=== PATIENT | female | born 1985 | race Caucasian/White ===

== ENCOUNTER 2018-05-24 05:37 | Emergency (ER) | payer OTHER, SELFPAY ==
[2018-05-24 05:37] VITALS: BP 155/103; PULSE 83; RESP 16; TEMP 36.4; O2SAT 98; BMI 41.8
[2018-05-24] MEDS: Ondansetron 4 MG/2 ML Vial IV (06:06)
[2018-05-24 06:12] LABS: Absolute Lymphocyte Count 4.92 X10^3/ul (0.83-4.51); Absolute Neutrophil Count 6.2 X10^3/uL (2.0-7.7); Basophil# 0.04 X10^3/uL; Basophil% 0.3 % (0-1); Eosinophils% 1.6 % (0-5); Hematocrit 39.7 % (37-47); Hemoglobin 12.9 g/dl (12.0-15.0); Lymphocyte # 4.92 X10^3/ul (4.0); Mean Corp Hgb Conc 32.5 g/gl (32-36); Mean Corpuscular Hgb 28.7 pg (27.0-32.0); Mean Corpuscular Volume 88.2 fL (81-99); Mean Platelet Vol. 10.2 fl (6.2-12.0); Monocyte# 0.87 X10^3/uL; Monocyte% 7.1 % (0-10); Neutrophil # 6.23 X10^3/uL (2.7-7.7); Neutrophil % 50.8 % (47-70); Platelet Count 329 K/mm3 (150-450); RBC Distribution Width CV 12.8 % (11.6-14.6); RBC Distribution Width SD 41.1 fl (35.1-43.9); White Blood Count 12.3 K/mm3 (4.4-11.0)
[2018-05-24 06:20] LABS: POSITIVE COUNT NO; POSITIVE DIFFERENTIAL NO; POSITIVE MORPHOLOGY NO
--- NOTE | 2018-05-24 06:32 | ED.DCSUM_ITS ---
- ER Visit Summary Date of Service: 05/24/18 Chief Complaint: Epigastric abdominal pain History of Present Illness: The patient is a 32 F past medical history of depression and gallstones. No prior abdominal surgeries. Has had prior upper and lower endoscopy. Patient states that since for the last 3-4 days she has had some epigastric abdominal pain. Associated with nausea and diarrhea. No vomiting. No fever. No abdominal trauma. No melena. Not specifically related any types of food. Nothing specifically makes it feel better or worse. Physical Examination: Young female no acute distress. Vital signs are stable and afebrile. H EENT exam is unremarkable. Neck nontender no lymphadenopathy. Lungs clear to auscultation bilaterally. Heart regular rhythm no murmur. Abdomen is soft. Nondistended. Normal bowel sounds. No signs of obstruction. Mildly tender in epigastric and right upper quadrant. No Bland sign. Right lower quadrants unremarkable. No hernias or masses. Moving all 4 extremities. Neurovascular intact. Back nontender. Neurologically awake alert without focal motor deficits. Test Results: White count elevated at 12.3. Normal H&H no bands. BMP normal. Liver enzymes normal. Lipase normal at 145. Emergency Department Course and Treatment: Patient with epigastric and right upper quadrant abdominal pain with a history of gallstones. This could be biliary colic. She will be treated with IV Zofran. Treatment Plan: Repeat exam at 06:36 abdomen is benign. Minimal tenderness. No peritoneal signs. No Bland sign. Patient is comfortable being discharged home to follow-up with Dr. Amador Zheng. Patient will be discharged to home with a prescription for Zofran for nausea as needed. Disposition: dc Impression: Acute abdominal pain of uncertain etiology History of gallstones This note was generated with [employer] dictation software. It may contain incorrect words, spelling, and punctuation that were not noted in review of the chart prior to signing ED Disposition - Plan for ED Patient: Chief Complaint: Abd Pain Referrals: Jackelyn Coffman MD [Primary Care Provider] -
[2018-05-24 06:33] LABS: AST(SGOT) 20 U/L (15-37); Alanine Aminotransfer ALT/SGPT 27 U/L (13-56); Albumin, Serum 3.2 g/dL (3.2-5.0); Alkaline Phosphatase 67 U/L (45-117); Anion Gap 9 (5-15); BUN 8 mg/dL (7-18); BUN/Creat Ratio 9.9 RATIO (10-20); Bilirubin, Direct 0.08 mg/dL (0.00-0.30); Calcium,Total 8.4 mg/dL (8.5-10.1); Chloride 107 mmol/L (98-107); Creatinine, Serum 0.81 mg/dL (0.55-1.02); EST Glomerular Filtration Rate 87 mL/min (>60); Est Glom Filt Rate - Afr Amer 106 mL/min (>60); Estimated Creatinine Clearance 101.51 ml/min; Globulin 4.4 g/dL (2.2-4.2); Glucose 97 mg/dL (74-106); Lipase 145 U/L (73-393); Protein, Total 7.6 g/dL (6.4-8.2); Sodium Level 142 mmol/L (136-145)
--- NOTE | 2018-05-24 06:40 | ED.DEP ---
ED Disposition - Plan for ED Patient: Disposition: Home or Assisted Living Chief Complaint: Abd Pain Instructions: ED Abdominal Pain Unkn Cause Prescriptions: Ondansetron [Zofran Odt] 8 mg PO Q8H PRN PRN #10 PRN Reason: Nausea Referrals: Heladio Zheng MD [STAFF PHYSICIAN] - As soon as possible Additional Instructions: Plenty fluids and rest. Zofran as needed for nausea. Call and follow-up with Dr. Amador Zheng for further evaluation and discussion to determine if you need your gallbladder taken out. Your gallbladder may or may not be the cause your symptoms.
[2018-05-24 06:49] VITALS: BP 145/86; PULSE 63; RESP 16; O2SAT 98
== END 2018-05-24 06:50 | disposition home or self-care (01) ==
PROVIDERS: Emergency Provider Emergency Medicine; Family Provider Internal Medicine; PCP Internal Medicine
DX: R10.13 Epigastric pain (principal); Z87.19 Personal history of other diseases of the digestive system; F32.9 Major depressive disorder, single episode, unspecified; Z79.899 Other long term (current) drug therapy; Z72.0 Tobacco use
CPT/HCPCS: 80048; 80076; 83690; 85025; 96374; 99283; A4216; J2405

== ENCOUNTER 2018-06-30 14:17 | Emergency (ER) | payer OTHER, SELFPAY ==
[2018-06-30 14:19] VITALS: BP 127/84; PULSE 98; RESP 18; TEMP 37; O2SAT 97; BMI 39.8
[2018-06-30] MEDS: Ketorolac 30 MG/ML Syringe IV (15:12)
[2018-06-30] MEDS: DiphenhydrAMINE 50 MG/ML Syringe IV (15:12)
--- NOTE | 2018-06-30 15:51 | ED.DCSUM_ITS ---
- ER Visit Summary Date of Service: 06/30/18 Chief Complaint: Headache History of Present Illness: The patient is a 32 F with frontal and occipital headache. This came on gradually over the past 4 days. Associated with nausea and vomiting. Worse with light. Tried ibuprofen and ice packs with minimal relief. No fevers. No neck pain. No weakness or numbness. No vision changes. No facial droop. No vertigo or unsteadiness. Physical Examination: Afebrile and vital signs unremarkable. Head and neck atraumatic. HEENT exam unremarkable. Neck nontender with good range of motion. No meningeal findings. Heart regular. Lungs clear. Abdomen soft. Renal nerves grossly intact. No focal lateralizing neurologic abnormalities. GCS 15. NIH 0. Test Results: None indicated Emergency Department Course and Treatment: Patient has no red flag symptoms. No indication for imaging. Risks of imaging were discussed, and the patient was in agreement with the plan. She was treated with fluids, Toradol, and Benadryl. She has an allergy to Phenergan and did not receive Compazine. On reevaluation, her pain is 4 out of 10. She would like to go home. Patient was advised to return for new or worsening symptoms or worsening pain. Otherwise, follow-up with primary care. Treatment Plan: Discharged and outpatient follow-up Disposition: Discharged Impression: 1. Acute cephalgia This note was generated with [employer] dictation software. It may contain incorrect words, spelling, and punctuation that were not noted in review of the chart prior to signing ED Disposition - Plan for ED Patient: Chief Complaint: Headache Referrals: Jackelyn Coffman MD [Primary Care Provider] -
--- NOTE | 2018-06-30 15:51 | ED.DEP ---
ED Disposition - Plan for ED Patient: Chief Complaint: Headache Instructions: ED Cephalgia Unspecified Referrals: Jackelyn Coffman MD [Primary Care Provider] -
[2018-06-30 15:56] VITALS: BP 110/64; PULSE 59; RESP 12; O2SAT 98
== END 2018-06-30 16:16 | disposition home or self-care (01) ==
PROVIDERS: Emergency Provider Emergency Medicine; Family Provider Internal Medicine; PCP Internal Medicine
DX: R51 Headache (principal); Z72.0 Tobacco use
CPT/HCPCS: 96374; 96375; 99283; J7050

== ENCOUNTER → 2018-07-02 09:04 | Outpatient (CLI) | payer OTHER, SELFPAY ==
[2018-07-02 09:19] LABS: Absolute Lymphocyte Count 4.73 X10^3/ul (0.83-4.51); Absolute Neutrophil Count 5.1 X10^3/uL (2.0-7.7); Basophil# 0.05 X10^3/uL; Basophil% 0.5 % (0-1); Eosinophil# 0.27 X10^3/uL; Eosinophils% 2.5 % (0-5); Hematocrit 40.8 % (37-47); Lymphocyte # 4.73 X10^3/ul (4.0); Lymphocyte % 43.5 % (19-41); Mean Corp Hgb Conc 31.9 g/gl (32-36); Mean Corpuscular Hgb 27.5 pg (27.0-32.0); Mean Corpuscular Volume 86.4 fL (81-99); Mean Platelet Vol. 10.4 fl (6.2-12.0); Monocyte# 0.75 X10^3/uL; Monocyte% 6.9 % (0-10); Neutrophil # 5.05 X10^3/uL (2.7-7.7); Neutrophil % 46.4 % (47-70); Platelet Count 330 K/mm3 (150-450); RBC Distribution Width CV 12.9 % (11.6-14.6); RBC Distribution Width SD 40.1 fl (35.1-43.9); Red Blood Count 4.72 M/mm3 (4.2-5.4); White Blood Count 10.9 K/mm3 (4.4-11.0)
[2018-07-02 09:20] LABS: POSITIVE COUNT NO; POSITIVE DIFFERENTIAL NO; POSITIVE MORPHOLOGY NO
[2018-07-02 09:29] LABS: ALB/GLOB Ratio 0.8 RATIO (0.9-2.4); AST(SGOT) 18 U/L (15-37); Alanine Aminotransfer ALT/SGPT 24 U/L (13-56); Albumin, Serum 3.3 g/dL (3.2-5.0); Alkaline Phosphatase 82 U/L (45-117); Anion Gap 7 (5-15); BUN 8 mg/dL (7-18); BUN/Creat Ratio 9.2 RATIO (10-20); Calcium,Total 8.6 mg/dL (8.5-10.1); Chloride 111 mmol/L (98-107); Creatinine, Serum 0.87 mg/dL (0.55-1.02); EST Glomerular Filtration Rate 81 mL/min (>60); Est Glom Filt Rate - Afr Amer 98 mL/min (>60); Globulin 4.1 g/dL (2.2-4.2); Glucose 94 mg/dL (74-106); Potassium 3.8 mmol/L (3.5-5.1); Protein, Total 7.4 g/dL (6.4-8.2); Sodium Level 142 mmol/L (136-145)
== END ==
PROVIDERS: Family Provider Internal Medicine; PCP Internal Medicine; Visit Provider Nurse Practitioner
DX: R10.9 Unspecified abdominal pain (principal); R11.0 Nausea; R19.7 Diarrhea, unspecified
CPT/HCPCS: 80053; 85025

== ENCOUNTER 2018-07-10 15:11 | Emergency (ER) | payer OTHER, SELFPAY ==
[2018-07-10 15:13] VITALS: BP 88/67; PULSE 112; RESP 20; TEMP 36.7; O2SAT 94; BMI 39.5
[2018-07-10 15:40] VITALS: BP 92/77
--- NOTE | 2018-07-10 15:44 | ED.VISSUMM ---
- ER Visit Summary Date of Service: 07/10/18 Chief Complaint: Twitching of her head and upper extremity 1-1/2 hours prior to presentation History of Present Illness: The patient is a 32 F who reports abdominal pain and aching all over and bifrontal and occipital headaches since cholecystectomy performed by Dr. Bueno. She was seen on June 30, [address] Wheat. She stated at that time the headache started 4 days prior to presentation. She states the headache is bilateral. It has burning discomfort. Headache is not positional. She denies rhinorrhea, congestion or postnasal drainage. She denies double vision, blurred vision or loss of vision. She denies decreased hearing, ringing in her ears or ear pain. She denies any trouble with speech or swallowing. She denies neck pain or neck stiffness. She denies any paresthesia, anesthesia or motor weakness. She does complain of abdominal pain since surgery as well as chest pain. Apparently nothing alleviates, exacerbates her precipitate her chest, abdominal pain or nausea. She denies any urologic symptoms. Patient reports onset of head twitching and upper extremity twitching during baby shower. She has had no prior history of any twitching. There is no history of seizures. Old records were reviewed. Physical Examination: Vital signs remarkable blood pressure 80/61 heart rate 112. On my exam she has a strong palpable PT and DP pulse. Patient had twitching and upper extremity twitching stops when she either uses that extremity or when she had to perform task i.e. looking up information on her smart phone. Her sister's boyfriend noted the absence of any movement when she is doing something. Head is atraumatic normocephalic. Pupils are equal round reactive. Extraocular muscles are intact. TMs are pearly white with landmarks noted. Nares patent with no drainage. Posterior pharynx without erythema or exudate. Uvula is midline. There is no dysphonia or dysphasia. Trachea is midline. There is no stridor with auscultation of the neck. Heart is regular without murmur, gallop or rub. S1 and S2 are normal. Lungs are clear to auscultation with good movement of air bilaterally. Abdomen is soft and nontender. There is no guarding or peritoneal findings. There is no palpable pulsatile mass. There is no abdominal bruit. Bland sign is negative. Negative Rovsing sign. There is no evidence of inguinal or umbilical hernia. Patient is alert and oriented ?3. Motor is 5 over 5. Sensory is intact. DTRs are symmetric with no clonus or Babinski sign. Cranial 2 through 12 are intact. Cerebellar testing is normal. Test Results: CT of the head reviewed by me interpreted radiologist as normal. White count slightly up at 11.8 with no shift. This is insignificant. Chloride is slightly elevated on BM pain and is insignificant. Emergency Department Course and Treatment: To evaluate patient's headache CT of the head was obtained looking for any evidence of intracranial bleed, mass-effect, edema etc. Electronic panel was obtained as well. Suspect functional cause of twitching. Treatment Plan: Patient and father were informed of results. They were informed in my professional medical opinion she has a conversion reaction. Father informed me that daughter was/her sister was diagnosed with same past December of this year. Disposition: Patient was discharged to home with father with instructions to contact counseling center for appointment Impression: Conversion reaction This note was generated with [employer] dictation software. It may contain incorrect words, spelling, and punctuation that were not noted in review of the chart prior to signing ED Disposition - Plan for ED Patient: Disposition: Home or Assisted Living Chief Complaint: General Illness Instructions: ED Conversion Disdr Conversion Reac Referrals: Jackelyn Coffman MD [Primary Care Provider] - Counseling,Center [GROUP OF PHYSICIANS] - 3-5 Days
[2018-07-10 16:14] LABS: Absolute Lymphocyte Count 2.94 X10^3/ul (0.83-4.51); Basophil# 0.03 X10^3/uL; Basophil% 0.3 % (0-1); Eosinophil# 0.14 X10^3/uL; Eosinophils% 1.2 % (0-5); Hematocrit 40.6 % (37-47); Hemoglobin 13.2 g/dl (12.0-15.0); Lymphocyte # 2.94 X10^3/ul (4.0); Lymphocyte % 24.8 % (19-41); Mean Corp Hgb Conc 32.5 g/gl (32-36); Mean Corpuscular Hgb 27.8 pg (27.0-32.0); Mean Corpuscular Volume 85.5 fL (81-99); Mean Platelet Vol. 10.2 fl (6.2-12.0); Monocyte# 0.73 X10^3/uL; Monocyte% 6.2 % (0-10); Neutrophil # 7.96 X10^3/uL (2.7-7.7); Neutrophil % 67.2 % (47-70); Platelet Count 284 K/mm3 (150-450); RBC Distribution Width CV 13.1 % (11.6-14.6); RBC Distribution Width SD 40.3 fl (35.1-43.9); Red Blood Count 4.75 M/mm3 (4.2-5.4); White Blood Count 11.8 K/mm3 (4.4-11.0)
[2018-07-10 16:15] LABS: POSITIVE COUNT NO; POSITIVE DIFFERENTIAL NO; POSITIVE MORPHOLOGY NO
[2018-07-10 16:20] LABS: Anion Gap 7 (5-15); BUN 9 mg/dL (7-18); BUN/Creat Ratio 9.6 RATIO (10-20); Calcium,Total 8.6 mg/dL (8.5-10.1); Chloride 108 mmol/L (98-107); Creatinine, Serum 0.93 mg/dL (0.55-1.02); EST Glomerular Filtration Rate 74 mL/min (>60); Est Glom Filt Rate - Afr Amer 90 mL/min (>60); Estimated Creatinine Clearance 88.42 ml/min; Glucose 93 mg/dL (74-106); Potassium 4.1 mmol/L (3.5-5.1); Sodium Level 140 mmol/L (136-145)
== END 2018-07-10 17:20 | disposition home or self-care (01) ==
PROVIDERS: Emergency Provider Emergency Medicine; Family Provider Internal Medicine; PCP Internal Medicine
DX: F44.9 Dissociative and conversion disorder, unspecified (principal); F32.9 Major depressive disorder, single episode, unspecified; E66.9 Obesity, unspecified; Z68.39 Body mass index [BMI] 39.0-39.9, adult
CPT/HCPCS: 70450; 80048; 85025; 99283; A4216

== ENCOUNTER → 2018-10-06 12:49 | Outpatient (CLI) | payer OTHER, SELFPAY ==
[2018-10-06 12:29] VITALS: BMI 42.3
--- NOTE | 2018-10-06 12:53 | RAD_ITS ---
STUDY: X-RAY - LEFT HAND REASON FOR EXAM: Female, 33 years old. Pain following a fall. TECHNIQUE: 3 view(s) of the hand. COMPARISON: None. FINDINGS: Nondisplaced transverse fracture of the distal radial metaphysis with overlying soft tissue swelling. Normal radiocarpal articulation. Normal distal radioulnar joint. Normal visualized carpal bones. Normal carpal articulations Normal carpometacarpal articulation of the thumb. Normal second through fifth carpometacarpal joints. Normal metacarpi. Normal metacarpophalangeal joint of the thumb. Normal interphalangeal joint of the thumb. Normal proximal and distal phalanges of the thumb. Normal metacarpophalangeal joints of the second through fifth fingers. Normal proximal and distal interphalangeal joints of the second through fifth fingers. Normal phalanges of the second through fifth fingers. Soft tissue swelling. RAD/Hand Min 3 Views IMPRESSION: Nondisplaced transverse fracture of the distal radial metaphysis with overlying soft tissue swelling. Electronically Signed: Rogerio Babb MD at 13:19 EST Tel [phone], Service support ,
--- NOTE | 2018-10-06 12:53 | RAD_ITS ---
STUDY: X-RAY - LEFT WRIST REASON FOR EXAM: Female, 33 years old. Pain following a fall. TECHNIQUE: 3 view(s) of the wrist were obtained. COMPARISON: None. FINDINGS: There is a nondisplaced transverse fracture of the distal radial metaphysis. Normal radiocarpal articulation. Normal distal radioulnar articulation. Normal carpal bones. Normal carpal articulations. Normal carpometacarpal articulation of the thumb. Normal second through fifth carpometacarpal articulations. Normal visualized metacarpal bones. Soft tissue swelling. RAD/Wrist min 3 Views IMPRESSION: Nondisplaced transverse fracture of the distal radial metaphysis with overlying soft tissue swelling. Electronically Signed: Rogeroi Babb MD at 13:18 EST Tel [phone], Service support ,
--- NOTE | 2018-10-06 12:53 | RAD_ITS ---
STUDY: X-RAY - LEFT ELBOW REASON FOR EXAM: Female, 33 years old. Pain following a fall. TECHNIQUE: 2 view(s) of the elbow. COMPARISON: None. FINDINGS: Normal visualized humerus, radius and ulna. Normal radiocapitellar and ulnotrochlear articulations. The soft tissue structures are unremarkable. RAD/Elbow 2 Views IMPRESSION: Normal x-ray examination of the elbow. Electronically Signed: Rogerio Babb MD at 13:20 EST Tel [phone], Service support ,
== END ==
PROVIDERS: Family Provider Internal Medicine; PCP Internal Medicine; Referring Provider Physician Assistant; Visit Provider Physician Assistant
DX: S52.592A Other fractures of lower end of left radius, initial encounter for closed fracture (principal); W19.XXXA Unspecified fall, initial encounter; M79.642 Pain in left hand; M25.522 Pain in left elbow
CPT/HCPCS: 73070; 73110; 73130

== ENCOUNTER → 2018-10-19 14:59 | Outpatient (CLI) | payer OTHER, SELFPAY ==
[2018-10-19 14:47] VITALS: BMI 41.8
--- NOTE | 2018-10-19 15:01 | RAD_ITS ---
STUDY: X-RAY - LEFT WRIST REASON FOR EXAM: Female, 33 years old. Fracture TECHNIQUE: 3 view(s) of the wrist were obtained. COMPARISON: October 06, 2018 FINDINGS: There is a nondisplaced transverse fracture of the distal radial metaphysis that is slightly less apparent than the prior examination. Normal visualized distal ulna. Normal radiocarpal articulation. Normal distal radioulnar articulation. Normal carpal bones. Normal carpal articulations. Normal carpometacarpal articulation of the thumb. Normal second through fifth carpometacarpal articulations. Normal visualized metacarpal bones. The soft tissue structures are unremarkable. RAD/Wrist min 3 Views IMPRESSION: Healing distal radial fracture. Electronically Signed: Morena Guo MD at 17:03 EST Tel , Service support ,
--- OUTSIDE RECORDS SUMMARY | 2018-12-15 07:11 | XMS RPT_ITS ---
:1985 Author Organization OHIP Support Name Relationship Address Phone GOLDIE MUSA Unavailable [address] + [place] [address] LENCHO, MEREDATH Unavailable [address] + [place] [address] METME Unavailable [address] + [place] [address] LENCHO, LES Unavailable [address] + [place] [address] LENCHO, MEREDATH Unavailable [address] + [place] [address] METME Unavailable [address] + [place] [address] LENCHO, LES Unavailable [address] + [place] [address] LENCHO, MEREDATH Unavailable [address] + [place] [address] METME Unavailable [address] + [place] [address] LENCHO, LES Unavailable [address] + [place] [address] LENCHO, MEREDATH Unavailable [address] + [place] [address] METME Unavailable [address] + [place] [address] LENCHO, LES Unavailable [address] + [place] [address] LENCHO, MEREDATH Unavailable [address] + [place] [address] METME Unavailable [address] + [place] [address] LENCHO, LES Unavailable [address] + [place] [address] LENCHO, MEREDATH Unavailable [address] + [place] [address] METME Unavailable [address] + [place] [address] LENCHO, LES Unavailable [address] + [place] [address] LENCHO, MEREDATH Unavailable [address] + [place] [address] METME Unavailable [address] + [place] [address] LENCHO, LES Unavailable [address] + [place] [address] LENCHO, MEREDATH Unavailable [address] + [place] [address] METME Unavailable [address] + [place] [address] LENCHO, LES Unavailable [address] + [place] [address] LENCHO, MEREDATH Unavailable [address] + [place] [address] METME Unavailable [address] + [place] [address] LENCHO, LES Unavailable [address] + [place] [address] LENCHO, MEREDATH Unavailable [address] + [place] [address] METME Unavailable [address] + [place] [address] LENCHO, LES Unavailable [address] + [place] [address] LENCHO, MEREDATH Unavailable [address] + [place] [address] METME Unavailable [address] + [place] [address] LENCHO, LES Unavailable [address] + [place] [address] LENCHO, MEREDATH Unavailable [address] + [place] [address] METME Unavailable [address] + [place] [address] Care Team Providers Name Role Phone SOLANGE BUENO Attending Unavailable BUENO, SOLANGE ACUÑA Attending Unavailable TALAMPAS, ARASELI D Referring Unavailable BUENO, SOLANGE ARIANNE Attending Unavailable TALAMPAS, ARASELI D Referring Unavailable OLDER, HAILEY (CORPORATE WELLNESS COORDINATOR) Attending Unavailable OLDER, HAILEY (CORPORATE WELLNESS COORDINATOR) Referring Unavailable OLDER, HAILEY (CORPORATE WELLNESS COORDINATOR) Attending Unavailable OLDER, HAILEY (CORPORATE WELLNESS COORDINATOR) Referring Unavailable OLDER, HAILEY (CORPORATE WELLNESS COORDINATOR) Referring Unavailable OLDER, HAILEY (CORPORATE WELLNESS COORDINATOR) Referring Unavailable BUENO, SOLANGE ORTIZE Attending Unavailable TALAMPAS, ARASELI D Referring Unavailable BUENO, SOLANGERamon ORTIZE Referring Unavailable BUENO, SOLANGE ACUÑA Referring Unavailable BUENO, SOLANGE ACUÑA Attending Unavailable BUENO, SOLANGE ORTIZE Referring Unavailable OLDER, HAILEY (CORPORATE WELLNESS COORDINATOR) Attending Unavailable OLDER, HAILEY (CORPORATE WELLNESS COORDINATOR) Attending Unavailable EUSEBIA, SIENA (PT) Attending Unavailable OLDER, HAILEY (CORPORATE WELLNESS COORDINATOR) Referring Unavailable EUSEBIA, SIENA (PT) Attending Unavailable OLDER, HAILEY (CORPORATE WELLNESS COORDINATOR) Referring Unavailable OLDER, HAILEY (CORPORATE WELLNESS COORDINATOR) Attending Unavailable TALAMPAS, ARASELI D Referring Unavailable HYLTON, AMY (CORPORATE WELLNESS COORDINATOR) Attending Unavailable OLDER, HAILEY (CORPORATE WELLNESS COORDINATOR) Attending Unavailable Tony Collins Attending Unavailable Wayt, Tony Referring Unavailable Talampas, Araseli Primary Care Unavailable WaytTony Attending Unavailable Talampas, Araseli Referring Unavailable Talampas, Araseli Primary Care Unavailable Dvaid Henry Attending Unavailable Talampas, Araseli Primary Care Unavailable Older, Hailey CORPORATE WELLNESS COORDINATOR Referring Unavailable Older, Hailey CORPORATE WELLNESS COORDINATOR Attending Unavailable Talampas, Araseli Primary Care Unavailable Zac Wheat Attending Unavailable Talampas, Araseli Primary Care Unavailable Celestino Berrios Attending Unavailable Maude Morrison Attending Unavailable Lurdes Elkins NP-C Referring Unavailable José Miguel Adhikari Attending Unavailable EdlesJosé Miguel Referring Unavailable Talampas, Araseli Primary Care Unavailable José Miguel Adhikari Attending Unavailable Talampas, Araseli Referring Unavailable WylesJosé Miguel Attending Unavailable Talampas, Araseli Referring Unavailable Wayt Tony Attending Unavailable Wayt, Tony Referring Unavailable Talampas, Araseli Primary Care Unavailable WaytTony Attending Unavailable Talampas, Araseli Referring Unavailable PROBLEMS PROBLEMS DATE TYPE CONDITION / CODE ATTENDING STATUS SOURCE 11/08/2018 Unknown S52.502A - Tony Collins Active [place] Unspecified fracture Community of the lower end of Hospital left radius, initial Repository encounter for closed fracture / S52.502A(ICD-10) 11/08/2018 Unknown S52.552D - Other Tony Collins Active [place] extraarticular Community fracture of lower Hospital end of left radius, Repository subsequent encounter for closed fracture with routine healing / S52.552D(ICD-10) 10/27/2018 Unknown S52.552A - Other Tony Collins Active [place] extraarticular Community fracture of lower Hospital end of left radius, Repository initial encounter for closed fracture / S52.552A(ICD-10) 10/29/2018 Unknown S52.502D - Prince, Active [place] Unspecified fracture [place] Community of the lower end of Hospital left radius, Repository subsequent encounter for closed fracture with routine healing / S52.502D(ICD-10) 10/29/2018 Unknown S46.912D - Strain of Prince Active [place] unspecified muscle, [place] Community fascia and tendon at Hospital shoulder and upper Repository arm level, left arm, subsequent encounter / S46.912D(ICD-10) 10/29/2018 Unknown S66.912D - Strain of Prince Active [place] unspecified muscle, [place] Community fascia and tendon at Hospital wrist and hand Repository level, left hand, subsequent encounter / S66.912D(ICD-10) 10/29/2018 Unknown M25.522 - Pain in ArJosé Miguel varner Active [place] left elbow / Community M25.522(ICD-10) Hospital Repository 10/29/2018 Unknown M79.642 - Pain in Zeynep, José Miguel Active [place] left hand / Community M79.642(ICD-10) Hospital Repository 10/29/2018 Unknown M25.532 - Pain in Zeynep, José Miguel Active [place] left wrist / Community M25.532(ICD-10) Hospital Repository 10/29/2018 Unknown S46.912A - Strain of José Miguel Adhikari Active [place] unspecified muscle, Community fascia and tendon at Hospital shoulder and upper Repository arm level, left arm, initial encounter / S46.912A(ICD-10) 10/29/2018 Unknown S66.912A - Strain of José Miguel Adhikari Active [place] unspecified muscle, Community fascia and tendon at Hospital wrist and hand Repository level, left hand, initial encounter / S66.912A(ICD-10) 07/19/2018 Active Generalized NA Active [place] abdominal pain / Clinic Main R10.84(ICD-10) [facility] Repository 07/06/2018 Active Upper abdominal NA Active [place] pain, unspecified / Clinic Main R10.10(ICD-10) [facility] Rep[facility] 07/02/2018 Active Unspecified NA Active [place] abdominal pain / Clinic Main R10.9(ICD-10) [facility] Rep[facility] 07/02/2018 Active Nausea / NA Active [place] R11.0(ICD-10) Clinic Main [facility] Rep[facility] 07/02/2018 Active Diarrhea, NA Active [place] unspecified / Clinic Main R19.7(ICD-10) [facility] Rep[facility] PROCEDURES PROCEDURES No Procedure Records FoundRESULTS RESULTS ORTHOPEDIC VISIT Observed: 11/09/2018 Status: F Source: [facility] REPORT 4:23 PM [facility] REPOSITORY [facility] [address] [place] [address] OFFICE VISIT Date of Service: 11/08/18 MR#: [id number] Acct: [id number] Name: ANDRAE MUSA Rep #: [id number] : 1985 Provider: PERFECTO Collins Age/Sex: 33/F Location[place] [facility] [place]: Signed with Addenda ADDENDUM by PERFECTO Collins on 11/09/18 at 1623 Addendum entered and electronically signed by PERFECTO Romo 11/09/18 16:23: Assessment AND Plan Problems 1. Other closed extra-articular fracture of distal end of left radius with routine healing, subsequent encounter S58.190N 2. Other fractures of lower end of left radius, initial encounter for closed fracture S58.706Y Plan - PERFECTO Romo Obtained Xrays of patient's left wrist. Personally reviewed Xrays. There is healing non-displaced fracture noted under cast material. There is no dislocation, or lucency noted. See chart for further details. This time patient appears to be healing very well. She has very minimal discomfort underneath the cast around the fracture area. Cast is clean and dry and intact without any breakdown. No evident skin abrasions or irritation. At this time she is only in the cast for 3 weeks and therefore we are going to remain in the cast for another week and a half at which time we will take her out repeat x-rays and likely place her in a cockup wrist splint while she regained strength and range of motion. She is to continue to monitor notify of any swelling in the fingers, increasing pain or if the cast, or other concerns or complaints in the meantime. This note was generated with Kenguruation software. It may contain incorrect words, spelling, and punctuation that were not noted in checking the note before signing. Orders Orders: 11/09/18 1623 <Electronically signed by Tony GROVE> Date Tony Collins cc: * Signed Intake Vital Signs11/08/18 Body Mass Index (BMI) 41.8 Intake Visit Reasons: LEFT ARM Is patient in pain?: Yes Allergies ondansetron [From Zofran] Allergy (Verified 11/08/18 14:42) Unknown promethazine HCl [From Phenergan] Allergy (Verified 11/08/18 14:42) Shortness of breath sertraline [From Zoloft] Adverse Reaction (Verified 11/08/18 14:42) Other Medications Norethindrone-Ethinyl Estrad [Nortrel 1-35 Tablet] 1 - 35 mg PO DAILY 05/21/16 [History Confirmed 10/06/18] Escitalopram Oxalate [Lexapro] 10 mg PO DAILY 05/24/18 [History Confirmed 10/06/18] propranolol ER 80 mg capsule,24 hr,extended release PO 30 Days #30 cap 10/06/18 [History Confirmed 10/06/18] PFSH Medical History Back pain (Acute) Diarrhea (Acute) Knee pain (Acute) Migraines (Acute) Shoulder pain (Acute) Stomach ulcer (Acute) Surgical History History of cholecystectomy (Acute) Social History Smoking Status: Current every day smoker alcohol intake: never HPI LEFT ARM: Details: ANDRAE MUSA is a 33 year old F here today for a followup on her left wrist fracture. Patient states that she is doing well. Her short arm cast is clean, dry and intact. Patient notes that she has pain if she uses her arm too much. Denies numbness, tingling or other associated symptoms. She is working currently with restrictions. ROS Const Reports system reviewed and no additional complaints, except as docu Eyes Reports system reviewed and no additional complaints, except as docu ENT Reports system reviewed and no additional complaints, except as docu Card Reports system reviewed and no additional complaints, except as docu Resp Reports system reviewed and no additional complaints, except as docu GI Reports system reviewed and no additional complaints, except as docu Reports system reviewed and no additional complaints, except as docu Skin/Breast Reports system reviewed and no additional complaints, except as docu Neuro Yes system reviewed and no additional complaints, except as docu Psych Reports system reviewed and no additional complaints, except as docu Endo Reports system reviewed and no additional complaints, except as docu Ortho Exam Right Wrist/Hand Skin/Wound: No Swelling Left Wrist/Hand Skin/Wound: No Swelling Left Wrist: No ROM-Extension 0-60, No ROM-Flexion 0-80 or No TTP Fracture site WRIST: Patient remains in a short arm cast. The cast is clean and dry and fully intact without any breakdown. She has no evident skin irritation or breakdown on the distal or proximal ends of the cast. She has full feeling and use of her fingers without any problems. Assessment AND Plan Problems 1. Other closed extra-articular fracture of distal end of left radius with routine healing, subsequent encounter S58.807V Plan Obtained Xrays of patient's left wrist. Personally reviewed Xrays. There is healing non-displaced fracture noted under cast material. There is no dislocation, or lucency noted. See chart for further details. This time patient appears to be healing very well. She has very minimal discomfort underneath the cast around the fracture area. Cast is clean and dry and intact without any breakdown. No evident skin abrasions or irritation. At this time she is only in the cast for 3 weeks and therefore we are going to remain in the cast for another week and a half at which time we will take her out repeat x-rays and likely place her in a cockup wrist splint while she regained strength and range of motion. She is to continue to monitor notify of any swelling in the fingers, increasing pain or if the cast, or other concerns or complaints in the meantime. This note was generated with Kenguruation software. It may contain incorrect words, spelling, and punctuation that were not noted in checking the note before signing. Orders Orders: Coding Level of Care Code Off vis,est,level 2 Diagnoses Other closed extra-articular fracture of distal end of left radius with routine healing, subsequent encounter S52.552D Encounter type: subsequent encounter Fracture type: closed Fracture morphology: other extra-articular Fracture healing: with routine healing 11/08/18 1510 <Electronically signed by Tony GROVE> Date Tony GROVE Cosigner Signature: Date (if applicable) CC: WRIST MIN 3 VIEWS Observed: 11/08/2018 Status: F Source: [place] 2:32 PM [facility] REPOSITORY [facility] Imaging Services [address] [place] [address] Wrist min 3 Views MR#: [id number] Acct: [id number] Name: ANDRAE MUSA Rep #: [id number] : 1985 F 33 From: Kush hSah MD PCP: Araseli Badillo MD Status: REG CLI Study: Wrist min 3 Views Date of Exam: 11/08/18 Exam# [id number] Ordering Dr: Tony Collins STUDY: X-RAY - LEFT WRIST REASON FOR EXAM: Female, 33 years old. 3 week follow-up TECHNIQUE: 3 view(s) of the wrist were obtained. COMPARISON: 10/19/2018 FINDINGS: Casting material obscures fine detail. Healing nondisplaced fracture of the distal radius, stable in alignment. No new osseous normality is detected. RAD/Wrist min 3 Views IMPRESSION: Stable alignment of healing nondisplaced distal radius fracture. Electronically Signed: Kush Shah MD at 15:00 EST Tel , Service support , CC: PERFECTO Collins; Araseli Badillo MD Consulting Services Associate: Signed ORTHOPEDIC VISIT Observed: 10/26/2018 Status: F Source: [place] REPORT 8:03 AM [facility] REPOSITORY [facility] [address] [place] [address] OFFICE VISIT Date of Service: 10/19/18 MR#: [id number] Acct: [id number] Name: ANDRAE MUSA Rep #: [id number] : 1985 Provider: PERFECTO Collins Age/Sex: 33/F Location[place] [facility] Status: Signed Intake Vital Signs10/19/18 Body Mass Index (BMI) 41.8 Intake Visit Reasons: LEFT ARM Is patient in pain?: Yes Allergies ondansetron [From Zofran] Allergy (Verified 10/19/18 14:47) Unknown promethazine HCl [From Phenergan] Allergy (Verified 10/19/18 14:47) Shortness of breath sertraline [From Zoloft] Adverse Reaction (Verified 10/19/18 14:47) Other Medications Norethindrone-Ethinyl Estrad [Nortrel 1-35 Tablet] 1 - 35 mg PO DAILY 05/21/16 [History Confirmed 10/06/18] Escitalopram Oxalate [Lexapro] 10 mg PO DAILY 05/24/18 [History Confirmed 10/06/18] propranolol ER 80 mg capsule,24 hr,extended release PO 30 Days #30 cap 10/06/18 [History Confirmed 10/06/18] PFSH Medical History Back pain (Acute) Diarrhea (Acute) Knee pain (Acute) Migraines (Acute) Shoulder pain (Acute) Stomach ulcer (Acute) Surgical History History of cholecystectomy (Acute) Social History Smoking Status: Current every day smoker alcohol intake: never HPI LEFT ARM: Details: ANDRAE MUSA is a 33 year old F here today for left wrist. Patient notes that she fell backwards and tried to catch herself, landing on an outstretched arm. Her injury was on 10/06/18. She states that she had significant pain and [facility] They did xrays which showed a fracture. Patient was put into a splint which she has been wearing at all times. Patient notes that her pain comes and goes. Her swelling has decreased. She takes ibuprofen and tylenol for pain. Patient is able to move her fingers with no pain. Denies numbness, tingling or other associated symptoms. She is working with restrictions. ROS Const Reports system reviewed and no additional complaints, except as docu Eyes Reports system reviewed and no additional complaints, except as docu ENT Reports system reviewed and no additional complaints, except as docu Card Reports system reviewed and no additional complaints, except as docu Resp Reports system reviewed and no additional complaints, except as docu GI Reports system reviewed and no additional complaints, except as docu Reports system reviewed and no additional complaints, except as docu Musc Reports joint pain Skin/Breast Reports system reviewed and no additional complaints, except as docu Neuro Yes system reviewed and no additional complaints, except as docu Psych Reports system reviewed and no additional complaints, except as docu Endo Reports system reviewed and no additional complaints, except as docu Ortho Exam Right Wrist/Hand Skin/Wound: Yes Swelling, No Ecchymosis Left Wrist/Hand Skin/Wound: Yes Swelling, No Ecchymosis Contralateral Normal: Yes Left Wrist: Yes TTP Fracture site; no ROM-Extension 0-60, no ROM-Flexion 0-80, no Snuffbox tenderness or no Durken's Test Sensation: Radial: I, Ulnar: I, Median: I WRIST: Patient has mild generalized swelling about the distal radius/wrist area. She has decreased motion due to pain and stiffness. She has tenderness at the distal radius which is the site of fracture. She is neurovascularly intact. Assessment AND Plan Problems 1. Other closed extra-articular fracture of distal end of left radius, initial encounter S52.167R Plan Obtained Xrays of patient's left wrist. Personally reviewed Xrays. There is an evident non-displaced distal radius fracture., There is no dislocation, or lucency noted. See chart for further details. Anatomy of the wrist as well as the pathophysiology of her injury. X-rays show nondisplaced fracture that is extra-articular. At this time we are going to place patient in a short arm cast. We will recheck in 1-2 weeks. She can notify the office sooner with any increasing pains, numbness or tingling in the hand, or discolorations in the fingers. She is to try and elevate the hand today a months as possible. Notify the office of any further complaints. Orders Orders: Plan Detail Follow Up 1 Week Coding Level of Care Code Off vis,new,level 3 Diagnoses Other closed extra-articular fracture of distal end of left radius, initial encounter S52.552A Encounter type: initial encounter Fracture type: closed Fracture morphology: other extra-articular 10/26/18 0803 <Electronically signed by Tony GROVE> Date Tony GROVE Cosigner Signature: Date (if applicable) CC: PROGRESS Observed: 10/21/2018 Status: COMPLETED Source: [place] 2:47 PM [facility] REPOSITORY O ID: [id number] Author: Hailey (Security Expert) Older Service: (none) Author Type: Nurse Practitioner Type: Progress Notes Filed: 10/21/2018 3:03 PM Note Text: CC vomiting and diarrhea HPI Andrae Musa is a 33 year old female who presents with diarrhea and vomiting. Initially started with sore throat and diarrhea 3 days ago, this morning nausea/vomiting started. Diarrhea is described as watery with urgency. 6 to 8 stools/day on average. Associated with decreased appetite, nausea, vomiting, fatigue, chills. Continues to have sore throat, nasal congestion, runny nose. Sick contacts: Yes, a few family members have had similar symptoms Denies burping, abdominal pain and bloating. Denies blood in stool, recent foreign travel, recent camping and recent antibiotic usage Treatments: Imodium x 2 to 3 days prior to urgent care yesterday, did not help. Pushing fluids. ROS General: denies dizziness, lightheadedness, weight loss, fever, chills, headaches, night sweats, syncope CV: denies rapid heart rate, edema Resp: denies SOB : denies dark/concentrated urine or decreased urine output PAST MEDICAL HISTORY Diagnosis Date - Abdominal pain, left upper quadrant 08/08/2011 - Depressive disorder, not elsewhere classified - GERD (gastroesophageal reflux disease) - Irritable bowel syndrome - Obesity - Tobacco abuse PAST SURGICAL HISTORY Procedure Laterality Date - COLONOSCOP W/ OR W/O BRSH SPEC 08/01/15 Colonoscopy - EGD W/O BRSH SPECIMEN W/BX 08/11/11 patchy duodenitis - EGD W/O BRSH SPECIMEN W/BX 07/14/12 gastritis and esophagitis - LAPAROSCOPIC CHOLEYCYSTECTOMY 06/08/2018 Cholecystectomy, lap ALLERGIES Phenergan [Promethazine]; Zofran [Ondansetron Hcl (Pf)]; Zoloft [Sertraline Hcl] MEDICATIONS Norethindrone-Eth Estradiol (NECON , 28,) 1-35 mg-mcg per tablet Take 1 tablet by mouth once daily. mupirocin (BACTROBAN) 2 % ointment Apply 1 application to affected area three times daily. Propranolol HCl (INDERAL XL) 80 mg 24 hr capsule Take 1 capsule by mouth daily at bedtime. meloxicam (MOBIC) 15 mg tablet Take 1 tablet by mouth once daily. Take with food. dicyclomine (BENTYL) 10 mg capsule Take 1 capsule by mouth before meals and at bedtime. As needed escitalopram oxalate (LEXAPRO) 10 mg tablet Take 10 mg by mouth once daily. ibuprofen (MOTRIN) 200 mg tablet Take 200 mg by mouth every 6 hours as needed. acetaminophen (TYLENOL) 325 mg tablet Take 650 mg by mouth every 6 hours as needed. ranitidine (ZANTAC) 150 mg tablet Take 150 mg by mouth as needed. FAMILY HISTORY Problem Relation Age of Onset - Diabetes Father - other (encephalopathy) Sister - Diabetes Maternal Grandmother - other (Other) Maternal Grandfather non-alcoholic serosis of liver (christine) - Diabetes Paternal Grandmother - other (brain tumor) Sister benign - other (ulcerative colitis) Sister Social History Substance Use Topics - Smoking status: Current Every Day Smoker Packs/day: 1.00 Years: 12.00 Types: Cigarettes - Smokeless tobacco: Never Used Comment: Currently using patch but intermittent smoking - Alcohol use Yes Comment: usually 2-3 times a month PHYSICAL EXAM BP 120/60 Pulse 97 Temp 36.5 ?C (97.7 ?F) (Temporal Artery) Resp 16 Wt 122.9 kg (271 lb) SpO2 98% BMI 42.04 kg/m? General Appearance: well appearing, in no acute distress, alert Skin: Skin color, texture, turgor normal for age; Oropharynx: moist Lungs: lungs clear to auscultation. No wheezing, rhonchi, rales Heart: RRR without murmur, gallop, or rubs. No ectopy Abdomen: Abdomen soft, non-tender. Bowel sounds normal. No masses, organomegaly Ext: no edema in LE bilaterally, good distal pulses ASSESSMENT/PLAN: 1. Viral gastroenteritis - ICD9: 008.8, ICD10: A08.4 - Symptoms consistent with viral gastroenteritis - No alarm symptoms or exam findings - See patient instructions on treatment including diet, medications and red flag symptoms - Follow-up in office on Thursday if no improvement or go to ER for signs of dehydration, significant bleeding, increasing or significant abdominal pain or persistent diarrhea Prescription instructions reviewed with patient as applicable. Potential red flag symptoms discussed with the patient. Reviewed appropriate action plan to take if red flag symptoms occur. Patient agreeable to treatment plan Hailey Ordaz APRN.CNP CNOV Observed: 10/21/2018 Status: COMPLETED Source: [place] 2:40 PM [facility] REPOSITORY Office Visit (INTMWS) ANDRAE MUSA ([id number]) 1985 F Date Time Provider Department 10/21/18 2:40 PM HAILEY ORDAZ ([place]) INTMWS During your visit today, we recorded the following information about you: Temperature Pulse Respiration Blood pressure 97.7 degrees 97/minute 16/minute 120/60 Weight 122.9 kg Hailey Ordaz APRN.CNP 10/21/2018 3:03 PM Signed CC vomiting and diarrhea HPI Andrae Musa is a 33 year old female who presents with diarrhea and vomiting. Initially started with sore throat and diarrhea 3 days ago, this morning nausea/vomiting started. Diarrhea is described as watery with urgency. 6 to 8 stools/day on average. Associated with decreased appetite, nausea, vomiting, fatigue, chills. Continues to have sore throat, nasal congestion, runny nose. Sick contacts: Yes, a few family members have had similar symptoms Denies burping, abdominal pain and bloating. Denies blood in stool, recent foreign travel, recent camping and recent antibiotic usage Treatments: Imodium x 2 to 3 days prior to urgent care yesterday, did not help. Pushing fluids. ROS General: denies dizziness, lightheadedness, weight loss, fever, chills, headaches, night sweats, syncope CV: denies rapid heart rate, edema Resp: denies SOB : denies dark/concentrated urine or decreased urine output PAST MEDICAL HISTORY Diagnosis Date - Abdominal pain, left upper quadrant 08/08/2011 - Depressive disorder, not elsewhere classified - GERD (gastroesophageal reflux disease) - Irritable bowel syndrome - Obesity - Tobacco abuse PAST SURGICAL HISTORY Procedure Laterality Date - COLONOSCOP W/ OR W/O BRSH SPEC 08/01/15 Colonoscopy - EGD W/O BRSH SPECIMEN W/BX 08/11/11 patchy duodenitis - EGD W/O BRSH SPECIMEN W/BX 07/14/12 gastritis and esophagitis - LAPAROSCOPIC CHOLEYCYSTECTOMY 06/08/2018 Cholecystectomy, lap ALLERGIES Phenergan [Promethazine]; Zofran [Ondansetron Hcl (Pf)]; Zoloft [Sertraline Hcl] MEDICATIONS Norethindrone-Eth Estradiol (NECON , ,) 1-35 mg-mcg per tablet Take 1 tablet by mouth once daily. mupirocin (BACTROBAN) 2 % ointment Apply 1 application to affected area three times daily. Propranolol HCl (INDERAL XL) 80 mg 24 hr capsule Take 1 capsule by mouth daily at bedtime. meloxicam (MOBIC) 15 mg tablet Take 1 tablet by mouth once daily. Take with food. dicyclomine (BENTYL) 10 mg capsule Take 1 capsule by mouth before meals and at bedtime. As needed escitalopram oxalate (LEXAPRO) 10 mg tablet Take 10 mg by mouth once daily. ibuprofen (MOTRIN) 200 mg tablet Take 200 mg by mouth every 6 hours as needed. acetaminophen (TYLENOL) 325 mg tablet Take 650 mg by mouth every 6 hours as needed. ranitidine (ZANTAC) 150 mg tablet Take 150 mg by mouth as needed. FAMILY HISTORY Problem Relation Age of Onset - Diabetes Father - other (encephalopathy) Sister - Diabetes Maternal Grandmother - other (Other) Maternal Grandfather non-alcoholic serosis of liver (christine) - Diabetes Paternal Grandmother - other (brain tumor) Sister benign - other (ulcerative colitis) Sister Social History Substance Use Topics - Smoking status: Current Every Day Smoker Packs/day: 1.00 Years: 12.00 Types: Cigarettes - Smokeless tobacco: Never Used Comment: Currently using patch but intermittent smoking - Alcohol use Yes Comment: usually 2-3 times a month PHYSICAL EXAM BP 120/60 Pulse 97 Temp 36.5 ?C (97.7 ?F) (Temporal Artery) Resp 16 Wt 122.9 kg (271 lb) SpO2 98% BMI 42.04 kg/m? General Appearance: well appearing, in no acute distress, alert Skin: Skin color, texture, turgor normal for age; Oropharynx: moist Lungs: lungs clear to auscultation. No wheezing, rhonchi, rales Heart: RRR without murmur, gallop, or rubs. No ectopy Abdomen: Abdomen soft, non-tender. Bowel sounds normal. No masses, organomegaly Ext: no edema in LE bilaterally, good distal pulses ASSESSMENT/PLAN: 1. Viral gastroenteritis - ICD9: 008.8, ICD10: A08.4 - Symptoms consistent with viral gastroenteritis - No alarm symptoms or exam findings - See patient instructions on treatment including diet, medications and red flag symptoms - Follow-up in office on Thursday if no improvement or go to ER for signs of dehydration, significant bleeding, increasing or significant abdominal pain or persistent diarrhea Prescription instructions reviewed with patient as applicable. Potential red flag symptoms discussed with the patient. Reviewed appropriate action plan to take if red flag symptoms occur. Patient agreeable to treatment plan SUSIE Castro APRN.CNP 10/21/2018 2:55 PM Signed GASTROENTERITIS Your exam shows you have gastroenteritis, a common illness. Symptoms can include nausea, vomiting, stomach cramps, diarrhea, and a slight fever. Viral gastroenteritis, usually the most common form clears up in 2-3 days with bed rest and a clear liquid diet. If you are not vomiting, you can start on small sips of water or Pedialyte every 20-30 minutes; gradually increase this to 1-2 cups every hour as tolerated. Try crackers and dry toast as your symptoms improve. If you tolerate for 24 hours can increase diet to potatoes; rice; noodles; ripe bananas; applesauce; smooth peanut butter; white bread; chicken or turkey without the skin; lean ground beef; fish. Stay away from milk and dairy products, alcohol, and drugs that upset your stomach for the next week. Medications ? Take two tablespoons of Kaopectate or two tablespoons of Pepto-Bismol after each loose stool. Do not take more than eight doses. ? If Kaopectate does not help in 12 hours, take two tablets of Imodium after each loose stool. Do not take more than eight tablets in 24 hours. ? Call office on Thursday if no improvement in symptoms. Call your doctor or the emergency department if you have: persistent vomiting, bloody stools, dehydration, fainting, high fever, increased pain or pain in the abdomen on the right side. Viral gastroenteritis is hard to tell from food poisoning. If other members of your family also become ill, check with your doctor or the health department. Allergies As of Date: 10/21/2018 Noted Allergy Reaction PHENERGAN (PROMETHAZINE) 07/07/2012 12 - Shortness of Breath Comments: Dizziness and lightheadness ZOFRAN (ONDANSETRON HCL (PF)) 07/22/2018 14 - Other: See Comments Comments: shaking ZOLOFT (SERTRALINE HCL) 06/18/2017 14 - Other: See Comments Comments: ESPANA's and dizziness Date Reviewed: 10/21/2018 Reviewed by: Gale Magallon Mobile Lounge Driver Or Operator - Fully Assessed Primary Visit Diagnosis:Viral gastroenteritis [A08.4] Prescriptions as of 10/21/2018 Sig: NORETHINDRONE-ETHINYL ESTRADI* Take 1 tablet by mouth once d* MUPIROCIN 2 % TOPICAL OINTMENT Apply 1 application to affect* PROPRANOLOL XL 80 MG CAPSULE,* Take 1 capsule by mouth daily* MELOXICAM 15 MG TABLET Take 1 tablet by mouth once d* DICYCLOMINE 10 MG CAPSULE Take 1 capsule by mouth befor* ESCITALOPRAM 10 MG TABLET Take 10 mg by mouth once gaudencio* IBUPROFEN 200 MG TABLET Take 200 mg by mouth every 6 * ACETAMINOPHEN 325 MG TABLET Take 650 mg by mouth every 6 * RANITIDINE 150 MG TABLET Take 150 mg by mouth as neede* Problem List As Of Date 10/21/2018 Noted Resolved IRRITABLE COLON [K58.9] Depressive disorder [F32.9] More... Dysmenorrhea [N94.6] INVALID FOR*09/22/2017 Tobacco use disorder [F17.200] INVALID FOR* GERD (gastroesophageal reflux disease) [K21.9] INVALID FOR* Diarrhea [R19.7] INVALID FOR*08/01/2015 Abnormal uterine bleeding [N93.9] INVALID FOR*09/22/2017 RUQ pain [R10.11] INVALID FOR* More... Obesity, Class III, BMI >= 40 [E66.01] INVALID FOR* Chronic tension-type headache, intractable [G44*INVALID FOR* Low back pain [M54.5] INVALID FOR* Other instructions from your clinician: GASTROENTERITIS Your exam shows you have gastroenteritis, a common illness. Symptoms can include nausea, vomiting, stomach cramps, diarrhea, and a slight fever. Viral gastroenteritis, usually the most common form clears up in 2-3 days with bed rest and a clear liquid diet. If you are not vomiting, you can start on small sips of water or Pedialyte every 20-30 minutes; gradually increase this to 1-2 cups every hour as tolerated. Try crackers and dry toast as your symptoms improve. If you tolerate for 24 hours can increase diet to potatoes; rice; noodles; ripe bananas; applesauce; smooth peanut butter; white bread; chicken or turkey without the skin; lean ground beef; fish. Stay away from milk and dairy products, alcohol, and drugs that upset your stomach for the next week. Medications ? Take two tablespoons of Kaopectate or two tablespoons of Pepto-Bismol after each loose stool. Do not take more than eight doses. ? If Kaopectate does not help in 12 hours, take two tablets of Imodium after each loose stool. Do not take more than eight tablets in 24 hours. ? Call office on Thursday if no improvement in symptoms. Call your doctor or the emergency department if you have: persistent vomiting, bloody stools, dehydration, fainting, high fever, increased pain or pain in the abdomen on the right side. Viral gastroenteritis is hard to tell from food poisoning. If other members of your family also become ill, check with your doctor or the health department. Letter Text Department of Internal Medicine [address] [id number] 10/21/2018 Andrae Musa [facility]# [id number] [address] [id number] TO WHOM IT MAY CONCERN: This is to certify that Ms. Andrae Musa has been under my care for illness and was unable to work 10/21/18 Sincerely yours, Hailey Ordaz APRN.CORPORATE WELLNESS COORDINATOR Encounter Status:Closed by HAILEY ORDAZ CNP on 10/21/18 GROUP A STREP BY Collected: 10/20/2018 Status: F Source: [facility] PCR 9:00 PM [facility] REPOSITORY TYPE CODE TESTS RESULT OUT OF REFERENCE UNITS RANGE LAB GASSRC Throat Swab GAS Specimen Source LAB PCRGAS Negative for Group A Strep Group A PCR Streptococcus by PCR. Result Comment: This test was developed and its performance characteristics determined by [facility]'s Edilson Moreno [facility] [place] ([facility]). It has not been cleared or approved by the FDA. -[facility] is regulated under CLIA as qualified to perform high-complexity testing. This test is used for clinical purposes. It should not be regarded as inv estigational or for research. Performed By: #### GASPCR #### [facility] [address] [place], [place] [address] PROGRESS Observed: 10/20/2018 Status: COMPLETED Source: [facility] 8:20 PM [facility] REPOSITORY HNO ID: [id number] Author: Fred Galo (Matty Bauer Service: (none) Author Type: Nurse Practitioner Type: Progress Notes Filed: 10/20/2018 8:30 PM Note Text: Subjective HPI Patient presents with: diarrhea: x 3 days, 6-8x/day PMH-IBS, but does state ill contacts with GI symptoms Imodium otc with minimal relief. ST x today Denies any otc treatment for symptoms. Review of Systems Constitutional: Negative for chills, fever and malaise/fatigue. HENT: Positive for congestion and sore throat. Negative for ear pain. Eyes: Negative for discharge and redness. Respiratory: Negative for cough. Gastrointestinal: Positive for diarrhea. Negative for abdominal pain, blood in stool, melena, nausea and vomiting. Neurological: Negative for headaches. PAST MEDICAL HISTORY Diagnosis Date - Abdominal pain, left upper quadrant 08/08/2011 - Depressive disorder, not elsewhere classified - GERD (gastroesophageal reflux disease) - Irritable bowel syndrome - Obesity - Tobacco abuse PAST SURGICAL HISTORY Procedure Laterality Date - COLONOSCOP W/ OR W/O BRSH SPEC 08/01/15 Colonoscopy - EGD W/O BRSH SPECIMEN W/BX 08/11/11 patchy duodenitis - EGD W/O BRSH SPECIMEN W/BX 07/14/12 gastritis and esophagitis - LAPAROSCOPIC CHOLEYCYSTECTOMY 06/08/2018 Cholecystectomy, lap ALLERGIES Phenergan [Promethazine]; Zofran [Ondansetron Hcl (Pf)]; Zoloft [Sertraline Hcl] MEDICATIONS Norethindrone-Eth Estradiol (NECON , 28,) 1-35 mg-mcg per tablet Take 1 tablet by mouth once daily. mupirocin (BACTROBAN) 2 % ointment Apply 1 application to affected area three times daily. Propranolol HCl (INDERAL XL) 80 mg 24 hr capsule Take 1 capsule by mouth daily at bedtime. meloxicam (MOBIC) 15 mg tablet Take 1 tablet by mouth once daily. Take with food. dicyclomine (BENTYL) 10 mg capsule Take 1 capsule by mouth before meals and at bedtime. As needed escitalopram oxalate (LEXAPRO) 10 mg tablet Take 10 mg by mouth once daily. ibuprofen (MOTRIN) 200 mg tablet Take 200 mg by mouth every 6 hours as needed. acetaminophen (TYLENOL) 325 mg tablet Take 650 mg by mouth every 6 hours as needed. ranitidine (ZANTAC) 150 mg tablet Take 150 mg by mouth as needed. FAMILY HISTORY Problem Relation Age of Onset - Diabetes Father - other (encephalopathy) Sister - Diabetes Maternal Grandmother - other (Other) Maternal Grandfather non-alcoholic serosis of liver (christine) - Diabetes Paternal Grandmother - other (brain tumor) Sister benign - other (ulcerative colitis) Sister Social History Substance Use Topics - Smoking status: Current Every Day Smoker Packs/day: 1.00 Years: 12.00 Types: Cigarettes - Smokeless tobacco: Never Used Comment: Currently using patch but intermittent smoking - Alcohol use Yes Comment: usually 2-3 times a month Objective Physical Exam Constitutional: She is well-developed, well-nourished, and in no distress. HENT: Head: Normocephalic. Right Ear: Tympanic membrane, external ear and ear canal normal. Left Ear: Tympanic membrane, external ear and ear canal normal. Nose: Nose normal. Right sinus exhibits no maxillary sinus tenderness and no frontal sinus tenderness. Left sinus exhibits no maxillary sinus tenderness and no frontal sinus tenderness. Mouth/Throat: Posterior oropharyngeal erythema (PND) present. Eyes: Conjunctivae are normal. Neck: Normal range of motion. Neck supple. Cardiovascular: Normal rate, regular rhythm and normal heart sounds. Pulmonary/Chest: Effort normal and breath sounds normal. No respiratory distress. She has no wheezes. Abdominal: Soft. She exhibits no distension. There is no tenderness. Lymphadenopathy: She has no cervical adenopathy. Skin: Skin is warm and dry. No rash noted. Nursing note and vitals reviewed. ASSESSMENT/PLAN: 1. Sore throat - ICD9: 462, ICD10: J02.9 - suspect viral - Rapid Strep negative in the office today and Throat culture pending - Discussed supportive care treatment with fluids, rest and analgesia. - The patient may also use warm salt water gargles, throat lozenges and/or OTC throat spray as needed. - The patient should follow up in 3-5 days if symptoms persist or worsen - Call back if drooling, increased temperature, symptoms of dehydration and/or still sick in one week - RAPID STREP TEST B/O - GROUP A STREPTOCOCCUS BY PCR 2. Diarrhea, unspecified type - ICD9: 787.91, ICD10: R19.7 -suspected viral vs IBS -supportive care, rest, electrolyte replacement, analgesics PRN -Probiotic otc recommended -F/u with pcp in 3-5 days or sooner if symptoms are not improving or worsening Prescription instructions reviewed with patient as applicable. Patient advised if symptoms do not improve or if symptoms worsen sooner, to contact their primary care physician. Potential red flag symptoms discussed with the patient. Reviewed appropriate action plan to take if red flag symptoms occur. Patient agreeable to treatment plan. Fred Bauer APRN.CORPORATE WELLNESS COORDINATOR CNOV Observed: 10/20/2018 Status: COMPLETED Source: [facility] 8:00 PM [facility] REPOSITORY Office Visit (WSTR) ANDRAE MUSA ([id number]) 1985 F Date Time Provider Department 10/20/18 8:00 PM FRED BAUER (EMERGENCY ROOM PHYSICIAN ASSISTANT) [place] During your visit today, we recorded the following information about you: Temperature Pulse Respiration Blood pressure 98.2 degrees 99/minute 16/minute 132/82 Weight 121.5 kg Fred Bauer APRN.CNP 10/20/2018 8:30 PM Signed Subjective HPI Patient presents with: diarrhea: x 3 days, 6-8x/day PMH-IBS, but does state ill contacts with GI symptoms Imodium otc with minimal relief. ST x today Denies any otc treatment for symptoms. Review of Systems Constitutional: Negative for chills, fever and malaise/fatigue. HENT: Positive for congestion and sore throat. Negative for ear pain. Eyes: Negative for discharge and redness. Respiratory: Negative for cough. Gastrointestinal: Positive for diarrhea. Negative for abdominal pain, blood in stool, melena, nausea and vomiting. Neurological: Negative for headaches. PAST MEDICAL HISTORY Diagnosis Date - Abdominal pain, left upper quadrant 08/08/2011 - Depressive disorder, not elsewhere classified - GERD (gastroesophageal reflux disease) - Irritable bowel syndrome - Obesity - Tobacco abuse PAST SURGICAL HISTORY Procedure Laterality Date - COLONOSCOP W/ OR W/O BRSH SPEC 08/01/15 Colonoscopy - EGD W/O BRSH SPECIMEN W/BX 08/11/11 patchy duodenitis - EGD W/O BRSH SPECIMEN W/BX 07/14/12 gastritis and esophagitis - LAPAROSCOPIC CHOLEYCYSTECTOMY 06/08/2018 Cholecystectomy, lap ALLERGIES Phenergan [Promethazine]; Zofran [Ondansetron Hcl (Pf)]; Zoloft [Sertraline Hcl] MEDICATIONS Norethindrone-Eth Estradiol (NECON , 28,) 1-35 mg-mcg per tablet Take 1 tablet by mouth once daily. mupirocin (BACTROBAN) 2 % ointment Apply 1 application to affected area three times daily. Propranolol HCl (INDERAL XL) 80 mg 24 hr capsule Take 1 capsule by mouth daily at bedtime. meloxicam (MOBIC) 15 mg tablet Take 1 tablet by mouth once daily. Take with food. dicyclomine (BENTYL) 10 mg capsule Take 1 capsule by mouth before meals and at bedtime. As needed escitalopram oxalate (LEXAPRO) 10 mg tablet Take 10 mg by mouth once daily. ibuprofen (MOTRIN) 200 mg tablet Take 200 mg by mouth every 6 hours as needed. acetaminophen (TYLENOL) 325 mg tablet Take 650 mg by mouth every 6 hours as needed. ranitidine (ZANTAC) 150 mg tablet Take 150 mg by mouth as needed. FAMILY HISTORY Problem Relation Age of Onset - Diabetes Father - other (encephalopathy) Sister - Diabetes Maternal Grandmother - other (Other) Maternal Grandfather non-alcoholic serosis of liver (christine) - Diabetes Paternal Grandmother - other (brain tumor) Sister benign - other (ulcerative colitis) Sister Social History Substance Use Topics - Smoking status: Current Every Day Smoker Packs/day: 1.00 Years: 12.00 Types: Cigarettes - Smokeless tobacco: Never Used Comment: Currently using patch but intermittent smoking - Alcohol use Yes Comment: usually 2-3 times a month Objective Physical Exam Constitutional: She is well-developed, well-nourished, and in no distress. HENT: Head: Normocephalic. Right Ear: Tympanic membrane, external ear and ear canal normal. Left Ear: Tympanic membrane, external ear and ear canal normal. Nose: Nose normal. Right sinus exhibits no maxillary sinus tenderness and no frontal sinus tenderness. Left sinus exhibits no maxillary sinus tenderness and no frontal sinus tenderness. Mouth/Throat: Posterior oropharyngeal erythema (PND) present. Eyes: Conjunctivae are normal. Neck: Normal range of motion. Neck supple. Cardiovascular: Normal rate, regular rhythm and normal heart sounds. Pulmonary/Chest: Effort normal and breath sounds normal. No respiratory distress. She has no wheezes. Abdominal: Soft. She exhibits no distension. There is no tenderness. Lymphadenopathy: She has no cervical adenopathy. Skin: Skin is warm and dry. No rash noted. Nursing note and vitals reviewed. ASSESSMENT/PLAN: 1. Sore throat - ICD9: 462, ICD10: J02.9 - suspect viral - Rapid Strep negative in the office today and Throat culture pending - Discussed supportive care treatment with fluids, rest and analgesia. - The patient may also use warm salt water gargles, throat lozenges and/or OTC throat spray as needed. - The patient should follow up in 3-5 days if symptoms persist or worsen - Call back if drooling, increased temperature, symptoms of dehydration and/or still sick in one week - RAPID STREP TEST B/O - GROUP A STREPTOCOCCUS BY PCR 2. Diarrhea, unspecified type - ICD9: 787.91, ICD10: R19.7 -suspected viral vs IBS -supportive care, rest, electrolyte replacement, analgesics PRN -Probiotic otc recommended -F/u with pcp in 3-5 days or sooner if symptoms are not improving or worsening Prescription instructions reviewed with patient as applicable. Patient advised if symptoms do not improve or if symptoms worsen sooner, to contact their primary care physician. Potential red flag symptoms discussed with the patient. Reviewed appropriate action plan to take if red flag symptoms occur. Patient agreeable to treatment plan. Fred Bauer APRN.[place] Bauer APRN.[place] 10/20/2018 8:23 PM Signed SORE THROAT INSTRUCTIONS SORE THROAT OVERVIEW - Sore throat is a common problem during childhood, and is usually the result of a bacterial or viral infection. Although sore throat usually resolves without complications, it sometimes requires treatment with an antibiotic. There are some less common causes of sore throat that are serious or even life-threatening. This topic will discuss the most common causes and treatments of sore throat in children, as well as the warning signs of more serious conditions. SORE THROAT CAUSES - The most likely cause of a child's sore throat depends upon the child's age, the season, and the geographic area. While viruses are the most common cause of sore throat, bacteria are another common cause. Bacteria and viruses are spread from one person to another through hand contact. Hands get contaminated when the sick individual touches their nose or mouth and then touches another person directly (zubr-bt-[id number] contact) or indirectly (xemx-ei-ozslsm, such as doorknob, telephone, toys). It is difficult to determine the cause of sore throat based upon symptoms alone; an examination and laboratory test are recommended in most cases Viruses - There are many viruses that can cause pain and swelling of the throat. The most common include viruses that cause sore throat as part of an upper respiratory infection, such as the common cold. Other viruses that cause sore throat include influenza, adenovirus, and Irvin-Cerna virus (the cause of mononucleosis). Symptoms - Symptoms that may occur with a viral infection can include a runny nose and congestion, irritation or redness of the eyes, cough, hoarseness, soreness in the roof of the mouth, a skin rash, or diarrhea. In addition, children with viral infections may have a fever and may feel miserable. A high fever does not necessarily mean that the child has a bacterial infection. Group A streptococcus - Group A streptococcus (GAS) is the name of the bacterium that causes strep throat. Although other bacteria can cause a sore throat, GAS is the most common bacterial cause; up to 30 percent of children with a sore throat will have GAS. Strep throat usually occurs during the winter and early spring, and is most common in school-age children and their younger siblings. Symptoms - Symptoms of strep throat in children older than 3 years often develop suddenly and include fever (temperature ?100.4?F or 38?C), headache, abdominal pain, nausea, and vomiting. Other symptoms can include swollen glands in the neck, white patches of pus in the back or sides of the throat, small red spots on the roof of the mouth, and swelling of the uvula. A cough and cold are not commonly seen in children with strep throat. Strep throat is uncommon in children younger than age 2 to 3 years. However, GAS infection can occur in younger children, and may cause a runny nose and congestion that is prolonged, low-grade fever (?101?F or 38.3?C), and tender glands in the neck. Infants younger than 1 year may be fussy and have a decreased appetite and low-grade fever. SORE THROAT TREATMENT - The treatment of sore throat depends upon the cause; strep throat is treated with an antibiotic while viral pharyngitis is treated with rest, pain relievers, and other measures to reduce symptoms. Strep throat - Strep throat is usually treated with an antibiotic, such as penicillin, or an antibiotic similar to penicillin (eg, amoxicillin). Children who are allergic to penicillin will be given an alternate antibiotic. The antibiotic is usually given in pill or liquid form two or three times per day. A one-time injection is also available, and may be recommended if a child is unwilling to take an oral medication. After completing 24 hours of antibiotics, the child is no longer contagious and may return to school. Symptoms usually improve within 1 to 2 days. However, it is important for the child to finish the entire course of treatment (usually 10 days). If a child does not begin to improve or worsens within 3 days, the child should be reevaluated. Throat pain can be treated with a non-prescription pain medication, if needed. (See 'Pain medications' below.) In addition, parents should monitor their child for dehydration, which can develop if the child is not willing to drink or eat due to a sore throat. (See 'Monitor for dehydration' below.) Viral throat pain - Sore throat caused by viral infections usually last 4 to 5 days. During this time, treatments to reduce pain may be helpful but will not help to eliminate the virus. Antibiotics do not improve throat pain caused by a virus and are not recommended. A child with a viral infection is usually allowed to return to school when there has been no fever for 24 hours and the child feels well enough to pay attention. Pain medications - Throat pain can be treated with a mild pain reliever such as acetaminophen (Tylenol?) or a non-steroidal anti-inflammatory agent such as ibuprofen (Motrin?). These medications should be dosed according to weight, not age. Aspirin is not recommended for children <18 years due to the risk of a potentially serious condition known as Christa syndrome. Monitor for dehydration - Some children with a sore throat are reluctant to drink or eat due to pain. Drinking less fluid can lead to dehydration. To reduce the risk of dehydration, parents can offer warm or cold liquids. (See 'Other interventions' below.) Signs and symptoms of mild dehydration include a slightly dry mouth, increased thirst, and decreased urine output (one wet diaper or void in six hours). Signs of moderate or severe dehydration include decreased urine output (less than one wet diaper or void in six hours), lack of tears when crying, dry mouth, and sunken eyes. A child who is moderately or severely dehydrated should be evaluated by a healthcare provider as soon as possible to determine if treatment is needed. Oral rinses- Salt-water gargles are an old stand-by for relief of throat pain. It is not clear if this treatment is effective, but it is unlikely to be harmful. Most recipes suggest 1/4 to 1/2 teaspoon of salt per cup (8 ounces) of warm water. The water should be gargled and then spit out (not swallowed). Children younger than six to eight years are not able to gargle properly. An oral rinse composed of equal parts of diphenhydramine (Benadryl? liquid) and Maalox? (magnesium hydroxide, aluminum hydroxide, and simethicone) may be helpful for pain caused by a sore mouth or ulcers in the mouth. Children older than six to eight years may swish and spit (not swallow) the mixture. Sprays - Sprays containing topical anesthetics are available to treat sore throat. However, such sprays are no more effective than sucking on hard candy. In addition, a common anesthetic ingredient, benzocaine, can cause allergic reactions. We do not recommend throat sprays for children. Lozenges - A variety of medicated throat lozenges are available to relieve dryness or pain. However, it is not clear that lozenges work any better than hard candy. We do not recommend throat lozenges for children, especially children younger than 3 to 4 years, who can choke. Sucking on hard candy may provide some relief for children older than 3 to 4 years, who are not at risk for choking. Other interventions - Other interventions include sipping warm beverages (eg, honey or lemon tea, chicken soup), cold beverages, or eating cold or frozen desserts (eg, ice cream, popsicles). These treatments are safe for children. Honey should not be given to children younger than 12 months due to the potential risk of botulism poisoning. Alternative therapies - Health food stores, vitamin outlets, and Internet Web sites offer alternative treatments for relief of sore throat pain. We do not recommend these treatments due to the risks of contamination with pesticides/herbicides, inaccurate labeling and dosing information, and a lack of studies showing that these treatments are safe and effective. SORE THROAT PREVENTION - Hand washing is an essential and highly effective way to prevent the spread of infection. Hands should be wet with water and plain soap, and rubbed together for 15 to 30 seconds. Special attention should be paid to the fingernails, between the fingers, and the wrists. Hands should be rinsed thoroughly, and dried with a single use towel. Alcohol-based hand rubs are a good alternative for disinfecting hands if a sink is not available. Hand rubs should be spread over the entire surface of hands, fingers, and wrists until dry, and may be used several times. These rubs can be used repeatedly without skin irritation or loss of effectiveness. Hand rubs are available as a liquid or wipe in small, portable sizes that are easy to carry in a pocket or handbag. When a sink is available, visibly soiled hands should be washed with soap and water. Hands should be washed after coughing, blowing the nose or sneezing. While it is not always possible to limit contact with a person who is sick, avoiding touching the eyes, nose, or mouth after direct contact can help to prevent the spread of infection. In addition, tissues should be used to cover the mouth when sneezing or coughing. These used tissues should be disposed of promptly. Sneezing/coughing into the sleeve of one's clothing (at the inner elbow) is another means of containing sprays of saliva and secretions and has the advantage of not contaminating the hands. WHEN TO SEEK HELP - Parents of a child with throat pain and one or more of the following should contact their healthcare provider immediately: Difficulty swallowing or breathing Excessive drooling in an or young child Temperature ?101?F or 38.3?C Swelling of the neck Child is unable or unwilling to drink or eat Voice sounds muffled Child has a stiff neck or difficulty opening the mouth WHERE TO GET MORE INFORMATION - Your child's healthcare provider is the best source of information for questions and concerns related to your child's medical problem. This article will be updated as needed every four months on our web site ([email or web address]). Information below was obtained from Up to date Last literature review version 19.2: March 2011 This topic last updated: July 10, 2010 Referring Provider: SELF [200] Allergies As of Date: 10/20/2018 Noted Allergy Reaction PHENERGAN (PROMETHAZINE) 07/07/2012 12 - Shortness of Breath Comments: Dizziness and lightheadness ZOFRAN (ONDANSETRON HCL (PF)) 07/22/2018 14 - Other: See Comments Comments: shaking ZOLOFT (SERTRALINE HCL) 06/18/2017 14 - Other: See Comments Comments: ESPANA's and dizziness Date Reviewed: 10/20/2018 Reviewed by: Miriam Anderson LPN - Fully Assessed Reason for Visit: diarrhea and ST [Other] Cmt: x 3 days Primary Visit Diagnosis:Sore throat [J02.9] Other Visit Diagnosis:Diarrhea, unspecified type [R19.7] Order(s):RAPID STREP TEST B/O [9047678] Order #: [id number] GROUP A STREPTOCOCCUS BY PCR [SQGASPCR] Order #: [id number] Prescriptions as of 10/20/2018 Sig: NORETHINDRONE-ETHINYL ESTRADI* Take 1 tablet by mouth once d* MUPIROCIN 2 % TOPICAL OINTMENT Apply 1 application to affect* PROPRANOLOL XL 80 MG CAPSULE,* Take 1 capsule by mouth daily* MELOXICAM 15 MG TABLET Take 1 tablet by mouth once d* DICYCLOMINE 10 MG CAPSULE Take 1 capsule by mouth befor* ESCITALOPRAM 10 MG TABLET Take 10 mg by mouth once gaudencio* IBUPROFEN 200 MG TABLET Take 200 mg by mouth every 6 * ACETAMINOPHEN 325 MG TABLET Take 650 mg by mouth every 6 * RANITIDINE 150 MG TABLET Take 150 mg by mouth as neede* Problem List As Of Date 10/20/2018 Noted Resolved IRRITABLE COLON [K58.9] Depressive disorder [F32.9] More... Dysmenorrhea [N94.6] INVALID FOR*09/22/2017 Tobacco use disorder [F17.200] INVALID FOR* GERD (gastroesophageal reflux disease) [K21.9] INVALID FOR* Diarrhea [R19.7] INVALID FOR*08/01/2015 Abnormal uterine bleeding [N93.9] INVALID FOR*09/22/2017 RUQ pain [R10.11] INVALID FOR* More... Obesity, Class III, BMI >= 40 [E66.01] INVALID FOR* Chronic tension-type headache, intractable [G44*INVALID FOR* Low back pain [M54.5] INVALID FOR* Other instructions from your clinician: SORE THROAT INSTRUCTIONS SORE THROAT OVERVIEW - Sore throat is a common problem during childhood, and is usually the result of a bacterial or viral infection. Although sore throat usually resolves without complications, it sometimes requires treatment with an antibiotic. There are some less common causes of sore throat that are serious or even life-threatening. This topic will discuss the most common causes and treatments of sore throat in children, as well as the warning signs of more serious conditions. SORE THROAT CAUSES - The most likely cause of a child's sore throat depends upon the child's age, the season, and the geographic area. While viruses are the most common cause of sore throat, bacteria are another common cause. Bacteria and viruses are spread from one person to another through hand contact. Hands get contaminated when the sick individual touches their nose or mouth and then touches another person directly (adkz-xc-odss contact) or indirectly (ssxg-xm-vunsru, such as doorknob, telephone, toys). It is difficult to determine the cause of sore throat based upon symptoms alone; an examination and laboratory test are recommended in most cases Viruses - There are many viruses that can cause pain and swelling of the throat. The most common include viruses that cause sore throat as part of an upper respiratory infection, such as the common cold. Other viruses that cause sore throat include influenza, adenovirus, and Irvin-Cerna virus (the cause of mononucleosis). Symptoms - Symptoms that may occur with a viral infection can include a runny nose and congestion, irritation or redness of the eyes, cough, hoarseness, soreness in the roof of the mouth, a skin rash, or diarrhea. In addition, children with viral infections may have a fever and may feel miserable. A high fever does not necessarily mean that the child has a bacterial infection. Group A streptococcus - Group A streptococcus (GAS) is the name of the bacterium that causes strep throat. Although other bacteria can cause a sore throat, GAS is the most common bacterial cause; up to 30 percent of children with a sore throat will have GAS. Strep throat usually occurs during the winter and early spring, and is most common in school-age children and their younger siblings. Symptoms - Symptoms of strep throat in children older than 3 years often develop suddenly and include fever (temperature ?100.4?F or 38?C), headache, abdominal pain, nausea, and vomiting. Other symptoms can include swollen glands in the neck, white patches of pus in the back or sides of the throat, small red spots on the roof of the mouth, and swelling of the uvula. A cough and cold are not commonly seen in children with strep throat. Strep throat is uncommon in children younger than age 2 to 3 years. However, GAS infection can occur in younger children, and may cause a runny nose and congestion that is prolonged, low-grade fever (?101?F or 38.3?C), and tender glands in the neck. Infants younger than 1 year may be fussy and have a decreased appetite and low-grade fever. SORE THROAT TREATMENT - The treatment of sore throat depends upon the cause; strep throat is treated with an antibiotic while viral pharyngitis is treated with rest, pain relievers, and other measures to reduce symptoms. Strep throat - Strep throat is usually treated with an antibiotic, such as penicillin, or an antibiotic similar to penicillin (eg, amoxicillin). Children who are allergic to penicillin will be given an alternate antibiotic. The antibiotic is usually given in pill or liquid form two or three times per day. A one-time injection is also available, and may be recommended if a child is unwilling to take an oral medication. After completing 24 hours of antibiotics, the child is no longer contagious and may return to school. Symptoms usually improve within 1 to 2 days. However, it is important for the child to finish the entire course of treatment (usually 10 days). If a child does not begin to improve or worsens within 3 days, the child should be reevaluated. Throat pain can be treated with a non-prescription pain medication, if needed. (See 'Pain medications' below.) In addition, parents should monitor their child for dehydration, which can develop if the child is not willing to drink or eat due to a sore throat. (See 'Monitor for dehydration' below.) Viral throat pain - Sore throat caused by viral infections usually last 4 to 5 days. During this time, treatments to reduce pain may be helpful but will not help to eliminate the virus. Antibiotics do not improve throat pain caused by a virus and are not recommended. A child with a viral infection is usually allowed to return to school when there has been no fever for 24 hours and the child feels well enough to pay attention. Pain medications - Throat pain can be treated with a mild pain reliever such as acetaminophen (Tylenol?) or a non-steroidal anti-inflammatory agent such as ibuprofen (Motrin?). These medications should be dosed according to weight, not age. Aspirin is not recommended for children <18 years due to the risk of a potentially serious condition known as Christa syndrome. Monitor for dehydration - Some children with a sore throat are reluctant to drink or eat due to pain. Drinking less fluid can lead to dehydration. To reduce the risk of dehydration, parents can offer warm or cold liquids. (See 'Other interventions' below.) Signs and symptoms of mild dehydration include a slightly dry mouth, increased thirst, and decreased urine output (one wet diaper or void in six hours). Signs of moderate or severe dehydration include decreased urine output (less than one wet diaper or void in six hours), lack of tears when crying, dry mouth, and sunken eyes. A child who is moderately or severely dehydrated should be evaluated by a healthcare provider as soon as possible to determine if treatment is needed. Oral rinses- Salt-water gargles are an old stand-by for relief of throat pain. It is not clear if this treatment is effective, but it is unlikely to be harmful. Most recipes suggest 1/4 to 1/2 teaspoon of salt per cup (8 ounces) of warm water. The water should be gargled and then spit out (not swallowed). Children younger than six to eight years are not able to gargle properly. An oral rinse composed of equal parts of diphenhydramine (Benadryl? liquid) and Maalox? (magnesium hydroxide, aluminum hydroxide, and simethicone) may be helpful for pain caused by a sore mouth or ulcers in the mouth. Children older than six to eight years may swish and spit (not swallow) the mixture. Sprays - Sprays containing topical anesthetics are available to treat sore throat. However, such sprays are no more effective than sucking on hard candy. In addition, a common anesthetic ingredient, benzocaine, can cause allergic reactions. We do not recommend throat sprays for children. Lozenges - A variety of medicated throat lozenges are available to relieve dryness or pain. However, it is not clear that lozenges work any better than hard candy. We do not recommend throat lozenges for children, especially children younger than 3 to 4 years, who can choke. Sucking on hard candy may provide some relief for children older than 3 to 4 years, who are not at risk for choking. Other interventions - Other interventions include sipping warm beverages (eg, honey or lemon tea, chicken soup), cold beverages, or eating cold or frozen desserts (eg, ice cream, popsicles). These treatments are safe for children. Honey should not be given to children younger than 12 months due to the potential risk of botulism poisoning. Alternative therapies - Health food stores, vitamin outlets, and Internet Web sites offer alternative treatments for relief of sore throat pain. We do not recommend these treatments due to the risks of contamination with pesticides/herbicides, inaccurate labeling and dosing information, and a lack of studies showing that these treatments are safe and effective. SORE THROAT PREVENTION - Hand washing is an essential and highly effective way to prevent the spread of infection. Hands should be wet with water and plain soap, and rubbed together for 15 to 30 seconds. Special attention should be paid to the fingernails, between the fingers, and the wrists. Hands should be rinsed thoroughly, and dried with a single use towel. Alcohol-based hand rubs are a good alternative for disinfecting hands if a sink is not available. Hand rubs should be spread over the entire surface of hands, fingers, and wrists until dry, and may be used several times. These rubs can be used repeatedly without skin irritation or loss of effectiveness. Hand rubs are available as a liquid or wipe in small, portable sizes that are easy to carry in a pocket or handbag. When a sink is available, visibly soiled hands should be washed with soap and water. Hands should be washed after coughing, blowing the nose or sneezing. While it is not always possible to limit contact with a person who is sick, avoiding touching the eyes, nose, or mouth after direct contact can help to prevent the spread of infection. In addition, tissues should be used to cover the mouth when sneezing or coughing. These used tissues should be disposed of promptly. Sneezing/coughing into the sleeve of one's clothing (at the inner elbow) is another means of containing sprays of saliva and secretions and has the advantage of not contaminating the hands. WHEN TO SEEK HELP - Parents of a child with throat pain and one or more of the following should contact their healthcare provider immediately: Difficulty swallowing or breathing Excessive drooling in an or young child Temperature ?101?F or 38.3?C Swelling of the neck Child is unable or unwilling to drink or eat Voice sounds muffled Child has a stiff neck or difficulty opening the mouth WHERE TO GET MORE INFORMATION - Your child's healthcare provider is the best source of information for questions and concerns related to your child's medical problem. This article will be updated as needed every four months on our web site ([email or web address]). Information below was obtained from Up to date Last literature review version 19.2: March 2011 This topic last updated: July 10, 2010 Disposition: Return if symptoms worsen or fail to improve. Follow-up and Disposition History Recorded Letter Text Fred Bauer APRN.[facility] Urgent Care [address] [facility] [id number] Dept: [phone] 10/20/2018 Andrae Musa [address] [facility] [id number] To Whom it May Concern: This is to certify that Andrae Musa was seen at our office for medical care. Andrae may return to work on 10/21/2018. If you have any questions please feel free to call. Sincerely: Fred Bauer APRN.[facility] Encounter Status:Closed by FRED BAUER on 10/20/18 WRIST MIN 3 VIEWS Observed: 10/19/2018 Status: F Source: [place] 3:01 PM [facility] REPOSITORY [facility] Imaging Services [address] [place] [address] Wrist min 3 Views MR#: [id number] Acct: [id number] Name: ANDRAE MUSA Rep #: [id number] : 1985 F 33 From: Morena Guo MD PCP: Araseli Badillo MD Status: REG CLI Study: Wrist min 3 Views Date of Exam: 10/19/18 Exam# [id number] Ordering Dr: Tony Collins STUDY: X-RAY - LEFT WRIST REASON FOR EXAM: Female, 33 years old. Fracture TECHNIQUE: 3 view(s) of the wrist were obtained. COMPARISON: October 06, 2018 FINDINGS: There is a nondisplaced transverse fracture of the distal radial metaphysis that is slightly less apparent than the prior examination. Normal visualized distal ulna. Normal radiocarpal articulation. Normal distal radioulnar articulation. Normal carpal bones. Normal carpal articulations. Normal carpometacarpal articulation of the thumb. Normal second through fifth carpometacarpal articulations. Normal visualized metacarpal bones. The soft tissue structures are unremarkable. RAD/Wrist min 3 Views IMPRESSION: Healing distal radial fracture. Electronically Signed: Morena Guo MD at 17:03 EST Tel , Service support , CC: PERFECTO Collins; Araseli Badillo MD Consulting Services Associate: Signed URGENT CARE VISIT Observed: 10/13/2018 Status: F Source: [place] REPORT 3:28 PM [facility] REPOSITORY [facility] [address] [place] [address] OFFICE VISIT Date of Service: 10/13/18 MR#: [id number] Acct: [id number] Name: ANDRAE MUSA Rep #: [id number] : 1985 Provider: PERFECTO Morrison Age/Sex: 33/F Location: [facility] Status: Signed Intake Vital Signs10/13/18 Height 5 ft 8 in 10/13/18 Weight: 275 lb 10/13/18 Body Mass Index (BMI) 41.8 10/13/18 Blood Pressure 134/86 H 10/13/18 Respiratory Rate 16 10/13/18 Pulse Rate 84 Intake Visit Reasons: LEFT WRIST/ARM/METROMEDIA Chief Complaint: f/u fractured left radius Allergies ondansetron [From Zofran] Allergy (Verified 10/06/18 12:31) Unknown promethazine HCl [From Phenergan] Allergy (Verified 07/10/18 15:13) Shortness of breath sertraline [From Zoloft] Adverse Reaction (Verified 07/10/18 15:13) Other Medications Norethindrone-Ethinyl Estrad [Nortrel 1-35 Tablet] 1 - 35 mg PO DAILY 05/21/16 [History Confirmed 10/06/18] Escitalopram Oxalate [Lexapro] 10 mg PO DAILY 05/24/18 [History Confirmed 10/06/18] propranolol ER 80 mg capsule,24 hr,extended release PO 30 Days #30 cap 10/06/18 [History Confirmed 10/06/18] PFSH Medical History Back pain (Acute) Diarrhea (Acute) Knee pain (Acute) Migraines (Acute) Shoulder pain (Acute) Stomach ulcer (Acute) Surgical History History of cholecystectomy (Acute) Social History Smoking Status: Current every day smoker alcohol intake: never HPI HPI Chief Complaint: f/u fractured left radius Details: ANDRAE MUSA, is a 33 F who presents to the office today for f/u of her left closed, nondisplaced radial fracture. Her pain level is much improved , 3/10. She had continued to wear her brace. Her hand symptoms have improved, though if she forgets and tries to use it she will get referred pain. She has no other new symptoms. She has returned to work with no use of left arm limitations. ROS Const Constitutional: No body ache, chills, fatigue, fever(s), night sweats, change in appetite, weakness, frequent falls, headache(s) or excessive sweating Eyes Eyes: No visual disturbances, light sensitivity, eye pain or change in vision ENT ENT: No ear pain, ear discharge, hearing loss, dizziness/vertigo, nasal discharge, difficulty swallowing, sore throat, neck pain or headache(s) Resp Respiratory: No cough, chest congestion, hemoptysis, shortness of breath or wheezing Cardio Cardiology: No shortness of breath, irregular heart rhythm, lightheadedness, chest pain at rest, chest pain with exertion, generalized swelling, orthopnea, palpitations or excessive sweating Gastro GI: No difficulty swallowing, abdominal pain, bloating, change in bowel habits, diarrhea, blood in stool, Black,tarry stools, nausea/dyspepsia or vomiting [facility] Musculoskeletal: Positive for joint pain (left wrist); no back pain, numbness, tingling or neck pain Skin Skin: No lesions, itching or rash Neuro Neurology: No visual disturbances, numbness, tingling, abnormal speech, confusion, unsteady gait/balance, dizziness, weakness, frequent falls, loss of vision, headache(s) or memory loss Psych Psychiatric: No change in appetite, No confusion, No memory loss, No anxiety, No depression Endo Endocrine: No fatigue, cold intolerance, excessive sweating, flushing, heat intolerance or increased thirst/drinking Aller/Imm Allergy/Immunologic: No wheezing, itchy eyes, food intolerance, seasonal allergy symptoms or hives Vinny/Lymp Hematologic/Lymphatic: No easy bruising Exam Const General: cooperative, no acute distress, healthy appearing, comfortable Orientation: alert, oriented x3 HENMT Head: normal to inspection, normocephalic Ears: hearing grossly normal bilaterally Eyes General: appearance normal, both eyes and all related structures Eyelids: eyelids normal Conjunctivae: conjunctivae normal Sclera: sclerae normal Resp Effort AND Inspection: normal respiratory effort, able to speak in complete sentences, symmetric chest movement, no audible wheezes, no cough, not labored, no respiratory distress Auscultation: Bilateral: Clear to Auscultation Cardio Rate: regular rate Rhythm: regular rhythm Heart Sounds: S1 normal, S2 normal [facility] [place] Musculoskeletal: Yes joint tenderness (left wrist/radius Wrist brace being worn.) and decreased ROM; no joint redness or joint warmth Skin General: no rashes or lesions noted, no induration Lesions: lesions noted Rashes: rash noted Trauma: lacerations and/or abrasions noted Wounds: wound noted Neuro General: alert, oriented x3, moves all extremities Cognition: normal cognition Speech: speech normal Gait: normal gait Motor: muscle tone normal throughout Sensory Exam: no sensory deficits noted Extrem General: normal exam except as noted (left wrist in brace- to see ortho next Thursday , 10/19/2018), normal gait Other: Left hand with normal skin color, and ROM. No evidence of ischemia. No pain under the brace. Good ROM of fingers. Warm. Normal wrist pulses. Left elbow with less pain and full ROM. strain Resolving well. Psych Appearance: grossly normal, well kempt Mental Status: mental status grossly normal Affect: normal affect Speech and Movement: speech and movement normal Attitude: cooperative Thought Process: normal Thought Content: normal Judgment: judgment good Assessment AND Plan Problems 1. Closed traumatic nondisplaced fracture of distal end of left radius with routine healing, subsequent encounter S52.502D 2. Strain of left elbow, subsequent encounter S46.912D 3. Strain of left hand, subsequent encounter S66.912D Plan Follow up with ortho scheduled for 10/19/2018 Follow up 10/20/2018 here in clinic to update plan. RTW with same restrictions: No use of left arm. Coding Level of Care Code Off vis,est,level 3 Diagnoses Closed traumatic nondisplaced fracture of distal end of left radius with routine healing, subsequent encounter S52.502D Encounter type: subsequent encounter Fracture healing: with routine healing Strain of left elbow, subsequent encounter S46.912D Encounter type: subsequent encounter Strain of left hand, subsequent encounter S66.912D Encounter type: subsequent encounter 10/13/18 1528 <Electronically signed by Maude GROVE> Date Maude GROVE Cosigner Signature: Date (if applicable) CC: URGENT CARE VISIT Observed: 10/06/2018 Status: F Source: [facility] REPORT 2:22 PM [facility] REPOSITORY [facility] [address] [place] [address] OFFICE VISIT Date of Service: 10/06/18 MR#: [id number] Acct: [id number] Name: ANDRAE MUSA Rep #: [id number] : 1985 Provider: José Miguel GROVE Age/Sex: 33/F Location: [facility] Status: Signed Intake Vital Signs10/06/18 Height 5 ft 8 in Intake Visit Reasons: LT WRIST / ELBOW INJURY/ METROMEDIA Chief Complaint: LUE pain Allergies ondansetron [From Zofran] Allergy (Verified 10/06/18 12:31) Unknown promethazine HCl [From Phenergan] Allergy (Verified 07/10/18 15:13) Shortness of breath sertraline [From Zoloft] Adverse Reaction (Verified 07/10/18 15:13) Other Medications Norethindrone-Ethinyl Estrad [Nortrel 1-35 Tablet] 1 - 35 mg PO DAILY 05/21/16 [History Confirmed 10/06/18] Escitalopram Oxalate [Lexapro] 10 mg PO DAILY 05/24/18 [History Confirmed 10/06/18] propranolol ER 80 mg capsule,24 hr,extended release PO 30 Days #30 cap 10/06/18 [History Confirmed 10/06/18] PFSH Medical History Back pain (Acute) Diarrhea (Acute) Knee pain (Acute) Migraines (Acute) Shoulder pain (Acute) Stomach ulcer (Acute) Surgical History History of cholecystectomy (Acute) Social History Smoking Status: Current every day smoker alcohol intake: never HPI HPI Chief Complaint: LUE pain Details: ANDRAE MUSA, is a 33 F who presents to the office today for initial evaluation left upper extremity pain status post fall. Patient states while at work tripping falling backwards landing on outstretched left hand. She noted immediate pain to the radial aspect more than the ulnar aspect of the left wrist with pain radiating to the left elbow. She notes no loss of sensation strength or function in x5 digits distally though flexion and extension does exacerbate her wrist pain. She notes no prior history of injuries requiring medical attention to the same prior to today. She is right-hand dominant. She notes moderate severe aching 7 8/10 pain to the radial wrist which is aggravated to touch with range of motion, alleviated minimally with rest and isolation. She notes no other associated symptoms and no other alleviating or aggravating factors. ROS Const Constitutional: No other (ROS negative x10 other than as noted above) Exam Const General: cooperative, healthy appearing, no acute distress, comfortable Nutritional Appearance: obese Orientation: alert, awake, oriented x3 HENMT Head: atraumatic Chest Chest palpation AND inspection: normal inspection of the chest Resp Effort AND Inspection: normal respiratory effort, able to speak in complete sentences, symmetric chest movement Cardio Rate: regular rate Pulses: radial pulses present Musc Musculoskeletal: Yes joint tenderness (Left radial wrist) and decreased ROM (Left radial wrist); no joint warmth or joint redness Other: Left wrist radiographs reveal left distal radius transverse nondisplaced fracture closed, confirmed by radiologist. Skin General: no rashes or lesions noted Neuro General: alert, awake, oriented x3, gait normal Cognition: normal cognition Speech: speech normal Gait: normal gait Motor: muscle tone normal throughout Sensory Exam: no sensory deficits noted Extrem General: normal to inspection Psych Appearance: grossly normal Mental Status: mental status grossly normal Mood: congruent mood Affect: normal affect Speech and Movement: speech and movement normal Attitude: cooperative Thought Process: normal Thought Content: normal Judgment: judgment good Assessment AND Plan Problems 1. Traumatic closed nondisplaced fracture of distal end of left radius S52.502A 2. Strain of left elbow S46.912A 3. Strain of left wrist S66.912A 4. Strain of left hand S66.912A Plan Left wrist radiographs reveal left distal radius transverse nondisplaced fracture closed, confirmed by radiologist; these findings were reviewed with patient in office today. Off work rest of shift, returning to work tomorrow with restrictions of no use left upper extremity and splint on at all times. Rest, ice, elevate, Advil/Tylenol, short arm thumb spica wrist splint on at all times as dispensed/instructed today until evaluated by orthopedics. C9 submitted today for orthopedic referral. [facility]-up with the [facility] in approximately 1 week for reevaluation, sooner should symptoms worsen or any other concerns develop. Patient states acknowledging understanding all the above. This note was generated with [employer] dictation software. It may contain incorrect words, spelling, and punctuation that were not noted in checking the note before signing. Orders Orders: Referrals: Coding Level of Care Code Off vis,new,level 4 Diagnoses Traumatic closed nondisplaced fracture of distal end of left radius S52.502A Strain of left elbow S46.912A Strain of left wrist S66.912A Strain of left hand S66.912A Time Spent (min) 40 10/06/18 1422 <Electronically signed by José Miguel GROVE> Date José Miguel GROVE [facility] Signature: Date (if applicable) CC: WRIST MIN 3 VIEWS Observed: 10/06/2018 Status: F Source: [facility] 12:53 PM [facility] REPOSITORY [facility] Imaging Services [address] [place] [address] Wrist min 3 Views MR#: [id number] Acct: [id number] Name: ANDRAE MUSA Rep #: [id number] : 1985 F 33 From: Rogerio Babb MD PCP: Araseli Badillo MD Status: REG CLI Study: Wrist min 3 Views Date of Exam: 10/06/18 Exam# [id number] Ordering Dr: José Miguel Adhikari STUDY: X-RAY - LEFT WRIST REASON FOR EXAM: Female, 33 years old. Pain following a fall. TECHNIQUE: 3 view(s) of the wrist were obtained. COMPARISON: None. FINDINGS: There is a nondisplaced transverse fracture of the distal radial metaphysis. Normal radiocarpal articulation. Normal distal radioulnar articulation. Normal carpal bones. Normal carpal articulations. Normal carpometacarpal articulation of the thumb. Normal second through fifth carpometacarpal articulations. Normal visualized metacarpal bones. Soft tissue swelling. RAD/Wrist min 3 Views IMPRESSION: Nondisplaced transverse fracture of the distal radial metaphysis with overlying soft tissue swelling. Electronically Signed: Rogerio Babb MD at 13:18 EST Tel [phone], Service support , CC: Araseli Badillo MD; José Miguel GROVE Consulting Services Associate: Signed HAND MIN 3 VIEWS Observed: 10/06/2018 Status: F Source: [facility] 12:53 PM [facility] REPOSITORY [facility] Imaging Services [address] [place] [address] Hand Min 3 Views MR#: [id number] Acct: [id number] Name: ANDRAE MUSA Rep #: [id number] : 1985 F 33 From: Rogerio Babb MD PCP: Araseli Badillo MD Status: REG CLI Study: Hand Min 3 Views Date of Exam: 10/06/18 Exam# [id number] Ordering Dr: José Miguel Adhikari STUDY: X-RAY - LEFT HAND REASON FOR EXAM: Female, 33 years old. Pain following a fall. TECHNIQUE: 3 view(s) of the hand. COMPARISON: None. FINDINGS: Nondisplaced transverse fracture of the distal radial metaphysis with overlying soft tissue swelling. Normal radiocarpal articulation. Normal distal radioulnar joint. Normal visualized carpal bones. Normal carpal articulations Normal carpometacarpal articulation of the thumb. Normal second through fifth carpometacarpal joints. Normal metacarpi. Normal metacarpophalangeal joint of the thumb. Normal interphalangeal joint of the thumb. Normal proximal and distal phalanges of the thumb. Normal metacarpophalangeal joints of the second through fifth fingers. Normal proximal and distal interphalangeal joints of the second through fifth fingers. Normal phalanges of the second through fifth fingers. Soft tissue swelling. RAD/Hand Min 3 Views IMPRESSION: Nondisplaced transverse fracture of the distal radial metaphysis with overlying soft tissue swelling. Electronically Signed: Rogerio Babb MD at 13:19 EST Tel [phone], Service support , CC: Araseli Badillo MD; José Miguel GROVE Consulting Services Associate: Signed ELBOW 2 VIEWS Observed: 10/06/2018 Status: F Source: [facility] 12:53 PM [facility] REPOSITORY [facility] Imaging Services [address] [place] [address] Elbow 2 Views MR#: [id number] Acct: [id number] Name: ANDRAE MUSA Rep #: [id number] : 1985 F 33 From: Rogerio Babb MD PCP: Araseli Badillo MD Status: REG CLI Study: Elbow 2 Views Date of Exam: 10/06/18 Exam# [id number] Ordering Dr: José Miguel Adhikari STUDY: X-RAY - LEFT ELBOW REASON FOR EXAM: Female, 33 years old. Pain following a fall. TECHNIQUE: 2 view(s) of the elbow. COMPARISON: None. FINDINGS: Normal visualized humerus, radius and ulna. Normal radiocapitellar and ulnotrochlear articulations. The soft tissue structures are unremarkable. RAD/Elbow 2 Views IMPRESSION: Normal x-ray examination of the elbow. Electronically Signed: Rogerio Babb MD at 13:20 EST Tel [phone], Service support , CC: Araseli Badillo MD; José Miguel GROVE Consulting Services Associate: Signed PROGRESS Observed: 10/01/2018 Status: COMPLETED Source: [facility] 3:06 PM [facility] RE[facility] HNO ID: [id number] Author: Nuha Nuñez Ma Service: (none) Author Type: (none) Type: Progress Notes Filed: 10/01/2018 4:46 PM Note Text: patient declined milled rice broker Nuha Nuñez Ma PROGRESS Observed: 10/01/2018 Status: COMPLETED Source: [facility] 3:02 PM [facility] [place] REPOSITORY HNO ID: [id number] Author: Flor Hylton Service: (none) Author Type: Nurse Practitioner Type: Progress Notes Filed: 10/01/2018 4:46 PM Note Text: Andrae Musa is a 33 year old who presents for her annual gynecologic exam without complaints. Planning vacation to [place]. Went to [facility] last summer. Menses: cycles every 28-30 days and 3-4 days of very light flow. Sometimes skips a month. Spots if misses pill. 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 Contraception: oral contraceptives HPV vaccine: No Last Pap: 2013 normal HPV: N/A History of abnormal pap: No Last mammogram: never Colonoscopy: 2014, diagnosis of IBS Sexually active: No x 1 year History of STDS: None Exercise: walks occasionally Diet: not a balanced diet Obstetric History T0 L0 SAB0 TAB0 Ectopic0 Multiple0 Live Births0 PAST MEDICAL HISTORY Diagnosis Date - Abdominal pain, left upper quadrant 08/08/2011 - Depressive disorder, not elsewhere classified - GERD (gastroesophageal reflux disease) - Irritable bowel syndrome - Obesity - Tobacco abuse PAST SURGICAL HISTORY Procedure Laterality Date - COLONOSCOP W/ OR W/O BRSH SPEC 08/01/15 Colonoscopy - EGD W/O BRSH SPECIMEN W/BX 08/11/11 patchy duodenitis - EGD W/O BRSH SPECIMEN W/BX 07/14/12 gastritis and esophagitis - LAPAROSCOPIC CHOLEYCYSTECTOMY 06/08/2018 Cholecystectomy, lap FAMILY HISTORY Problem Relation Age of Onset - Diabetes Father - other (encephalopathy) Sister - Diabetes Maternal Grandmother - other (Other) Maternal Grandfather non-alcoholic serosis of liver (christine) - Diabetes Paternal Grandmother - other (brain tumor) Sister benign - other (ulcerative colitis) Sister SOCIAL HISTORY Social History Substance Use Topics - Smoking status: Current Every Day Smoker Packs/day: 1.00 Years: 12.00 Types: Cigarettes - Smokeless tobacco: Never Used Comment: Currently using patch but intermittent smoking - Alcohol use Yes Comment: usually 2-3 times a month REVIEW OF SYSTEMS Abdomen: No abdominal pain, nausea, vomiting, diarrhea, or constipation. No bloating, early satiety, indigestion, or increased flatulence. Bladder: No dysuria, gross hematuria, urinary frequency, urinary urgency, or incontinence. Breast: No breast lumps, nipple d/c, overlying skin changes, redness or skin retraction. Allergies and current medication updated:Yes EXAM: BP 126/82 Ht 5' 7.323 (1.71m) Wt 273 lb 9.6 oz (124.1kg) LMP 09/05/2018 BMI 42.44 kg/(m2). GENERAL: pleasant, female in no apparent distress HEENT: Normocephalic, atraumatic, mucus membranes moist and no lesions NECK: Supple, full range of motion, no adenopathy and thyroid normal DERMATOLOGY: Normal, without lesions, non-icteric and non-hirsute BREAST: soft, non-tender, symmetric, no dominant mass, normal nipple-areolar complex, no lymphadenopathy and no nipple discharge CHEST: Normal inspiratory effort ABDOMEN: soft, non-tender and no masses PELVIC: external genitalia normal, normal Bartholin's glands, urethra, Brinson's glands, no vulvar lesions, no cervical lesions, good vaginal support, physiologic discharge present, normal appearing perineal body and perianal region, folliculitis to right labia and inner thighs BIMANUAL: uterus normal size, shape and consistency, no adnexal masses and non-tender RECTOVAGINAL: deferred. NEURO: alert and oriented x3,exam grossly non-focal EXTREMITIES: normal ASSESSMENT/PLAN: 1) Health maintenance: Pap/HPV up to date. Nutrition, exercise and routine health maintenance exams reviewed. Smoking cessation: Patient encouraged to avoid smoking. HPV vaccine: ordered, will check with insurance company for coverage Folliculitis - mupirocin ointment 2) Contraception: oral contraceptives . Contraceptive options reviewed and information provided. 3) STD screening: Declined STD check. 4) Follow up one year or sooner as needed Flor Hylton APRN.CORPORATE WELLNESS COORDINATOR CNOV Observed: 10/01/2018 Status: COMPLETED Source: [facility] 2:45 PM [facility] REPOSITORY Office Visit (WOOB) ANDRAE MUSA ([id number]) 1985 F Date Time Provider Department 10/01/18 2:45 PM FLOR HYLTON ([place]) WOOB During your visit today, we recorded the following information about you: Blood pressure Weight Height Last Period 126/82 124.1 kg 1.71 m 09/05/18 Flor Hylton APRN.CORPORATE WELLNESS COORDINATOR 10/01/2018 4:46 PM Signed Andrae Musa is a 33 year old who presents for her annual gynecologic exam without complaints. Planning vacation to [place]. Went to [facility] last summer. Menses: cycles every 28-30 days and 3-4 days of very light flow. Sometimes skips a month. Spots if misses pill. 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 Contraception: oral contraceptives HPV vaccine: No Last Pap: 2013 normal HPV: N/A History of abnormal pap: No Last mammogram: never Colonoscopy: 2014, diagnosis of IBS Sexually active: No x 1 year History of STDS: None Exercise: walks occasionally Diet: not a balanced diet Obstetric History T0 L0 SAB0 TAB0 Ectopic0 Multiple0 Live Births0 PAST MEDICAL HISTORY Diagnosis Date - Abdominal pain, left upper quadrant 08/08/2011 - Depressive disorder, not elsewhere classified - GERD (gastroesophageal reflux disease) - Irritable bowel syndrome - Obesity - Tobacco abuse PAST SURGICAL HISTORY Procedure Laterality Date - COLONOSCOP W/ OR W/O BRSH SPEC 08/01/15 Colonoscopy - EGD W/O BRSH SPECIMEN W/BX 08/11/11 patchy duodenitis - EGD W/O BRSH SPECIMEN W/BX 07/14/12 gastritis and esophagitis - LAPAROSCOPIC CHOLEYCYSTECTOMY 06/08/2018 Cholecystectomy, lap FAMILY HISTORY Problem Relation Age of Onset - Diabetes Father - other (encephalopathy) Sister - Diabetes Maternal Grandmother - other (Other) Maternal Grandfather non-alcoholic serosis of liver (christine) - Diabetes Paternal Grandmother - other (brain tumor) Sister benign - other (ulcerative colitis) Sister SOCIAL HISTORY Social History Substance Use Topics - Smoking status: Current Every Day Smoker Packs/day: 1.00 Years: 12.00 Types: Cigarettes - Smokeless tobacco: Never Used Comment: Currently using patch but intermittent smoking - Alcohol use Yes Comment: usually 2-3 times a month REVIEW OF SYSTEMS Abdomen: No abdominal pain, nausea, vomiting, diarrhea, or constipation. No bloating, early satiety, indigestion, or increased flatulence. Bladder: No dysuria, gross hematuria, urinary frequency, urinary urgency, or incontinence. Breast: No breast lumps, nipple d/c, overlying skin changes, redness or skin retraction. Allergies and current medication updated:Yes EXAM: BP 126/82 Ht 5' 7.323 (1.71m) Wt 273 lb 9.6 oz (124.1kg) LMP 09/05/2018 BMI 42.44 kg/(m2). GENERAL: pleasant, female in no apparent distress HEENT: Normocephalic, atraumatic, mucus membranes moist and no lesions NECK: Supple, full range of motion, no adenopathy and thyroid normal DERMATOLOGY: Normal, without lesions, non-icteric and non-hirsute BREAST: soft, non-tender, symmetric, no dominant mass, normal nipple-areolar complex, no lymphadenopathy and no nipple discharge CHEST: Normal inspiratory effort ABDOMEN: soft, non-tender and no masses PELVIC: external genitalia normal, normal Bartholin's glands, urethra, Brinson's glands, no vulvar lesions, no cervical lesions, good vaginal support, physiologic discharge present, normal appearing perineal body and perianal region, folliculitis to right labia and inner thighs BIMANUAL: uterus normal size, shape and consistency, no adnexal masses and non-tender RECTOVAGINAL: deferred. NEURO: alert and oriented x3,exam grossly non-focal EXTREMITIES: normal ASSESSMENT/PLAN: 1) Health maintenance: Pap/HPV up to date. Nutrition, exercise and routine health maintenance exams reviewed. Smoking cessation: Patient encouraged to avoid smoking. HPV vaccine: ordered, will check with insurance company for coverage Folliculitis - mupirocin ointment 2) Contraception: oral contraceptives . Contraceptive options reviewed and information provided. 3) STD screening: Declined STD check. 4) Follow up one year or sooner as needed Flor Hylton APRN.[place] Nuñez Ma 10/01/2018 4:46 PM Signed patient declined milled rice broker Nuha Hylton APRN.[place] 10/01/2018 3:32 PM Addendum Gardasil Gardasil is a vaccine to protect against Human Papillomavirus (HPV) types 6, 11, 16 and 18. These viruses cause cancer and precancerous lesions on the cervix (opening between vagina and uterus), in the vagina and on the vulva (skin around the outside of the vagina) as well as genital warts. The vaccine cannot cause these diseases and cannot treat them if already present. Gardasil works best if given before contact with HPV. Most people are exposed to HPV soon after starting sexual activity. The vaccine is recommended between the ages of 9 and 26. Gardasil does not protect against all strains of HPV. Women who receive the vaccine still need to have annual pelvic exams and cervical cancer screening with the pap smear. You should ask your doctor if Gardasil is right for you if you have a weakened immune system, a bleeding disorder, plan to become soon or have a current illness causing fever. Gardasil is not recommended for women. You should be sure your doctor is aware of any allergies you have and all medications and herbal supplements you take. Gardasil is given in 3 doses with the second dose 2 months after the first injection and the last dose 6 months after the first injection. Common side effects include pain, redness, itching and swelling at the injection site, nausea, fever, dizziness and fainting. Rare but potentially serious reactions have been reported. These include allergic reaction, swollen glands, joint and muscle pain, weakness and Guillain-[place] syndrome. Gardasil Gardasil is a vaccine to protect against Human Papillomavirus (HPV) types 6, 11, 16 and 18. These viruses cause cancer and precancerous lesions on the cervix (opening between vagina and uterus), in the vagina and on the vulva (skin around the outside of the vagina) as well as genital warts. The vaccine cannot cause these diseases and cannot treat them if already present. Gardasil works best if given before contact with HPV. Most people are exposed to HPV soon after starting sexual activity. The vaccine is recommended between the ages of 9 and 26. Gardasil does not protect against all strains of HPV. Women who receive the vaccine still need to have annual pelvic exams and cervical cancer screening with the pap smear. You should ask your doctor if Gardasil is right for you if you have a weakened immune system, a bleeding disorder, plan to become soon or have a current illness causing fever. Gardasil is not recommended for women. You should be sure your doctor is aware of any allergies you have and all medications and herbal supplements you take. Gardasil is given in 3 doses with the second dose 2 months after the first injection and the last dose 6 months after the first injection. Common side effects include pain, redness, itching and swelling at the injection site, nausea, fever, dizziness and fainting. Rare but potentially serious reactions have been reported. These include allergic reaction, swollen glands, joint and muscle pain, weakness and Guillain-[place] syndrome. Referring Provider: SELF [[id number]] Allergies As of Date: 10/01/2018 Noted Allergy Reaction PHENERGAN (PROMETHAZINE) 07/07/2012 12 - Shortness of Breath Comments: Dizziness and lightheadness ZOFRAN (ONDANSETRON HCL (PF)) 07/22/2018 14 - Other: See Comments Comments: shaking ZOLOFT (SERTRALINE HCL) 06/18/2017 14 - Other: See Comments Comments: ESPANA's and dizziness Date Reviewed: 10/01/2018 Reviewed by: [facility] Hospital[facility]us Hylton - Fully Assessed Reason for Visit: Gardasil Injection [1654] Primary Visit Diagnosis:Encounter for gynecological examination (general) (routine) without abnormal findings [Z01.419] Other Visit Diagnoses:Surveillance for control, oral contraceptives [Z30.41] Need for prophylactic vaccination/inoculation against viral disease [Z23] Folliculitis [L73.9] Order(s):Norethindrone-Eth Estradiol (NECON , ,) 1-35 mg-mcg per tabletTake 1 tablet by mouth once daily.Disp: 3 PackageRfl: 3 THER/PROPH/DIAG INJ, SC/IM [[id number]] Order #: [id number] HUMAN PAPILLOMAVIRUS 9-VALENT HPV IM [[id number]] Order #: [id number] HUMAN PAPILLOMAVIRUS 9-VALENT HPV IM [[id number]] Order #: [id number] FUTURE HUMAN PAPILLOMAVIRUS 9-VALENT HPV IM [[id number]] Order #: [id number] FUTURE mupirocin (BACTROBAN) 2 % ointmentApply 1 application to affected area three times daily.Disp: 1 TubeRfl: 1 Prescriptions as of 10/01/2018 Sig: NORETHINDRONE-ETHINYL ESTRADI* Take 1 tablet by mouth once d* PROPRANOLOL XL 80 MG CAPSULE,* Take 1 capsule by mouth daily* MELOXICAM 15 MG TABLET Take 1 tablet by mouth once d* DICYCLOMINE 10 MG CAPSULE Take 1 capsule by mouth befor* ESCITALOPRAM 10 MG TABLET Take 10 mg by mouth once gaudencio* IBUPROFEN 200 MG TABLET Take 200 mg by mouth every 6 * ACETAMINOPHEN 325 MG TABLET Take 650 mg by mouth every 6 * RANITIDINE 150 MG TABLET Take 150 mg by mouth as neede* MUPIROCIN 2 % TOPICAL OINTMENT Apply 1 application to affect* Problem List As Of Date 10/01/2018 Noted Resolved IRRITABLE COLON [K58.9] Depressive disorder [F32.9] More... Dysmenorrhea [N94.6] INVALID FOR*09/22/2017 Tobacco use disorder [F17.200] INVALID FOR* GERD (gastroesophageal reflux disease) [K21.9] INVALID FOR* Diarrhea [R19.7] INVALID FOR*08/01/2015 Abnormal uterine bleeding [N93.9] INVALID FOR*09/22/2017 RUQ pain [R10.11] INVALID FOR* More... Obesity, Class III, BMI >= 40 [E66.01] INVALID FOR* Chronic tension-type headache, intractable [G44*INVALID FOR* Low back pain [M54.5] INVALID FOR* Other instructions from your clinician: Gardasil Gardasil is a vaccine to protect against Human Papillomavirus (HPV) types 6, 11, 16 and 18. These viruses cause cancer and precancerous lesions on the cervix (opening between vagina and uterus), in the vagina and on the vulva (skin around the outside of the vagina) as well as genital warts. The vaccine cannot cause these diseases and cannot treat them if already present. Gardasil works best if given before contact with HPV. Most people are exposed to HPV soon after starting sexual activity. The vaccine is recommended between the ages of 9 and 26. Gardasil does not protect against all strains of HPV. Women who receive the vaccine still need to have annual pelvic exams and cervical cancer screening with the pap smear. You should ask your doctor if Gardasil is right for you if you have a weakened immune system, a bleeding disorder, plan to become soon or have a current illness causing fever. Gardasil is not recommended for women. You should be sure your doctor is aware of any allergies you have and all medications and herbal supplements you take. Gardasil is given in 3 doses with the second dose 2 months after the first injection and the last dose 6 months after the first injection. Common side effects include pain, redness, itching and swelling at the injection site, nausea, fever, dizziness and fainting. Rare but potentially serious reactions have been reported. These include allergic reaction, swollen glands, joint and muscle pain, weakness and Guillain-[place] syndrome. Gardasil Gardasil is a vaccine to protect against Human Papillomavirus (HPV) types 6, 11, 16 and 18. These viruses cause cancer and precancerous lesions on the cervix (opening between vagina and uterus), in the vagina and on the vulva (skin around the outside of the vagina) as well as genital warts. The vaccine cannot cause these diseases and cannot treat them if already present. Gardasil works best if given before contact with HPV. Most people are exposed to HPV soon after starting sexual activity. The vaccine is recommended between the ages of 9 and 26. Gardasil does not protect against all strains of HPV. Women who receive the vaccine still need to have annual pelvic exams and cervical cancer screening with the pap smear. You should ask your doctor if Gardasil is right for you if you have a weakened immune system, a bleeding disorder, plan to become soon or have a current illness causing fever. Gardasil is not recommended for women. You should be sure your doctor is aware of any allergies you have and all medications and herbal supplements you take. Gardasil is given in 3 doses with the second dose 2 months after the first injection and the last dose 6 months after the first injection. Common side effects include pain, redness, itching and swelling at the injection site, nausea, fever, dizziness and fainting. Rare but potentially serious reactions have been reported. These include allergic reaction, swollen glands, joint and muscle pain, weakness and Guillain-[place] syndrome. Prescriptions ordered this encounter Disp Refills Start End NORETHINDRONE-ETHINYL ESTRADIOL 1 MG* 3 Pa* 3 10/01/2018 Route: ORAL Sig: Take 1 tablet by mouth once daily. MUPIROCIN 2 % TOPICAL OINTMENT 1 Tu* 1 10/01/2018 Route: TOPICAL Sig: Apply 1 application to affected area three times daily. Medications Discontinued During This Encounter Norethindrone-Eth Estradiol (NECON 1* 1 Pa* 11 09/22/2017 10/01/2018 Route: ORAL Sig: Take 1 tablet by mouth once daily. Disc: Reason for discontinue is not on file. Disposition: Return in 1 year (on 10/01/2019) for Annual Exam. Follow-up and Disposition History Recorded Encounter Status:Closed by FLOR HYLTON on 10/01/18 PROGRESS Observed: 09/24/2018 Status: COMPLETED Source: [place] 3:08 PM [facility] REPOSITORY HNO ID: [id number] Author: Hailey Rizo) Older Service: (none) Author Type: Nurse Practitioner Type: Progress Notes Filed: 09/24/2018 3:26 PM Note Text: CC: Patient presents with: Recheck HPI Andrae Musa is a 33 year old female who presents today for headache and neck pain follow-up. Patient was initially seen for frequent, persistent headaches and low back pain. Headaches were attributed to tension in neck and shoulders. Started on Propranolol for prophylaxis and referred to PT for headache and low back pain treatment. Patient has had good results with PT, headaches, low back and neck pain have improved dramatically. Doing exercises at home and still going to PT. Occasionally takes Meloxicam with good relief. Denies any new or worsening symptoms. REVIEW OF SYSTEMS See HPI PAST MEDICAL HISTORY Diagnosis Date - Abdominal pain, left upper quadrant 08/08/2011 - Depressive disorder, not elsewhere classified - GERD (gastroesophageal reflux disease) - Irritable bowel syndrome - Obesity - Tobacco abuse PAST SURGICAL HISTORY Procedure Laterality Date - COLONOSCOP W/ OR W/O BRSH SPEC 08/01/15 Colonoscopy - EGD W/O BRSH SPECIMEN W/BX 08/11/11 patchy duodenitis - EGD W/O BRSH SPECIMEN W/BX 07/14/12 gastritis and esophagitis - LAPAROSCOPIC CHOLEYCYSTECTOMY 06/08/2018 Cholecystectomy, lap ALLERGIES Phenergan [Promethazine]; Zofran [Ondansetron Hcl (Pf)]; Zoloft [Sertraline Hcl] MEDICATIONS Propranolol HCl (INDERAL XL) 80 mg 24 hr capsule Take 1 capsule by mouth daily at bedtime. meloxicam (MOBIC) 15 mg tablet Take 1 tablet by mouth once daily. Take with food. dicyclomine (BENTYL) 10 mg capsule Take 1 capsule by mouth before meals and at bedtime. As needed escitalopram oxalate (LEXAPRO) 10 mg tablet Take 10 mg by mouth once daily. Norethindrone-Eth Estradiol (NECON , 28,) 1-35 mg-mcg per tablet Take 1 tablet by mouth once daily. ibuprofen (MOTRIN) 200 mg tablet Take 200 mg by mouth every 6 hours as needed. acetaminophen (TYLENOL) 325 mg tablet Take 650 mg by mouth every 6 hours as needed. ranitidine (ZANTAC) 150 mg tablet Take 150 mg by mouth as needed. FAMILY HISTORY Problem Relation Age of Onset - Diabetes Father - other (encephalopathy) Sister - Diabetes Maternal Grandmother - other (Other) Maternal Grandfather non-alcoholic serosis of liver (christine) - Diabetes Paternal Grandmother - other (brain tumor) Sister benign - other (ulcerative colitis) Sister Social History Substance Use Topics - Smoking status: Current Every Day Smoker Packs/day: 1.00 Years: 12.00 Types: Cigarettes - Smokeless tobacco: Never Used Comment: Currently using patch but intermittent smoking - Alcohol use Yes Comment: usually 2-3 times a month PHYSICAL EXAM BP 122/74 Pulse 89 Temp 36.8 ?C (98.3 ?F) Resp 22 Wt 122.9 kg (271 lb) SpO2 98% BMI 41.21 kg/m? General Appearance: well appearing, in no acute distress, alert Pysch: mood and affect broad and appropriate ASSESSMENT/PLAN: 1. Chronic tension-type headache, not intractable - ICD9: 339.12, ICD10: G44.229 (primary diagnosis) Patient doing well, headaches are no longer frequent or severe. No new or worsening symptoms. Continue with PT and home exercises Will try and wean off Propranolol, see patient instructions Follow-up with PCP per usual or sooner as needed 2. Lumbar back pain - ICD9: 724.2, ICD10: M54.5 Improved Plan as above Prescription instructions reviewed with patient as applicable. Potential red flag symptoms discussed with the patient. Reviewed appropriate action plan to take if red flag symptoms occur. Patient agreeable to treatment plan. During this patient visit I have spent approximately 15 minutes in counseling regarding treatment options and medications. Hailey Ordaz APRN.CAROLINA RODRIGUEZ Observed: 09/24/2018 Status: COMPLETED Source: [place] 2:40 PM [facility] REPOSITORY Office Visit (INTMWS) ANDRAE MUSA ([id number]) 1985 F Date Time Provider Department 09/24/18 2:40 PM HAILEY ORDAZ ([place]) INTMWS During your visit today, we recorded the following information about you: Temperature Pulse Respiration Blood pressure 98.3 degrees 89/minute 22/minute 122/74 Weight 122.9 kg Hailey Ordaz, MANAGER HOUSEKEEPINGHOWARD 09/24/2018 3:26 PM Signed CC: Patient presents with: Recheck HPI Andrae Musa is a 33 year old female who presents today for headache and neck pain follow-up. Patient was initially seen for frequent, persistent headaches and low back pain. Headaches were attributed to tension in neck and shoulders. Started on Propranolol for prophylaxis and referred to PT for headache and low back pain treatment. Patient has had good results with PT, headaches, low back and neck pain have improved dramatically. Doing exercises at home and still going to PT. Occasionally takes Meloxicam with good relief. Denies any new or worsening symptoms. REVIEW OF SYSTEMS See HPI PAST MEDICAL HISTORY Diagnosis Date - Abdominal pain, left upper quadrant 08/08/2011 - Depressive disorder, not elsewhere classified - GERD (gastroesophageal reflux disease) - Irritable bowel syndrome - Obesity - Tobacco abuse PAST SURGICAL HISTORY Procedure Laterality Date - COLONOSCOP W/ OR W/O BRSH SPEC 08/01/15 Colonoscopy - EGD W/O BRSH SPECIMEN W/BX 08/11/11 patchy duodenitis - EGD W/O BRSH SPECIMEN W/BX 07/14/12 gastritis and esophagitis - LAPAROSCOPIC CHOLEYCYSTECTOMY 06/08/2018 Cholecystectomy, lap ALLERGIES Phenergan [Promethazine]; Zofran [Ondansetron Hcl (Pf)]; Zoloft [Sertraline Hcl] MEDICATIONS Propranolol HCl (INDERAL XL) 80 mg 24 hr capsule Take 1 capsule by mouth daily at bedtime. meloxicam (MOBIC) 15 mg tablet Take 1 tablet by mouth once daily. Take with food. dicyclomine (BENTYL) 10 mg capsule Take 1 capsule by mouth before meals and at bedtime. As needed escitalopram oxalate (LEXAPRO) 10 mg tablet Take 10 mg by mouth once daily. Norethindrone-Eth Estradiol (NECON , ,) 1-35 mg-mcg per tablet Take 1 tablet by mouth once daily. ibuprofen (MOTRIN) 200 mg tablet Take 200 mg by mouth every 6 hours as needed. acetaminophen (TYLENOL) 325 mg tablet Take 650 mg by mouth every 6 hours as needed. ranitidine (ZANTAC) 150 mg tablet Take 150 mg by mouth as needed. FAMILY HISTORY Problem Relation Age of Onset - Diabetes Father - other (encephalopathy) Sister - Diabetes Maternal Grandmother - other (Other) Maternal Grandfather non-alcoholic serosis of liver (christine) - Diabetes Paternal Grandmother - other (brain tumor) Sister benign - other (ulcerative colitis) Sister Social History Substance Use Topics - Smoking status: Current Every Day Smoker Packs/day: 1.00 Years: 12.00 Types: Cigarettes - Smokeless tobacco: Never Used Comment: Currently using patch but intermittent smoking - Alcohol use Yes Comment: usually 2-3 times a month PHYSICAL EXAM BP 122/74 Pulse 89 Temp 36.8 ?C (98.3 ?F) Resp 22 Wt 122.9 kg (271 lb) SpO2 98% BMI 41.21 kg/m? General Appearance: well appearing, in no acute distress, alert Pysch: mood and affect broad and appropriate ASSESSMENT/PLAN: 1. Chronic tension-type headache, not intractable - ICD9: 339.12, ICD10: G44.229 (primary diagnosis) Patient doing well, headaches are no longer frequent or severe. No new or worsening symptoms. Continue with PT and home exercises Will try and wean off Propranolol, see patient instructions Follow-up with PCP per usual or sooner as needed 2. Lumbar back pain - ICD9: 724.2, ICD10: M54.5 Improved Plan as above Prescription instructions reviewed with patient as applicable. Potential red flag symptoms discussed with the patient. Reviewed appropriate action plan to take if red flag symptoms occur. Patient agreeable to treatment plan. During this patient visit I have spent approximately 15 minutes in counseling regarding treatment options and medications. SUSIE Castro APRN.CNP 09/24/2018 3:14 PM Signed Decrease Propranolol to every other day for one week, then every 3 days for 2 weeks then stop. You can resume taking daily if headaches reocurring and notify office. Referring Provider: ARASELI BADILLO [[id number]] Allergies As of Date: 09/24/2018 Noted Allergy Reaction PHENERGAN (PROMETHAZINE) 07/07/2012 12 - Shortness of Breath Comments: Dizziness and lightheadness ZOFRAN (ONDANSETRON HCL (PF)) 07/22/2018 14 - Other: See Comments Comments: shaking ZOLOFT (SERTRALINE HCL) 06/18/2017 14 - Other: See Comments Comments: ESPANA's and dizziness Date Reviewed: 09/24/2018 Reviewed by: Brigitte Cee) HAN Long - Fully Assessed Reason for Visit: Recheck [92] Primary Visit Diagnosis:Chronic tension-type headache, not intractable [G44.229] Other Visit Diagnosis:Lumbar back pain [M54.5] Prescriptions as of 09/24/2018 Sig: PROPRANOLOL XL 80 MG CAPSULE,* Take 1 capsule by mouth daily* MELOXICAM 15 MG TABLET Take 1 tablet by mouth once d* DICYCLOMINE 10 MG CAPSULE Take 1 capsule by mouth befor* ESCITALOPRAM 10 MG TABLET Take 10 mg by mouth once gaudencio* NORETHINDRONE-ETHINYL ESTRADI* Take 1 tablet by mouth once d* IBUPROFEN 200 MG TABLET Take 200 mg by mouth every 6 * ACETAMINOPHEN 325 MG TABLET Take 650 mg by mouth every 6 * RANITIDINE 150 MG TABLET Take 150 mg by mouth as neede* Problem List As Of Date 09/24/2018 Noted Resolved IRRITABLE COLON [K58.9] Depressive disorder [F32.9] More... Dysmenorrhea [N94.6] INVALID FOR*09/22/2017 Tobacco use disorder [F17.200] INVALID FOR* GERD (gastroesophageal reflux disease) [K21.9] INVALID FOR* Diarrhea [R19.7] INVALID FOR*08/01/2015 Abnormal uterine bleeding [N93.9] INVALID FOR*09/22/2017 RUQ pain [R10.11] INVALID FOR* More... Obesity, Class III, BMI >= 40 [E66.01] INVALID FOR* Chronic tension-type headache, intractable [G44*INVALID FOR* Low back pain [M54.5] INVALID FOR* Other instructions from your clinician: Decrease Propranolol to every other day for one week, then every 3 days for 2 weeks then stop. You can resume taking daily if headaches reocurring and notify office. Encounter Status:Closed by HAILEY ORDAZ CNP on 09/24/18 PROGRESS Observed: 09/15/2018 Status: COMPLETED Source: [place] 4:11 PM [facility] REPOSITORY HNO ID: [id number] Author: Mingo Zelaya Service: (none) Author Type: Physician Type: Progress Notes Filed: 09/15/2018 5:11 PM Note Text: Patient presents with: Sore Throat: with back of neck pain x 3 days HPI: Feeling sick for 3 days. Positive symptoms: sore throat, mild Rhinorrhea/Post nasal drainage, occasional Sinus pressure, Negative symptoms: Cough, Earache, Fever, OTC: Ibuprofen, Tylenol, meloxicam today Neck pain: Hurts the back of her neck to swallow or rotate to the extremes. Woke with the pain 2 days ago, thought she had slept wrong. Pain is worsening. Treated with ROM and yoga. PAST MEDICAL HISTORY Diagnosis Date - Abdominal pain, left upper quadrant 08/08/2011 - Depressive disorder, not elsewhere classified - GERD (gastroesophageal reflux disease) - Irritable bowel syndrome - Obesity - Tobacco abuse MEDICATIONS: Current Outpatient Prescriptions: Propranolol HCl (INDERAL XL) 80 mg 24 hr capsule Take 1 capsule by mouth daily at bedtime. meloxicam (MOBIC) 15 mg tablet Take 1 tablet by mouth once daily. Take with food. dicyclomine (BENTYL) 10 mg capsule Take 1 capsule by mouth before meals and at bedtime. As needed escitalopram oxalate (LEXAPRO) 10 mg tablet Take 10 mg by mouth once daily. Norethindrone-Eth Estradiol (NECON 1/35, 28,) 1-35 mg-mcg per tablet Take 1 tablet by mouth once daily. ibuprofen (MOTRIN) 200 mg tablet Take 200 mg by mouth every 6 hours as needed. acetaminophen (TYLENOL) 325 mg tablet Take 650 mg by mouth every 6 hours as needed. ranitidine (ZANTAC) 150 mg tablet Take 150 mg by mouth as needed. No current facility-administered medications for this visit. ALLERGIES: ALLERGIES Allergen Reactions - Phenergan [Prometha* Shortness of Breath Dizziness and lightheadness - Zofran [Ondansetron* Other: See Comments shaking - Zoloft [Sertraline * Other: See Comments ESPANA's and dizziness VITALS: BP 122/68 Pulse 67 Temp 36.3 ?C (97.3 ?F) (Left Tympanic) Resp 16 Wt 123.4 kg (272 lb) SpO2 98% BMI 41.36 kg/m? PHYSICAL EXAM: GEN: Pleasant, in no acute distress. HEENT: PERRL, EOMI, conjunctiva clear Throat: moist mucous membranes, mild erythema, no exudate Neck: supple, no thyromegaly, no lymphadenopathy, tender L>R paraspinal and trapezius muscles. Mild decreased right lateral extension (produces left paraspinal pain). Discomfort with extreme rotation and extension. Full flexion. HEART: regular rate and rhythm, no murmurs LUNGS: clear to auscultation, no wheezes or crackles, no increased WOB ASSESSMENT/PLAN: 1. Sore throat - ICD9: 462, ICD10: J02.9 (primary diagnosis) - suspect viral - Rapid Strep negative in the office today - RAPID STREP TEST B/O 2. Neck pain - ICD9: 723.1, ICD10: M54.2 Probably unrelated stiff neck. Work on ROM exercises. NSAID for comfort. Consider PT or chiropractor if persists. F/u if high fever develops. Mingo Zelaya MD CNOV Observed: 09/15/2018 Status: COMPLETED Source: [place] 4:00 PM [facility] REPOSITORY Office Visit (WSTR) ANDRAE MUSA ([id number]) 1985 F Date Time Provider Department 09/15/18 4:00 PM MINGO ZELAYA KP During your visit today, we recorded the following information about you: Temperature Pulse Respiration Blood pressure 97.3 degrees 67/minute 16/minute 122/68 Weight 123.4 kg Mingo Zelaya MD 09/15/2018 5:11 PM Signed Patient presents with: Sore Throat: with back of neck pain x 3 days HPI: Feeling sick for 3 days. Positive symptoms: sore throat, mild Rhinorrhea/Post nasal drainage, occasional Sinus pressure, Negative symptoms: Cough, Earache, Fever, OTC: Ibuprofen, Tylenol, meloxicam today Neck pain: Hurts the back of her neck to swallow or rotate to the extremes. Woke with the pain 2 days ago, thought she had slept wrong. Pain is worsening. Treated with ROM and yoga. PAST MEDICAL HISTORY Diagnosis Date - Abdominal pain, left upper quadrant 08/08/2011 - Depressive disorder, not elsewhere classified - GERD (gastroesophageal reflux disease) - Irritable bowel syndrome - Obesity - Tobacco abuse MEDICATIONS: Current Outpatient Prescriptions: Propranolol HCl (INDERAL XL) 80 mg 24 hr capsule Take 1 capsule by mouth daily at bedtime. meloxicam (MOBIC) 15 mg tablet Take 1 tablet by mouth once daily. Take with food. dicyclomine (BENTYL) 10 mg capsule Take 1 capsule by mouth before meals and at bedtime. As needed escitalopram oxalate (LEXAPRO) 10 mg tablet Take 10 mg by mouth once daily. Norethindrone-Eth Estradiol (NECON , ,) 1-35 mg-mcg per tablet Take 1 tablet by mouth once daily. ibuprofen (MOTRIN) 200 mg tablet Take 200 mg by mouth every 6 hours as needed. acetaminophen (TYLENOL) 325 mg tablet Take 650 mg by mouth every 6 hours as needed. ranitidine (ZANTAC) 150 mg tablet Take 150 mg by mouth as needed. No current facility-administered medications for this visit. ALLERGIES: ALLERGIES Allergen Reactions - Phenergan [Prometha* Shortness of Breath Dizziness and lightheadness - Zofran [Ondansetron* Other: See Comments shaking - Zoloft [Sertraline * Other: See Comments ESPANA's and dizziness VITALS: BP 122/68 Pulse 67 Temp 36.3 ?C (97.3 ?F) (Left Tympanic) Resp 16 Wt 123.4 kg (272 lb) SpO2 98% BMI 41.36 kg/m? PHYSICAL EXAM: GEN: Pleasant, in no acute distress. HEENT: PERRL, EOMI, conjunctiva clear Throat: moist mucous membranes, mild erythema, no exudate Neck: supple, no thyromegaly, no lymphadenopathy, tender L>R paraspinal and trapezius muscles. Mild decreased right lateral extension (produces left paraspinal pain). Discomfort with extreme rotation and extension. Full flexion. HEART: regular rate and rhythm, no murmurs LUNGS: clear to auscultation, no wheezes or crackles, no increased WOB ASSESSMENT/PLAN: 1. Sore throat - ICD9: 462, ICD10: J02.9 (primary diagnosis) - suspect viral - Rapid Strep negative in the office today - RAPID STREP TEST B/O 2. Neck pain - ICD9: 723.1, ICD10: M54.2 Probably unrelated stiff neck. Work on ROM exercises. NSAID for comfort. Consider PT or chiropractor if persists. F/u if high fever develops. Mingo Zelaya MD Referring Provider: SELF [[id number]] Allergies As of Date: 09/15/2018 Noted Allergy Reaction PHENERGAN (PROMETHAZINE) 07/07/2012 12 - Shortness of Breath Comments: Dizziness and lightheadness ZOFRAN (ONDANSETRON HCL (PF)) 07/22/2018 14 - Other: See Comments Comments: shaking ZOLOFT (SERTRALINE HCL) 06/18/2017 14 - Other: See Comments Comments: ESPANA's and dizziness Date Reviewed: 09/15/2018 Reviewed by: Merari Vegas Ma - Fully Assessed Reason for Visit: Sore Throat [200] Cmt: with back of neck pain x 3 days Primary Visit Diagnosis:Sore throat [J02.9] Other Visit Diagnosis:Neck pain [M54.2] Order(s):RAPID STREP TEST B/O [[id number]] Order #: [id number] Prescriptions as of 09/15/2018 Sig: PROPRANOLOL XL 80 MG CAPSULE,* Take 1 capsule by mouth daily* MELOXICAM 15 MG TABLET Take 1 tablet by mouth once d* DICYCLOMINE 10 MG CAPSULE Take 1 capsule by mouth befor* ESCITALOPRAM 10 MG TABLET Take 10 mg by mouth once gaudencio* NORETHINDRONE-ETHINYL ESTRADI* Take 1 tablet by mouth once d* IBUPROFEN 200 MG TABLET Take 200 mg by mouth every 6 * ACETAMINOPHEN 325 MG TABLET Take 650 mg by mouth every 6 * RANITIDINE 150 MG TABLET Take 150 mg by mouth as neede* Problem List As Of Date 09/15/2018 Noted Resolved IRRITABLE COLON [K58.9] Depressive disorder [F32.9] More... Dysmenorrhea [N94.6] INVALID FOR*09/22/2017 Tobacco use disorder [F17.200] INVALID FOR* GERD (gastroesophageal reflux disease) [K21.9] INVALID FOR* Diarrhea [R19.7] INVALID FOR*08/01/2015 Abnormal uterine bleeding [N93.9] INVALID FOR*09/22/2017 RUQ pain [R10.11] INVALID FOR* More... Obesity, Class III, BMI >= 40 [E66.01] INVALID FOR* Chronic tension-type headache, intractable [G44*INVALID FOR* Low back pain [M54.5] INVALID FOR* Encounter Status:Closed by MINGO ZELAYA MD on 09/15/18 PROGRESS Observed: 09/06/2018 Status: COMPLETED Source: [place] 6:27 PM [facility] [place] REPOSITORY HNO ID: [id number] Author: Siena (Pt) Eusebia Service: (none) Author Type: Physical Therapist Type: Progress Notes Filed: 09/06/2018 6:48 PM Note Text: Episode Visit Count: 2 Therapist That Will Oversee The Plan Of Care: Siena Laws PT Start of Care Date: 08/23/18 Onset Date: 08/23/17 Patient Identified by Name and Date of : Yes [facility] PHYSICAL THERAPY TREATMENT NOTE ASSESSMENT: Andrae Musa demonstrated improvements in low back pain after core strengthening exercises. She has responded positively to cervical exercises. At the end of today's session, Andrae stated she felt like she was walking better and could bend down to get her shoes better. The patient will continue to benefit from continued skilled physical therapy for ther ex and manual. PLAN FOR NEXT VISIT: POC update: 09/29/18. Assess how HEP is going for back. Progress HEP as needed. Introduce foam roller. SUBJECTIVE: Patient loves the cervical C2 extension and as soon as she has her headache comes on and if she catches it earlier enough she can stop headache or can reduce headache. Rolling heavy rolls on table at work and back is very stiff feeling it doesn't feel malleable. No stabbing pain behind R eye. Pain Score: 5/10 Pain Location: Back (T11-L4) Description: Stiffness Frequency: Continuous Post Treatment Pain Score: 2/10 Pain Location: Back Post Treatment Pain Description: Aching (less stiffness) OBJECTIVE MEASURES WITH LEVEL OF FUNCTION: Low double backer to palpation btw T11-L4 TREATMENT: Therapeutic Exercise: 5: *Posterior Pelvic Tilts + Transverse Abominal Bracing x10, 5 sec holds 6: *Posterior Pelvic Tilts + Transverse Abominal Bracing + BKFO x10, 5 sec holds 7: *Posterior Pelvic Tilts + Transverse Abominal Bracing + Marching x10, 5 sec holds 8: *Posterior Pelvic Tilts + Transverse Abominal Bracing + Bridging x10, 5 sec holds 9: *Posterior Pelvic Tilts + Transverse Abominal Bracing + alternating heel slides x10, 5 sec holds 10: *Standing green shoudler ext 2x10 11: *Seated shoulder blade squeezes with green band 2x10 Skilled Intervention: Patient was educated in proper exercise technique and purpose for exercises. Reviewed and educated patient on additions/changes for home exercise program as above (*) Skilled judgment was provided in selection of appropriate interventions. Provided written instruction for home exercise program to facilitate proper performance and compliance. Correct performance of therapeutic exercises was facilitated with verbal, visual and tactile cuing. Billing: [facility]: Therapeutic Exercise ([id number]): 1:1 time: 45 minutes (3 units: 38-52 mins) Total time: 45 minutes Siena Laws PT CNTHERAPY Observed: 09/06/2018 Status: COMPLETED Source: [place] 5:45 PM [facility] REPOSITORY OT/PT/Speech Visit (PTWS) ANDRAE MUSA ([id number]) 1985 F IPA Date Time Provider Department 09/06/18 5:45 PM SIENA LAWSPT) ANA Date Time Provider Department Center 09/06/2018 5:45 PM [id number], DIANA (PT)PTFREDIS [facility] Reason for Visit: Physical Therapy [503] Primary Visit Diagnosis:Chronic tension-type headache, intractable [G44.221] Other Visit Diagnosis:Low back pain, unspecified back pain laterality, unspecified chronicity, with sciatica presence unspecified [M54.5] Allergies As of Date: 09/06/2018 Noted Allergy Reaction PHENERGAN (PROMETHAZINE) 07/07/2012 12 - Shortness of Breath Comments: Dizziness and lightheadness ZOFRAN (ONDANSETRON HCL (PF)) 07/22/2018 14 - Other: See Comments Comments: shaking ZOLOFT (SERTRALINE HCL) 06/18/2017 14 - Other: See Comments Comments: ESPANA's and dizziness Date Reviewed: 08/06/2018 Reviewed by: Gale Campuzano Mobile Lounge Driver Or Operator - Fully Assessed Prescriptions as of 09/06/2018 Sig: PROPRANOLOL XL 80 MG CAPSULE,* Take 1 capsule by mouth daily* MELOXICAM 15 MG TABLET Take 1 tablet by mouth once d* DICYCLOMINE 10 MG CAPSULE Take 1 capsule by mouth befor* ESCITALOPRAM 10 MG TABLET Take 10 mg by mouth once gaudencio* NORETHINDRONE-ETHINYL ESTRADI* Take 1 tablet by mouth once d* IBUPROFEN 200 MG TABLET Take 200 mg by mouth every 6 * ACETAMINOPHEN 325 MG TABLET Take 650 mg by mouth every 6 * RANITIDINE 150 MG TABLET Take 150 mg by mouth as neede* Progress Notes: Siena Laws, LORNA 09/06/2018 6:48 PM Signed Episode Visit Count: 2 Therapist That Will Oversee The Plan Of Care: Siena Laws PT Start of Care Date: 08/23/18 Onset Date: 08/23/17 Patient Identified by Name and Date of : Yes REHABILITATION AND SPORTS THERAPY PHYSICAL THERAPY TREATMENT NOTE ASSESSMENT: Andrae Musa demonstrated improvements in low back pain after core strengthening exercises. She has responded positively to cervical exercises. At the end of today's session, Andrae stated she felt like she was walking better and could bend down to get her shoes better. The patient will continue to benefit from continued skilled physical therapy for ther ex and manual. PLAN FOR NEXT VISIT: POC update: 09/29/18. Assess how HEP is going for back. Progress HEP as needed. Introduce foam roller. SUBJECTIVE: Patient loves the cervical C2 extension and as soon as she has her headache comes on and if she catches it earlier enough she can stop headache or can reduce headache. Rolling heavy rolls on table at work and back is very stiff feeling it doesn't feel malleable. No stabbing pain behind R eye. Pain Score: 5/10 Pain Location: Back (T11-L4) Description: Stiffness Frequency: Continuous Post Treatment Pain Score: 2/10 Pain Location: Back Post Treatment Pain Description: Aching (less stiffness) OBJECTIVE MEASURES WITH LEVEL OF FUNCTION: Low double backer to palpation btw T11-L4 TREATMENT: Therapeutic Exercise: 5: *Posterior Pelvic Tilts + Transverse Abominal Bracing x10, 5 sec holds 6: *Posterior Pelvic Tilts + Transverse Abominal Bracing + BKFO x10, 5 sec holds 7: *Posterior Pelvic Tilts + Transverse Abominal Bracing + Marching x10, 5 sec holds 8: *Posterior Pelvic Tilts + Transverse Abominal Bracing + Bridging x10, 5 sec holds 9: *Posterior Pelvic Tilts + Transverse Abominal Bracing + alternating heel slides x10, 5 sec holds 10: *Standing green shoudler ext 2x10 11: *Seated shoulder blade squeezes with green band 2x10 Skilled Intervention: Patient was educated in proper exercise technique and purpose for exercises. Reviewed and educated patient on additions/changes for home exercise program as above (*) Skilled judgment was provided in selection of appropriate interventions. Provided written instruction for home exercise program to facilitate proper performance and compliance. Correct performance of therapeutic exercises was facilitated with verbal, visual and tactile cuing. Billing: [facility]: Therapeutic Exercise ([id number]): 1:1 time: 45 minutes (3 units: 38-52 mins) Total time: 45 minutes Siena Laws PT Annotated image of C22 PT LUMBAR STAB #2 last updated by Siena Laws on 09/06/2018 6:03 PM PROGRESS Observed: 08/23/2018 Status: COMPLETED Source: [place] 4:15 PM [facility] [place] REPOSITORY HNO ID: [id number] Author: Siena Laws Service: (none) Author Type: Physical Therapist Type: Progress Notes Filed: 08/27/2018 11:34 AM Note Text: Episode Visit Count: 1 Therapist That Will Oversee The Plan Of Care: Siena Laws PT Start of Care Date: 08/23/18 Onset Date: 08/23/17 Patient Identified by Name and Date of : Yes REHABILITATION AND SPORTS THERAPY PHYSICAL THERAPY EVALUATION PLAN OF CARE: Assessment: Andrae Musa presents with the diagnosis of chronic tension-type headache and low back pain. She presents with impairments of pain with returning to neutral from standing after performing lumbar flexion and extension, tight hamstrings, core strength, poor posture, and frequent headaches. She may benefit from skilled therapy services to improve lumbar pain, hamstring flexibility, core strength, posture, and decrease frequency of headaches. Patient with improvement of headache intensity after exercises performed today. Classification Low Back Pain Subgroup Classification: Core stabilization subgroup: recommended visits 10. Core Stabilization Subgroup Classification based on: pain with transitional movements Prognosis: Excellent;Good Good due to: within-session changes at evaluation;Prognosis may be limited Prognosis may be limited by: chronic nature of impairments Goals for Episode of Care: created on 08/23/18 through 10/22/18 [place] in home exercise program. Perform bending forwards or extending lumbar spine and returning to neutral standing position without pain. Demonstrate improvement on functional score: Improve Modified Oswestry Pain Questionnaire (LBP) by 6 points (12%) to indicate a Minimal Clinical Important Difference. (Goal: 0%) Increased strength of core to at least 4/5 for improvement in low back symptoms. Improve postural awareness when sitting to do homework. Patient will report being able to do stairs without limitation. Patient will improve hamstring flexibility to 70' improve posture. Patient will report an improvement in decreased frequency of headaches. Planned Interventions, Frequency, and Duration: Current Frequency: 1x every other week (scheduling one visit at a time d/t $30 copay) Duration: 8 weeks Total Number of Visits Planned: 5 Planned Treatment Interventions: Therapeutic exercise;Manual therapy;Patient/Family/Caregiver Education;Body Mechanics Training;General Conditioning PLAN FOR NEXT VISIT: see how HEP is going. Body mechanics. Postural training exercises and core strenghtening. Schedule another visit as patient is only scheduling one visit at a time. Patient demonstrates good understanding of plan of care and treatment. The above goals and plan of care were discussed and agreed upon by patient/family. SUBJECTIVE: Andrae Musa is a 32 year old female seen today for chornic headaches and low back pain. Has had headaches for years. Gets stress headaches a lot and increases with her depression. Has been managing her depression for about a year via counseling. Has a stabbing pain behind the right eye and burning/numbness pain in back of head. 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 Patient was put on meloxicam has helped a bit with back pain. Propranolol is helping her sx she feels. Is enrolled in [employer] on-line for accounting. End of work day her R hip hurts. Functional Limitations: bending;lifting;stair negotiation (standing up from bending, focusing) Prior Level of Function: Independent without limitations Patient Goals: to feel better Intake Information: Prescription present Previous Treatment: NSAIDs?;Pain meds? Spine History Pain is Better Always: (inward relaxation through therapy or laying on back) Pain Score: 4/10 Pain Location: (R eye and back of head) Description: Stabbing;Burning (5-6/10 middle of thoracic spine achy and stiff) Frequency: Continuous Post Treatment Pain Score: 2/10 (Thoracic 4/10) Pain Location: (Headache. ) Post Treatment Pain Description: Stabbing;Burning OBJECTIVE MEASURES WITH LEVEL OF FUNCTION: Posture / Alignment Posture: Forward head;Rounded shoulders (poor sitting posture in txt chair and on mat table) Leg Length Discrepency: No Leg length difference Spine Observations Spine Presents with: (Tenderness T9-L1) Spine Palpation R Cervical Spine Palpation Tenderness: Upper trapezius;Scalenes;Sternocleidomastoid;Suboccipitals L Cervical Spine Palpation Tenderness: Upper trapezius;Levator Scapulae;Scalenes;Sternocleidomastoid;Suboccipitals Lumbar Spine AROM Lumbar Flexion: Normal (pain returning to standing) Lumbar Extension: Normal (pain returning to standing) Lumbar R Side-Bend: Normal Lumbar L Side-Bend: Normal Lumbar R Rotation: Normal Lumbar L Rotation: Normal Cervical Spine AROM Cervical AROM determined by: Limitation Cervical Protrusion: Normal Cervical Retraction: Normal Cervical Flexion: Normal (tigthness at base of neck) Cervical Extension: Normal Cervical Side-Bend Right: Normal Cervical Side-Bend Left: Normal Cervical Rotation Right: Normal Cervical Rotation Left: Normal LE Flexibility Flexibility: Hamstring Flexibility R Hamstring Flexibility: 60 L Hamstring Flexibility: 69 UE and Cervical Strength R UE Strength: 5/5 L UE Strength: 5/5 LE Strength Trunk Strength: 3/5 R LE Strength: 5/5 L LE Strength: 5/5 Special Tests - Hip and Spine Hip and Spine Special Tests: SLR Test;FREDY Test SLR Test: Left Negative;Right Negative FREDY Test: Right Positive Education: Education Learning Preferences: Demonstration;Explanation;Performance;Printed Materials Barriers: None Learning/educational needs: Plan of Care;Home exercise program Education Provided: Yes, see treatment interventions for education provided Education Provided To: Patient Education Mode/Type: Demonstration;Explanation/Discussion;Literature/Printed Materials;Performance;Teach Back Response to Education/Teach Back: States/Identifies TREATMENT: Evaluation Therapeutic Exercise: 1: *Chin Tucks x10, 5sec 2: *C2 Extension with finger tips 2x10, 5 sec holds (sx better behind eye and back of head) 3: Maintaining good posture when sitting to do homework. Recommended sitting on a chair and at a table vs sitting on couch 4: Recommended seeing if wearing a mask when banners are being painted to help decreaese trigger of a ESPANA Skilled Intervention: Patient was educated in proper exercise technique and purpose for exercises. Reviewed and educated patient on additions/changes for home exercise program as above (*) Skilled judgment was provided in selection of appropriate interventions. Provided written instruction for home exercise program to facilitate proper performance and compliance. Correct performance of therapeutic exercises was facilitated with verbal, visual and tactile cuing. Patient education as noted. Billing: [facility]: Evaluation - Low Complexity ([id number]) Therapeutic Exercise ([id number]): 1:1 time: 23 minutes (2 units: 23-37 mins) Total time: 41 minutes Siena Laws PT CNTHERAPY Observed: 08/23/2018 Status: COMPLETED Source: [place] 3:30 PM [facility] REPOSITORY OT/PT/Speech Visit (PTWS) ANDRAE MUSA ([id number]) 1985 F Date Time Provider Department 08/23/18 3:30 PM SIENA LAWS (PT) PTWS Date Time Provider Department Center 08/23/2018 3:30 PM [id number], DIANA (PT)PTWS [facility] Reason for Visit: PT Eval [747] Patient Education [91] Primary Visit Diagnosis:Chronic tension-type headache, intractable [G44.221] Other Visit Diagnosis:Low back pain, unspecified back pain laterality, unspecified chronicity, with sciatica presence unspecified [M54.5] Allergies As of Date: 08/23/2018 Noted Allergy Reaction PHENERGAN (PROMETHAZINE) 07/07/2012 12 - Shortness of Breath Comments: Dizziness and lightheadness ZOFRAN (ONDANSETRON HCL (PF)) 07/22/2018 14 - Other: See Comments Comments: shaking ZOLOFT (SERTRALINE HCL) 06/18/2017 14 - Other: See Comments Comments: ESPANA's and dizziness Date Reviewed: 08/06/2018 Reviewed by: Gale Campuzano Mobile Lounge Driver Or Operator - Fully Assessed Prescriptions as of 08/23/2018 Sig: PROPRANOLOL XL 80 MG CAPSULE,* Take 1 capsule by mouth daily* MELOXICAM 15 MG TABLET Take 1 tablet by mouth once d* DICYCLOMINE 10 MG CAPSULE Take 1 capsule by mouth befor* ESCITALOPRAM 10 MG TABLET Take 10 mg by mouth once gauedncio* NORETHINDRONE-ETHINYL ESTRADI* Take 1 tablet by mouth once d* IBUPROFEN 200 MG TABLET Take 200 mg by mouth every 6 * ACETAMINOPHEN 325 MG TABLET Take 650 mg by mouth every 6 * RANITIDINE 150 MG TABLET Take 150 mg by mouth as neede* Progress Notes: Siena Laws PT 08/27/2018 11:34 AM Signed Episode Visit Count: 1 Therapist That Will Oversee The Plan Of Care: Siena Laws PT Start of Care Date: 08/23/18 Onset Date: 08/23/17 Patient Identified by Name and Date of : Yes REHABILITATION AND SPORTS THERAPY PHYSICAL THERAPY EVALUATION PLAN OF CARE: Assessment: Andraecale Musa presents with the diagnosis of chronic tension-type headache and low back pain. She presents with impairments of pain with returning to neutral from standing after performing lumbar flexion and extension, tight hamstrings, core strength, poor posture, and frequent headaches. She may benefit from skilled therapy services to improve lumbar pain, hamstring flexibility, core strength, posture, and decrease frequency of headaches. Patient with improvement of headache intensity after exercises performed today. Classification Low Back Pain Subgroup Classification: Core stabilization subgroup: recommended visits 10. Core Stabilization Subgroup Classification based on: pain with transitional movements Prognosis: Excellent;Good Good due to: within-session changes at evaluation;Prognosis may be limited Prognosis may be limited by: chronic nature of impairments Goals for Episode of Care: created on 08/23/18 through 10/22/18 [place] in home exercise program. Perform bending forwards or extending lumbar spine and returning to neutral standing position without pain. Demonstrate improvement on functional score: Improve Modified Oswestry Pain Questionnaire (LBP) by 6 points (12%) to indicate a Minimal Clinical Important Difference. (Goal: 0%) Increased strength of core to at least 4/5 for improvement in low back symptoms. Improve postural awareness when sitting to do homework. Patient will report being able to do stairs without limitation. Patient will improve hamstring flexibility to 70' improve posture. Patient will report an improvement in decreased frequency of headaches. Planned Interventions, Frequency, and Duration: Current Frequency: 1x every other week (scheduling one visit at a time d/t $30 copay) Duration: 8 weeks Total Number of Visits Planned: 5 Planned Treatment Interventions: Therapeutic exercise;Manual therapy;Patient/Family/Caregiver Education;Body Mechanics Training;General Conditioning PLAN FOR NEXT VISIT: see how HEP is going. Body mechanics. Postural training exercises and core strenghtening. Schedule another visit as patient is only scheduling one visit at a time. Patient demonstrates good understanding of plan of care and treatment. The above goals and plan of care were discussed and agreed upon by patient/family. SUBJECTIVE: Andrae Musa is a 32 year old female seen today for chornic headaches and low back pain. Has had headaches for years. Gets stress headaches a lot and increases with her depression. Has been managing her depression for about a year via counseling. Has a stabbing pain behind the right eye and burning/numbness pain in back of head. 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 Patient was put on meloxicam has helped a bit with back pain. Propranolol is helping her sx she feels. Is enrolled in [employer] on-line for accounting. End of work day her R hip hurts. Functional Limitations: bending;lifting;stair negotiation (standing up from bending, focusing) Prior Level of Function: Independent without limitations Patient Goals: to feel better Intake Information: Prescription present Previous Treatment: NSAIDs?;Pain meds? Spine History Pain is Better Always: (inward relaxation through therapy or laying on back) Pain Score: 4/10 Pain Location: (R eye and back of head) Description: Stabbing;Burning (5-6/10 middle of thoracic spine achy and stiff) Frequency: Continuous Post Treatment Pain Score: 2/10 (Thoracic 4/10) Pain Location: (Headache. ) Post Treatment Pain Description: Stabbing;Burning OBJECTIVE MEASURES WITH LEVEL OF FUNCTION: Posture / Alignment Posture: Forward head;Rounded shoulders (poor sitting posture in txt chair and on mat table) Leg Length Discrepency: No Leg length difference Spine Observations Spine Presents with: (Tenderness T9-L1) Spine Palpation R Cervical Spine Palpation Tenderness: Upper trapezius;Scalenes;Sternocleidomastoid;Suboccipitals L Cervical Spine Palpation Tenderness: Upper trapezius;Levator Scapulae;Scalenes;Sternocleidomastoid;Suboccipitals Lumbar Spine AROM Lumbar Flexion: Normal (pain returning to standing) Lumbar Extension: Normal (pain returning to standing) Lumbar R Side-Bend: Normal Lumbar L Side-Bend: Normal Lumbar R Rotation: Normal Lumbar L Rotation: Normal Cervical Spine AROM Cervical AROM determined by: Limitation Cervical Protrusion: Normal Cervical Retraction: Normal Cervical Flexion: Normal (tigthness at base of neck) Cervical Extension: Normal Cervical Side-Bend Right: Normal Cervical Side-Bend Left: Normal Cervical Rotation Right: Normal Cervical Rotation Left: Normal LE Flexibility Flexibility: Hamstring Flexibility R Hamstring Flexibility: 60 L Hamstring Flexibility: 69 UE and Cervical Strength R UE Strength: 5/5 L UE Strength: 5/5 LE Strength Trunk Strength: 3/5 R LE Strength: 5/5 L LE Strength: 5/5 Special Tests - Hip and Spine Hip and Spine Special Tests: SLR Test;FREDY Test SLR Test: Left Negative;Right Negative FREDY Test: Right Positive Education: Education Learning Preferences: Demonstration;Explanation;Performance;Printed Materials Barriers: None Learning/educational needs: Plan of Care;Home exercise program Education Provided: Yes, see treatment interventions for education provided Education Provided To: Patient Education Mode/Type: Demonstration;Explanation/Discussion;Literature/Printed Materials;Performance;Teach Back Response to Education/Teach Back: States/Identifies TREATMENT: Evaluation Therapeutic Exercise: 1: *Chin Tucks x10, 5sec 2: *C2 Extension with finger tips 2x10, 5 sec holds (sx better behind eye and back of head) 3: Maintaining good posture when sitting to do homework. Recommended sitting on a chair and at a table vs sitting on couch 4: Recommended seeing if wearing a mask when banners are being painted to help decreaese trigger of a ESPANA Skilled Intervention: Patient was educated in proper exercise technique and purpose for exercises. Reviewed and educated patient on additions/changes for home exercise program as above (*) Skilled judgment was provided in selection of appropriate interventions. Provided written instruction for home exercise program to facilitate proper performance and compliance. Correct performance of therapeutic exercises was facilitated with verbal, visual and tactile cuing. Patient education as noted. Billing: [facility]: Evaluation - Low Complexity ([id number]) Therapeutic Exercise ([id number]): 1:1 time: 23 minutes (2 units: 23-37 mins) Total time: 41 minutes Siena Laws PT PROGRESS Observed: 08/06/2018 Status: COMPLETED Source: [place] 10:54 AM [facility] [place] REPOSITORY HNO ID: [id number] Author: Hailey ([place]) Older Service: (none) Author Type: Nurse Practitioner Type: Progress Notes Filed: 08/06/2018 12:02 PM Note Text: CC: Patient presents with: Established Patient: headache follow up HPI Andrae Musa is a 32 year old female who presents today for headache and back pain follow-up. Headaches: Persistent for a couple months. History of headaches in the past. Head CT done in ER was normal. No new or worsening symptoms. Continues to be located occipital and sometimes radiating to top of head. Described as pressure like. Treats with Tylenol frequently with minor relief. Back pain: Minimal improvement with Meloxicam and back exercises. No new or worsening symptoms. No leg weakness, numbness, tingling. No bowel or bladder incontinence. REVIEW OF SYSTEMS See HPI PAST MEDICAL HISTORY Diagnosis Date - Abdominal pain, left upper quadrant 08/08/2011 - Depressive disorder, not elsewhere classified - GERD (gastroesophageal reflux disease) - Irritable bowel syndrome - Obesity - Tobacco abuse PAST SURGICAL HISTORY Procedure Laterality Date - COLONOSCOP W/ OR W/O BRSH SPEC 08/01/15 Colonoscopy - EGD W/O BRSH SPECIMEN W/BX 08/11/11 patchy duodenitis - EGD W/O BRSH SPECIMEN W/BX 07/14/12 gastritis and esophagitis - LAPAROSCOPIC CHOLEYCYSTECTOMY 06/08/2018 Cholecystectomy, lap ALLERGIES Phenergan [Promethazine]; Zofran [Ondansetron Hcl (Pf)]; Zoloft [Sertraline Hcl] MEDICATIONS meloxicam (MOBIC) 15 mg tablet Take 1 tablet by mouth once daily. Take with food. dicyclomine (BENTYL) 10 mg capsule Take 1 capsule by mouth before meals and at bedtime. As needed ondansetron orally disintegrating (ZOFRAN ODT) 4 mg disintegrating tablet Take 1 tablet by mouth every 8 hours as needed. escitalopram oxalate (LEXAPRO) 10 mg tablet Take 10 mg by mouth once daily. Norethindrone-Eth Estradiol (NECON 1/35, 28,) 1-35 mg-mcg per tablet Take 1 tablet by mouth once daily. ibuprofen (MOTRIN) 200 mg tablet Take 200 mg by mouth every 6 hours as needed. acetaminophen (TYLENOL) 325 mg tablet Take 650 mg by mouth every 6 hours as needed. ranitidine (ZANTAC) 150 mg tablet Take 150 mg by mouth as needed. FAMILY HISTORY Problem Relation Age of Onset - Diabetes Father - other (encephalopathy) Sister - Diabetes Maternal Grandmother - other (Other) Maternal Grandfather non-alcoholic serosis of liver (christine) - Diabetes Paternal Grandmother - other (brain tumor) Sister benign - other (ulcerative colitis) Sister Social History Substance Use Topics - Smoking status: Current Every Day Smoker Packs/day: 1.00 Years: 12.00 Types: Cigarettes - Smokeless tobacco: Never Used Comment: Currently using patch but intermittent smoking - Alcohol use Yes Comment: usually 2-3 times a month PHYSICAL EXAM BP 130/81 Pulse 78 Temp 36.7 ?C (98.1 ?F) (Temporal Artery) Resp 16 Wt 123.8 kg (273 lb) SpO2 100% BMI 41.51 kg/m? General Appearance: well appearing, in no acute distress, alert Pysch: mood and affect broad and appropriate DTAP,TDAP,TD(1 - Tdap) due on 2005 HPV EVERY 5 YEARS due on 2016 INFLUENZA(1) due on 07/24/2018 PAP EVERY 5 YEARS due on 06/19/2019 ONE PNEUMOVAX PRIOR TO AGE 65 Completed ASSESSMENT/PLAN: 1. Chronic tension-type headache, not intractable - ICD9: 339.12, ICD10: G44.229 (primary diagnosis) No new or worsening symptoms Patient has been treated for headaches in the past with Topamax and Elavil. Had bad reaction to one but can't remember which. - Start PROPRANOLOL XL 80 MG CAPSULE,EXTENDED RELEASE 24 HR - CONSULT TO PHYSICAL THERAPY - Discussed medication overuse headaches, advised to stop Tylenol Follow-up in 6 weeks or sooner as needed 2. Lumbar back pain - ICD9: 724.2, ICD10: M54.5 No new or worsening symptoms Continue with Meloxicam as needed - CONSULT TO PHYSICAL THERAPY Follow-up in 6 weeks Prescription instructions reviewed with patient as applicable. Potential red flag symptoms discussed with the patient. Reviewed appropriate action plan to take if red flag symptoms occur. Patient agreeable to treatment plan. During this patient visit I have spent approximately 20 minutes in counseling regarding treatment options, medications and coordinating care. Hailey Ordaz APRN.CAROLINA ARANAOV Observed: 08/06/2018 Status: COMPLETED Source: [place] 10:40 AM [facility] REPOSITORY Office Visit (INTMWS) ANDRAE MUSA ([id number]) 1985 F Date Time Provider Department 08/06/18 10:40 AM HAILEY ORDAZ (CORPORATE WELLNESS COORDINATOR) INTMWS During your visit today, we recorded the following information about you: Temperature Pulse Respiration Blood pressure 98.1 degrees 78/minute 16/minute 130/81 Weight 123.8 kg Hailey Ordaz APRN.CNP 08/06/2018 12:02 PM Signed CC: Patient presents with: Established Patient: headache follow up HPI Andrae Musa is a 32 year old female who presents today for headache and back pain follow-up. Headaches: Persistent for a couple months. History of headaches in the past. Head CT done in ER was normal. No new or worsening symptoms. Continues to be located occipital and sometimes radiating to top of head. Described as pressure like. Treats with Tylenol frequently with minor relief. Back pain: Minimal improvement with Meloxicam and back exercises. No new or worsening symptoms. No leg weakness, numbness, tingling. No bowel or bladder incontinence. REVIEW OF SYSTEMS See HPI PAST MEDICAL HISTORY Diagnosis Date - Abdominal pain, left upper quadrant 08/08/2011 - Depressive disorder, not elsewhere classified - GERD (gastroesophageal reflux disease) - Irritable bowel syndrome - Obesity - Tobacco abuse PAST SURGICAL HISTORY Procedure Laterality Date - COLONOSCOP W/ OR W/O BRSH SPEC 08/01/15 Colonoscopy - EGD W/O BRSH SPECIMEN W/BX 08/11/11 patchy duodenitis - EGD W/O BRSH SPECIMEN W/BX 07/14/12 gastritis and esophagitis - LAPAROSCOPIC CHOLEYCYSTECTOMY 06/08/2018 Cholecystectomy, lap ALLERGIES Phenergan [Promethazine]; Zofran [Ondansetron Hcl (Pf)]; Zoloft [Sertraline Hcl] MEDICATIONS meloxicam (MOBIC) 15 mg tablet Take 1 tablet by mouth once daily. Take with food. dicyclomine (BENTYL) 10 mg capsule Take 1 capsule by mouth before meals and at bedtime. As needed ondansetron orally disintegrating (ZOFRAN ODT) 4 mg disintegrating tablet Take 1 tablet by mouth every 8 hours as needed. escitalopram oxalate (LEXAPRO) 10 mg tablet Take 10 mg by mouth once daily. Norethindrone-Eth Estradiol (NECON , 28,) 1-35 mg-mcg per tablet Take 1 tablet by mouth once daily. ibuprofen (MOTRIN) 200 mg tablet Take 200 mg by mouth every 6 hours as needed. acetaminophen (TYLENOL) 325 mg tablet Take 650 mg by mouth every 6 hours as needed. ranitidine (ZANTAC) 150 mg tablet Take 150 mg by mouth as needed. FAMILY HISTORY Problem Relation Age of Onset - Diabetes Father - other (encephalopathy) Sister - Diabetes Maternal Grandmother - other (Other) Maternal Grandfather non-alcoholic serosis of liver (christine) - Diabetes Paternal Grandmother - other (brain tumor) Sister benign - other (ulcerative colitis) Sister Social History Substance Use Topics - Smoking status: Current Every Day Smoker Packs/day: 1.00 Years: 12.00 Types: Cigarettes - Smokeless tobacco: Never Used Comment: Currently using patch but intermittent smoking - Alcohol use Yes Comment: usually 2-3 times a month PHYSICAL EXAM BP 130/81 Pulse 78 Temp 36.7 ?C (98.1 ?F) (Temporal Artery) Resp 16 Wt 123.8 kg (273 lb) SpO2 100% BMI 41.51 kg/m? General Appearance: well appearing, in no acute distress, alert Pysch: mood and affect broad and appropriate DTAP,TDAP,TD(1 - Tdap) due on 2005 HPV EVERY 5 YEARS due on 2016 INFLUENZA(1) due on 07/24/2018 PAP EVERY 5 YEARS due on 06/19/2019 ONE PNEUMOVAX PRIOR TO AGE 65 Completed ASSESSMENT/PLAN: 1. Chronic tension-type headache, not intractable - ICD9: 339.12, ICD10: G44.229 (primary diagnosis) No new or worsening symptoms Patient has been treated for headaches in the past with Topamax and Elavil. Had bad reaction to one but can't remember which. - Start PROPRANOLOL XL 80 MG CAPSULE,EXTENDED RELEASE 24 HR - CONSULT TO PHYSICAL THERAPY - Discussed medication overuse headaches, advised to stop Tylenol Follow-up in 6 weeks or sooner as needed 2. Lumbar back pain - ICD9: 724.2, ICD10: M54.5 No new or worsening symptoms Continue with Meloxicam as needed - CONSULT TO PHYSICAL THERAPY Follow-up in 6 weeks Prescription instructions reviewed with patient as applicable. Potential red flag symptoms discussed with the patient. Reviewed appropriate action plan to take if red flag symptoms occur. Patient agreeable to treatment plan. During this patient visit I have spent approximately 20 minutes in counseling regarding treatment options, medications and coordinating care. SUSIE Castro APRN.CNP 08/06/2018 11:15 AM Signed Call office if Propranolol ineffective or if experiencing side effects Follow-up in 6 weeks or sooner if headaches are worsening Referring Provider: SELF [200] Allergies As of Date: 08/06/2018 Noted Allergy Reaction PHENERGAN (PROMETHAZINE) 07/07/2012 12 - Shortness of Breath Comments: Dizziness and lightheadness ZOFRAN (ONDANSETRON HCL (PF)) 07/22/2018 14 - Other: See Comments Comments: shaking ZOLOFT (SERTRALINE HCL) 06/18/2017 14 - Other: See Comments Comments: ESPANA's and dizziness Date Reviewed: 08/06/2018 Reviewed by: Gale Campuzano Mobile Lounge Driver Or Operator - Fully Assessed Reason for Visit: Established Patient [175] Cmt: headache follow up Primary Visit Diagnosis:Chronic tension-type headache, not intractable [G44.229] Other Visit Diagnosis:Lumbar back pain [M54.5] Order(s):Propranolol HCl (INDERAL XL) 80 mg 24 hr capsuleTake 1 capsule by mouth daily at bedtime.Disp: 30 capsuleRfl: 1 CONSULT TO PHYSICAL THERAPY [9032] Order #: [id number]: 1 Prescriptions as of 08/06/2018 Sig: MELOXICAM 15 MG TABLET Take 1 tablet by mouth once d* DICYCLOMINE 10 MG CAPSULE Take 1 capsule by mouth befor* ESCITALOPRAM 10 MG TABLET Take 10 mg by mouth once gaudencio* NORETHINDRONE-ETHINYL ESTRADI* Take 1 tablet by mouth once d* IBUPROFEN 200 MG TABLET Take 200 mg by mouth every 6 * ACETAMINOPHEN 325 MG TABLET Take 650 mg by mouth every 6 * RANITIDINE 150 MG TABLET Take 150 mg by mouth as neede* PROPRANOLOL XL 80 MG CAPSULE,* Take 1 capsule by mouth daily* Problem List As Of Date 08/06/2018 Noted Resolved IRRITABLE COLON [K58.9] Depressive disorder [F32.9] More... Dysmenorrhea [N94.6] INVALID FOR*09/22/2017 Tobacco use disorder [F17.200] INVALID FOR* GERD (gastroesophageal reflux disease) [K21.9] INVALID FOR* Diarrhea [R19.7] INVALID FOR*08/01/2015 Abnormal uterine bleeding [N93.9] INVALID FOR*09/22/2017 RUQ pain [R10.11] INVALID FOR* More... Obesity, Class III, BMI >= 40 [E66.01] INVALID FOR* Other instructions from your clinician: Call office if Propranolol ineffective or if experiencing side effects Follow-up in 6 weeks or sooner if headaches are worsening Prescriptions ordered this encounter Disp Refills Start End PROPRANOLOL XL 80 MG CAPSULE,EXTENDE* 30 c* 1 08/06/2018 Route: ORAL Sig: Take 1 capsule by mouth daily at bedtime. Medications Discontinued During This Encounter ondansetron orally disintegrating (Z* 12 t* 0 07/02/2018 08/06/2018 Route: ORAL Sig: Take 1 tablet by mouth every 8 hours as needed. Disc: Reason for discontinue is not on file. Letter Text Department of Internal Medicine [address] [address] Andrae Musa [address] [address] August 06, 2018 TO WHOM IT MAY CONCERN: This is to certify that Andrae Musa has been under the care of Hailey Ordaz APRN.CNP and was unable to work from 07/30/18 through 08/08/18. Andrae may return to work on 08/09/18 with no restrictions Sincerely yours, Hailey Ordaz APRN.CNP Encounter Status:Closed by HAILEY ORDAZ CNP on 08/06/18 PROGRESS Observed: 07/23/2018 Status: COMPLETED Source: [place] 11:55 AM [facility] [place] REPOSITORY O ID: [id number] Author: Hailey Ordaz Service: (none) Author Type: Nurse Practitioner Type: Progress Notes Filed: 07/23/2018 12:02 PM Note Text: CC: abdominal pain follow-up HPI Andrae Musa is a 32 year old female who presents today for follow-up for continued abdominal pain. Initially seen for generalized abdominal pain 07/02/18. Work up included abdominal ultrasound, CBC, CMP, lipase, H.pylori and stool studies that were all negative. She was referred to general surgery, CT abdomen and pelvis ordered that was unremarkable. Surgeon noted paraspinal pain with palpation, feels that abdominal pain is secondary to this rather than gastrointestinal. Patient reports intermittent mid back pain x 2 to 3 weeks. Described as tightening that radiates around to both sides of her abdomen. Aggravated by laying flat and leaning forward. Alleviated somewhat with Ibuprofen but usually just stops on its own. Denies leg weakness, numbness, tingling. Denies bowel or bladder incontinence. No history of back pain or injury. REVIEW OF SYSTEMS See HPI PAST MEDICAL HISTORY Diagnosis Date - Abdominal pain, left upper quadrant 08/08/2011 - Depressive disorder, not elsewhere classified - GERD (gastroesophageal reflux disease) - Irritable bowel syndrome - Obesity - Tobacco abuse PAST SURGICAL HISTORY Procedure Laterality Date - COLONOSCOP W/ OR W/O BRSH SPEC 08/01/15 Colonoscopy - EGD W/O BRSH SPECIMEN W/BX 08/11/11 patchy duodenitis - EGD W/O BRSH SPECIMEN W/BX 07/14/12 gastritis and esophagitis - LAPAROSCOPIC CHOLEYCYSTECTOMY 06/08/2018 Cholecystectomy, lap ALLERGIES Phenergan [Promethazine]; Zofran [Ondansetron Hcl (Pf)]; Zoloft [Sertraline Hcl] MEDICATIONS dicyclomine (BENTYL) 10 mg capsule Take 1 capsule by mouth before meals and at bedtime. As needed ondansetron orally disintegrating (ZOFRAN ODT) 4 mg disintegrating tablet Take 1 tablet by mouth every 8 hours as needed. escitalopram oxalate (LEXAPRO) 10 mg tablet Take 10 mg by mouth once daily. Norethindrone-Eth Estradiol (NECON , 28,) 1-35 mg-mcg per tablet Take 1 tablet by mouth once daily. ibuprofen (MOTRIN) 200 mg tablet Take 200 mg by mouth every 6 hours as needed. acetaminophen (TYLENOL) 325 mg tablet Take 650 mg by mouth every 6 hours as needed. ranitidine (ZANTAC) 150 mg tablet Take 150 mg by mouth as needed. meloxicam (MOBIC) 15 mg tablet Take 1 tablet by mouth once daily. Take with food. FAMILY HISTORY Problem Relation Age of Onset - Diabetes Father - other (encephalopathy) Sister - Diabetes Maternal Grandmother - other (Other) Maternal Grandfather non-alcoholic serosis of liver (christine) - Diabetes Paternal Grandmother - other (brain tumor) Sister benign - other (ulcerative colitis) Sister Social History Substance Use Topics - Smoking status: Current Every Day Smoker Packs/day: 1.00 Years: 12.00 Types: Cigarettes - Smokeless tobacco: Never Used Comment: Currently using patch but intermittent smoking - Alcohol use Yes Comment: usually 2-3 times a month PHYSICAL EXAM BP 130/80 Pulse 103 Temp 36.4 ?C (97.6 ?F) (Temporal Artery) Resp 16 Wt 121.6 kg (268 lb) SpO2 98% BMI 40.75 kg/m? General Appearance: well appearing, in no acute distress, alert Lungs: Lungs clear to auscultation. No wheezing, rhonchi, rales Heart: RRR without murmur, gallop, or rubs. No ectopy Back: Normal to inspection. Tenderness with palpation of upper lumbar spine and with palpation of upper lumbar paraspinal muscles. ROM: Full ROM that is painful with extension of the spine. Reflexes:2+ and symmetric. Muscle strength: 5/5 bilaterally. SLR: Supine - Right Negative, Left Negative. Abdomen: Abdomen soft, non-distended. moderate generalized abdominal tenderness with palpation. No guarding or rebound tenderness. ASSESSMENT/PLAN: 1. Lumbar spine pain - ICD9: 724.2, ICD10: M54.5 (primary diagnosis) Mechanical back pain. No alarm symptoms or exam findings. - Ice for localized tenderness - Warm moist heat for 20 min three times a day - NSAIDS- see orders - Patient given instructions use of medications as ordered, intermittent rest, back care exercise program, weight loss and improved posture - Follow up in two to four weeks or sooner if symptoms persist or worsen 2. Abdominal pain, unspecified abdominal location - ICD9: 789.00, ICD10: R10.9 Possibly referred pain from spinal etiology Plan as above Prescription instructions reviewed with patient as applicable. Potential red flag symptoms discussed with the patient. Reviewed appropriate action plan to take if red flag symptoms occur. Patient agreeable to treatment plan. Hailey Ordaz APRN.CAROLINA CNOV Observed: 07/23/2018 Status: COMPLETED Source: [place] 9:40 AM [facility] REPOSITORY Office Visit (INTMWS) ANDRAE MUSA ([id number]) 1985 F Date Time Provider Department 07/23/18 9:40 AM HAILEY ORDAZ ([place]) INTMWS During your visit today, we recorded the following information about you: Temperature Pulse Respiration Blood pressure 97.6 degrees 103/minute 16/minute 130/80 Weight 121.6 kg Hailey Ordaz APRN.CNP 07/23/2018 10:12 AM Addendum Start Meloxicam daily for the next 1 to 2 weeks, take with food. Don't take Ibuprofen while taking Meloxicam. Can also try topical medications such as Icy Hot, Biofreeze or Lidocaine. Non-medication measures: Ice for localized pain/tenderness and/or heat. Stretching (see handout) and massage may also be beneficial. Avoid bedrest and stay as active as possible Follow-up in 2-4 weeks if no improvement or sooner if worsening Hailey Ordaz APRN.CNP 07/23/2018 12:02 PM Signed CC: abdominal pain follow-up HPI Andrae Musa is a 32 year old female who presents today for follow-up for continued abdominal pain. Initially seen for generalized abdominal pain 07/02/18. Work up included abdominal ultrasound, CBC, CMP, lipase, H.pylori and stool studies that were all negative. She was referred to general surgery, CT abdomen and pelvis ordered that was unremarkable. Surgeon noted paraspinal pain with palpation, feels that abdominal pain is secondary to this rather than gastrointestinal. Patient reports intermittent mid back pain x 2 to 3 weeks. Described as tightening that radiates around to both sides of her abdomen. Aggravated by laying flat and leaning forward. Alleviated somewhat with Ibuprofen but usually just stops on its own. Denies leg weakness, numbness, tingling. Denies bowel or bladder incontinence. No history of back pain or injury. REVIEW OF SYSTEMS See HPI PAST MEDICAL HISTORY Diagnosis Date - Abdominal pain, left upper quadrant 08/08/2011 - Depressive disorder, not elsewhere classified - GERD (gastroesophageal reflux disease) - Irritable bowel syndrome - Obesity - Tobacco abuse PAST SURGICAL HISTORY Procedure Laterality Date - COLONOSCOP W/ OR W/O BRSH SPEC 08/01/15 Colonoscopy - EGD W/O BRSH SPECIMEN W/BX 08/11/11 patchy duodenitis - EGD W/O BRSH SPECIMEN W/BX 07/14/12 gastritis and esophagitis - LAPAROSCOPIC CHOLEYCYSTECTOMY 06/08/2018 Cholecystectomy, lap ALLERGIES Phenergan [Promethazine]; Zofran [Ondansetron Hcl (Pf)]; Zoloft [Sertraline Hcl] MEDICATIONS dicyclomine (BENTYL) 10 mg capsule Take 1 capsule by mouth before meals and at bedtime. As needed ondansetron orally disintegrating (ZOFRAN ODT) 4 mg disintegrating tablet Take 1 tablet by mouth every 8 hours as needed. escitalopram oxalate (LEXAPRO) 10 mg tablet Take 10 mg by mouth once daily. Norethindrone-Eth Estradiol (NECON , ,) 1-35 mg-mcg per tablet Take 1 tablet by mouth once daily. ibuprofen (MOTRIN) 200 mg tablet Take 200 mg by mouth every 6 hours as needed. acetaminophen (TYLENOL) 325 mg tablet Take 650 mg by mouth every 6 hours as needed. ranitidine (ZANTAC) 150 mg tablet Take 150 mg by mouth as needed. meloxicam (MOBIC) 15 mg tablet Take 1 tablet by mouth once daily. Take with food. FAMILY HISTORY Problem Relation Age of Onset - Diabetes Father - other (encephalopathy) Sister - Diabetes Maternal Grandmother - other (Other) Maternal Grandfather non-alcoholic serosis of liver (christine) - Diabetes Paternal Grandmother - other (brain tumor) Sister benign - other (ulcerative colitis) Sister Social History Substance Use Topics - Smoking status: Current Every Day Smoker Packs/day: 1.00 Years: 12.00 Types: Cigarettes - Smokeless tobacco: Never Used Comment: Currently using patch but intermittent smoking - Alcohol use Yes Comment: usually 2-3 times a month PHYSICAL EXAM BP 130/80 Pulse 103 Temp 36.4 ?C (97.6 ?F) (Temporal Artery) Resp 16 Wt 121.6 kg (268 lb) SpO2 98% BMI 40.75 kg/m? General Appearance: well appearing, in no acute distress, alert Lungs: Lungs clear to auscultation. No wheezing, rhonchi, rales Heart: RRR without murmur, gallop, or rubs. No ectopy Back: Normal to inspection. Tenderness with palpation of upper lumbar spine and with palpation of upper lumbar paraspinal muscles. ROM: Full ROM that is painful with extension of the spine. Reflexes:2+ and symmetric. Muscle strength: 5/5 bilaterally. SLR: Supine - Right Negative, Left Negative. Abdomen: Abdomen soft, non-distended. moderate generalized abdominal tenderness with palpation. No guarding or rebound tenderness. ASSESSMENT/PLAN: 1. Lumbar spine pain - ICD9: 724.2, ICD10: M54.5 (primary diagnosis) Mechanical back pain. No alarm symptoms or exam findings. - Ice for localized tenderness - Warm moist heat for 20 min three times a day - NSAIDS- see orders - Patient given instructions use of medications as ordered, intermittent rest, back care exercise program, weight loss and improved posture - Follow up in two to four weeks or sooner if symptoms persist or worsen 2. Abdominal pain, unspecified abdominal location - ICD9: 789.00, ICD10: R10.9 Possibly referred pain from spinal etiology Plan as above Prescription instructions reviewed with patient as applicable. Potential red flag symptoms discussed with the patient. Reviewed appropriate action plan to take if red flag symptoms occur. Patient agreeable to treatment plan. Hailey Ordaz APRN.CORPORATE WELLNESS COORDINATOR Referring Provider: SELF [200] Allergies As of Date: 07/23/2018 Noted Allergy Reaction PHENERGAN (PROMETHAZINE) 07/07/2012 12 - Shortness of Breath Comments: Dizziness and lightheadness ZOFRAN (ONDANSETRON HCL (PF)) 07/22/2018 14 - Other: See Comments Comments: shaking ZOLOFT (SERTRALINE HCL) 06/18/2017 14 - Other: See Comments Comments: ESPANA's and dizziness Date Reviewed: 07/23/2018 Reviewed by: Gale Campuzano Mobile Lounge Driver Or Operator - Fully Assessed Primary Visit Diagnosis:Lumbar spine pain [M54.5] Other Visit Diagnosis:Abdominal pain, unspecified abdominal location [R10.9] Order(s):meloxicam (MOBIC) 15 mg tabletTake 1 tablet by mouth once daily. Take with food.Disp: 30 tabletRfl: 0 Prescriptions as of 07/23/2018 Sig: DICYCLOMINE 10 MG CAPSULE Take 1 capsule by mouth befor* ONDANSETRON 4 MG DISINTEGRATI* Take 1 tablet by mouth every * ESCITALOPRAM 10 MG TABLET Take 10 mg by mouth once gaudencio* NORETHINDRONE-ETHINYL ESTRADI* Take 1 tablet by mouth once d* IBUPROFEN 200 MG TABLET Take 200 mg by mouth every 6 * ACETAMINOPHEN 325 MG TABLET Take 650 mg by mouth every 6 * RANITIDINE 150 MG TABLET Take 150 mg by mouth as neede* MELOXICAM 15 MG TABLET Take 1 tablet by mouth once d* Problem List As Of Date 07/23/2018 Noted Resolved IRRITABLE COLON [K58.9] Depressive disorder [F32.9] More... Dysmenorrhea [N94.6] INVALID FOR*09/22/2017 Tobacco use disorder [F17.200] INVALID FOR* GERD (gastroesophageal reflux disease) [K21.9] INVALID FOR* Diarrhea [R19.7] INVALID FOR*08/01/2015 Abnormal uterine bleeding [N93.9] INVALID FOR*09/22/2017 RUQ pain [R10.11] INVALID FOR* More... Obesity, Class III, BMI >= 40 [E66.01] INVALID FOR* Other instructions from your clinician: Start Meloxicam daily for the next 1 to 2 weeks, take with food. Don't take Ibuprofen while taking Meloxicam. Can also try topical medications such as Icy Hot, Biofreeze or Lidocaine. Non-medication measures: Ice for localized pain/tenderness and/or heat. Stretching (see handout) and massage may also be beneficial. Avoid bedrest and stay as active as possible Follow-up in 2-4 weeks if no improvement or sooner if worsening Prescriptions ordered this encounter Disp Refills Start End MELOXICAM 15 MG TABLET 30 t* 0 07/23/2018 Route: ORAL Sig: Take 1 tablet by mouth once daily. Take with food. Letter Text Department of Internal Medicine [address] [address] 07/23/2018 Andrae Musa [facility]# [id number] [address] [address] TO WHOM IT MAY CONCERN: This is to certify that Ms. Andrae Musa was seen today in the office Sincerely yours, Hailey Ordaz APRN.CNP Encounter Status:Closed by HAILEY ORDAZ CNP on 07/23/18 PROGRESS Observed: 07/22/2018 Status: COMPLETED Source: [place] 8:36 PM [facility] HNO ID: [id number] Author: Solange Bueno Service: (none) Author Type: Physician Type: Progress Notes Filed: 07/24/2018 6:48 PM Note Text: Complaint of right upper quadrant radiates to back and down right side, states same as gallbladder pain before surgery, states that it is stabbing pain Also notes pain in the chest, bilateral Also notes left sided abdominal pain Denies fevers. Tolerating diet. CT scan 07/20/18 - no acute abdominal pathology, no etiology for patient's pain noted PMH/PSH - unchanged from previous note ROS: denies fevers Examination: General - afebrile, no apparent distress, alert and oriented Abdomen - soft, tender in upper quadrant but no peritoneal signs, tenderness with deep palpation upper abdomen Back - Tender along erector spinae of mid back which palpates out anteriorly Impression: upper abdominal pain Discussion: I have told patient that I cannot account for her abdominal pain, this may be back disk disease resulting in radiculopathy. Patient worried about fatty liver, had a few relatives of CHRISTINE. I have explained to her that not all fatty liver turns into CHRISTINE, best treatment is weight loss. Follow up as per needed. Patient to return to her primary physician for medical care. MICHAEL Observed: 07/22/2018 Status: COMPLETED Source: [place] 1:00 PM [facility] REPOSITORY Office Visit (GENSWS) ANDRAE MUSA ([id number]) 1985 F Date Time Provider Department 07/22/18 1:00 PM SOLANGE BUENO During your visit today, we recorded the following information about you: Temperature Pulse Blood pressure Weight 97.8 degrees 90/minute 118/80 121.4 kg Solange Bueno MD 07/24/2018 6:48 PM Signed Complaint of right upper quadrant radiates to back and down right side, states same as gallbladder pain before surgery, states that it is stabbing pain Also notes pain in the chest, bilateral Also notes left sided abdominal pain Denies fevers. Tolerating diet. CT scan 07/20/18 - no acute abdominal pathology, no etiology for patient's pain noted PMH/PSH - unchanged from previous note ROS: denies fevers Examination: General - afebrile, no apparent distress, alert and oriented Abdomen - soft, tender in upper quadrant but no peritoneal signs, tenderness with deep palpation upper abdomen Back - Tender along erector spinae of mid back which palpates out anteriorly Impression: upper abdominal pain Discussion: I have told patient that I cannot account for her abdominal pain, this may be back disk disease resulting in radiculopathy. Patient worried about fatty liver, had a few relatives of CHRISTINE. I have explained to her that not all fatty liver turns into CHRISTINE, best treatment is weight loss. Follow up as per needed. Patient to return to her primary physician for medical care. Referring Provider: SOLANGE BUENO [[id number]] Allergies As of Date: 07/22/2018 Noted Allergy Reaction PHENERGAN (PROMETHAZINE) 07/07/2012 12 - Shortness of Breath Comments: Dizziness and lightheadness ZOFRAN (ONDANSETRON HCL (PF)) 07/22/2018 14 - Other: See Comments Comments: shaking ZOLOFT (SERTRALINE HCL) 06/18/2017 14 - Other: See Comments Comments: ESPANA's and dizziness Date Reviewed: 07/19/2018 Reviewed by: Vane Thomson Ct - Fully Assessed Reason for Visit: Post Op [174] Cmt: CT Primary Visit Diagnosis:Generalized abdominal pain [R10.84] Prescriptions as of 07/22/2018 Sig: DICYCLOMINE 10 MG CAPSULE Take 1 capsule by mouth befor* ESCITALOPRAM 10 MG TABLET Take 10 mg by mouth once gaudencio* NORETHINDRONE-ETHINYL ESTRADI* Take 1 tablet by mouth once d* IBUPROFEN 200 MG TABLET Take 200 mg by mouth every 6 * ACETAMINOPHEN 325 MG TABLET Take 650 mg by mouth every 6 * RANITIDINE 150 MG TABLET Take 150 mg by mouth as neede* ONDANSETRON 4 MG DISINTEGRATI* Take 1 tablet by mouth every * Problem List As Of Date 07/22/2018 Noted Resolved IRRITABLE COLON [K58.9] Depressive disorder [F32.9] More... Dysmenorrhea [N94.6] INVALID FOR*09/22/2017 Tobacco use disorder [F17.200] INVALID FOR* GERD (gastroesophageal reflux disease) [K21.9] INVALID FOR* Diarrhea [R19.7] INVALID FOR*08/01/2015 Abnormal uterine bleeding [N93.9] INVALID FOR*09/22/2017 RUQ pain [R10.11] INVALID FOR* More... Obesity, Class III, BMI >= 40 [E66.01] INVALID FOR* Encounter Status:Closed by MD SOLANGE BUENO on 07/24/18 PROGRESS Observed: 07/19/2018 Status: COMPLETED Source: [place] 2:56 PM [facility] [place] REPOSITORY HNO ID: [id number] Author: Vane Thomson Ct Service: (none) Author Type: (none) Type: Progress Notes Filed: 07/19/2018 2:57 PM Note Text: Radiology Service Progress Note PATIENT NAME: Andrae Musa DATE OF SERVICE: July 19, 2018 TIME: 2:56 PM PATIENT IDENTITY VERIFICATION COMPLETED USING TWO (2) METHODS: Patient confirmed name verbally and Date of . PATIENT GENDER DATA: Female. status: : No status: NO. PATIENT RELEVANT IMPLANT DATA REVIEWED: Not Applicable CONTRAST INDUCED NEPHROPATHY RISK FACTORS: Not applicable CREATININE: Creatinine Date Value Ref Range Status 07/02/2018 Test sent to [facility]. 0.58 - 0.96 mg/dL Final Comment: Account Credited 06/28/2015 1.02 0.70 - 1.40 mg/dL Final eGFR-All Other Races Date Value Ref Range Status 07/02/2018 Test sent to [facility]. . Final Comment: Account Credited eGFR- Date Value Ref Range Status 07/02/2018 Test sent to [facility]. Final Comment: Account Credited P.O.C.T. RESULTS: POC done: Yes, See Lab Tab July 19, 2018 RADIOLOGIST NOTIFIED?: No ALLERGIES: Reviewed and unchanged CONTRAST ALLERGY: NO. PERIPHERAL IV ACCESS: Ambulatory: IV type: A peripheral IV was started in the Left antecubital site with a Angio cath: 22 gauge., Site assessment: Clean,Dry and Intact, Site disposition Discontinued RADIOLOGY DEPARTMENT: CT; Exam(s) Completed: Abdomen/Pelvis SIGNED BY: Vane Thomson Ct July 19, 2018 2:[address] ABD/PEL W IVCON Observed: 07/19/2018 Status: F Source: [place] 2:45 PM [facility] REPOSITORY * * *Final Report* * * DATE OF EXAM: Jul 19 2018 2:45PM [facility] 0530 - CT ABD/PEL W IVCON / PROCEDURE REASON: multiple diagnoses * * * * Physician Interpretation * * * * EXAMINATION: CT ABDOMEN AND PELVIS WITH IV CONTRAST CLINICAL HISTORY: Generalized abdominal pain Nausea TECHNIQUE: CT of the abdomen and pelvis was performed using standard technique, scanning from just above the dome of the diaphragm to the symphysis pubis. MQ: CTAP_3 Contrast: IV: 150 ml of Omnipaque 300 Oral: 50 ml of 50ML Omnipaque [address] Radiation dose: Integrated Dose-length product (DLP) for this visit = 851 mGy*cm. CT Dose Reduction Employed: Automated exposure control (AEC) COMPARISON: Abdominal ultrasound dated 07/07/2018. No prior CT. RESULT: Liver: No mass. Focal fatty change is incidentally seen within liver, adjacent to the falciform ligament. Biliary: The patient is status post cholecystectomy. There is no biliary dilation. Spleen: No mass. No splenomegaly. Pancreas: No mass or duct dilation. Adrenals: No mass. Kidneys: There is no hydronephrosis or perinephric fluid collection. GI tract: There are no dilated loops of bowel to suggest obstruction. The appendix is seen in the right lower quadrant and is within normal limits. Apparent regions of wall thickening seen involving the sigmoid colon likely relates to underdistention. Lymph nodes: There is no abdominal adenopathy. Mesentery/Peritoneum: No ascites or mass. Retroperitoneum: No mass. Vasculature: The celiac axis and SMA are patent. The portal vein and branches, splenic vein, SMV, and hepatic veins are patent. Pelvis: There is an approximately 1.2 x 1.0 cm right adnexal cyst (series 2, image 129). There is prominence of the endometrium. A few phleboliths are incidentally seen within the pelvis. There is no pelvic ascites. There are prominent, less than 1 cm pelvic lymph nodes, likely reactive. Bones/Soft Tissues: There is a tiny umbilical hernia, containing omental fat. Just superior to the umbilicus is mild fat stranding. A few small bone islands are incidentally noted within the osseous structures. There is no destructive bony lesion. Lower thorax: Lung bases are grossly clear. IMPRESSION: No acute abdominal or pelvic process is identified. Normal appendix. Incidentally noted is an approximately 1.2 cm right adnexal cyst. Nonspecific prominence of the endometrium. Consulting Services Associate: PSCB Transcribe Date/Time: Jul 20 2018 8:01A Dictated by : KISHOR REBOLLEDO MD This examination was interpreted and the report reviewed and electronically signed by: KISHOR REBOLLEDO MD on Jul 20 2018 8:05AM EST [id number] Observed: 07/13/2018 Status: COMPLETED Source: [place] 12:00 AM [facility] REPOSITORY Telephone (INTMWS) ANDRAE MUSA ([id number]) 1985 F Date Time Provider Department 07/13/18 HAILEY ORDAZ) INTYamiletWS During your visit today, we recorded the following information about you: Hailey Ordaz APRN.CNP 07/13/2018 2:28 PM Signed I received disability paperwork to be filled out. I need more information: what days did she miss, is she back to work? SUSIE Castro Cma 07/13/2018 2:36 PM Signed Spoke with patient she states she has not been back to work since June 25 2018 due to the pain being so bad. Gale Campuzano Cma 07/13/2018 3:02 PM Signed Form completed by Hailey Ordaz CNP. Patient is aware. Form in Hailey Ordaz CNP nurse pod to hot die picker on second floor. Gale Ward LPN 07/13/2018 4:21 PM Signed original to pt for hot die picker and copy to medical records for scanning. Allergies As of Date: 07/13/2018 Noted Allergy Reaction PHENERGAN (PROMETHAZINE) 07/07/2012 12 - Shortness of Breath Comments: Dizziness and lightheadness ZOLOFT (SERTRALINE HCL) 06/18/2017 14 - Other: See Comments Comments: ESPANA's and dizziness Date Reviewed: 07/12/2018 Reviewed by: Charles Fairchild LPN - Fully Assessed Reason for Visit: Forms [913] Prescriptions as of 07/13/2018 Sig: IV CONTRAST (RADIOLOGY PROCED* CT Chest ABD/PEL-Inject, intr* ENTERIC CONTRAST (RADIOLOGY P* For CT CHESTABD/PEL W IVCON R* DICYCLOMINE 10 MG CAPSULE Take 1 capsule by mouth befor* ONDANSETRON 4 MG DISINTEGRATI* Take 1 tablet by mouth every * ESCITALOPRAM 10 MG TABLET Take 10 mg by mouth once gaudencio* NORETHINDRONE-ETHINYL ESTRADI* Take 1 tablet by mouth once d* IBUPROFEN 200 MG TABLET Take 200 mg by mouth every 6 * ACETAMINOPHEN 325 MG TABLET Take 650 mg by mouth every 6 * RANITIDINE 150 MG TABLET Take 150 mg by mouth as neede* Problem List As Of Date 07/13/2018 Noted Resolved IRRITABLE COLON [K58.9] Depressive disorder [F32.9] More... Dysmenorrhea [N94.6] INVALID FOR*09/22/2017 Tobacco use disorder [F17.200] INVALID FOR* GERD (gastroesophageal reflux disease) [K21.9] INVALID FOR* Diarrhea [R19.7] INVALID FOR*08/01/2015 Abnormal uterine bleeding [N93.9] INVALID FOR*09/22/2017 RUQ pain [R10.11] INVALID FOR* More... Obesity, Class III, BMI >= 40 [E66.01] INVALID FOR* Encounter Status:Closed by GALE CAMPUZANO CMA on 07/13/18 PROGRESS Observed: 07/12/2018 Status: COMPLETED Source: [place] 8:21 AM [facility] REPOSITORY HNO ID: [id number] Author: Solange Bueno Service: (none) Author Type: Physician Type: Progress Notes Filed: 07/13/2018 7:35 PM Note Text: Andrae Musa 1985 REFERRING PHYSICIAN: Araseli Badillo MD CHIEF COMPLAINT: Consult (Consult Abd Pain) HPI: The patient is a 32 year old female presents with complaint of nausea (one episode of emesis) and generalized abdominal pain. Began the evening of June 27, with the above symptoms - severe crampy abdominal pain and aching, she thought it might be intestinal flu. She presented to [facility] ED with complaint of severe headache on June 30. No complaint of abdominal pain mentioned at that time. On July 07, she had US of abdomen for above complaints - and it was negative. She presented to [facility] ED on for uncontrollable twitching and continued headache. Her friend states that it looked like a seizure. The episode lasted for 2 hours. She presents today for continued abdominal pain - generalized. Not same as gallbladder pain. She states that the pain goes up into the chest area. Also with continued headache. She had laparoscopic cholecystectomy on 06/08/18. She states that this pain is new from surgery. Has not been taking any temperatures, but feeling hot and cold. Has constant nausea, and one episode of emesis. Has had loose stools - about 4 episodes per day, though not every day. Denies blood in stools. Denies blood in urine, denies burning with urination. Denies changes in appetite. Denies weight loss. PAST MEDICAL HISTORY Diagnosis Date - Abdominal pain, left upper quadrant 08/08/2011 - Depressive disorder, not elsewhere classified - GERD (gastroesophageal reflux disease) - Irritable bowel syndrome - Obesity - Tobacco abuse PAST SURGICAL HISTORY Procedure Laterality Date - COLONOSCOP W/ OR W/O [facility] SPEC 08/01/15 Colonoscopy - EGD W/O [facility] SPECIMEN W/BX 08/11/11 patchy duodenitis - EGD W/O [facility] SPECIMEN W/BX 07/14/12 gastritis and esophagitis - LAPAROSCOPIC CHOLEYCYSTECTOMY 06/08/2018 Cholecystectomy, lap Current Outpatient Prescriptions: dicyclomine (BENTYL) 10 mg capsule Take 1 capsule by mouth before meals and at bedtime. As needed ondansetron orally disintegrating (ZOFRAN ODT) 4 mg disintegrating tablet Take 1 tablet by mouth every 8 hours as needed. escitalopram oxalate (LEXAPRO) 10 mg tablet Take 10 mg by mouth once daily. Norethindrone-Eth Estradiol (NECON , 28,) 1-35 mg-mcg per tablet Take 1 tablet by mouth once daily. ibuprofen (MOTRIN) 200 mg tablet Take 200 mg by mouth every 6 hours as needed. acetaminophen (TYLENOL) 325 mg tablet Take 650 mg by mouth every 6 hours as needed. ranitidine (ZANTAC) 150 mg tablet Take 150 mg by mouth as needed. 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 * Social History Main Topics Smoking status: Current Every Day Smoker Packs/day: 1.00 Years: 12.00 Types: Cigarettes Smokeless tobacco: Never Used Comment: Currently using patch but intermittent smoking Alcohol use: Yes Comment: usually 2-3 times a month Drug use: No Sexual activity: Yes Partners with: Male control/protection: Pill Social History Narrative Lives with her dad, step mom and 2 sisters FAMILY HISTORY Problem Relation Age of Onset - Diabetes Father - other (encephalopathy) Sister - Diabetes Maternal Grandmother - other (Other) Maternal Grandfather non-alcoholic serosis of liver (christine) - Diabetes Paternal Grandmother - other (brain tumor) Sister benign - other (ulcerative colitis) Sister REVIEW OF SYSTEMS: General: The patient denies fatigue, denies weight loss, denies weight gain, NOTES feeling hot, and denies feelings of cold. Eyes: The patient denies glaucoma, denies eye injury/surgery, wears glasses or contacts. Ear/Nose/Throat: The patient denies allergies, denies hayfever, denies ear infections, and denies bloody noses. Cardiovascular: The patient denies chest pain, denies heart disease, denies high blood pressure,denies cardiac stent, denies prior heart attack, denies irregular heart beat, denies high cholesterol, denies poor circulation, denies heart failure, other cardiac issues, denies claudication, denies cold feet, denies peripheral arterial stent. Respiratory: The patient denies tuberculosis, denies pneumonia, denies frequent cough, denies pulmonary embolism, denies shortness of breath, and denies coughing up blood. Gastrointestinal: The patient denies difficulty swallowing, NOTES acid reflux, NOTES ulcers, denies vomiting, denies jaundice/hepatitis, NOTES gallbladder problems, denies black or tarry stools, denies hemorrhoids, denies bleeding from rectum, denies diverticulitis, denies constipation, NOTES diarrhea, denies loss of stool control, and denies hernias. Kidney/Bladder: The patient denies kidney stones, denies urine infections, and denies bloody urine. Skin: The patient denies a history of skin cancer, denies bleeding/changing moles, and denies a history of skin rash. Neurologic: The patient denies a history of epilepsy/convulsions, denies headaches, denies head/spinal injuries, and denies stroke/TIA. Psychiatric: The patient NOTE psychiatric medications, NOTES depression, and denies voices, denies substance abuse. Endocrine: The patient denies thyroid disorders, denies diabetes, and denies hormonal problems. Hematologic: The patient denies a history of bruising, denies bleeding, and denies anemia, denies blood clots. Infections: The patient denies a history of measles and mumps, denies rheumatic fever, and denies sexually transmitted diseases. Musculoskeletal: The patient denies back pain/injury, NOTES back problems, denies sciatica, denies knee/foot trouble, denies arthritis, or denies gout. PHYSICAL EXAMINATION: General: The patient is 32 year old female, well nourished, well hydrated in no acute distress. The patient is oriented to time, place, and person. VITALS: Wt: 261# Ht: 5'7 Head ? Normocephalic. EOM intact with sclera clear and no icterus noted. Mouth with mucus membranes moist. Neck - supple with no jugular venous distention noted. Trachea is midline. . Lungs ? clear to auscultation. Normal breath sounds Heart ? regular Abdomen ? soft but generalized abdominal tenderness, no peritoneal signs noted, dfficult to determine if any masses or organomegaly due to body habitus. Extremities ? no calf tenderness noted. Skin ? normal skin integrity. Neurological ? gait normal, no focal deficits noted. Psych ? calm and appropriate Assessment IMPRESSION: generalized abdominal pain, nausea with emesis PLAN: I have discussed the above with the patient. I will order abdominal/pelvic CT scan for evaluation of this generalized abdominal pain with nausea and also diarrhea. Referral to neurology for above episode of twitching. Asked for me to sign disability paperwork for off of work, since multiple symptoms, I told patient that it would best for her to present to her primary care provider. Follow up with me after CT scan to go over results. I have answered all questions to the patient?s satisfaction and the patient has no further questions. Total time spent with patient for discussion - 15 minutes. . Diagnoses: (R10.84) Generalized abdominal pain (primary encounter diagnosis) (R11.0) Nausea Return to Clinic: The patient is instructed to follow-up with me after the CT scan. Solange Bueno MD CNOV Observed: 07/12/2018 Status: COMPLETED Source: [place] 8:00 AM [facility] REPOSITORY Office Visit (GENSWS) ANDRAE MUSA ([id number]) 1985 F Date Time Provider Department 07/12/18 8:00 AM SOLANGE BUENO During your visit today, we recorded the following information about you: Charles Gurinder COLINDRES 07/12/2018 8:04 AM Signed REVIEW OF SYSTEMS: General: The patient denies fatigue, denies weight loss, denies weight gain, NOTES feeling hot, and denies feelings of cold. Eyes: The patient denies glaucoma, denies eye injury/surgery, wears glasses or contacts. Ear/Nose/Throat: The patient denies allergies, denies hayfever, denies ear infections, and denies bloody noses. Cardiovascular: The patient denies chest pain, denies heart disease, denies high blood pressure,denies cardiac stent, denies prior heart attack, denies irregular heart beat, denies high cholesterol, denies poor circulation, denies heart failure, other cardiac issues, denies claudication, denies cold feet, denies peripheral arterial stent. Respiratory: The patient denies tuberculosis, denies pneumonia, denies frequent cough, denies pulmonary embolism, denies shortness of breath, and denies coughing up blood. Gastrointestinal: The patient denies difficulty swallowing, NOTES acid reflux, NOTES ulcers, denies vomiting, denies jaundice/hepatitis, NOTES gallbladder problems, denies black or tarry stools, denies hemorrhoids, denies bleeding from rectum, denies diverticulitis, denies constipation, NOTES diarrhea, denies loss of stool control, and denies hernias. Kidney/Bladder: The patient denies kidney stones, denies urine infections, and denies bloody urine. Skin: The patient denies a history of skin cancer, denies bleeding/changing moles, and denies a history of skin rash. Neurologic: The patient denies a history of epilepsy/convulsions, denies headaches, denies head/spinal injuries, and denies stroke/TIA. Psychiatric: The patient NOTE psychiatric medications, NOTES depression, and denies voices, denies substance abuse. Endocrine: The patient denies thyroid disorders, denies diabetes, and denies hormonal problems. Hematologic: The patient denies a history of bruising, denies bleeding, and denies anemia, denies blood clots. Infections: The patient denies a history of measles and mumps, denies rheumatic fever, and denies sexually transmitted diseases. Musculoskeletal: The patient denies back pain/injury, NOTES back problems, denies sciatica, denies knee/foot trouble, denies arthritis, or denies gout. When was patient's last Mammogram screening? 06/26/18 Last Colonoscopy: n/A Charles Bueno MD 07/13/2018 7:35 PM Signed Andrae Musa 1985 REFERRING PHYSICIAN: Araseli Badillo MD CHIEF COMPLAINT: Consult (Consult Abd Pain) HPI: The patient is a 32 year old female presents with complaint of nausea (one episode of emesis) and generalized abdominal pain. Began the evening of June 27, with the above symptoms - severe crampy abdominal pain and aching, she thought it might be intestinal flu. She presented to [facility] ED with complaint of severe headache on June 30. No complaint of abdominal pain mentioned at that time. On July 07, she had US of abdomen for above complaints - and it was negative. She presented to [facility] ED on for uncontrollable twitching and continued headache. Her friend states that it looked like a seizure. The episode lasted for 2 hours. She presents today for continued abdominal pain - generalized. Not same as gallbladder pain. She states that the pain goes up into the chest area. Also with continued headache. She had laparoscopic cholecystectomy on 06/08/18. She states that this pain is new from surgery. Has not been taking any temperatures, but feeling hot and cold. Has constant nausea, and one episode of emesis. Has had loose stools - about 4 episodes per day, though not every day. Denies blood in stools. Denies blood in urine, denies burning with urination. Denies changes in appetite. Denies weight loss. PAST MEDICAL HISTORY Diagnosis Date - Abdominal pain, left upper quadrant 08/08/2011 - Depressive disorder, not elsewhere classified - GERD (gastroesophageal reflux disease) - Irritable bowel syndrome - Obesity - Tobacco abuse PAST SURGICAL HISTORY Procedure Laterality Date - COLONOSCOP W/ OR W/O [facility] SPEC 08/01/15 Colonoscopy - EGD W/O [facility] SPECIMEN W/BX 08/11/11 patchy duodenitis - EGD W/O [facility] SPECIMEN W/BX 07/14/12 gastritis and esophagitis - LAPAROSCOPIC CHOLEYCYSTECTOMY 06/08/2018 Cholecystectomy, lap Current Outpatient Prescriptions: dicyclomine (BENTYL) 10 mg capsule Take 1 capsule by mouth before meals and at bedtime. As needed ondansetron orally disintegrating (ZOFRAN ODT) 4 mg disintegrating tablet Take 1 tablet by mouth every 8 hours as needed. escitalopram oxalate (LEXAPRO) 10 mg tablet Take 10 mg by mouth once daily. Norethindrone-Eth Estradiol (NECON , 28,) 1-35 mg-mcg per tablet Take 1 tablet by mouth once daily. ibuprofen (MOTRIN) 200 mg tablet Take 200 mg by mouth every 6 hours as needed. acetaminophen (TYLENOL) 325 mg tablet Take 650 mg by mouth every 6 hours as needed. ranitidine (ZANTAC) 150 mg tablet Take 150 mg by mouth as needed. 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 * Social History Main Topics Smoking status: Current Every Day Smoker Packs/day: 1.00 Years: 12.00 Types: Cigarettes Smokeless tobacco: Never Used Comment: Currently using patch but intermittent smoking Alcohol use: Yes Comment: usually 2-3 times a month Drug use: No Sexual activity: Yes Partners with: Male control/protection: Pill Social History Narrative Lives with her dad, step mom and 2 sisters FAMILY HISTORY Problem Relation Age of Onset - Diabetes Father - other (encephalopathy) Sister - Diabetes Maternal Grandmother - other (Other) Maternal Grandfather non-alcoholic serosis of liver (christine) - Diabetes Paternal Grandmother - other (brain tumor) Sister benign - other (ulcerative colitis) Sister REVIEW OF SYSTEMS: General: The patient denies fatigue, denies weight loss, denies weight gain, NOTES feeling hot, and denies feelings of cold. Eyes: The patient denies glaucoma, denies eye injury/surgery, wears glasses or contacts. Ear/Nose/Throat: The patient denies allergies, denies hayfever, denies ear infections, and denies bloody noses. Cardiovascular: The patient denies chest pain, denies heart disease, denies high blood pressure,denies cardiac stent, denies prior heart attack, denies irregular heart beat, denies high cholesterol, denies poor circulation, denies heart failure, other cardiac issues, denies claudication, denies cold feet, denies peripheral arterial stent. Respiratory: The patient denies tuberculosis, denies pneumonia, denies frequent cough, denies pulmonary embolism, denies shortness of breath, and denies coughing up blood. Gastrointestinal: The patient denies difficulty swallowing, NOTES acid reflux, NOTES ulcers, denies vomiting, denies jaundice/hepatitis, NOTES gallbladder problems, denies black or tarry stools, denies hemorrhoids, denies bleeding from rectum, denies diverticulitis, denies constipation, NOTES diarrhea, denies loss of stool control, and denies hernias. Kidney/Bladder: The patient denies kidney stones, denies urine infections, and denies bloody urine. Skin: The patient denies a history of skin cancer, denies bleeding/changing moles, and denies a history of skin rash. Neurologic: The patient denies a history of epilepsy/convulsions, denies headaches, denies head/spinal injuries, and denies stroke/TIA. Psychiatric: The patient NOTE psychiatric medications, NOTES depression, and denies voices, denies substance abuse. Endocrine: The patient denies thyroid disorders, denies diabetes, and denies hormonal problems. Hematologic: The patient denies a history of bruising, denies bleeding, and denies anemia, denies blood clots. Infections: The patient denies a history of measles and mumps, denies rheumatic fever, and denies sexually transmitted diseases. Musculoskeletal: The patient denies back pain/injury, NOTES back problems, denies sciatica, denies knee/foot trouble, denies arthritis, or denies gout. PHYSICAL EXAMINATION: General: The patient is 32 year old female, well nourished, well hydrated in no acute distress. The patient is oriented to time, place, and person. VITALS: Wt: 261# Ht: 5'7 Head ? Normocephalic. EOM intact with sclera clear and no icterus noted. Mouth with mucus membranes moist. Neck - supple with no jugular venous distention noted. Trachea is midline. . Lungs ? clear to auscultation. Normal breath sounds Heart ? regular Abdomen ? soft but generalized abdominal tenderness, no peritoneal signs noted, dfficult to determine if any masses or organomegaly due to body habitus. Extremities ? no calf tenderness noted. Skin ? normal skin integrity. Neurological ? gait normal, no focal deficits noted. Psych ? calm and appropriate Assessment IMPRESSION: generalized abdominal pain, nausea with emesis PLAN: I have discussed the above with the patient. I will order abdominal/pelvic CT scan for evaluation of this generalized abdominal pain with nausea and also diarrhea. Referral to neurology for above episode of twitching. Asked for me to sign disability paperwork for off of work, since multiple symptoms, I told patient that it would best for her to present to her primary care provider. Follow up with me after CT scan to go over results. I have answered all questions to the patient?s satisfaction and the patient has no further questions. Total time spent with patient for discussion - 15 minutes. . Diagnoses: (R10.84) Generalized abdominal pain (primary encounter diagnosis) (R11.0) Nausea Return to Clinic: The patient is instructed to follow-up with me after the CT scan. Solange Bueno MD Referring Provider: ARASELI BADILLO [[id number]] Allergies As of Date: 07/12/2018 Noted Allergy Reaction PHENERGAN (PROMETHAZINE) 07/07/2012 12 - Shortness of Breath Comments: Dizziness and lightheadness ZOLOFT (SERTRALINE HCL) 06/18/2017 14 - Other: See Comments Comments: ESPANA's and dizziness Date Reviewed: 07/12/2018 Reviewed by: Charles Fairchild LPN - Fully Assessed Reason for Visit: Consult [173] Cmt: Consult Abd Pain Primary Visit Diagnosis:Generalized abdominal pain [R10.84] Other Visit Diagnosis:Nausea [R11.0] Order(s):CT ABD/PEL W IVCON [[id number]] Order #: [id number] FUTURE iv contrast (will be provided with radiology test)CT Chest ABD/PEL-Inject, intravenously, once for 1 dose.No IV access, insert saline lock prior to the beginning of sedation, infusion, injection of imaging exam. Discontinue saline lock post exam. If Pt. has a central line or IVAD, may access for administration according to line specific nursing protocol. Once exam is complete flush line and de-access according to line specific nursing protocol in the CT contrast administration guidelines link.Disp: 1 EachRfl: 0 enteric contrast (will be provided with radiology test)For CT CHESTABD/PEL W IVCON Routine order Administer, As Directed One Time Only, via Oral, Rectal, both Oral and Rectal, Enteric Tube, Stoma or Indwelling Catheter, Enteric Contrast as designated per enteric contrast guidelinesDisp: 1 EachRfl: 0 Prescriptions as of 07/12/2018 Sig: DICYCLOMINE 10 MG CAPSULE Take 1 capsule by mouth befor* ONDANSETRON 4 MG DISINTEGRATI* Take 1 tablet by mouth every * ESCITALOPRAM 10 MG TABLET Take 10 mg by mouth once gaudencio* NORETHINDRONE-ETHINYL ESTRADI* Take 1 tablet by mouth once d* IBUPROFEN 200 MG TABLET Take 200 mg by mouth every 6 * ACETAMINOPHEN 325 MG TABLET Take 650 mg by mouth every 6 * RANITIDINE 150 MG TABLET Take 150 mg by mouth as neede* IV CONTRAST (RADIOLOGY PROCED* CT Chest ABD/PEL-Inject, intr* ENTERIC CONTRAST (RADIOLOGY P* For CT CHESTABD/PEL W IVCON R* Problem List As Of Date 07/12/2018 Noted Resolved IRRITABLE COLON [K58.9] Depressive disorder [F32.9] More... Dysmenorrhea [N94.6] INVALID FOR*09/22/2017 Tobacco use disorder [F17.200] INVALID FOR* GERD (gastroesophageal reflux disease) [K21.9] INVALID FOR* Diarrhea [R19.7] INVALID FOR*08/01/2015 Abnormal uterine bleeding [N93.9] INVALID FOR*09/22/2017 RUQ pain [R10.11] INVALID FOR* More... Obesity, Class III, BMI >= 40 [E66.01] INVALID FOR* Visit Notes: >> Charles Fairchild JENS Mon Jul 12, 2018 7:59 AM Status: Signed REVIEW OF SYSTEMS: General: The patient denies fatigue, denies weight loss, denies weight gain, NOTES feeling hot, and denies feelings of cold. Eyes: The patient denies glaucoma, denies eye injury/surgery, wears glasses or contacts. Ear/Nose/Throat: The patient denies allergies, denies hayfever, denies ear infections, and denies bloody noses. Cardiovascular: The patient denies chest pain, denies heart disease, denies high blood pressure,denies cardiac stent, denies prior heart attack, denies irregular heart beat, denies high cholesterol, denies poor circulation, denies heart failure, other cardiac issues, denies claudication, denies cold feet, denies peripheral arterial stent. Respiratory: The patient denies tuberculosis, denies pneumonia, denies frequent cough, denies pulmonary embolism, denies shortness of breath, and denies coughing up blood. Gastrointestinal: The patient denies difficulty swallowing, NOTES acid reflux, NOTES ulcers, denies vomiting, denies jaundice/hepatitis, NOTES gallbladder problems, denies black or tarry stools, denies hemorrhoids, denies bleeding from rectum, denies diverticulitis, denies constipation, NOTES diarrhea, denies loss of stool control, and denies hernias. Kidney/Bladder: The patient denies kidney stones, denies urine infections, and denies bloody urine. Skin: The patient denies a history of skin cancer, denies bleeding/changing moles, and denies a history of skin rash. Neurologic: The patient denies a history of epilepsy/convulsions, denies headaches, denies head/spinal injuries, and denies stroke/TIA. Psychiatric: The patient NOTE psychiatric medications, NOTES depression, and denies voices, denies substance abuse. Endocrine: The patient denies thyroid disorders, denies diabetes, and denies hormonal problems. Hematologic: The patient denies a history of bruising, denies bleeding, and denies anemia, denies blood clots. Infections: The patient denies a history of measles and mumps, denies rheumatic fever, and denies sexually transmitted diseases. Musculoskeletal: The patient denies back pain/injury, NOTES back problems, denies sciatica, denies knee/foot trouble, denies arthritis, or denies gout. When was patient's last Mammogram screening? 06/26/18 Last Colonoscopy: n/A Charles Fairchild LPN Prescriptions ordered this encounter Disp Refills Start End IV CONTRAST (RADIOLOGY PROCEDURE) 1 Ea* 0 07/12/2018 07/13/2018 Class: In Office Sig: CT Chest ABD/PEL-Inject, intravenously, once for 1 dose.No IV access, insert saline lock prior to the beginning of sedation, infusion, injection of imaging exam. Discontinue saline lock post exam. If Pt. has a central line or IVAD, may access for administration according to line specific nursing protocol. Once exam is complete flush line and de-access according to line specific nursing protocol in the CT contrast administration guidelines link. ENTERIC CONTRAST (RADIOLOGY PROCEDUR* 1 Ea* 0 07/12/2018 07/13/2018 Class: In Office Sig: For CT CHESTABD/PEL W IVCON Routine order Administer, As Directed One Time Only, via Oral, Rectal, both Oral and Rectal, Enteric Tube, Stoma or Indwelling Catheter, Enteric Contrast as designated per enteric contrast guidelines Encounter Status:Closed by MD SOLANGE BUENO on 07/13/18 EMERGENCY DEPARTMENT Observed: 07/10/2018 Status: F Source: [place] SUMMARY 4:52 PM [facility] REPOSITORY [facility] Medical Records Department [address] [place] [id number] Emergency Department Summary 07/10/18 1544 MR#: [id number] Acct: [id number] Name: ANDRAE MUSA Rep #: [id number] : 1985 32 From: David Henry MD PCP: Araseli Badillo MD Status: REG ER - ER Visit Summary Date of Service: 07/10/18 Chief Complaint: Twitching of her head and upper extremity 1-1/2 hours prior to presentation History of Present Illness: The patient is a 32 F who reports abdominal pain and aching all over and bifrontal and occipital headaches since cholecystectomy performed by Dr. Bueno. She was seen on June 30, [address] Wheat. She stated at that time the headache started 4 days prior to presentation. She states the headache is bilateral. It has burning discomfort. Headache is not positional. She denies rhinorrhea, congestion or postnasal drainage. She denies double vision, blurred vision or loss of vision. She denies decreased hearing, ringing in her ears or ear pain. She denies any trouble with speech or swallowing. She denies neck pain or neck stiffness. She denies any paresthesia, anesthesia or motor weakness. She does complain of abdominal pain since surgery as well as chest pain. Apparently nothing alleviates, exacerbates her precipitate her chest, abdominal pain or nausea. She denies any urologic symptoms. Patient reports onset of head twitching and upper extremity twitching during baby shower. She has had no prior history of any twitching. There is no history of seizures. Old records were reviewed. Physical Examination: Vital signs remarkable blood pressure 80/61 heart rate 112. On my exam she has a strong palpable PT and DP pulse. Patient had twitching and upper extremity twitching stops when she either uses that extremity or when she had to perform task i.e. looking up information on her smart phone. Her sister's boyfriend noted the absence of any movement when she is doing something. Head is atraumatic normocephalic. Pupils are equal round reactive. Extraocular muscles are intact. TMs are pearly white with landmarks noted. Nares patent with no drainage. Posterior pharynx without erythema or exudate. Uvula is midline. There is no dysphonia or dysphasia. Trachea is midline. There is no stridor with auscultation of the neck. Heart is regular without murmur, gallop or rub. S1 and S2 are normal. Lungs are clear to auscultation with good movement of air bilaterally. Abdomen is soft and nontender. There is no guarding or peritoneal findings. There is no palpable pulsatile mass. There is no abdominal bruit. Bland sign is negative. Negative Rovsing sign. There is no evidence of inguinal or umbilical hernia. Patient is alert and oriented 3. Motor is 5 over 5. Sensory is intact. DTRs are symmetric with no clonus or Babinski sign. Cranial 2 through 12 are intact. Cerebellar testing is normal. Test Results: CT of the head reviewed by me interpreted radiologist as normal. White count slightly up at 11.8 with no shift. This is insignificant. Chloride is slightly elevated on BM pain and is insignificant. Emergency Department Course and Treatment: To evaluate patient's headache CT of the head was obtained looking for any evidence of intracranial bleed, mass- effect, edema etc. Electronic panel was obtained as well. Suspect functional cause of twitching. Treatment Plan: Patient and father were informed of results. They were informed in my professional medical opinion she has a conversion reaction. Father informed me that daughter was/her sister was diagnosed with same past December of this year. Disposition: Patient was discharged to home with father with instructions to contact counseling center for appointment Impression: Conversion reaction This note was generated with [employer] dictation software. It may contain incorrect words, spelling, and punctuation that were not noted in review of the chart prior to signing ED Disposition - Plan for ED Patient: Disposition: Home or Assisted Living Chief Complaint: General Illness Instructions: ED Conversion Disdr Conversion Reac Referrals: Araseli Badillo MD [Primary Care Provider] - Counseling,Center [GROUP OF PHYSICIANS] - 3-5 Days What to do if you have Problems For any increased pain, shortness of breath, bleeding, nausea or vomiting, chest pain, or any unexpected problems, contact your Primary Care Provider. Call [facility] ([phone]) or report to the closest Emergency Room. Call 911 if necessary. 07/10/18 0982 <Electronically signed by David Henry MD> Date David Henry MD Cosigner Signature (If Indicated): Date CC: Counseling Center; Araseli Badillo MD CBC W/DIFF, AUTOMATED Collected: 07/10/2018 Status: F Source: [place] 3:53 PM [facility] REPOSITORY TYPE CODE TESTS RESULT OUT OF RANGE REFERENCE UNITS LAB L100.1000 4.4-11.0 K/mm3 High WBC 11.8 LAB L100.1200 4.2-5.4 M/mm3 Normal RBC 4.75 LAB L100.1300 12.0-15.0 g/dl Normal HGB 13.2 LAB L100.1400 37-47 % Normal HCT 40.6 LAB L100.1500 81-99 fL Normal MCV 85.5 LAB L100.1600 27.0-32.0 pg Normal MCH 27.8 LAB L100.1700 32-36 g/gl Normal MCHC 32.5 LAB L100.1810 11.6-14.6 % Normal RDW CV 13.1 LAB L100.1820 35.1-43.9 fl Normal RDW SD 40.3 LAB L100.1900 150-450 K/mm3 Normal PLT 284 LAB L100.2000 6.2-12.0 fl Normal MPV 10.2 LAB L100.2100 47-70 % Normal NEUT% 67.2 LAB L100.2200 19-41 % Normal LY% 24.8 LAB L100.2300 0-10 % Normal MONO% 6.2 LAB L100.2400 0-5 % Normal EO% 1.2 LAB L100.2500 0-1 % Normal BASO% 0.3 LAB L100.2550 0.0-0.9 % Normal IM GRAN % 0.300 Result Comment: IG% - Immature Granulocytes (promyelocytes, myelocytes and metamyelocytes) > 1% indicates that a LEFT SHIFT is Present. LAB L100.2620 2.0-7.7 X10 3/uL High Absolute Neut 8.0 LAB L100.2720 0.83-4.51 X10 3/ul Normal Absolute Lymph 2.94 Performed By: #### L100.0100 #### [facility] [address] [place], [place], [address] BASIC METABOLIC Collected: 07/10/2018 Status: F Source: [place] PROFILE ([facility]) 3:53 PM [facility] REPOSITORY TYPE CODE TESTS RESULT OUT OF RANGE REFERENCE UNITS LAB L501.0100 74-106 mg/dL Normal GLU 93 Result Comment: Please note revised GLUCOSE reference range effective 2017. LAB L501.1000 7-18 mg/dL Normal BUN 9 LAB L501.1100 0.55-1.02 mg/dL Normal CREAT,SERUM 0.93 Result Comment: The validity of the calculated GFR AND GFRAA in patients over 70 years has not been determined. Clinical correlation is essential. LAB L501.1110 >60 mL/min Normal EST GFR 74 Result Comment: Non- GFR Calc LAB L501.1115 >60 mL/min Normal EST GFR - AA 90 Result Comment: GFR Calc LAB L501.1255 ml/min Normal Estimated CRCL 88.42 LAB L501.1300 10-20 RATIO Low BUN/CRE 9.6 LAB L501.2200 8.5-10 mg/dL Normal .1 CA 8.6 LAB L501.5300 136-14 mmol/L Normal 5 NA 140 LAB L501.5600 3.5-5. mmol/L Normal 1 K 4.1 LAB L501.5900 98-107 mmol/L High CL 108 LAB L501.6100 21.0-3 mmol/L Normal 2.0 CO2 25.0 LAB L501.6200 5-15 Normal GAP 7 Performed By: #### L500.2500 #### [facility] [address] [facility] [place], [address] BRAIN/HEAD WITHOUT Observed: 07/10/2018 Status: F Source: [place] CONTRAST 3:39 PM [facility] REPOSITORY [facility] Imaging Services [address] [place] [address] Brain/Head without Contrast MR#: [id number] Acct: [id number] Name: ANDRAE MUSA Rep #: [id number] : 1985 F 32 From: Amy Lutz MD PCP: Araseli Badillo MD Status: REG ER Study: Brain/Head without Contrast Date of Exam: 07/10/18 Exam# [id number] Ordering Dr: David Henry MD STUDY: CT BRAIN WITHOUT CONTRAST REASON FOR EXAM: Female, 32 years old. Headache. RADIATION DOSAGE (If Supplied By Facility): CTDIvol = ( 44.99 ) mGy, DLP = ( 745.49 ) mGycm TECHNIQUE: Transaxial CT imaging of the brain was performed without administration of intravenous contrast material. Individualized dose optimization techniques were used for this CT. COMPARISON: None. FINDINGS: Normal soft tissue structures. Normal calvarium. Normal size ventricles and extra-axial spaces for the patient's age. Normal white matter tracts of the cerebral hemispheres. Normal basal ganglia and thalami. Normal brainstem. Normal cerebellum. There is no intracranial hemorrhage. There are no findings of an acute ischemic infarction. Normal visualized paranasal sinuses. CT/Brain/Head without Contrast IMPRESSION: Normal unenhanced CT scan of the brain. Electronically Signed: Amy Lutz MD at 16:26 EDT Tel , Service support , CC: Araseli Badillo MD; David Henry MD Consulting Services Associate: Signed US ABDOMEN COMPLETE Observed: 07/07/2018 Status: F Source: [place] 9:21 AM [facility] REPOSITORY * * *Final Report* * * DATE OF EXAM: Jul 07 2018 9:21AM [facility] 1040 - US ABDOMEN COMPLETE / PROCEDURE REASON: multiple diagnoses * * * * Physician Interpretation * * * * EXAMINATION: ULTRASOUND ABDOMEN COMPLETE CLINICAL HISTORY: Upper abdominal pain. TECHNIQUE: Sonography of the abdomen was performed. Images were obtained and stored in a permanent archive. MQ: UAbC_1 COMPARISON: None RESULT: Limitations: Bowel gas and body habitus. Pancreas: Normal sonographic appearance in the visualized portions. Portions obscured: Tail Lesions: None Liver: Echotexture: Diffusely heterogeneous Echogenicity: Increase in echogenicity Surface contour: Smooth Lesions: None. Biliary: No intrahepatic biliary duct dilation. CBD: 4 mm Gallbladder: Surgically absent Spleen: Size: 9.8 x 4.3 x 4.5 cm Lesions: None Right Kidney: -Renal length: 11.0 cm -Parenchyma: Normal parenchymal echogenicity. Normal parenchymal thickness. -Collecting system: No hydronephrosis. -Calculus: No echogenic, shadowing calculus. -Lesion: None. Left Kidney: -Renal length: 10.4 cm -Parenchyma: Normal parenchymal echogenicity. Normal parenchymal thickness. -Collecting system: No hydronephrosis. -Calculus: No echogenic, shadowing calculus. -Lesion: None. IVC: Imaged segment is patent. Abdominal Aorta (AP x TV): Proximal: 1.8 x 1.9 cm, limited visualization. Mid: 1.7 x 1 4 cm Distal: 0.8 x 1.2 cm Ascites: None. IMPRESSION: Findings are suggestive of hepatic steatosis. Heterogeneous echotexture of the liver. The study is limited by overlying bowel gas and body habitus. Consulting Services Associate: PSCB Transcribe Date/Time: Jul 07 2018 9:44A Dictated by : NENA MENDEZ MD This examination was interpreted and the report reviewed and electronically signed by: NENA MENDEZ MD on Jul 07 2018 9:52AM EST [id number] Observed: 07/07/2018 Status: COMPLETED Source: [place] 9:08 AM [facility] REPOSITORY HNO ID: [id number] Author: Lurdes Red Service: (none) Author Type: Wood Inspector Type: Progress Notes Filed: 07/07/2018 9:09 AM Note Text: Radiology Service Progress Note PATIENT NAME: Andrae Musa DATE OF SERVICE: July 07, 2018 TIME: 9:08 AM PATIENT IDENTITY VERIFICATION COMPLETED USING TWO (2) METHODS: Patient confirmed name verbally and Date of . PATIENT GENDER DATA: Female. status: : No status: N/A PATIENT RELEVANT IMPLANT DATA REVIEWED: Not Applicable RADIOLOGY DEPARTMENT: Ultrasound ABD Complete PERIPHERAL IV DATA: Not applicable SIGNED BY: LURDES RED RDMS Beck July 07, 2018 9:08 AM C DIFFICILE PCR Collected: 07/06/2018 Status: F Source: [place] 12:40 PM [facility] REPOSITORY TYPE CODE TESTS RESULT OUT OF REFERENCE UNITS RANGE LAB CDFRES C difficile PCR Specimen rejected. Formed stool received, only non-formed stool is acceptable for C. difficile toxin assay. Result Comment: Account Credited ENTERIC BACT PNL PCR Collected: 07/06/2018 Status: F Source: [place] 12:40 PM [facility] REPOSITORY TYPE CODE TESTS RESULT OUT OF REFERENCE UNITS RANGE LAB PCRSHG Shigella/EIEC Not Detected DNA LAB PCRCMP Campy jejun/coli DNA Not Detected LAB PCRSTX Shiga toxin gene(s) Not Detected LAB PCRSAL Salmonella spp. Not Detected DNA Performed By: #### STLPCR #### [place] [address] LIPASE Collected: 07/06/2018 Status: F Source: [place] 8:30 AM [facility] REPOSITORY TYPE CODE TESTS RESULT OUT OF REFERENCE UNITS RANGE LAB LIPA 16-61 U/L Lipase 38 Performed By: #### LIPA, HPYLRI #### [place] [address] HELICO PYLORI AB Collected: 07/06/2018 Status: F Source: [place] 8:30 AM [facility] REPOSITORY TYPE CODE TESTS RESULT OUT OF REFERENCE UNITS RANGE LAB HPYLRL Negative H. pylori Negative IgG, Qual Result Comment: H. pylori IgG antibodies were not detected in the sample. Negative results by this test do not preclude recent primary infection. LAB HPYLR U/mL H pylori Ab, IgG 0.6 Result Comment: U/mL are interpreted as follows: Negative specimens <0.9 Indeterminate specimens >=0.9 to <1.1 Positive specimens >=1.1 Results were obtained with the IMMULITE 2000 H.pylori IgG EIA. Results obtained from other manufacturers' assay methods may not be used interchangeably. Performed By: #### LIPA, HPYLRI #### [place] [id number] PROGRESS Observed: 07/06/2018 Status: COMPLETED Source: [place] 7:47 AM [facility] REPOSITORY HNO ID: [id number] Author: Hailey (Security Expert) Older Service: (none) Author Type: Nurse Practitioner Type: Progress Notes Filed: 07/06/2018 8:09 AM Note Text: CC: Patient presents with: headaches worsening Abdominal Pain: nausea-has been using anti-nausea medication with some relief Dizziness HPI Andrae Musa is a 32 year old female who presents today for follow-up She was seen last with complaint of upper abdominal discomfort and intermittent sharp side pain bilaterally along with headaches, decreased appetite, nausea, vomiting, diarrhea, heartburn, body aches x 4 days. Exam benign other than generalized abdominal tenderness. CBC and CMP both unremarkable. Today patient reports she is not getting any better. Headaches are worsening. Symptoms still aggravated by eating. Has been treating with Bentyl, Zofran and Zantac without much relief. No black/bloody stools, constipation, fever, chills. Treating headaches with Tylenol and Ibuprofen, ice for the headache without much relief. s/p cholecystectomy 06/08/18. Was doing well up until now. REVIEW OF SYSTEMS Neurological: Positive for lightheadedness. No syncope, dizziness, vision changes, tremors, muscle weakness, numbness/tingling hands or feet PAST MEDICAL HISTORY Diagnosis Date - Abdominal pain, left upper quadrant 08/08/2011 - Depressive disorder, not elsewhere classified - GERD (gastroesophageal reflux disease) - Irritable bowel syndrome - Obesity - Tobacco abuse PAST SURGICAL HISTORY Procedure Laterality Date - COLONOSCOP W/ OR W/O BRSH SPEC 08/01/15 Colonoscopy - EGD W/O BRSH SPECIMEN W/BX 08/11/11 patchy duodenitis - EGD W/O BRSH SPECIMEN W/BX 07/14/12 gastritis and esophagitis - LAPAROSCOPIC CHOLEYCYSTECTOMY 06/08/2018 Cholecystectomy, lap ALLERGIES Phenergan [Promethazine]; Zoloft [Sertraline Hcl] MEDICATIONS dicyclomine (BENTYL) 10 mg capsule Take 1 capsule by mouth before meals and at bedtime. As needed ondansetron orally disintegrating (ZOFRAN ODT) 4 mg disintegrating tablet Take 1 tablet by mouth every 8 hours as needed. escitalopram oxalate (LEXAPRO) 10 mg tablet Take 10 mg by mouth once daily. Norethindrone-Eth Estradiol (NECON 1/35, 28,) 1-35 mg-mcg per tablet Take 1 tablet by mouth once daily. ibuprofen (MOTRIN) 200 mg tablet Take 200 mg by mouth every 6 hours as needed. acetaminophen (TYLENOL) 325 mg tablet Take 650 mg by mouth every 6 hours as needed. ranitidine (ZANTAC) 150 mg tablet Take 150 mg by mouth as needed. FAMILY HISTORY Problem Relation Age of Onset - Diabetes Father - other (encephalopathy) Sister - Diabetes Maternal Grandmother - other (Other) Maternal Grandfather non-alcoholic serosis of liver (christine) - Diabetes Paternal Grandmother - other (brain tumor) Sister benign - other (ulcerative colitis) Sister Social History Substance Use Topics - Smoking status: Current Every Day Smoker Packs/day: 1.00 Years: 12.00 Types: Cigarettes - Smokeless tobacco: Never Used Comment: Currently using patch but intermittent smoking - Alcohol use Yes Comment: usually 2-3 times a month PHYSICAL EXAM BP 100/70 Pulse 96 Temp (!) 35.4 ?C (95.7 ?F) (Temporal Artery) Resp 14 Wt 118.4 kg (261 lb) SpO2 95% BMI 39.68 kg/m? General Appearance: in no acute distress, alert, well hydrated Skin: Skin color, texture, turgor normal for age; Eyes: PERRLA, EOM's intact, conjunctiva pink and moist, no icterus, sclera white, non-injected Neck: Thyroid normal size and symmetric without palpable nodules, Neck supple, No adenopathy Oropharynx: lips normal without lesions, tongue midline and normal, soft palate, uvula, and tonsils normal Lymph nodes: No supraclavicular lymphadenopathy Lungs: Lungs clear to auscultation. No wheezing, rhonchi, rales Heart: RRR without murmur, gallop, or rubs. No ectopy Abdomen: Abdomen soft, non-distended. mild all four quadrants abdominal tenderness with palpation. No guarding or rebound tenderness. Bowel sounds normal and active. No masses, organomegaly. Neurological: Negative findings: speech normal, mental status intact, cranial nerves 2-12 intact Ext: no edema in LE bilaterally, good distal pulses DTAP,TDAP,TD(1 - Tdap) due on 2005 HPV EVERY 5 YEARS due on 2016 INFLUENZA(1) due on 07/24/2018 PAP EVERY 5 YEARS due on 06/19/2019 ONE PNEUMOVAX PRIOR TO AGE 65 Completed ASSESSMENT/PLAN: 1. Pain of upper abdomen - ICD9: 789.09, ICD10: R10.10 (primary diagnosis) Lab work-up on Thursday unremarkable. No alarm symptoms or exam findings today Differential Diagnosis includes GERD, PUD and IBS - Work up with abdominal- US ABDOMEN COMPLETE - ENTERIC BACTERIAL PANEL BY PCR - C. DIFFICILE PCR - LIPASE BLD - H PYLORI IGG AB - Kermit low residue diet - Follow-up pending results of work-up 2. Diarrhea, unspecified type - ICD9: 787.91, ICD10: R19.7 As above - US ABDOMEN COMPLETE - ENTERIC BACTERIAL PANEL BY PCR - C. DIFFICILE PCR 3. Nausea - ICD9: 787.02, ICD10: R11.0 As above - US ABDOMEN COMPLETE 4. Worsening headaches - ICD9: 784.0, ICD10: R51 History of headaches. No change from recent ER visit and follow- up last week. Neuro exam benign. No concerning neurological symptoms. Plan as above Prescription instructions reviewed with patient as applicable. Potential red flag symptoms discussed with the patient. Reviewed appropriate action plan to take if red flag symptoms occur. Patient agreeable to treatment plan. Hailey Ordaz APRN.CNP CNOV Observed: 07/06/2018 Status: COMPLETED Source: [place] 7:40 AM [facility] REPOSITORY Office Visit (INTMWS) ANDRAE MUSA ([id number]) 1985 F Date Time Provider Department 07/06/18 7:40 AM HAILEY ORDAZ ([place]) INTMWS During your visit today, we recorded the following information about you: Temperature Pulse Respiration Blood pressure 95.7 degrees 96/minute 14/minute 100/70 Weight 118.4 kg Hailey Ordaz APRN.CNP 07/06/2018 8:09 AM Signed CC: Patient presents with: headaches worsening Abdominal Pain: nausea-has been using anti-nausea medication with some relief Dizziness HPI Andrae Woodard Lencho is a 32 year old female who presents today for follow-up She was seen last with complaint of upper abdominal discomfort and intermittent sharp side pain bilaterally along with headaches, decreased appetite, nausea, vomiting, diarrhea, heartburn, body aches x 4 days. Exam benign other than generalized abdominal tenderness. CBC and CMP both unremarkable. Today patient reports she is not getting any better. Headaches are worsening. Symptoms still aggravated by eating. Has been treating with Bentyl, Zofran and Zantac without much relief. No black/bloody stools, constipation, fever, chills. Treating headaches with Tylenol and Ibuprofen, ice for the headache without much relief. s/p cholecystectomy 06/08/18. Was doing well up until now. REVIEW OF SYSTEMS Neurological: Positive for lightheadedness. No syncope, dizziness, vision changes, tremors, muscle weakness, numbness/tingling hands or feet PAST MEDICAL HISTORY Diagnosis Date - Abdominal pain, left upper quadrant 08/08/2011 - Depressive disorder, not elsewhere classified - GERD (gastroesophageal reflux disease) - Irritable bowel syndrome - Obesity - Tobacco abuse PAST SURGICAL HISTORY Procedure Laterality Date - COLONOSCOP W/ OR W/O BRSH SPEC 08/01/15 Colonoscopy - EGD W/O BRSH SPECIMEN W/BX 08/11/11 patchy duodenitis - EGD W/O BRSH SPECIMEN W/BX 07/14/12 gastritis and esophagitis - LAPAROSCOPIC CHOLEYCYSTECTOMY 06/08/2018 Cholecystectomy, lap ALLERGIES Phenergan [Promethazine]; Zoloft [Sertraline Hcl] MEDICATIONS dicyclomine (BENTYL) 10 mg capsule Take 1 capsule by mouth before meals and at bedtime. As needed ondansetron orally disintegrating (ZOFRAN ODT) 4 mg disintegrating tablet Take 1 tablet by mouth every 8 hours as needed. escitalopram oxalate (LEXAPRO) 10 mg tablet Take 10 mg by mouth once daily. Norethindrone-Eth Estradiol (NECON , ,) 1-35 mg-mcg per tablet Take 1 tablet by mouth once daily. ibuprofen (MOTRIN) 200 mg tablet Take 200 mg by mouth every 6 hours as needed. acetaminophen (TYLENOL) 325 mg tablet Take 650 mg by mouth every 6 hours as needed. ranitidine (ZANTAC) 150 mg tablet Take 150 mg by mouth as needed. FAMILY HISTORY Problem Relation Age of Onset - Diabetes Father - other (encephalopathy) Sister - Diabetes Maternal Grandmother - other (Other) Maternal Grandfather non-alcoholic serosis of liver (christine) - Diabetes Paternal Grandmother - other (brain tumor) Sister benign - other (ulcerative colitis) Sister Social History Substance Use Topics - Smoking status: Current Every Day Smoker Packs/day: 1.00 Years: 12.00 Types: Cigarettes - Smokeless tobacco: Never Used Comment: Currently using patch but intermittent smoking - Alcohol use Yes Comment: usually 2-3 times a month PHYSICAL EXAM BP 100/70 Pulse 96 Temp (!) 35.4 ?C (95.7 ?F) (Temporal Artery) Resp 14 Wt 118.4 kg (261 lb) SpO2 95% BMI 39.68 kg/m? General Appearance: in no acute distress, alert, well hydrated Skin: Skin color, texture, turgor normal for age; Eyes: PERRLA, EOM's intact, conjunctiva pink and moist, no icterus, sclera white, non-injected Neck: Thyroid normal size and symmetric without palpable nodules, Neck supple, No adenopathy Oropharynx: lips normal without lesions, tongue midline and normal, soft palate, uvula, and tonsils normal Lymph nodes: No supraclavicular lymphadenopathy Lungs: Lungs clear to auscultation. No wheezing, rhonchi, rales Heart: RRR without murmur, gallop, or rubs. No ectopy Abdomen: Abdomen soft, non-distended. mild all four quadrants abdominal tenderness with palpation. No guarding or rebound tenderness. Bowel sounds normal and active. No masses, organomegaly. Neurological: Negative findings: speech normal, mental status intact, cranial nerves 2-12 intact Ext: no edema in LE bilaterally, good distal pulses DTAP,TDAP,TD(1 - Tdap) due on 2005 HPV EVERY 5 YEARS due on 2016 INFLUENZA(1) due on 07/24/2018 PAP EVERY 5 YEARS due on 06/19/2019 ONE PNEUMOVAX PRIOR TO AGE 65 Completed ASSESSMENT/PLAN: 1. Pain of upper abdomen - ICD9: 789.09, ICD10: R10.10 (primary diagnosis) Lab work-up on Thursday unremarkable. No alarm symptoms or exam findings today Differential Diagnosis includes GERD, PUD and IBS - Work up with abdominal- US ABDOMEN COMPLETE - ENTERIC BACTERIAL PANEL BY PCR - C. DIFFICILE PCR - LIPASE BLD - H PYLORI IGG AB - Kermit low residue diet - Follow-up pending results of work-up 2. Diarrhea, unspecified type - ICD9: 787.91, ICD10: R19.7 As above - US ABDOMEN COMPLETE - ENTERIC BACTERIAL PANEL BY PCR - C. DIFFICILE PCR 3. Nausea - ICD9: 787.02, ICD10: R11.0 As above - US ABDOMEN COMPLETE 4. Worsening headaches - ICD9: 784.0, ICD10: R51 History of headaches. No change from recent ER visit and follow- up last week. Neuro exam benign. No concerning neurological symptoms. Plan as above Prescription instructions reviewed with patient as applicable. Potential red flag symptoms discussed with the patient. Reviewed appropriate action plan to take if red flag symptoms occur. Patient agreeable to treatment plan. Hailey Ordaz APRN.CORPORATE WELLNESS COORDINATOR Referring Provider: SELF [[id number]] Allergies As of Date: 07/06/2018 Noted Allergy Reaction PHENERGAN (PROMETHAZINE) 07/07/2012 12 - Shortness of Breath Comments: Dizziness and lightheadness ZOLOFT (SERTRALINE HCL) 06/18/2017 14 - Other: See Comments Comments: ESPANA's and dizziness Date Reviewed: 07/06/2018 Reviewed by: Gale Campuzano Mobile Lounge Driver Or Operator - Fully Assessed Reason for Visit: headaches worsening [Other] Abdominal Pain [1] Cmt: nausea-has been using anti-nausea medication with some relief Dizziness [36] Primary Visit Diagnosis:Pain of upper abdomen [R10.10] Other Visit Diagnoses:Diarrhea, unspecified type [R19.7] Nausea [R11.0] Worsening headaches [R51] Order(s):US ABDOMEN COMPLETE [[id number]] Order #: [id number] FUTURE ENTERIC BACTERIAL PANEL BY PCR [SQSTLPCR] Order #: [id number] FUTURE C. DIFFICILE PCR [SQCDPCR] Order #: [id number] LIPASE BLD [SQLIPA] Order #: [id number] FUTURE H PYLORI IGG AB [SQHPYLRI] Order #: [id number] FUTURE Prescriptions as of 07/06/2018 Sig: DICYCLOMINE 10 MG CAPSULE Take 1 capsule by mouth befor* ONDANSETRON 4 MG DISINTEGRATI* Take 1 tablet by mouth every * ESCITALOPRAM 10 MG TABLET Take 10 mg by mouth once gaudencio* NORETHINDRONE-ETHINYL ESTRADI* Take 1 tablet by mouth once d* IBUPROFEN 200 MG TABLET Take 200 mg by mouth every 6 * ACETAMINOPHEN 325 MG TABLET Take 650 mg by mouth every 6 * RANITIDINE 150 MG TABLET Take 150 mg by mouth as neede* Problem List As Of Date 07/06/2018 Noted Resolved IRRITABLE COLON [K58.9] Depressive disorder [F32.9] More... Dysmenorrhea [N94.6] INVALID FOR*09/22/2017 Tobacco use disorder [F17.200] INVALID FOR* GERD (gastroesophageal reflux disease) [K21.9] INVALID FOR* Diarrhea [R19.7] INVALID FOR*08/01/2015 Abnormal uterine bleeding [N93.9] INVALID FOR*09/22/2017 RUQ pain [R10.11] INVALID FOR* More... Obesity, Class III, BMI >= 40 [E66.01] INVALID FOR* Encounter Status:Closed by HAILEY ORDAZ CORPORATE WELLNESS COORDINATOR on 07/06/18 COMP METABOLIC PANEL Collected: 07/02/2018 Status: F Source: [place] 8:[facility] AM [facility] TYPE CODE TESTS RESULT OUT OF REFERENCE UNITS RANGE LAB TP 6.3-8.0 g/dL Test sent to [facility]. Result Comment: Account Credited LAB ALB 3.9-4.9 g/dL Test Albumin sent to [facility]. Result Comment: Account Credited LAB CA 8.5-10.2 mg/dL Test Calcium, Total sent to [facility]. Result Comment: Account Credited LAB TBIL 0.2-1.3 mg/dL Bilirubin, Test Total sent to [facility]. Result Comment: Account Credited LAB ALKP 32-117 U/L Alkaline Test Phosphatase sent to [facility]. Result Comment: Account Credited LAB AST 13-35 U/L Test sent AST to [facility]. Result Comment: Account Credited LAB GLU 74-99 mg/dL Test sent Glucose to [facility]. Result Comment: Account Credited LAB BUN 7-21 mg/dL Test sent BUN to [facility]. Result Comment: Account Credited LAB CRET 0.58-0.96 mg/dL Creatinine Test sent to [facility]. Result Comment: Account Credited LAB NA 136-144 mmol/L Test Sodium sent to [facility]. Result Comment: Account Credited LAB K 3.7-5.1 mmol/L Test Potassium sent to [facility]. Result Comment: Account Credited LAB CL 97-105 mmol/L Test Chloride sent to [facility]. Result Comment: Account Credited LAB CO2 22-30 mmol/L Test sent CO2 to [facility]. Result Comment: Account Credited LAB AGAP 9-18 mmol/L Test sent Anion Gap to [facility]. Result Comment: Account Credited LAB ALT 7-38 U/L Test sent to ALT [facility]. Result Comment: Account Credited LAB GFRAA eGFR- Amer. Test sent to [facility]. Result Comment: Account Credited LAB GFRNAA . eGFR-All Test sent Other Races to [facility]. Result Comment: Account Credited LAB GFRPED eGFR-Ped. Test sent Factor to [facility]. Result Comment: Account Credited CBC AND DIFFERENTIAL Collected: 07/02/2018 Status: F Source: [place] 8:18 AM [facility] REPOSITORY TYPE CODE TESTS RESULT OUT OF REFERENCE UNITS RANGE LAB WBC 3.70-11.00 k/uL Test WBC sent to [facility]. Result Comment: Account Credited LAB RBC 3.90-5.20 m/uL Test sent RBC to [facility]. Result Comment: Account Credited LAB HGB 11.5-15.5 g/dL Hemoglobin Test sent to [facility]. Result Comment: Account Credited LAB HCT 36.0-46.0 % Hematocrit Test sent to [facility]. Result Comment: Account Credited LAB MCV 80.0-100.0 fL Test sent MCV to [facility]. Result Comment: Account Credited LAB MCH 26.0-34.0 pG Test sent MCH to [facility]. Result Comment: Account Credited LAB MCHC 30.5-36.0 g/dL Test MCHC sent to [facility]. Result Comment: Account Credited LAB RDWCV 11.5-15.0 % Test RDW-CV sent to [facility]. Result Comment: Account Credited LAB PLTCT 150-400 k/uL Test Platelet Count sent to [facility]. Result Comment: Account Credited LAB MPV 9.0-12.7 fL Test sent MPV to [facility]. Result Comment: Account Credited LAB EMILY Recheck Test sent to [facility]. Result Comment: Account Credited LAB REVW Test sent to Review [facility]. Result Comment: Account Credited LAB CBCCOM Comment Test sent to [facility]. Result Comment: Account Credited CBC W/DIFF, AUTOMATED Collected: 07/02/2018 Status: F Source: [place] 8:09 AM [facility] REPOSITORY TYPE CODE TESTS RESULT OUT OF RANGE REFERENCE UNITS LAB L100.1000 4.4-11.0 K/mm3 Normal WBC 10.9 LAB L100.1200 4.2-5.4 M/mm3 Normal RBC 4.72 LAB L100.1300 12.0-15.0 g/dl Normal HGB 13.0 LAB L100.1400 37-47 % Normal HCT 40.8 LAB L100.1500 81-99 fL Normal MCV 86.4 LAB L100.1600 27.0-32.0 pg Normal MCH 27.5 LAB L100.1700 32-36 g/gl Low MCHC 31.9 LAB L100.1810 11.6-14.6 % Normal RDW CV 12.9 LAB L100.1820 35.1-43.9 fl Normal RDW SD 40.1 LAB L100.1900 150-450 K/mm3 Normal PLT 330 LAB L100.2000 6.2-12.0 fl Normal MPV 10.4 LAB L100.2100 47-70 % Low NEUT% 46.4 LAB L100.2200 19-41 % High LY% 43.5 LAB L100.2300 0-10 % Normal MONO% 6.9 LAB L100.2400 0-5 % Normal EO% 2.5 LAB L100.2500 0-1 % Normal BASO% 0.5 LAB L100.2550 0.0-0.9 % Normal IM GRAN % 0.200 Result Comment: IG% - Immature Granulocytes (promyelocytes, myelocytes and metamyelocytes) > 1% indicates that a LEFT SHIFT is Present. LAB L100.2620 2.0-7.7 X10 3/uL Normal Absolute Neut 5.1 LAB L100.2720 0.83-4.51 X10 3/ul High Absolute Lymph 4.73 Performed By: #### L100.0100 #### [facility] [address] [place], [place], [id number] COMPREHENSIVE METABOLIC Collected: 07/02/2018 Status: F Source: [facility] 8:09 AM [facility] REPOSITORY TYPE CODE TESTS RESULT OUT OF RANGE REFERENCE UNITS LAB L501.0100 74-106 mg/dL Normal GLU 94 Result Comment: Please note revised GLUCOSE reference range effective 2017. LAB L501.1000 7-18 mg/dL Normal BUN 8 LAB L501.1100 0.55-1.02 mg/dL Normal CREAT,SERUM 0.87 Result Comment: The validity of the calculated GFR AND GFRAA in patients over 70 years has not been determined. Clinical correlation is essential. LAB L501.1110 >60 mL/min Normal EST GFR 81 Result Comment: Non- GFR Calc LAB L501.1115 >60 mL/min Normal EST GFR - AA 98 Result Comment: GFR Calc LAB L501.1300 10-20 RATIO Low BUN/CRE 9.2 LAB L501.1500 6.4-8.2 g/dL Normal T PROT 7.4 LAB L501.1800 3.2-5.0 g/dL Normal ALB 3.3 LAB L501.1950 2.2-4.2 g/dL Normal GLOB 4.1 LAB L501.2000 0.9-2.4 RATIO Low A/G 0.8 LAB L501.2200 8.5-10.1 mg/dL Normal CA 8.6 LAB L501.4100 15-37 U/L Normal AST 18 LAB L501.4305 45-117 U/L Normal ALK P 82 LAB L501.4405 13-56 U/L Normal ALT 24 LAB L501.4600 0.20-1.00 mg/dL Low T BILI 0.10 LAB L501.5300 136-145 mmol/L Normal NA 142 LAB L501.5600 3.5-5.1 mmol/L Normal K 3.8 LAB L501.5900 98-107 mmol/L High CL 111 LAB L501.6100 21.0-32.0 mmol/L Normal CO2 24.0 LAB L501.6200 5-15 Normal GAP 7 Performed By: #### L500.4050 #### [facility] [address] [facility] [place], [address] PROGRESS Observed: 07/02/2018 Status: COMPLETED Source: [place] 7:58 AM [facility] [place] REPOSITORY O ID: [id number] Author: Hailey ([place]) Older Service: (none) Author Type: Nurse Practitioner Type: Progress Notes Filed: 07/02/2018 8:15 AM Note Text: CC: Patient presents with: [facility] ER Follow up: Ongoing stomach pain, nausea, and headache HPI Andrae Musa is a 32 year old female who presents today for illness starting Thursday. Reports upper abdominal discomfort and intermittent sharp side pain bilaterally. Positive for headaches, decreased appetite, nausea, vomiting, diarrhea, heartburn, body aches. No constipation, fever, chills. Symptoms aggravated by eating. Treated with Tylenol and Ibuprofen, ice for the headache without much relief. No new medications. s/p cholecystectomy 06/08/18. Was doing well up until now. Patient went to ER for headache on 06/30. No indications for imaging and no work-up done. She was given Toradol and Benadryl, felt better. REVIEW OF SYSTEMS Respiratory: no cough, no wheezing, no shortness of breath, no hemoptysis Cardiovascular: no chest pain, no chest pressure, no palpitations and no swelling GI: No black/bloody stools : Negative for dysuria, frequency, hesitancy, hematuria and urgency PAST MEDICAL HISTORY Diagnosis Date - Abdominal pain, left upper quadrant 08/08/2011 - Depressive disorder, not elsewhere classified - GERD (gastroesophageal reflux disease) - Irritable bowel syndrome - Obesity - Tobacco abuse PAST SURGICAL HISTORY Procedure Laterality Date - COLONOSCOP W/ OR W/O BRSH SPEC 08/01/15 Colonoscopy - EGD W/O [facility] SPECIMEN W/BX 08/11/11 patchy duodenitis - EGD W/O BRSH SPECIMEN W/BX 07/14/12 gastritis and esophagitis - LAPAROSCOPIC CHOLEYCYSTECTOMY 06/08/2018 Cholecystectomy, lap ALLERGIES Phenergan [Promethazine]; Zoloft [Sertraline Hcl] MEDICATIONS escitalopram oxalate (LEXAPRO) 10 mg tablet Take 10 mg by mouth once daily. Norethindrone-Eth Estradiol (NECON , 28,) 1-35 mg-mcg per tablet Take 1 tablet by mouth once daily. ibuprofen (MOTRIN) 200 mg tablet Take 200 mg by mouth every 6 hours as needed. acetaminophen (TYLENOL) 325 mg tablet Take 650 mg by mouth every 6 hours as needed. ranitidine (ZANTAC) 150 mg tablet Take 150 mg by mouth as needed. FAMILY HISTORY Problem Relation Age of Onset - Diabetes Father - encephalopathy [OTHER] Sister - Diabetes Maternal Grandmother - Other [OTHER] Maternal Grandfather non-alcoholic serosis of liver (christine) - Diabetes Paternal Grandmother - brain tumor [OTHER] Sister benign - ulcerative colitis [OTHER] Sister Social History Substance Use Topics - Smoking status: Current Every Day Smoker Packs/day: 1.00 Years: 12.00 Types: Cigarettes - Smokeless tobacco: Never Used Comment: Currently using patch but intermittent smoking - Alcohol use Yes Comment: usually 2-3 times a month PHYSICAL EXAM BP 150/90 Pulse 82 Temp 36.4 ?C (97.6 ?F) (Temporal Artery) Resp 16 Wt 119.3 kg (263 lb) SpO2 98% BMI 39.99 kg/m? General Appearance: well appearing, in no acute distress, alert Pysch: mood and affect flat and restricted Lungs: Lungs clear to auscultation. No wheezing, rhonchi, rales Heart: RRR without murmur, gallop, or rubs. No ectopy Abdomen: Abdomen soft, non-distended. mild all four quadrants abdominal tenderness with palpation. No guarding or rebound tenderness. Bowel sounds normal and active. No masses, organomegaly but difficult exam due to obese abdomen ASSESSMENT/PLAN: 1. Abdominal pain, unspecified abdominal location - ICD9: 789.00, ICD10: R10.9 (primary diagnosis) Differential Diagnosis includes GERD, PUD and viral gastroenteritis. No alarm symptoms or exam findings. - Begin treatment with Zantac 150 mg BID. Bentyl and Zofran as needed - Labs of CBC with Diff and CMP - Kermit low residue diet - Follow up pending results of work-up or sooner if worsening of symptoms - CBC + DIFF - COMP METABOLIC PANEL 2. Nausea - ICD9: 787.02, ICD10: R11.0 As above - CBC + DIFF - COMP METABOLIC PANEL 3. Diarrhea, unspecified type - ICD9: 787.91, ICD10: R19.7 As above - CBC + DIFF - COMP METABOLIC PANEL 4. Frequent headaches - ICD9: 784.0, ICD10: R51 Possible viral illness Plan as above Prescription instructions reviewed with patient as applicable. Potential red flag symptoms discussed with the patient. Reviewed appropriate action plan to take if red flag symptoms occur. Patient agreeable to treatment plan. Hailey Ordaz APRN.[place] ARANAOV Observed: 07/02/2018 Status: COMPLETED Source: [place] 7:40 AM [facility] [place] REPOSITORY Office Visit (INTMWS) ANDRAE MUSA ([id number]) 1985 F Date Time Provider Department 07/02/18 7:40 AM OLDER, HAILEY ([place]) INTMWS During your visit today, we recorded the following information about you: Temperature Pulse Respiration Blood pressure 97.6 degrees 82/minute 16/minute 150/90 Weight 119.3 kg Hailey Older, MANAGER HOUSEKEEPING.CORPORATE WELLNESS COORDINATOR 07/02/2018 8:15 AM Signed CC: Patient presents with: [facility] ER Follow up: Ongoing stomach pain, nausea, and headache HPI Andrae Musa is a 32 year old female who presents today for illness starting Thursday. Reports upper abdominal discomfort and intermittent sharp side pain bilaterally. Positive for headaches, decreased appetite, nausea, vomiting, diarrhea, heartburn, body aches. No constipation, fever, chills. Symptoms aggravated by eating. Treated with Tylenol and Ibuprofen, ice for the headache without much relief. No new medications. s/p cholecystectomy 06/08/18. Was doing well up until now. Patient went to ER for headache on 06/30. No indications for imaging and no work-up done. She was given Toradol and Benadryl, felt better. REVIEW OF SYSTEMS Respiratory: no cough, no wheezing, no shortness of breath, no hemoptysis Cardiovascular: no chest pain, no chest pressure, no palpitations and no swelling GI: No black/bloody stools : Negative for dysuria, frequency, hesitancy, hematuria and urgency PAST MEDICAL HISTORY Diagnosis Date - Abdominal pain, left upper quadrant 08/08/2011 - Depressive disorder, not elsewhere classified - GERD (gastroesophageal reflux disease) - Irritable bowel syndrome - Obesity - Tobacco abuse PAST SURGICAL HISTORY Procedure Laterality Date - COLONOSCOP W/ OR W/O BRSH SPEC 08/01/15 Colonoscopy - EGD W/O BRSH SPECIMEN W/BX 08/11/11 patchy duodenitis - EGD W/O BRSH SPECIMEN W/BX 07/14/12 gastritis and esophagitis - LAPAROSCOPIC CHOLEYCYSTECTOMY 06/08/2018 Cholecystectomy, lap ALLERGIES Phenergan [Promethazine]; Zoloft [Sertraline Hcl] MEDICATIONS escitalopram oxalate (LEXAPRO) 10 mg tablet Take 10 mg by mouth once daily. Norethindrone-Eth Estradiol (NECON , ,) 1-35 mg-mcg per tablet Take 1 tablet by mouth once daily. ibuprofen (MOTRIN) 200 mg tablet Take 200 mg by mouth every 6 hours as needed. acetaminophen (TYLENOL) 325 mg tablet Take 650 mg by mouth every 6 hours as needed. ranitidine (ZANTAC) 150 mg tablet Take 150 mg by mouth as needed. FAMILY HISTORY Problem Relation Age of Onset - Diabetes Father - encephalopathy [OTHER] Sister - Diabetes Maternal Grandmother - Other [OTHER] Maternal Grandfather non-alcoholic serosis of liver (christine) - Diabetes Paternal Grandmother - brain tumor [OTHER] Sister benign - ulcerative colitis [OTHER] Sister Social History Substance Use Topics - Smoking status: Current Every Day Smoker Packs/day: 1.00 Years: 12.00 Types: Cigarettes - Smokeless tobacco: Never Used Comment: Currently using patch but intermittent smoking - Alcohol use Yes Comment: usually 2-3 times a month PHYSICAL EXAM BP 150/90 Pulse 82 Temp 36.4 ?C (97.6 ?F) (Temporal Artery) Resp 16 Wt 119.3 kg (263 lb) SpO2 98% BMI 39.99 kg/m? General Appearance: well appearing, in no acute distress, alert Pysch: mood and affect flat and restricted Lungs: Lungs clear to auscultation. No wheezing, rhonchi, rales Heart: RRR without murmur, gallop, or rubs. No ectopy Abdomen: Abdomen soft, non-distended. mild all four quadrants abdominal tenderness with palpation. No guarding or rebound tenderness. Bowel sounds normal and active. No masses, organomegaly but difficult exam due to obese abdomen ASSESSMENT/PLAN: 1. Abdominal pain, unspecified abdominal location - ICD9: 789.00, ICD10: R10.9 (primary diagnosis) Differential Diagnosis includes GERD, PUD and viral gastroenteritis. No alarm symptoms or exam findings. - Begin treatment with Zantac 150 mg BID. Bentyl and Zofran as needed - Labs of CBC with Diff and CMP - Kermit low residue diet - Follow up pending results of work-up or sooner if worsening of symptoms - CBC + DIFF - COMP METABOLIC PANEL 2. Nausea - ICD9: 787.02, ICD10: R11.0 As above - CBC + DIFF - COMP METABOLIC PANEL 3. Diarrhea, unspecified type - ICD9: 787.91, ICD10: R19.7 As above - CBC + DIFF - COMP METABOLIC PANEL 4. Frequent headaches - ICD9: 784.0, ICD10: R51 Possible viral illness Plan as above Prescription instructions reviewed with patient as applicable. Potential red flag symptoms discussed with the patient. Reviewed appropriate action plan to take if red flag symptoms occur. Patient agreeable to treatment plan. Hailey Ordaz APRN.CORPORATE WELLNESS COORDINATOR Referring Provider: SELF [[id number]] Allergies As of Date: 07/02/2018 Noted Allergy Reaction PHENERGAN (PROMETHAZINE) 07/07/2012 12 - Shortness of Breath Comments: Dizziness and lightheadness ZOLOFT (SERTRALINE HCL) 06/18/2017 14 - Other: See Comments Comments: ESPANA's and dizziness Date Reviewed: 07/02/2018 Reviewed by: Gale Campuzano Mobile Lounge Driver Or Operator - Fully Assessed Reason for Visit: [facility] ER Follow up [Other] Cmt: Ongoing stomach pain, nausea, and headache Primary Visit Diagnosis:Abdominal pain, unspecified abdominal location [R10.9] Other Visit Diagnoses:Nausea [R11.0] Diarrhea, unspecified type [R19.7] Frequent headaches [R51] Order(s):dicyclomine (BENTYL) 10 mg capsuleTake 1 capsule by mouth before meals and at bedtime. As neededDisp: 30 capsuleRfl: 0 ondansetron orally disintegrating (ZOFRAN ODT) 4 mg disintegrating tabletTake 1 tablet by mouth every 8 hours as needed.Disp: 12 tabletRfl: 0 CBC + DIFF [SQCBCDIF] Order #: [id number] FUTURE COMP METABOLIC PANEL [SQCMP] Order #: [id number] FUTURE Prescriptions as of 07/02/2018 Sig: ESCITALOPRAM 10 MG TABLET Take 10 mg by mouth once gaudencio* NORETHINDRONE-ETHINYL ESTRADI* Take 1 tablet by mouth once d* IBUPROFEN 200 MG TABLET Take 200 mg by mouth every 6 * ACETAMINOPHEN 325 MG TABLET Take 650 mg by mouth every 6 * RANITIDINE 150 MG TABLET Take 150 mg by mouth as neede* DICYCLOMINE 10 MG CAPSULE Take 1 capsule by mouth befor* ONDANSETRON 4 MG DISINTEGRATI* Take 1 tablet by mouth every * Problem List As Of Date 07/02/2018 Noted Resolved IRRITABLE COLON [K58.9] Depressive disorder [F32.9] More... Dysmenorrhea [N94.6] INVALID FOR*09/22/2017 Tobacco use disorder [F17.200] INVALID FOR* GERD (gastroesophageal reflux disease) [K21.9] INVALID FOR* Diarrhea [R19.7] INVALID FOR*08/01/2015 Abnormal uterine bleeding [N93.9] INVALID FOR*09/22/2017 RUQ pain [R10.11] INVALID FOR* More... Obesity, Class III, BMI >= 40 [E66.01] INVALID FOR* Prescriptions ordered this encounter Disp Refills Start End DICYCLOMINE 10 MG CAPSULE 30 c* 0 07/02/2018 Route: ORAL Sig: Take 1 capsule by mouth before meals and at bedtime. As needed ONDANSETRON 4 MG DISINTEGRATING TABL* 12 t* 0 07/02/2018 Route: ORAL Sig: Take 1 tablet by mouth every 8 hours as needed. Letter Text Department of Internal Medicine [address] [address] Andrae Musa [address] [address] July 02, 2018 TO WHOM IT MAY CONCERN: This is to certify that Andraecale Musa was seen by me today for illness. Andrae may return to work on 07/05/18 with no restrictions Sincerely yoursHailey APRN.CNP Encounter Status:Closed by HAILEY ORDAZ CNP on 07/02/18 EMERGENCY DEPARTMENT Observed: 07/01/2018 Status: F Source: [facility] SUMMARY 9:38 AM [facility] REPOSITORY [facility] Medical Records Department [address] [place] [address] Emergency Department Summary 06/30/18 1545 MR#: [id number] Acct: [id number] Name: ANDRAE MUSA Rep #: [id number] : 1985 32 From: Zac Wheat MD PCP: Araseli Badillo MD Status: DEP ER - ER Visit Summary Date of Service: 06/30/18 Chief Complaint: Headache History of Present Illness: The patient is a 32 F with frontal and occipital headache. This came on gradually over the past 4 days. Associated with nausea and vomiting. Worse with light. Tried ibuprofen and ice packs with minimal relief. No fevers. No neck pain. No weakness or numbness. No vision changes. No facial droop. No vertigo or unsteadiness. Physical Examination: Afebrile and vital signs unremarkable. Head and neck atraumatic. HEENT exam unremarkable. Neck nontender with good range of motion. No meningeal findings. Heart regular. Lungs clear. Abdomen soft. Renal nerves grossly intact. No focal lateralizing neurologic abnormalities. GCS 15. NIH 0. Test Results: None indicated Emergency Department Course and Treatment: Patient has no red flag symptoms. No indication for imaging. Risks of imaging were discussed, and the patient was in agreement with the plan. She was treated with fluids, Toradol, and Benadryl. She has an allergy to Phenergan and did not receive Compazine. On reevaluation, her pain is 4 out of 10. She would like to go home. Patient was advised to return for new or worsening symptoms or worsening pain. Otherwise, follow-up with primary care. Treatment Plan: Discharged and outpatient follow-up Disposition: Discharged Impression: 1. Acute cephalgia This note was generated with [employer] dictation software. It may contain incorrect words, spelling, and punctuation that were not noted in review of the chart prior to signing ED Disposition - Plan for ED Patient: Chief Complaint: Headache Referrals: Araseli Badillo MD [Primary Care Provider] - What to do if you have Problems For any increased pain, shortness of breath, bleeding, nausea or vomiting, chest pain, or any unexpected problems, contact your Primary Care Provider. Call [facility] ([phone]) or report to the closest Emergency Room. Call 911 if necessary. 07/01/18 0938 <Electronically signed by Zac Wheat MD> Date Zac Wheat MD Cosigner Signature (If Indicated): Date CC: Araseli Badillo MD DISCHARGE INSTRUCTION Observed: 07/01/2018 Status: F Source: [place] 9:38 AM [facility] REPOSITORY [facility] Medical Records Department [address] [address] Discharge Instruction 06/30/18 1551 MR#: [id number] Acct: [id number] Name: ANDRAE MUSA Rep #: [id number] : 1985 32 From: Zac Wheat MD PCP: Araseli Badillo MD Status: DEP ER ED Disposition - Plan for ED Patient: Chief Complaint: Headache Instructions: ED Cephalgia Unspecified Referrals: Araseli Badillo MD [Primary Care Provider] - What to do if you have Problems For any increased pain, shortness of breath, bleeding, nausea or vomiting, chest pain, or any unexpected problems, contact your Primary Care Provider. Call [facility] ([phone]) or report to the closest Emergency Room. Call 911 if necessary. 07/01/1838 <Electronically signed by Zac Wheat MD> Date Zac Wheat MD Cosigner Signature (If Indicated): Date CC: Araseli Badillo MD PROGRESS Observed: 06/30/2018 Status: COMPLETED Source: [place] 1:15 PM [facility] RE[facility]IT[facility] O ID: [id number] Author: Ed Liao Service: (none) Author Type: Physician Diesel Maintenance Electrician Type: Progress Notes Filed: 06/30/2018 1:32 PM Note Text: 06/30/2018 Patient presents with: Headache: nausea x 3 days SUBJECTIVE: This is a 32 year old that is here today for Complaint(s) of ESPANA x 3 days. ESPANA is constant. Pain is burning and all over. Had a similar ESPANA while on zoloft, but no longer on this medication. Currently on lexapro, started this 3-4 months ago. + nausea associated, and some vomiting. No personal hx of migraines. Overall feels weak. Has had dizziness/lightheadedness. Notes some numbness/tingling in hands/feet when waking up. + worst ESPANA of life. Denies head trauma. PAST MEDICAL HISTORY Diagnosis Date - Depressive disorder, not elsewhere classified - GERD (gastroesophageal reflux disease) - Irritable bowel syndrome - Obesity - Tobacco abuse ALLERGIES Phenergan [Promethazine]; Zoloft [Sertraline Hcl] MEDICATIONS Current Outpatient Prescriptions: escitalopram oxalate (LEXAPRO) 10 mg tablet Take 10 mg by mouth once daily. Norethindrone-Eth Estradiol (NECON , ,) 1-35 mg-mcg per tablet Take 1 tablet by mouth once daily. ibuprofen (MOTRIN) 200 mg tablet Take 200 mg by mouth every 6 hours as needed. acetaminophen (TYLENOL) 325 mg tablet Take 650 mg by mouth every 6 hours as needed. ranitidine (ZANTAC) 150 mg tablet Take 150 mg by mouth as needed. No current facility-administered medications for this visit. 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 OBJECTIVE: BP 118/80 Pulse 78 Temp 36.4 ?C (97.5 ?F) (Tympanic) Resp 16 Wt 116.6 kg (257 lb) BMI 39.08 kg/m? APPEARANCEalert, in no acute distress, well-hydrated, well nourished. NEURO Awake, alert and oriented x 3, ASSESSMENT/PLAN: 1. Headache, unspecified headache type - ICD9: 784.0, ICD10: R51 New onset, worst ESPANA of life Recommend ER for higher level of care. Advised Squad-patient refused Advised someone else taking her to ER-refused Patient will drive herself to [facility]. The patient indicates understanding of these issues and agrees with the plan. Reviewed red flags and when to seek care sooner. Ed Liao PA-C 06/30/2018 CNOV Observed: 06/30/2018 Status: COMPLETED Source: [place] 12:45 PM [facility] REPOSITORY Office Visit (WSTR) ANDRAE MUSA ([id number]) 1985 F Date Time Provider Department 06/30/18 12:45 PM ED LIAO) WSTR During your visit today, we recorded the following information about you: Temperature Pulse Respiration Blood pressure 97.5 degrees 78/minute 16/minute 118/80 Weight 116.6 kg Ed Liao PA-C 06/30/2018 1:32 PM Signed 06/30/2018 Patient presents with: Headache: nausea x 3 days SUBJECTIVE: This is a 32 year old that is here today for Complaint(s) of ESPANA x 3 days. ESPANA is constant. Pain is burning and all over. Had a similar ESPANA while on zoloft, but no longer on this medication. Currently on lexapro, started this 3-4 months ago. + nausea associated, and some vomiting. No personal hx of migraines. Overall feels weak. Has had dizziness/lightheadedness. Notes some numbness/tingling in hands/feet when waking up. + worst ESPANA of life. Denies head trauma. PAST MEDICAL HISTORY Diagnosis Date - Depressive disorder, not elsewhere classified - GERD (gastroesophageal reflux disease) - Irritable bowel syndrome - Obesity - Tobacco abuse ALLERGIES Phenergan [Promethazine]; Zoloft [Sertraline Hcl] MEDICATIONS Current Outpatient Prescriptions: escitalopram oxalate (LEXAPRO) 10 mg tablet Take 10 mg by mouth once daily. Norethindrone-Eth Estradiol (NECON 1/35, 28,) 1-35 mg-mcg per tablet Take 1 tablet by mouth once daily. ibuprofen (MOTRIN) 200 mg tablet Take 200 mg by mouth every 6 hours as needed. acetaminophen (TYLENOL) 325 mg tablet Take 650 mg by mouth every 6 hours as needed. ranitidine (ZANTAC) 150 mg tablet Take 150 mg by mouth as needed. No current facility-administered medications for this visit. 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 OBJECTIVE: BP 118/80 Pulse 78 Temp 36.4 ?C (97.5 ?F) (Tympanic) Resp 16 Wt 116.6 kg (257 lb) BMI 39.08 kg/m? APPEARANCEalert, in no acute distress, well-hydrated, well nourished. NEURO Awake, alert and oriented x 3, ASSESSMENT/PLAN: 1. Headache, unspecified headache type - ICD9: 784.0, ICD10: R51 New onset, worst ESPANA of life Recommend ER for higher level of care. Advised Squad-patient refused Advised someone else taking her to ER-refused Patient will drive herself to [facility]. The patient indicates understanding of these issues and agrees with the plan. Reviewed red flags and when to seek care sooner. Ed Liao PA-C 06/30/2018 Referring Provider: SELF [200] Allergies As of Date: 06/30/2018 Noted Allergy Reaction PHENERGAN (PROMETHAZINE) 07/07/2012 12 - Shortness of Breath Comments: Dizziness and lightheadness ZOLOFT (SERTRALINE HCL) 06/18/2017 14 - Other: See Comments Comments: ESPANA's and dizziness Date Reviewed: 06/30/2018 Reviewed by: Funmilayo Beckman Ma - Fully Assessed Reason for Visit: Headache [52] Cmt: nausea x 3 days Primary Visit Diagnosis:Headache, unspecified headache type [R51] Prescriptions as of 06/30/2018 Sig: ESCITALOPRAM 10 MG TABLET Take 10 mg by mouth once gaudencio* NORETHINDRONE-ETHINYL ESTRADI* Take 1 tablet by mouth once d* IBUPROFEN 200 MG TABLET Take 200 mg by mouth every 6 * ACETAMINOPHEN 325 MG TABLET Take 650 mg by mouth every 6 * RANITIDINE 150 MG TABLET Take 150 mg by mouth as neede* Problem List As Of Date 06/30/2018 Noted Resolved IRRITABLE COLON [K58.9] Depressive disorder [F32.9] More... OVERWEIGHT [E66.9] INVALID FOR* PERS HX TOBACCO USE [Z87.891] INVALID FOR* Abdominal pain, left upper quadrant [R10.12] INVALID FOR* Dysmenorrhea [N94.6] INVALID FOR*09/22/2017 Tobacco use disorder [F17.200] INVALID FOR* Obesity [E66.9] INVALID FOR* GERD (gastroesophageal reflux disease) [K21.9] INVALID FOR* Diarrhea [R19.7] INVALID FOR*08/01/2015 Abnormal uterine bleeding [N93.9] INVALID FOR*09/22/2017 RUQ pain [R10.11] INVALID FOR* More... Obesity, Class III, BMI >= 40 [E66.01] INVALID FOR* Letter Text Ed Liao PA-C Urgent Care [address] [facility] [address] Dept: [phone] 06/30/2018 Andrae Musa [address] [phone] To Whom it May Concern: This is to certify that Andrae Musa was seen at our office for medical care. If you have any questions please feel free to call. Sincerely: Ed Liao PA-C Encounter Status:Closed by ED LIAO PA-C on 06/30/18 PROGRESS Observed: 06/24/2018 Status: COMPLETED Source: [place] 8:52 PM [facility] REPOSITORY HNO ID: [id number] Author: Solange Bueno Service: (none) Author Type: Physician Type: Progress Notes Filed: 06/26/2018 4:12 PM Note Text: Andrae is s/p laparoscopic cholecystectomy done on 06/08/18. She is tolerated a regular diet and having normal bowel function She presents with complaint of pain at the upper right upper quadrant trocar site. Examination - abdomen is soft and benign, wounds are healing well without evidence of infection At site of patient complaint - there is no erythema or masses or drainage noted, no stitch abscess is noted Impression: s/p laparoscopic cholecystectomy Plan: Patient reassured that this should resolve. Follow up with me as per needed. Patient to return to her primary physician for medical care. CNOV Observed: 06/23/2018 Status: COMPLETED Source: [place] 2:20 PM [facility] REPOSITORY Office Visit (GENSWS) ANDRAE MUSA ([id number]) 1985 F Date Time Provider Department 06/23/18 2:20 PM SOLANGE BUENO During your visit today, we recorded the following information about you: Solange Bueno MD 06/26/2018 4:12 PM Signed Andrae is s/p laparoscopic cholecystectomy done on 06/08/18. She is tolerated a regular diet and having normal bowel function She presents with complaint of pain at the upper right upper quadrant trocar site. Examination - abdomen is soft and benign, wounds are healing well without evidence of infection At site of patient complaint - there is no erythema or masses or drainage noted, no stitch abscess is noted Impression: s/p laparoscopic cholecystectomy Plan: Patient reassured that this should resolve. Follow up with me as per needed. Patient to return to her primary physician for medical care. Referring Provider: ARASELI BADILLO [[id number]] Allergies As of Date: 06/23/2018 Noted Allergy Reaction PHENERGAN (PROMETHAZINE) 07/07/2012 12 - Shortness of Breath Comments: Dizziness and lightheadness ZOLOFT (SERTRALINE HCL) 06/18/2017 14 - Other: See Comments Comments: ESPANA's and dizziness Date Reviewed: 06/23/2018 Reviewed by: Charles Fairchild LPN - Fully Assessed Primary Visit Diagnosis:Surgery follow-up examination [Z09] Prescriptions as of 06/23/2018 Sig: ESCITALOPRAM 10 MG TABLET Take 10 mg by mouth once gaudencio* NORETHINDRONE-ETHINYL ESTRADI* Take 1 tablet by mouth once d* IBUPROFEN 200 MG TABLET Take 200 mg by mouth every 6 * ACETAMINOPHEN 325 MG TABLET Take 650 mg by mouth every 6 * RANITIDINE 150 MG TABLET Take 150 mg by mouth as neede* Problem List As Of Date 06/23/2018 Noted Resolved IRRITABLE COLON [K58.9] Depressive disorder [F32.9] More... OVERWEIGHT [E66.9] INVALID FOR* PERS HX TOBACCO USE [Z87.891] INVALID FOR* Abdominal pain, left upper quadrant [R10.12] INVALID FOR* Dysmenorrhea [N94.6] INVALID FOR*09/22/2017 Tobacco use disorder [F17.200] INVALID FOR* Obesity [E66.9] INVALID FOR* GERD (gastroesophageal reflux disease) [K21.9] INVALID FOR* Diarrhea [R19.7] INVALID FOR*08/01/2015 Abnormal uterine bleeding [N93.9] INVALID FOR*09/22/2017 RUQ pain [R10.11] INVALID FOR* More... Obesity, Class III, BMI >= 40 [E66.01] INVALID FOR* Letter Text General Surgery [address] [id number] 06/23/2018 RE: Andrae Musa TO WHOM IT MAY CONCERN: This is to certify that Andrae Musa has been under my care for surgery. The patient may return to work on June 24, 2018. Please do not hesitate to contact me with any questions or concerns that may arise. Sincerely yours, Solange Bueno MD Encounter Status:Closed by MD SOLANGE BUENO on 06/26/18 PROGRESS Observed: 06/16/2018 Status: COMPLETED Source: [place] 8:32 PM [facility] REPOSITORY HNO ID: [id number] Author: Solange Bueno Service: (none) Author Type: Physician Type: Progress Notes Filed: 06/18/2018 1:51 PM Note Text: Andrae is s/p laparoscopic cholecystectomy done on 06/08/18. She is tolerated a regular diet and having normal bowel function Examination - abdomen is soft and benign, wounds are healing well without evidence of infection Impression: s/p laparoscopic cholecystectomy Plan: Follow up with me as per needed. Patient to return to her primary physician for medical care. CNOV Observed: 06/16/2018 Status: COMPLETED Source: [place] 1:00 PM [facility] REPOSITORY Office Visit (GENSWS) ANDRAE MUSA ([id number]) 1985 F Date Time Provider Department 06/16/18 1:00 PM SOLANGE BUENO During your visit today, we recorded the following information about you: Solange Bueno MD 06/18/2018 1:51 PM Signed Andrae is s/p laparoscopic cholecystectomy done on 06/08/18. She is tolerated a regular diet and having normal bowel function Examination - abdomen is soft and benign, wounds are healing well without evidence of infection Impression: s/p laparoscopic cholecystectomy Plan: Follow up with me as per needed. Patient to return to her primary physician for medical care. Referring Provider: ARASELI BADILLO [[id number]] Allergies As of Date: 06/16/2018 Noted Allergy Reaction PHENERGAN (PROMETHAZINE) 07/07/2012 12 - Shortness of Breath Comments: Dizziness and lightheadness ZOLOFT (SERTRALINE HCL) 06/18/2017 14 - Other: See Comments Comments: ESPANA's and dizziness Date Reviewed: 06/16/2018 Reviewed by: Jaimee Cornejo LPN - Fully Assessed Reason for Visit: Post Op [174] Primary Visit Diagnosis:Surgery follow-up examination [Z09] Prescriptions as of 06/16/2018 Sig: ESCITALOPRAM 10 MG TABLET Take 10 mg by mouth once gaudencio* NORETHINDRONE-ETHINYL ESTRADI* Take 1 tablet by mouth once d* IBUPROFEN 200 MG TABLET Take 200 mg by mouth every 6 * ACETAMINOPHEN 325 MG TABLET Take 650 mg by mouth every 6 * RANITIDINE 150 MG TABLET Take 150 mg by mouth as neede* Problem List As Of Date 06/16/2018 Noted Resolved IRRITABLE COLON [K58.9] Depressive disorder [F32.9] More... OVERWEIGHT [E66.9] INVALID FOR* PERS HX TOBACCO USE [Z87.891] INVALID FOR* Abdominal pain, left upper quadrant [R10.12] INVALID FOR* Dysmenorrhea [N94.6] INVALID FOR*09/22/2017 Tobacco use disorder [F17.200] INVALID FOR* Obesity [E66.9] INVALID FOR* GERD (gastroesophageal reflux disease) [K21.9] INVALID FOR* Diarrhea [R19.7] INVALID FOR*08/01/2015 Abnormal uterine bleeding [N93.9] INVALID FOR*09/22/2017 RUQ pain [R10.11] INVALID FOR* More... Obesity, Class III, BMI >= 40 [E66.01] INVALID FOR* Encounter Status:Closed by MD SOLANGE BUENO on 06/18/18 FLUORO UP TO 1 HOUR Observed: 06/08/2018 Status: F Source: [facility] 11:00 AM [facility] REPOSITORY Performed at [facility] APPROVED BY: Alban Shepard MD IMPRESSION: 21 seconds of fluoroscopy time was utilized for this exam. NURSING PROG Observed: 06/08/2018 Status: COMPLETED Source: [place] 10:51 AM [facility] REPOSITORY HNO ID: [id number] Author: Lola ShahRn) PEDRITO Babcock Service: General Surgery Author Type: Registered Nurse Type: Nursing Progress Note Filed: 06/09/2018 11:35 AM Note Text: Patient states she is doing pretty well. Feels like pain medication is adequate. Small amount drainage on 2 of the dressings. Looks dry, not fresh. Educated on signs and symptoms of infection and bleeding precautions. Reminded to keep post-op appointment and call Dr. Bueno with any concerns. NURSING PROG Observed: 06/08/2018 Status: COMPLETED Source: [place] 10:13 AM [facility] REPOSITORY HNO ID: [id number] Author: Tammie ShahRn) PEDRITO Whitt Service: Nursing Author Type: Registered Nurse Type: Nursing Progress Note Filed: 06/08/2018 10:14 AM Note Text: Post op in pacu, some abd pain, medicated, friend here, po liq taking, crackers, ice bag on abd, 4 drsgs dry. Will assist up tp BR. ANES POST Observed: 06/08/2018 Status: COMPLETED Source: [place] 9:57 AM [facility] REPOSITORY HNO ID: [id number] Author: Tammie Mosquera Service: (none) Author Type: Physician Type: Anesthesia PostOp Filed: 06/08/2018 9:58 AM Note Text: POST ANESTHESIA EVALUATION NOTE SERVICE DATE: 06/08/2018 SERVICE TIME: 9:58 AM : 1985 Vitals: 06/08/18 0703 06/08/18 0945 Temp: 36.3 ?C (97.4 ?F) 36.3 ?C (97.3 ?F) 06/08/18 0703 06/08/18 0945 06/08/18 0950 BP: 149/71 (!) 120/45 120/52 06/08/18 0703 06/08/18 0945 06/08/18 0950 Pulse: 75 74 60 06/08/18 0703 06/08/18 0945 06/08/18 0950 Resp: 16 16 15 06/08/18 0703 06/08/18 0945 06/08/18 0950 SpO2: 96% 94% 98% Validated Vital Signs: Yes POST ANES STATUS: No apparent anesthetic complications. The patient is appropriately hydrated with stable respiratory and cardiovascular status. Patient has safe and adequate airway control. The patient has appropriate pain relief and no significant post operative nausea or vomiting. The patient has achieved baseline mental status. Further assessment by Anesthesia Service: None Other Remarks: SIGNATURE: Tammie Mosquera MD PATIENT NAME: Andrae Musa DATE: June 08, 2018 TIME: 9:58 AM PAGER/CONTACT #: [email or web address] OP NOT Observed: 06/08/2018 Status: COMPLETED Source: [place] 9:30 AM [facility] REPOSITORY HNO ID: [id number] Author: oSlange Bueno Service: (none) Author Type: Physician Type: Brief Op Note Filed: 06/08/2018 9:38 AM Note Text: BRIEF OPERATIVE NOTE SURGERY DATE: 06/08/2018 Incision/Procedure Start Time: 8:28 Incision Close/Procedure End Time: 9:37 Surgeon(s)/Proceduralist(s) and Diesel Maintenance Electrician(s): [facility] emergency room physician assistant Laurita Avila PA-C Procedures: Laparoscopic cholecystectomy with cholangiograms Anesthesia: General Findings: normal IOC, cholelithiasis - no obstruction/no cholecystitis Estimated Blood Loss: < 5 ml mls Specimens: gallbladder and contents Complications: None Preop Diagnosis: cholelithiasis Postop Diagnosis: same SIGNATURE: Solange Bueno MD PATIENT NAME: Andrae Musa DATE: June 08, 2018 TIME: 9:30 AM PAGER/CONTACT #: ANES PREOP Observed: 06/08/2018 Status: COMPLETED Source: [place] 7:48 AM [facility] [place] REPOSITORY O ID: [id number] Author: Tammie Mosquera Service: (none) Author Type: Physician Type: Anesthesia PreOp Filed: 06/08/2018 7:50 AM Note Text: ANESTHESIOLOGY PREOPERATIVE ASSESSMENT SERVICE DATE: 06/08/2018 : 1985 SERVICE TIME: 7:49 AM Surgeon(s): Solange Bueno Procedure(s) (LRB): LAPAROSCOPIC CHOLECYSTECTOMY (N/A) Estimated body mass index is 40.29 kg/m? as calculated from the following: Height as of this encounter: 172.7 cm (5' 8). Weight as of this encounter: 120.2 kg (265 lb). MOST RECENT HEMATOCRIT AND POTASSIUM RESULTS: Hematocrit 43.2 01/15/2016 Potassium 4.0 06/28/2015 ANES DOS/PREOP NOTE: Vitals: 06/08/18 0703 BP: 149/71 Pulse: 75 Resp: 16 Temp: 36.3 ?C (97.4 ?F) TempSrc: Temporal Artery SpO2: 96% Weight: 120.2 kg (265 lb) Height: 172.7 cm (5' 8) ACTIVE PROBLEM LIST Irritable Bowel Syndrome Depressive Disorder OVERWEIGHT Personal History of Tobacco Use, Presenting Hazards to Health Abdominal Pain, Left Upper Quadrant Tobacco Use Disorder Obesity Gerd (Gastroesophageal Reflux Disease) Ruq Pain Obesity, Class III, BMI >= 40 PAST MEDICAL HISTORY Diagnosis Date - Depressive disorder, not elsewhere classified - GERD (gastroesophageal reflux disease) - Irritable bowel syndrome - Obesity - Tobacco abuse PAST SURGICAL HISTORY Procedure Laterality Date - COLONOSCOP W/ OR W/O BRSH SPEC 08/01/15 Colonoscopy - EGD W/O BRSH SPECIMEN W/BX 08/11/11 patchy duodenitis - EGD W/O [facility] SPECIMEN W/BX 07/14/12 gastritis and esophagitis FAMILY HISTORY Problem Relation Age of Onset - Diabetes Father - encephalopathy [OTHER] Sister - Diabetes Maternal Grandmother - Other [OTHER] Maternal Grandfather non-alcoholic serosis of liver (christine) - Diabetes Paternal Grandmother - brain tumor [OTHER] Sister benign - ulcerative colitis [OTHER] Sister Social History: Social History Substance Use Topics - Smoking status: Current Every Day Smoker Packs/day: 1.00 Years: 12.00 Types: Cigarettes - Smokeless tobacco: Never Used Comment: Currently using patch but intermittent smoking - Alcohol use Yes Comment: usually 2-3 times a month No current facility-administered medications on file prior to encounter. Current Outpatient Prescriptions on File Prior to Encounter: escitalopram oxalate (LEXAPRO) 10 mg tablet Take 10 mg by mouth once daily. Norethindrone-Eth Estradiol (NECON , 28,) 1-35 mg-mcg per tablet Take 1 tablet by mouth once daily. ibuprofen (MOTRIN) 200 mg tablet Take 200 mg by mouth every 6 hours as needed. acetaminophen (TYLENOL) 325 mg tablet Take 650 mg by mouth every 6 hours as needed. ranitidine (ZANTAC) 150 mg tablet Take 150 mg by mouth as needed. Current Facility-Administered Medications: lidocaine 10 mg/mL (1 %) 1-2 mg injection (XYLOCAINE) 0.1- 0.2 mL INTRADERMAL PRN Solange Bueno lactated ringers infusion 5-30 mL/hr INTRAVENOUS CONTINUOUS Solange Bueno Last Rate: 30 mL/hr at 06/08/18 0711 30 mL/hr at 06/08/18 0711 ceFAZolin iv piggyback 2 g in D5W (iso-osmotic) 100 mL (ANCEF) 2 g INTRAVENOUS Pre-Op Once Solange Bueno Allergies: ALLERGIES Allergen Reactions - Phenergan [Prometha* Shortness of Breath Dizziness and lightheadness - Zoloft [Sertraline * Other: See Comments ESPANA's and dizziness REVIEW OF SYSTEMS: REVIEW OF SYSTEMS: As stated in Active Problem List/ Past Medical History ANESTHESIOLOGY REVIEW: Airway Assessment: MP 1; Neck ROM: Full ROM without neurologic symptoms; Airway Evaluation: No significant abnormalities Symptoms of Sleep Apnea: BMI > 35 Intubation History: No previous history of difficult intubation Dentition: Chipped, loose and/or missing ADDITIONAL PHYSICAL EXAM: Lungs: Lungs clear to auscultation. Good diaphragmatic excursion. Cardiac: normal S1 and S2; no rubs, no murmurs, and no gallops Additional Pertinent Findings: N/A ADVERSE ANESTHESIA EVENT: No history of adverse event FAMILY HIISTORY OF ANESTHESIA: No known issues BLOOD PRODUCTS: Not anticipated for this procedure OTHER MEDICAL PROBLEMS: None I have interviewed and examined the patient. I have reviewed the medical record and/or the pre-anesthesia evaluation, pertinent labs, and test results. Significant changes in the patient's condition since the History and Physical, not otherwise documented in primary service progress notes: No Anesthetic risks, benefits, alternatives, personnel and consent discussed: Yes ANES REVIEW: This contains information obtained greater than 48 hours prior to the Surgery/Procedure. See Day of Surgery Note SIGNATURE: Tammie Mosquera MD PATIENT NAME: Andrae Musa DATE: June 08, 2018 TIME: 7:48 AM PAGER/CONTACT #: OPERATIVE NO Observed: 06/08/2018 Status: COMPLETED Source: [place] 12:00 AM [facility] REPOSITORY [facility] ID: [id number] Author: Solange Bueno Service: (none) Author Type: Physician Type: Operative Report Filed: 06/09/2018 9:34 AM Note Text: [facility] - Operative Report SURGEON: Solange Bueno MD PATIENT NAME: ANDRAE MUSA CSN: [id number] DATE OF SURGERY: 06/08/2018 DATE OF : 1985 SEX/AGE: F/32 PATIENT TYPE: A [facility]: [facility] LOCATION: [facility] DATE OF SURGERY: 06/08/2018 SURGEON: Solange Bueno MD LOCATION: [facility] PREOPERATIVE DIAGNOSIS: Cholelithiasis. POSTOPERATIVE DIAGNOSIS: Cholelithiasis without obstruction or cholecystitis. ANESTHESIA: general endotracheal. SPECIMEN: Gallbladder and contents. WEB WORKER: Laurita Avila. She is a physician nursing assistant assisting me as there is no surgery residents available. INDICATIONS: Andrae Parra is a 32-year-old white female, who presents with biliary colic. She presents with ultrasound findings of cholelithiasis. She therefore presents for cholecystectomy done laparoscopically. The procedure has been described to the patient. The patient has been counseled of the risks of procedure including, but not limited to, infection, bleeding, injury to any bowel or bladder, injury to any internal organs, injury to any blood vessels or nerves, injury to the common bile duct, injury to the biliary tree, intra-abdominal abscess, intra-abdominal bleeding, trocar hernias, wound infections, etc. The patient understands and agrees to proceed. DESCRIPTION OF PROCEDURE: After informed consent was given, the patient was brought to the operating room. Appropriate time-out protocol was done in the preprocedure area as well as in the operating room. The patient was placed in supine position on the operating room table. She was then placed under general endotracheal anesthesia. The abdomen was then prepped with a sterile surgical skin preparation. It was allowed to dry for 3 minutes. Sterile surgical drapes were then placed. The skin and subcutaneous tissues in an area above the umbilicus were then infiltrated with local anesthetic. A vertical skin incision was made with a 15 blade scalpel. The anterior abdominal wall was grasped with 2 penetrating towel clamps. It was elevated and a Veress needle was carefully inserted into the internal cavity. It was checked to be in the proper position using a normal saline drop test. A CO2 pneumoperitoneum was then created. Once this was achieved, the Veress needle was removed and an 11-mm trocar was placed instead. A 10-mm laparoscope was then inserted into the trocar. Attention was then directed to the intraabdominal contents. There was no evidence of any injury from insertion of the Veress needle or the trocar. Attention was then directed to the right upper quadrant. The patient was noted to have fatty infiltration of liver. There were also blunt liver edges. A 5-mm subxiphoid trocar was placed under direct visualization and also 2 lateral 5 mm right subcostal trocars. Skin and subcutaneous tissues were infiltrated with local anesthetic prior to placement. Graspers were placed and 2 lateral trocars to grasp the gallbladder distally and directed cephalad and a Asia's pouch to direct it laterally. Dissection then began in the area of the triangle of Calot to delineate out the cystic vessels. The cystic artery was anterior and it was identified. It was isolated and 2 clips were placed proximally, 1 distally and was then transected between the clips. The cystic duct was then identified. It was isolated by blunt dissection. One clip was placed at the neck of the gallbladder. A small ductotomy was then created. A Ranfac catheter was brought through a separate skin incision and placed into the cystic duct. Intraoperative cholangiogram revealed no lesions in the common bile duct and good arborization of biliary tree and good flow into the duodenum. The Ranfac catheter was then removed. Two clips were placed proximal to the ductotomy and the cystic duct was then transected. The gallbladder was then removed from the liver bed using electrocautery any hemorrhage adequately controlled with electrocautery and it was then placed in the endobag and brought out through the periumbilical trocar site. It was then forwarded to Pathology for analysis. The liver bed was carefully examined. There was some minimal oozing. Adam was then applied to the liver bed. The cystic stump and the cystic duct stump had the clips intact. There was no evidence of any bleeding or any bile leak. The remainder of the abdomen was grossly normal. All trocars were removed intact. The CO2 pneumoperitoneum was released. The periumbilical fascia was approximated with [id number] 0 Vicryl suture. Skin incisions were all closed 4 Monocryl in a subdermal fashion. Benzoin, Steri-Strips used to reinforce skin closure. Proper sterile dressings were applied. The patient tolerated procedure well, was brought to recovery room in stable condition. ESTIMATED BLOOD LOSS: Less than 10 mL. COMPLICATIONS: None. DRAINS: None. Solange Bueno MD LW:modl /[id number] SURGICAL TISSUE EXAM Observed: 06/08/2018 Status: F Source: [facility] 12:00 AM [facility] Test performed at [place] [address] NAME: CHARLEY MUSAN REQUESTING: SOLANGE BUENO MD FINAL DIAGNOSIS: GALLBLADDER (LAPAROSCOPIC CHOLECYSTECTOMY) - CHRONIC CHOLECYSTITIS. CHOLELITHIASIS. OPERATIVE PROCEDURE: Laparoscopic cholecystectomy with cholangiograms CLINICAL INFORMATION: RUQ pain [R10.11], Calculus of gallbladder without cholecystitis without obstruction [K80.20] GROSS DESCRIPTION: Gallbladder Received in formalin labeled gallbladder is an intact gallbladder measuring 8.5 x 2.8 x 2.5 cm. The serosa is pink-white, smooth and glistening. Opening reveals clear tenacious fluid within, admixed with four yellow-brown bosselated calculi ranging from 0.8 to 1 cm in greatest dimension. One of these is occluding the cystic duct. The underlying mucosa is mccarthy-white and trabeculated in appearance. The wall is 0.1 to 0.3 cm in thickness. Aspects of the surrounding serosa appear edematous. Chief Meteorologist sections are submitted in one cassette. BMP:aniya BARTLETT M.D. (Electronic signature on file) Signed out: 06/10/2018 13:52 PRINTED: 06/10/2018 Page 1 of 1 Performed By: #### SURG #### [place] [address] HISTORY PHYSICAL Observed: 06/07/2018 Status: COMPLETED Source: [place] 5:03 PM [facility] REPOSITORY HNO ID: [id number] Author: Solange Bueno Service: (none) Author Type: Physician Type: HANDP Filed: 06/07/2018 5:03 PM Note Text: Andrae Musa 1985 REFERRING PHYSICIAN: Self CHIEF COMPLAINT: Consult (gallbladder) HPI: The patient is a 32 year old female with known cholelithiasis since 2011. Had intermittant right upper quadrant and epigastric pain for about 2 years, and then it abated and therefore did not pursue follow up. In the past few weeks, has noted return of symptoms, worsening. Presented to ED on 05/24/18 with symptoms. Had nausea and loose stools. She states that eggs worsens her symptoms. She does have heartburn for which she takes ranitidine. TOB 1/2 ppd for 16 y, trying to quit. Denies fevers/chills. Has IBS Mother had gallbladder removed. PAST MEDICAL HISTORY - Depressive disorder, not elsewhere classified - GERD (gastroesophageal reflux disease) - Irritable bowel syndrome - Obesity - Tobacco abuse PAST SURGICAL HISTORY - COLONOSCOP W/ OR W/O BRSH SPEC 08/01/15 Colonoscopy - EGD W/O BRSH SPECIMEN W/BX 08/11/11 patchy duodenitis - EGD W/O BRSH SPECIMEN W/BX 07/14/12 gastritis and esophagitis Current Outpatient Prescriptions: Norethindrone-Eth Estradiol (NECON , ,) 1-35 mg-mcg per tablet Take 1 tablet by mouth once daily. ibuprofen (MOTRIN) 200 mg tablet Take 200 mg by mouth every 6 hours as needed. acetaminophen (TYLENOL) 325 mg tablet Take 650 mg by mouth every 6 hours as needed. ranitidine (ZANTAC) 150 mg tablet Take 150 mg by mouth as needed. escitalopram oxalate (LEXAPRO) 10 mg tablet Take 10 mg by mouth once daily. 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 * Social History Main Topics Smoking status: Current Every Day Smoker Packs/day: 1.00 Years: 12.00 Types: Cigarettes Smokeless tobacco: Never Used Comment: Currently using patch but intermittent smoking Alcohol use: Yes Comment: usually 2-3 times a month Drug use: No Sexual activity: Yes Partners with: Male control/protection: Pill Social History Narrative Lives with her dad, step mom and 2 sisters FAMILY HISTORY - Diabetes Father - encephalopathy [OTHER] Sister - Diabetes Maternal Grandmother - Other [OTHER] Maternal Grandfather non-alcoholic serosis of liver (christine) - Diabetes Paternal Grandmother - brain tumor [OTHER] Sister benign - ulcerative colitis [OTHER] Sister REVIEW OF SYSTEMS: General: The patient NOTES fatigue, denies weight loss, denies weight gain, NOTES feeling hot, and denies feelings of cold. Eyes: The patient denies glaucoma, denies eye injury/surgery, wears glasses or contacts. Ear/Nose/Throat: The patient denies allergies, denies hayfever, denies ear infections, and denies bloody noses. Cardiovascular: The patient denies chest pain, denies heart disease, denies high blood pressure,denies cardiac stent, denies prior heart attack, denies irregular heart beat, denies high cholesterol, denies poor circulation, denies heart failure, other cardiac issues, denies claudication, denies cold feet, denies peripheral arterial stent. Respiratory: The patient denies tuberculosis, denies pneumonia, denies frequent cough, denies pulmonary embolism, denies shortness of breath, and denies coughing up blood. Gastrointestinal: The patient denies difficulty swallowing, NOTES acid reflux, NOTES ulcers, denies vomiting, denies jaundice/hepatitis, NOTES gallbladder problems, NOTES black or tarry stools, denies hemorrhoids, denies bleeding from rectum, denies diverticulitis, denies constipation, NOTES diarrhea, denies loss of stool control, and denies hernias. Kidney/Bladder: The patient denies kidney stones, denies urine infections, and denies bloody urine. Skin: The patient denies a history of skin cancer, denies bleeding/changing moles, and denies a history of skin rash. Neurologic: The patient denies a history of epilepsy/convulsions, NOTES headaches, denies head/spinal injuries, and denies stroke/TIA. Psychiatric: The patient denies psychiatric medications, NOTES depression, and denies voices, denies substance abuse. Endocrine: The patient denies thyroid disorders, denies diabetes, and denies hormonal problems. Hematologic: The patient denies a history of bruising, denies bleeding, and denies anemia, denies blood clots. Infections: The patient denies a history of measles and mumps, denies rheumatic fever, and denies sexually transmitted diseases. Musculoskeletal: The patient denies back pain/injury, NOTES back problems, denies sciatica, denies knee/foot trouble, denies arthritis, or denies gout. PHYSICAL EXAMINATION: General: The patient is 32 year old female, well nourished, well hydrated in no acute distress. The patient is oriented to time, place, and person. VITALS: Blood pressure 124/82, pulse 76, temperature 36.4 ?C (97.5 ?F), weight 120.2 kg (265 lb). Body mass index is 41.5 kg/m?. Head ? Normocephalic. EOM intact with sclera clear and no icterus noted. Mouth with mucus membranes moist. Neck - supple with no jugular venous distention noted. Trachea is midline. Lungs ? clear to auscultationd. Normal breath sounds. No rales/rhonchi/wheezing noted. No labored breathing noted, such as retractions. Heart ? normal S1 and S2 auscultated. No rubs/clicks/murmurs noted. Regular rate. Abdomen ? soft and benign. Normal bowel soundss. No abdominal bruits noted. Difficult to determine if any masses or organomegaly due to body habitus. Extremities ? no calf tenderness noted. No pitting edema noted.. Skin ? normal skin integrity. Neurological ? gait normal, no focal deficits noted Psych ? calm and appropriate Assessment IMPRESSION: cholelithiasis, symptomatic PLAN: I have discussed the above with the patient. I have offered laparoscopic cholecystectomy, possible cholangiograms I have explained the procedure to the patient. I have counseled the patient as to the risks of the procedure, including but not limited to: infection, bleeding, injury to any blood vessels/nerves, scar tissue, injury to any intrabdominal organs, injury to bowel/bladder, injury to the common bile duct/biliary tree, bile leakage, intraabdominal abscess/bleeding, hernias at incisional sites, wound infections, complications of anesthesia, etc. ? the patient understands. The patient wishes to proceed. I have answered all questions to the patient?s satisfaction and the patient has no further questions. NURSING PROG Observed: 06/07/2018 Status: COMPLETED Source: [place] 10:17 AM [facility] REPOSITORY HNO ID: [id number] Author: Agustina (Rn) PEDRITO Oconnor Service: Gastroenterology Author Type: Registered Nurse Type: Nursing Progress Note Filed: 06/07/2018 10:18 AM Note Text: Pre op completed, arrival time given on voicemail. Requested patient call to verify massage. NURSING PROG Observed: 06/03/2018 Status: COMPLETED Source: [place] 3:31 PM [facility] REPOSITORY HNO ID: [id number] Author: Lola ShahRn) PEDRITO Babcock Service: General Surgery Author Type: Registered Nurse Type: Nursing Progress Note Filed: 06/03/2018 3:33 PM Note Text: Pre-op instructions given. Patient states understanding.Educated on the importance of deep breathing after surgery. Instructed on how to do this and encouraged to begin today. Educated on the risks of smoking. PROGRESS Observed: 05/27/2018 Status: COMPLETED Source: [place] 3:32 PM [facility] REPOSITORY HNO ID: [id number] Author: Solange Bueno Service: (none) Author Type: Physician Type: Progress Notes Filed: 05/29/2018 7:44 PM Note Text: Andrae Musa 1985 REFERRING PHYSICIAN: Self CHIEF COMPLAINT: Consult (gallbladder) HPI: The patient is a 32 year old female with known cholelithiasis since 2011. Had intermittant right upper quadrant and epigastric pain for about 2 years, and then it abated and therefore did not pursue follow up. In the past few weeks, has noted return of symptoms, worsening. Presented to ED on 05/24/18 with symptoms. Had nausea and loose stools. She states that eggs worsens her symptoms. She does have heartburn for which she takes ranitidine. TOB 1/2 ppd for 16 y, trying to quit. Denies fevers/chills. Has IBS Mother had gallbladder removed. PAST MEDICAL HISTORY Diagnosis Date - Depressive disorder, not elsewhere classified - GERD (gastroesophageal reflux disease) - Irritable bowel syndrome - Obesity - Tobacco abuse PAST SURGICAL HISTORY Procedure Laterality Date - COLONOSCOP W/ OR W/O BRSH SPEC 08/01/15 Colonoscopy - EGD W/O BRSH SPECIMEN W/BX 08/11/11 patchy duodenitis - EGD W/O BRSH SPECIMEN W/BX 07/14/12 gastritis and esophagitis Current Outpatient Prescriptions: Norethindrone-Eth Estradiol (NECON 1/, 28,) 1-35 mg-mcg per tablet Take 1 tablet by mouth once daily. ibuprofen (MOTRIN) 200 mg tablet Take 200 mg by mouth every 6 hours as needed. acetaminophen (TYLENOL) 325 mg tablet Take 650 mg by mouth every 6 hours as needed. ranitidine (ZANTAC) 150 mg tablet Take 150 mg by mouth as needed. escitalopram oxalate (LEXAPRO) 10 mg tablet Take 10 mg by mouth once daily. 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 * Social History Main Topics Smoking status: Current Every Day Smoker Packs/day: 1.00 Years: 12.00 Types: Cigarettes Smokeless tobacco: Never Used Comment: Currently using patch but intermittent smoking Alcohol use: Yes Comment: usually 2-3 times a month Drug use: No Sexual activity: Yes Partners with: Male control/protection: Pill Social History Narrative Lives with her dad, step mom and 2 sisters FAMILY HISTORY Problem Relation Age of Onset - Diabetes Father - encephalopathy [OTHER] Sister - Diabetes Maternal Grandmother - Other [OTHER] Maternal Grandfather non-alcoholic serosis of liver (christine) - Diabetes Paternal Grandmother - brain tumor [OTHER] Sister benign - ulcerative colitis [OTHER] Sister REVIEW OF SYSTEMS: General: The patient NOTES fatigue, denies weight loss, denies weight gain, NOTES feeling hot, and denies feelings of cold. Eyes: The patient denies glaucoma, denies eye injury/surgery, wears glasses or contacts. Ear/Nose/Throat: The patient denies allergies, denies hayfever, denies ear infections, and denies bloody noses. Cardiovascular: The patient denies chest pain, denies heart disease, denies high blood pressure,denies cardiac stent, denies prior heart attack, denies irregular heart beat, denies high cholesterol, denies poor circulation, denies heart failure, other cardiac issues, denies claudication, denies cold feet, denies peripheral arterial stent. Respiratory: The patient denies tuberculosis, denies pneumonia, denies frequent cough, denies pulmonary embolism, denies shortness of breath, and denies coughing up blood. Gastrointestinal: The patient denies difficulty swallowing, NOTES acid reflux, NOTES ulcers, denies vomiting, denies jaundice/hepatitis, NOTES gallbladder problems, NOTES black or tarry stools, denies hemorrhoids, denies bleeding from rectum, denies diverticulitis, denies constipation, NOTES diarrhea, denies loss of stool control, and denies hernias. Kidney/Bladder: The patient denies kidney stones, denies urine infections, and denies bloody urine. Skin: The patient denies a history of skin cancer, denies bleeding/changing moles, and denies a history of skin rash. Neurologic: The patient denies a history of epilepsy/convulsions, NOTES headaches, denies head/spinal injuries, and denies stroke/TIA. Psychiatric: The patient denies psychiatric medications, NOTES depression, and denies voices, denies substance abuse. Endocrine: The patient denies thyroid disorders, denies diabetes, and denies hormonal problems. Hematologic: The patient denies a history of bruising, denies bleeding, and denies anemia, denies blood clots. Infections: The patient denies a history of measles and mumps, denies rheumatic fever, and denies sexually transmitted diseases. Musculoskeletal: The patient denies back pain/injury, NOTES back problems, denies sciatica, denies knee/foot trouble, denies arthritis, or denies gout. PHYSICAL EXAMINATION: General: The patient is 32 year old female, well nourished, well hydrated in no acute distress. The patient is oriented to time, place, and person. VITALS: Blood pressure 124/82, pulse 76, temperature 36.4 ?C (97.5 ?F), weight 120.2 kg (265 lb). Body mass index is 41.5 kg/m?. Head ? Normocephalic. EOM intact with sclera clear and no icterus noted. Mouth with mucus membranes moist. Neck - supple with no jugular venous distention noted. Trachea is midline. Lungs ? clear to auscultationd. Normal breath sounds. No rales/rhonchi/wheezing noted. No labored breathing noted, such as retractions. Heart ? normal S1 and S2 auscultated. No rubs/clicks/murmurs noted. Regular rate. Abdomen ? soft and benign. Normal bowel soundss. No abdominal bruits noted. Difficult to determine if any masses or organomegaly due to body habitus. Extremities ? no calf tenderness noted. No pitting edema noted.. Skin ? normal skin integrity. Neurological ? gait normal, no focal deficits noted Psych ? calm and appropriate Assessment IMPRESSION: cholelithiasis, symptomatic PLAN: I have discussed the above with the patient. I have offered laparoscopic cholecystectomy, possible cholangiograms I have explained the procedure to the patient. I have counseled the patient as to the risks of the procedure, including but not limited to: infection, bleeding, injury to any blood vessels/nerves, scar tissue, injury to any intrabdominal organs, injury to bowel/bladder, injury to the common bile duct/biliary tree, bile leakage, intraabdominal abscess/bleeding, hernias at incisional sites, wound infections, complications of anesthesia, etc. ? the patient understands. The patient wishes to proceed. She agrees to surgery at [facility]. I have answered all questions to the patient?s satisfaction and the patient has no further questions. Greater than 50% of this patient encounter was dedicated to face to face discussion with the patient. Diagnoses: (K80.20) Calculus of gallbladder without cholecystitis without obstruction (primary encounter diagnosis) (E66.01) Morbid obesity (HCC) Return to Clinic: The patient is instructed to follow-up with me after surgery. Solange Bueno MD CNOV Observed: 05/27/2018 Status: COMPLETED Source: [place] 3:00 PM [facility] REPOSITORY Office Visit (GENSWS) ANDRAE MUSA ([id number]) 1985 F Date Time Provider Department 05/27/18 3:00 PM SOLANGE BUENO During your visit today, we recorded the following information about you: Temperature Pulse Blood pressure Weight 97.5 degrees 76/minute 124/82 120.2 kg Solange Bueno MD 05/29/2018 7:44 PM Signed Andrae Musa 1985 REFERRING PHYSICIAN: Self CHIEF COMPLAINT: Consult (gallbladder) HPI: The patient is a 32 year old female with known cholelithiasis since 2011. Had intermittant right upper quadrant and epigastric pain for about 2 years, and then it abated and therefore did not pursue follow up. In the past few weeks, has noted return of symptoms, worsening. Presented to ED on 05/24/18 with symptoms. Had nausea and loose stools. She states that eggs worsens her symptoms. She does have heartburn for which she takes ranitidine. TOB 1/2 ppd for 16 y, trying to quit. Denies fevers/chills. Has IBS Mother had gallbladder removed. PAST MEDICAL HISTORY Diagnosis Date - Depressive disorder, not elsewhere classified - GERD (gastroesophageal reflux disease) - Irritable bowel syndrome - Obesity - Tobacco abuse PAST SURGICAL HISTORY Procedure Laterality Date - COLONOSCOP W/ OR W/O BRSH SPEC 08/01/15 Colonoscopy - EGD W/O BRSH SPECIMEN W/BX 08/11/11 patchy duodenitis - EGD W/O BRSH SPECIMEN W/BX 07/14/12 gastritis and esophagitis Current Outpatient Prescriptions: Norethindrone-Eth Estradiol (NECON , 28,) 1-35 mg-mcg per tablet Take 1 tablet by mouth once daily. ibuprofen (MOTRIN) 200 mg tablet Take 200 mg by mouth every 6 hours as needed. acetaminophen (TYLENOL) 325 mg tablet Take 650 mg by mouth every 6 hours as needed. ranitidine (ZANTAC) 150 mg tablet Take 150 mg by mouth as needed. escitalopram oxalate (LEXAPRO) 10 mg tablet Take 10 mg by mouth once daily. 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 * Social History Main Topics Smoking status: Current Every Day Smoker Packs/day: 1.00 Years: 12.00 Types: Cigarettes Smokeless tobacco: Never Used Comment: Currently using patch but intermittent smoking Alcohol use: Yes Comment: usually 2-3 times a month Drug use: No Sexual activity: Yes Partners with: Male control/protection: Pill Social History Narrative Lives with her dad, step mom and 2 sisters FAMILY HISTORY Problem Relation Age of Onset - Diabetes Father - encephalopathy [OTHER] Sister - Diabetes Maternal Grandmother - Other [OTHER] Maternal Grandfather non-alcoholic serosis of liver (christine) - Diabetes Paternal Grandmother - brain tumor [OTHER] Sister benign - ulcerative colitis [OTHER] Sister REVIEW OF SYSTEMS: General: The patient NOTES fatigue, denies weight loss, denies weight gain, NOTES feeling hot, and denies feelings of cold. Eyes: The patient denies glaucoma, denies eye injury/surgery, wears glasses or contacts. Ear/Nose/Throat: The patient denies allergies, denies hayfever, denies ear infections, and denies bloody noses. Cardiovascular: The patient denies chest pain, denies heart disease, denies high blood pressure,denies cardiac stent, denies prior heart attack, denies irregular heart beat, denies high cholesterol, denies poor circulation, denies heart failure, other cardiac issues, denies claudication, denies cold feet, denies peripheral arterial stent. Respiratory: The patient denies tuberculosis, denies pneumonia, denies frequent cough, denies pulmonary embolism, denies shortness of breath, and denies coughing up blood. Gastrointestinal: The patient denies difficulty swallowing, NOTES acid reflux, NOTES ulcers, denies vomiting, denies jaundice/hepatitis, NOTES gallbladder problems, NOTES black or tarry stools, denies hemorrhoids, denies bleeding from rectum, denies diverticulitis, denies constipation, NOTES diarrhea, denies loss of stool control, and denies hernias. Kidney/Bladder: The patient denies kidney stones, denies urine infections, and denies bloody urine. Skin: The patient denies a history of skin cancer, denies bleeding/changing moles, and denies a history of skin rash. Neurologic: The patient denies a history of epilepsy/convulsions, NOTES headaches, denies head/spinal injuries, and denies stroke/TIA. Psychiatric: The patient denies psychiatric medications, NOTES depression, and denies voices, denies substance abuse. Endocrine: The patient denies thyroid disorders, denies diabetes, and denies hormonal problems. Hematologic: The patient denies a history of bruising, denies bleeding, and denies anemia, denies blood clots. Infections: The patient denies a history of measles and mumps, denies rheumatic fever, and denies sexually transmitted diseases. Musculoskeletal: The patient denies back pain/injury, NOTES back problems, denies sciatica, denies knee/foot trouble, denies arthritis, or denies gout. PHYSICAL EXAMINATION: General: The patient is 32 year old female, well nourished, well hydrated in no acute distress. The patient is oriented to time, place, and person. VITALS: Blood pressure 124/82, pulse 76, temperature 36.4 ?C (97.5 ?F), weight 120.2 kg (265 lb). Body mass index is 41.5 kg/m?. Head ? Normocephalic. EOM intact with sclera clear and no icterus noted. Mouth with mucus membranes moist. Neck - supple with no jugular venous distention noted. Trachea is midline. Lungs ? clear to auscultationd. Normal breath sounds. No rales/rhonchi/wheezing noted. No labored breathing noted, such as retractions. Heart ? normal S1 and S2 auscultated. No rubs/clicks/murmurs noted. Regular rate. Abdomen ? soft and benign. Normal bowel soundss. No abdominal bruits noted. Difficult to determine if any masses or organomegaly due to body habitus. Extremities ? no calf tenderness noted. No pitting edema noted.. Skin ? normal skin integrity. Neurological ? gait normal, no focal deficits noted Psych ? calm and appropriate Assessment IMPRESSION: cholelithiasis, symptomatic PLAN: I have discussed the above with the patient. I have offered laparoscopic cholecystectomy, possible cholangiograms I have explained the procedure to the patient. I have counseled the patient as to the risks of the procedure, including but not limited to: infection, bleeding, injury to any blood vessels/nerves, scar tissue, injury to any intrabdominal organs, injury to bowel/bladder, injury to the common bile duct/biliary tree, bile leakage, intraabdominal abscess/bleeding, hernias at incisional sites, wound infections, complications of anesthesia, etc. ? the patient understands. The patient wishes to proceed. She agrees to surgery at [facility]. I have answered all questions to the patient?s satisfaction and the patient has no further questions. Greater than 50% of this patient encounter was dedicated to face to face discussion with the patient. Diagnoses: (K80.20) Calculus of gallbladder without cholecystitis without obstruction (primary encounter diagnosis) (E66.01) Morbid obesity (HCC) Return to Clinic: The patient is instructed to follow-up with me after surgery. MD Flor Goyal RN 05/27/2018 3:57 PM Signed REVIEW OF SYSTEMS: General: The patient NOTES fatigue, denies weight loss, denies weight gain, NOTES feeling hot, and denies feelings of cold. Eyes: The patient denies glaucoma, denies eye injury/surgery, wears glasses or contacts. Ear/Nose/Throat: The patient denies allergies, denies hayfever, denies ear infections, and denies bloody noses. Cardiovascular: The patient denies chest pain, denies heart disease, denies high blood pressure,denies cardiac stent, denies prior heart attack, denies irregular heart beat, denies high cholesterol, denies poor circulation, denies heart failure, other cardiac issues, denies claudication, denies cold feet, denies peripheral arterial stent. Respiratory: The patient denies tuberculosis, denies pneumonia, denies frequent cough, denies pulmonary embolism, denies shortness of breath, and denies coughing up blood. Gastrointestinal: The patient denies difficulty swallowing, NOTES acid reflux, NOTES ulcers, denies vomiting, denies jaundice/hepatitis, NOTES gallbladder problems, NOTES black or tarry stools, denies hemorrhoids, denies bleeding from rectum, denies diverticulitis, denies constipation, NOTES diarrhea, denies loss of stool control, and denies hernias. Kidney/Bladder: The patient denies kidney stones, denies urine infections, and denies bloody urine. Skin: The patient denies a history of skin cancer, denies bleeding/changing moles, and denies a history of skin rash. Neurologic: The patient denies a history of epilepsy/convulsions, NOTES headaches, denies head/spinal injuries, and denies stroke/TIA. Psychiatric: The patient denies psychiatric medications, NOTES depression, and denies voices, denies substance abuse. Endocrine: The patient denies thyroid disorders, denies diabetes, and denies hormonal problems. Hematologic: The patient denies a history of bruising, denies bleeding, and denies anemia, denies blood clots. Infections: The patient denies a history of measles and mumps, denies rheumatic fever, and denies sexually transmitted diseases. Musculoskeletal: The patient denies back pain/injury, NOTES back problems, denies sciatica, denies knee/foot trouble, denies arthritis, or denies gout. When was patient's last Mammogram screening? 2018 Last Colonoscopy: 07/2015 Flor Batista RN Referring Provider: SELF [[id number]] Allergies As of Date: 05/27/2018 Noted Allergy Reaction PHENERGAN (PROMETHAZINE) 07/07/2012 12 - Shortness of Breath Comments: Dizziness and lightheadness ZOLOFT (SERTRALINE HCL) 06/18/2017 14 - Other: See Comments Comments: ESPANA's and dizziness Date Reviewed: 05/27/2018 Reviewed by: Flor Batista RN - Fully Assessed Reason for Visit: Consult [173] Cmt: gallbladder Primary Visit Diagnosis:Calculus of gallbladder without cholecystitis without obstruction [K80.20] Other Visit Diagnosis:Morbid obesity (HCC) [E66.01] Prescriptions as of 05/27/2018 Sig: NORETHINDRONE-ETHINYL ESTRADI* Take 1 tablet by mouth once d* IBUPROFEN 200 MG TABLET Take 200 mg by mouth every 6 * ACETAMINOPHEN 325 MG TABLET Take 650 mg by mouth every 6 * RANITIDINE 150 MG TABLET Take 150 mg by mouth as neede* ESCITALOPRAM 10 MG TABLET Take 10 mg by mouth once gaudencio* Problem List As Of Date 05/27/2018 Noted Resolved IRRITABLE COLON [K58.9] Depressive disorder [F32.9] More... OVERWEIGHT [E66.9] INVALID FOR* PERS HX TOBACCO USE [Z87.891] INVALID FOR* Abdominal pain, left upper quadrant [R10.12] INVALID FOR* Dysmenorrhea [N94.6] INVALID FOR*09/22/2017 Tobacco use disorder [F17.200] INVALID FOR* Obesity [E66.9] INVALID FOR* GERD (gastroesophageal reflux disease) [K21.9] INVALID FOR* Diarrhea [R19.7] INVALID FOR*08/01/2015 Abnormal uterine bleeding [N93.9] INVALID FOR*09/22/2017 RUQ pain [R10.11] INVALID FOR* More... Visit Notes: >> Flor Batista RN [facility] May 27, 2018 3:55 PM Status: Signed REVIEW OF SYSTEMS: General: The patient NOTES fatigue, denies weight loss, denies weight gain, NOTES feeling hot, and denies feelings of cold. Eyes: The patient denies glaucoma, denies eye injury/surgery, wears glasses or contacts. Ear/Nose/Throat: The patient denies allergies, denies hayfever, denies ear infections, and denies bloody noses. Cardiovascular: The patient denies chest pain, denies heart disease, denies high blood pressure,denies cardiac stent, denies prior heart attack, denies irregular heart beat, denies high cholesterol, denies poor circulation, denies heart failure, other cardiac issues, denies claudication, denies cold feet, denies peripheral arterial stent. Respiratory: The patient denies tuberculosis, denies pneumonia, denies frequent cough, denies pulmonary embolism, denies shortness of breath, and denies coughing up blood. Gastrointestinal: The patient denies difficulty swallowing, NOTES acid reflux, NOTES ulcers, denies vomiting, denies jaundice/hepatitis, NOTES gallbladder problems, NOTES black or tarry stools, denies hemorrhoids, denies bleeding from rectum, denies diverticulitis, denies constipation, NOTES diarrhea, denies loss of stool control, and denies hernias. Kidney/Bladder: The patient denies kidney stones, denies urine infections, and denies bloody urine. Skin: The patient denies a history of skin cancer, denies bleeding/changing moles, and denies a history of skin rash. Neurologic: The patient denies a history of epilepsy/convulsions, NOTES headaches, denies head/spinal injuries, and denies stroke/TIA. Psychiatric: The patient denies psychiatric medications, NOTES depression, and denies voices, denies substance abuse. Endocrine: The patient denies thyroid disorders, denies diabetes, and denies hormonal problems. Hematologic: The patient denies a history of bruising, denies bleeding, and denies anemia, denies blood clots. Infections: The patient denies a history of measles and mumps, denies rheumatic fever, and denies sexually transmitted diseases. Musculoskeletal: The patient denies back pain/injury, NOTES back problems, denies sciatica, denies knee/foot trouble, denies arthritis, or denies gout. When was patient's last Mammogram screening? 2018 Last Colonoscopy: 07/2015 Flor Batista RN Letter Text Encounter Status:Closed by MD SOLANGE BUENO on 05/29/18 HOSP Observed: 05/27/2018 Status: COMPLETED Source: [place] 12:00 AM [facility] REPOSITORY Patient:Andrae Musa MRN: <[id number]> Height:5' 8(1.727 m) Weight:265 lb (120.203 kg) Outpatient Medications as of 06/08/18: escitalopram oxalate (LEXAPRO) 10 mg tablet Norethindrone-Eth Estradiol (NECON , ,) 1-35 mg-mcg per tablet ibuprofen (MOTRIN) 200 mg tablet acetaminophen (TYLENOL) 325 mg tablet ranitidine (ZANTAC) 150 mg tablet Admission/Clinic Administered Medications as of 06/08/18: lidocaine 10 mg/mL (1 %) 1-2 mg injection (XYLOCAINE) lactated ringers infusion ceFAZolin iv piggyback 2 g in D5W (iso-osmotic) 100 mL (ANCEF) Problem List: Irritable bowel syndrome [K58.9] Depressive disorder [F32.9] OVERWEIGHT [E66.9] Personal history of tobacco use, presenting hazards to health [Z87.891] Abdominal pain, left upper quadrant [R10.12] Tobacco use disorder [F17.200] Obesity [E66.9] GERD (gastroesophageal reflux disease) [K21.9] RUQ pain [R10.11] Obesity, Class III, BMI >= 40 [E66.01] Allergies: Phenergan [Promethazine] Zoloft [Sertraline Hcl] Date Verified: 06/08/18 Lab Values No results within the last 30 days for the following basenames: K,HCT Progress Notes ([facility]): Carroll De Souza 05/27/2018 4:00 PM Signed 06-08-2018 Lap Nilam De Souza Progress Notes ([facility]): Solange Bueno MD 05/29/2018 7:44 PM Signed Andrae Musa 1985 REFERRING PHYSICIAN: Self CHIEF COMPLAINT: Consult (gallbladder) HPI: The patient is a 32 year old female with known cholelithiasis since 2011. Had intermittant right upper quadrant and epigastric pain for about 2 years, and then it abated and therefore did not pursue follow up. In the past few weeks, has noted return of symptoms, worsening. Presented to ED on 05/24/18 with symptoms. Had nausea and loose stools. She states that eggs worsens her symptoms. She does have heartburn for which she takes ranitidine. TOB 1/2 ppd for 16 y, trying to quit. Denies fevers/chills. Has IBS Mother had gallbladder removed. PAST MEDICAL HISTORY Diagnosis Date - Depressive disorder, not elsewhere classified - GERD (gastroesophageal reflux disease) - Irritable bowel syndrome - Obesity - Tobacco abuse PAST SURGICAL HISTORY Procedure Laterality Date - COLONOSCOP W/ OR W/O BRSH SPEC 08/01/15 Colonoscopy - EGD W/O BRSH SPECIMEN W/BX 08/11/11 patchy duodenitis - EGD W/O BRSH SPECIMEN W/BX 07/14/12 gastritis and esophagitis Current Outpatient Prescriptions: Norethindrone-Eth Estradiol (NECON , 28,) 1-35 mg-mcg per tablet Take 1 tablet by mouth once daily. ibuprofen (MOTRIN) 200 mg tablet Take 200 mg by mouth every 6 hours as needed. acetaminophen (TYLENOL) 325 mg tablet Take 650 mg by mouth every 6 hours as needed. ranitidine (ZANTAC) 150 mg tablet Take 150 mg by mouth as needed. escitalopram oxalate (LEXAPRO) 10 mg tablet Take 10 mg by mouth once daily. 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 * Social History Main Topics Smoking status: Current Every Day Smoker Packs/day: 1.00 Years: 12.00 Types: Cigarettes Smokeless tobacco: Never Used Comment: Currently using patch but intermittent smoking Alcohol use: Yes Comment: usually 2-3 times a month Drug use: No Sexual activity: Yes Partners with: Male control/protection: Pill Social History Narrative Lives with her dad, step mom and 2 sisters FAMILY HISTORY Problem Relation Age of Onset - Diabetes Father - encephalopathy [OTHER] Sister - Diabetes Maternal Grandmother - Other [OTHER] Maternal Grandfather non-alcoholic serosis of liver (christine) - Diabetes Paternal Grandmother - brain tumor [OTHER] Sister benign - ulcerative colitis [OTHER] Sister REVIEW OF SYSTEMS: General: The patient NOTES fatigue, denies weight loss, denies weight gain, NOTES feeling hot, and denies feelings of cold. Eyes: The patient denies glaucoma, denies eye injury/surgery, wears glasses or contacts. Ear/Nose/Throat: The patient denies allergies, denies hayfever, denies ear infections, and denies bloody noses. Cardiovascular: The patient denies chest pain, denies heart disease, denies high blood pressure,denies cardiac stent, denies prior heart attack, denies irregular heart beat, denies high cholesterol, denies poor circulation, denies heart failure, other cardiac issues, denies claudication, denies cold feet, denies peripheral arterial stent. Respiratory: The patient denies tuberculosis, denies pneumonia, denies frequent cough, denies pulmonary embolism, denies shortness of breath, and denies coughing up blood. Gastrointestinal: The patient denies difficulty swallowing, NOTES acid reflux, NOTES ulcers, denies vomiting, denies jaundice/hepatitis, NOTES gallbladder problems, NOTES black or tarry stools, denies hemorrhoids, denies bleeding from rectum, denies diverticulitis, denies constipation, NOTES diarrhea, denies loss of stool control, and denies hernias. Kidney/Bladder: The patient denies kidney stones, denies urine infections, and denies bloody urine. Skin: The patient denies a history of skin cancer, denies bleeding/changing moles, and denies a history of skin rash. Neurologic: The patient denies a history of epilepsy/convulsions, NOTES headaches, denies head/spinal injuries, and denies stroke/TIA. Psychiatric: The patient denies psychiatric medications, NOTES depression, and denies voices, denies substance abuse. Endocrine: The patient denies thyroid disorders, denies diabetes, and denies hormonal problems. Hematologic: The patient denies a history of bruising, denies bleeding, and denies anemia, denies blood clots. Infections: The patient denies a history of measles and mumps, denies rheumatic fever, and denies sexually transmitted diseases. Musculoskeletal: The patient denies back pain/injury, NOTES back problems, denies sciatica, denies knee/foot trouble, denies arthritis, or denies gout. PHYSICAL EXAMINATION: General: The patient is 32 year old female, well nourished, well hydrated in no acute distress. The patient is oriented to time, place, and person. VITALS: Blood pressure 124/82, pulse 76, temperature 36.4 ?C (97.5 ?F), weight 120.2 kg (265 lb). Body mass index is 41.5 kg/m?. Head ? Normocephalic. EOM intact with sclera clear and no icterus noted. Mouth with mucus membranes moist. Neck - supple with no jugular venous distention noted. Trachea is midline. Lungs ? clear to auscultationd. Normal breath sounds. No rales/rhonchi/wheezing noted. No labored breathing noted, such as retractions. Heart ? normal S1 and S2 auscultated. No rubs/clicks/murmurs noted. Regular rate. Abdomen ? soft and benign. Normal bowel soundss. No abdominal bruits noted. Difficult to determine if any masses or organomegaly due to body habitus. Extremities ? no calf tenderness noted. No pitting edema noted.. Skin ? normal skin integrity. Neurological ? gait normal, no focal deficits noted Psych ? calm and appropriate Assessment IMPRESSION: cholelithiasis, symptomatic PLAN: I have discussed the above with the patient. I have offered laparoscopic cholecystectomy, possible cholangiograms I have explained the procedure to the patient. I have counseled the patient as to the risks of the procedure, including but not limited to: infection, bleeding, injury to any blood vessels/nerves, scar tissue, injury to any intrabdominal organs, injury to bowel/bladder, injury to the common bile duct/biliary tree, bile leakage, intraabdominal abscess/bleeding, hernias at incisional sites, wound infections, complications of anesthesia, etc. ? the patient understands. The patient wishes to proceed. She agrees to surgery at [facility]. I have answered all questions to the patient?s satisfaction and the patient has no further questions. Greater than 50% of this patient encounter was dedicated to face to face discussion with the patient. Diagnoses: (K80.20) Calculus of gallbladder without cholecystitis without obstruction (primary encounter diagnosis) (E66.01) Morbid obesity (HCC) Return to Clinic: The patient is instructed to follow-up with me after surgery. MD Flor Goyal RN 05/27/2018 3:57 PM Signed REVIEW OF SYSTEMS: General: The patient NOTES fatigue, denies weight loss, denies weight gain, NOTES feeling hot, and denies feelings of cold. Eyes: The patient denies glaucoma, denies eye injury/surgery, wears glasses or contacts. Ear/Nose/Throat: The patient denies allergies, denies hayfever, denies ear infections, and denies bloody noses. Cardiovascular: The patient denies chest pain, denies heart disease, denies high blood pressure,denies cardiac stent, denies prior heart attack, denies irregular heart beat, denies high cholesterol, denies poor circulation, denies heart failure, other cardiac issues, denies claudication, denies cold feet, denies peripheral arterial stent. Respiratory: The patient denies tuberculosis, denies pneumonia, denies frequent cough, denies pulmonary embolism, denies shortness of breath, and denies coughing up blood. Gastrointestinal: The patient denies difficulty swallowing, NOTES acid reflux, NOTES ulcers, denies vomiting, denies jaundice/hepatitis, NOTES gallbladder problems, NOTES black or tarry stools, denies hemorrhoids, denies bleeding from rectum, denies diverticulitis, denies constipation, NOTES diarrhea, denies loss of stool control, and denies hernias. Kidney/Bladder: The patient denies kidney stones, denies urine infections, and denies bloody urine. Skin: The patient denies a history of skin cancer, denies bleeding/changing moles, and denies a history of skin rash. Neurologic: The patient denies a history of epilepsy/convulsions, NOTES headaches, denies head/spinal injuries, and denies stroke/TIA. Psychiatric: The patient denies psychiatric medications, NOTES depression, and denies voices, denies substance abuse. Endocrine: The patient denies thyroid disorders, denies diabetes, and denies hormonal problems. Hematologic: The patient denies a history of bruising, denies bleeding, and denies anemia, denies blood clots. Infections: The patient denies a history of measles and mumps, denies rheumatic fever, and denies sexually transmitted diseases. Musculoskeletal: The patient denies back pain/injury, NOTES back problems, denies sciatica, denies knee/foot trouble, denies arthritis, or denies gout. When was patient's last Mammogram screening? 2018 Last Colonoscopy: 07/2015 Flor Batista RN EMERGENCY DEPARTMENT Observed: 05/24/2018 Status: F Source: [place] SUMMARY 6:59 AM [facility] REPOSITORY [facility] Medical Records Department [address] [place] [address] Emergency Department Summary 05/24/18 0630 MR#: [id number] Acct: [id number] Name: ANDRAE MUSA Rep #: [id number] : 1985 32 From: Celestino Berrios MD PCP: Araseli Badillo MD Status: DEP ER - ER Visit Summary Date of Service: 05/24/18 Chief Complaint: Epigastric abdominal pain History of Present Illness: The patient is a 32 F past medical history of depression and gallstones. No prior abdominal surgeries. Has had prior upper and lower endoscopy. Patient states that since for the last 3-4 days she has had some epigastric abdominal pain. Associated with nausea and diarrhea. No vomiting. No fever. No abdominal trauma. No melena. Not specifically related any types of food. Nothing specifically makes it feel better or worse. Physical Examination: Young female no acute distress. Vital signs are stable and afebrile. H EENT exam is unremarkable. Neck nontender no lymphadenopathy. Lungs clear to auscultation bilaterally. Heart regular rhythm no murmur. Abdomen is soft. Nondistended. Normal bowel sounds. No signs of obstruction. Mildly tender in epigastric and right upper quadrant. No Bland sign. Right lower quadrants unremarkable. No hernias or masses. Moving all 4 extremities. Neurovascular intact. Back nontender. Neurologically awake alert without focal motor deficits. Test Results: White count elevated at 12.3. Normal H AND H no bands. BMP normal. Liver enzymes normal. Lipase normal at 145. Emergency Department Course and Treatment: Patient with epigastric and right upper quadrant abdominal pain with a history of gallstones. This could be biliary colic. She will be treated with IV Zofran. Treatment Plan: Repeat exam at 06:36 abdomen is benign. Minimal tenderness. No peritoneal signs. No Bland sign. Patient is comfortable being discharged home to follow-up with Dr. Amador Zheng. Patient will be discharged to home with a prescription for Zofran for nausea as needed. Disposition: dc Impression: Acute abdominal pain of uncertain etiology History of gallstones This note was generated with [employer] dictation software. It may contain incorrect words, spelling, and punctuation that were not noted in review of the chart prior to signing ED Disposition - Plan for ED Patient: Chief Complaint: Abd Pain Referrals: Araseli Badillo MD [Primary Care Provider] - What to do if you have Problems For any increased pain, shortness of breath, bleeding, nausea or vomiting, chest pain, or any unexpected problems, contact your Primary Care Provider. Call [facility] ([phone]) or report to the closest Emergency Room. Call 911 if necessary. 05/24/18 0659 <Electronically signed by Celestino Berrios MD> Date Celestino Berrios MD Cosigner Signature (If Indicated): Date CC: Araseli Badillo MD DISCHARGE INSTRUCTION Observed: 05/24/2018 Status: F Source: [place] 6:59 AM [facility] Medical Records Department [address] [place] [address] Discharge Instruction 05/24/1840 MR#: [id number] Acct: [id number] Name: ANDRAE MUSA Rep #: [id number] : 1985 32 From: Celestino Berrios MD PCP: Araseli Badillo MD Status: DEP ER ED Disposition - Plan for ED Patient: Disposition: Home or Assisted Living Chief Complaint: Abd Pain Instructions: ED Abdominal Pain Unkn Cause Prescriptions: Ondansetron [Zofran Odt] 8 mg PO Q8H PRN PRN #10 PRN Reason: Nausea Referrals: Heladio Zheng MD [STAFF PHYSICIAN] - As soon as possible Additional Instructions: Plenty fluids and rest. Zofran as needed for nausea. Call and follow-up with Dr. Amador Zheng for further evaluation and discussion to determine if you need your gallbladder taken out. Your gallbladder may or may not be the cause your symptoms. What to do if you have Problems For any increased pain, shortness of breath, bleeding, nausea or vomiting, chest pain, or any unexpected problems, contact your Primary Care Provider. Call [facility] ([phone]) or report to the closest Emergency Room. Call 911 if necessary. 05/24/18 0659 <Electronically signed by Celestino Berrios MD> Date Celestino Berrios MD Cosigner Signature (If Indicated): Date CC: Araseli Badillo MD CBC W/DIFF, AUTOMATED Collected: 05/24/2018 Status: F Source: [place] 5:45 AM [facility] REPOSITORY TYPE CODE TESTS RESULT OUT OF RANGE REFERENCE UNITS LAB L100.1000 4.4-11.0 K/mm3 High WBC 12.3 LAB L100.1200 4.2-5.4 M/mm3 Normal RBC 4.50 LAB L100.1300 12.0-15.0 g/dl Normal HGB 12.9 LAB L100.1400 37-47 % Normal HCT 39.7 LAB L100.1500 81-99 fL Normal MCV 88.2 LAB L100.1600 27.0-32.0 pg Normal MCH 28.7 LAB L100.1700 32-36 g/gl Normal MCHC 32.5 LAB L100.1810 11.6-14.6 % Normal RDW CV 12.8 LAB L100.1820 35.1-43.9 fl Normal RDW SD 41.1 LAB L100.1900 150-450 K/mm3 Normal PLT 329 LAB L100.2000 6.2-12.0 fl Normal MPV 10.2 LAB L100.2100 47-70 % Normal NEUT% 50.8 LAB L100.2200 19-41 % Normal LY% 40.0 LAB L100.2300 0-10 % Normal MONO% 7.1 LAB L100.2400 0-5 % Normal EO% 1.6 LAB L100.2500 0-1 % Normal BASO% 0.3 LAB L100.2550 0.0-0.9 % Normal IM GRAN % 0.200 Result Comment: IG% - Immature Granulocytes (promyelocytes, myelocytes and metamyelocytes) > 1% indicates that a LEFT SHIFT is Present. LAB L100.2620 2.0-7.7 X10 3/uL Normal Absolute Neut 6.2 LAB L100.2720 0.83-4.51 X10 3/ul High Absolute Lymph 4.92 Performed By: #### L100.0100 #### [facility] [address] [place], [place], [address] BASIC METABOLIC Collected: 05/24/2018 Status: F Source: [place] PROFILE ([facility]) 5:45 AM [facility] REPOSITORY TYPE CODE TESTS RESULT OUT OF RANGE REFERENCE UNITS LAB L501.0100 74-106 mg/dL Normal GLU 97 Result Comment: Please note revised GLUCOSE reference range effective 2017. LAB L501.1000 7-18 mg/dL Normal BUN 8 LAB L501.1100 0.55-1.02 mg/dL Normal CREAT,SERUM 0.81 Result Comment: The validity of the calculated GFR AND GFRAA in patients over 70 years has not been determined. Clinical correlation is essential. LAB L501.1110 >60 mL/min Normal EST GFR 87 Result Comment: Non- GFR Calc LAB L501.1115 >60 mL/min Normal EST GFR - AA 106 Result Comment: GFR Calc LAB L501.1255 ml/min Normal Estimated CRCL 101.51 LAB L501.1300 10-20 RATIO Low BUN/CRE 9.9 LAB L501.2200 8.5-10 mg/dL Low .1 CA 8.4 LAB L501.5300 136-14 mmol/L 5 NA Normal 142 LAB L501.5600 3.5-5. mmol/L 1 K Normal 4.0 LAB L501.5900 98-107 mmol/L CL Normal 107 LAB L501.6100 21.0-3 mmol/L 2.0 CO2 Normal 26.0 LAB L501.6200 5-15 GAP Normal 9 Performed By: #### L500.2500, L500.3400, L501.2450 #### [facility] [address] [facility] [place], [place], [id number] LIVER PROFILE Collected: 05/24/2018 Status: F Source: [place] 5:45 AM [facility] REPOSITORY TYPE CODE TESTS RESULT OUT OF RANGE REFERENCE UNITS LAB L501.1500 6.4-8.2 g/dL Normal T PROT 7.6 LAB L501.1800 3.2-5.0 g/dL Normal ALB 3.2 LAB L501.1950 2.2-4.2 g/dL High GLOB 4.4 LAB L501.4100 15-37 U/L Normal AST 20 LAB L501.4305 45-117 U/L Normal ALK P 67 LAB L501.4405 13-56 U/L Normal ALT 27 LAB L501.4600 0.20-1.00 mg/dL Low T BILI 0.10 LAB L501.4700 0.00-0.30 mg/dL Normal D BILI 0.08 Performed By: #### L500.2500, L500.3400, L501.2450 #### [facility] [address] [facility] [place], [address] LIPASE Collected: 05/24/2018 Status: F Source: [place] 5:45 AM [facility] REPOSITORY TYPE CODE TESTS RESULT OUT OF RANGE REFERENCE UNITS LAB L501.2450 73-393 U/L Normal LIPASE 145 Performed By: #### L500.2500, L500.3400, L501.2450 #### [facility] [address] [place], [address] ALLERGIES ALLERGIES DATE TYPE / CODE NAME / CODE REACTION SEVERITY SOURCE 11/08/2018 Drug promethazine Shortness of Unknown [place] Allergy/416 HCl/[id number](RXN [facility] Community 323796([facility] ED CT) Repository 11/08/2018 Drug sertraline/N086683 Other Unknown [place] Allergy/416 615(RXNORM) [facility] 371249([facility] ED CT) Repository 11/08/2018 Drug ondansetron/N21322 Unknown Unknown [place] Allergy/416 4807(RXNORM) [facility] 622032([facility] ED CT) Repository 07/22/2018 DRUG/246498 ONDANSETRON HCL OTHER: SEE C [facility] 003(SNOMED (PF) [place]) Repository 06/18/2017 DRUG SERTRALINE HCL OTHER: SEE C [address] 739989(SNOM Repository ED CT) 07/07/2012 DRUG PROMETHAZINE SHORTNESS OF [address] 216994(SNOM Repository ED CT) ENCOUNTERS ENCOUNTERS ADMIT/DISCHARGE ACCOUNT ADMITTING ENCOUNTER LOCATION SOURCE NUMBER CLASS 11/08/2018 [id number] Ambulatory [facility] ing:HPRAD Repository 11/08/2018/11/08/20 [id number] Ambulatory BMS[facility]:B [place] [facility] Rep[facility] 10/21/2018/10/22/20 [id number] Ambulatory [address] Repository 10/20/2018/10/21/20 [id number] Ambulatory [address] Repository 10/19/2018 [id number] Ambulatory [facility] ing:HPRAD Repository 10/19/2018/10/19/20 [id number] Ambulatory BMSBuilding:B [place] 18 MS.SMO [facility] Repository 10/13/2018/10/13/20 [id number] Ambulatory BMSBuilding:Gregory Bhardwaj 18 MS.[facility] Repository 10/06/2018 [id number] [facility] Repository 10/06/2018/10/06/20 [id number] Ambulatory BMSBuilding:Gregory Bhardwaj 18 MS.NOW [facility] Repository 10/06/2018/10/06/20 [id number] Ambulatory BMSBuilding:Gregory Bhardwaj 18 MS.[facility] Repository 10/01/2018/10/04/20 [id number] Ambulatory [address] [place] Repository 09/24/2018/09/27/20 [id number] Ambulatory [address] [place] Repository 09/15/2018/09/16/20 [id number] Ambulatory [address] [place] Repository 09/06/2018/09/07/20 [id number] Ambulatory [address] [place] Repository 08/23/2018/08/23/20 [id number] Ambulatory [address] [place] Repository 08/06/2018/08/09/20 [id number] Ambulatory [place] [facility] [place] Repository 07/23/2018/07/27/20 [id number] Ambulatory [place] [facility] [place] Repository 07/22/2018/07/27/20 [id number] Ambulatory [place] [facility] [place] Repository 07/19/2018/07/21/20 [id number] Ambulatory [place] [facility] [place] Repository 07/19/2018/07/19/20 [id number] Ambulatory [place] [facility] [place] Repository 07/12/2018/07/14/20 [id number] Ambulatory [place] [facility] [place] Repository 07/10/2018/07/10/20 [id number] Emergency [place] [facility] ing:ED Repository 07/07/2018/07/07/20 [id number] Ambulatory [place] 18 [facility] [place] Repository 07/06/2018/07/06/20 [id number] Ambulatory [place] 18 [facility] [place] Repository 07/06/2018/07/06/20 [id number] Ambulatory [place] 18 [facility] [place] Repository 07/06/2018/07/07/20 [id number] Ambulatory [address] Repository 07/02/2018 [id number] Ambulatory [facility] ing:LABSPEC Repository 07/02/2018/07/02/20 [id number] Ambulatory [address] Repository 07/02/2018/07/05/20 [id number] Ambulatory [address] Repository 06/30/2018/06/30/20 [id number] Emergency [address] ing:ED Repository 06/30/2018/07/01/20 [id number] Ambulatory [address] Repository 06/23/2018/06/23/20 [id number] Ambulatory [address] Repository 06/16/2018/06/18/20 [id number] Ambulatory [address] Repository 05/27/2018/05/31/20 [id number] Ambulatory [address] Repository 05/24/2018/05/24/20 [id number] Emergency [address] ing:ED Repository PAYERS PAYERS ENCOUNTER GUARANTOR PAYER SUBSCRIBER SOURCE 11/08/2018 ANDRAE Woodard Primary ANDRAE [id number] E [facility] [id number] [address]Oqq: Number: Repository [id number] (HP) Date:5031-14-81MM [address]DZ[place], [place] [address]IB: 11/08/2018 Secondary NOT GIVENUNK [place] Insurance:SELF PAY [facility] Number: Effective Repository Date:2018-11-08 11/08/2018 ANDRAE Woodard Primary ANDRAE [id number] E Insurance:[facility] HospitalANNET[facility]UN[facility] [address]Ihyegu [id number] [facility]iance Indian Hospital [address]Pmx: Number: Repository [id number] (HP) Date:5890-66-25UE [address], [place] [address]GY: 11/08/2018 Secondary NOT GIVENUNK [place] Insurance:SELF PAY [facility] Number: Effective Repository Date:2018-10-19 10/19/2018 ANDRAE Woodard Primary ANDRAE [id number] E Insurance:[place]ENNEDYDOB: [facility] [id number] [facility]iance [facility] Hospital [address]Efk: Number: Repository [id number] (HP) Date:0883-15-17QF [address], [place] [address]SU: 10/19/2018 Secondary NOT GIVENUNK [place] Insurance:SELF PAY [facility] Number: Effective Repository Date:2018-10-19 10/19/2018 ANDRAE Woodard Primary ANDRAE [id number] E Insurance:UNITED TH KENNEDYDOB: [facility] [id number] [place] [address]Lil: Number: Repository [id number] (HP) Date:8356-85-48EN [address], [place] [address]TB: 10/19/2018 Secondary NOT GIVENUNK [place] Insurance:SELF PAY [facility] Number: Effective Repository Date:2018-10-12 10/13/2018 ANDRAE Woodard Primary ANDRAE [id number] E Insurance:[facility] HL[facility] KENNEDYDOB: [facility] [id number] [id number] [facility]iance Indian Hospital [address]Uzc: Number: Repository [id number] (HP) Date:4076-70-30OJ [address], [place] [address]LD: 10/13/2018 Secondary NOT GIVENUNK [place] Insurance:SELF PAY [facility] Number: Effective Repository Date:2018-10-13 10/06/2018 ANDRAE Woodard Primary ANDRAE [id number] E Insurance:UNITED HLTH KENNEDYDOB: [facility] [id number] [id number] [place] [address]Rzg: Number: Repository [id number] (HP) Date:6156-06-14RN [address] [address]PO: 10/06/2018 Secondary NOT GIVENUNK [place] Insurance:SELF PAY [facility] Number: Effective Repository Date:2018-10-06 10/06/2018 ANDRAE Woodard Primary ANDRAE Woodard [place] [id number] E [facility] [id number] [place], [place] [id number] [address]Mkn: Number: Repository [id number] (HP) Date:9951-44-26OP [facility] [address]BC[place]BFG, [place] [address]MG: 10/06/2018 Secondary NOT GIVENUNK [place] Insurance:SELF PAY [facility] Number: Effective Repository Date:2018-10-06 10/06/2018 ANDRAE Woodard Primary NOT GIVENUNK [place] [id number] E Insurance:SELF PAY [facility] [id number]: Number: Effective Repository Date:2018-10-06 (HP) 07/10/2018 ANDRAE Woodard Primary ANDRAE Woodard [place] [id number] E Insurance:[facility] [id number] [id number] Hospital [place] [address]Ohj: Number: Repository [id number] (HP) Date:4730-68-36WW [address]WGQVXSL, [place] [address]CU: 07/10/2018 Secondary NOT GIVENUNK [place] Insurance:SELF PAY [facility] Number: Effective Repository Date:2018-07-10 07/02/2018 ANDRAE Woodard Primary ANDRAE Woodard [place] [id number] E Insurance:[facility] KENNEDYDOB: [facility] [id number] Hospital [place] [address]Klu: Number: Repository [id number] (HP) Date:0600-77-68BC [facility] 435582BZCGEWH, [place] [address]XV: 07/02/2018 Secondary NOT GIVENUNK [place] Insurance:SELF PAY [facility] Number: Effective Repository Date:2018-07-02 06/30/2018 ANDRAE Woodard Primary ANDRAE [id number] E Insurance:UNITED TH LENCHODOB: [facility] [place] VALLADARESCARIDAD, [facility] [address]Juspvi [id number] [place] [address]Vbu: Number: Repository [id number] (HP) Date:2574-95-58ZK [facility] 896745KTMZLSK, [place] [address]EJ: 06/30/2018 Secondary NOT GIVENUNK [place] Insurance:SELF PAY [facility] Number: Effective Repository Date:2018-06-30 05/24/2018 ANDRAE Woodard Primary ANDRAE Bhardwaj [id number] E Insurance:UNITED TH LENCHODOB: [facility] [id number] [id number] [place] [address]Xot: Number: Repository [id number] (HP) Date:8187-03-79IJ [facility] 861139FIAEWVV, [place] [address]XM: 05/24/2018 Secondary NOT GIVENUNK [place] Insurance:SELF PAY [facility] Number: Effective Repository Date:2018-05-24
== END ==
LOC: HPRAD 14:59
PROVIDERS: Family Provider Internal Medicine; PCP Internal Medicine; Referring Provider Physician Assistant; Visit Provider Physician Assistant
DX: S52.502A Unspecified fracture of the lower end of left radius, initial encounter for closed fracture (principal)
CPT/HCPCS: 73110

== ENCOUNTER → 2018-11-08 14:29 | Outpatient (CLI) | payer OTHER, SELFPAY ==
[2018-10-19 14:47] VITALS: BMI 41.8
--- NOTE | 2018-11-08 14:32 | RAD_ITS ---
STUDY: X-RAY - LEFT WRIST REASON FOR EXAM: Female, 33 years old. 3 week follow-up TECHNIQUE: 3 view(s) of the wrist were obtained. COMPARISON: 10/19/2018 FINDINGS: Casting material obscures fine detail. Healing nondisplaced fracture of the distal radius, stable in alignment. No new osseous normality is detected. RAD/Wrist min 3 Views IMPRESSION: Stable alignment of healing nondisplaced distal radius fracture. Electronically Signed: Kush Shah MD at 15:00 EST Tel , Service support ,
--- OUTSIDE RECORDS SUMMARY | 2019-02-10 07:07 | XMS RPT_ITS ---
:1985 Author Organization OHIP Support Name Relationship Address Phone GOLDIE MUSA Unavailable [address] + [place] [address] LENCHO, MEREDATH Unavailable [address] + [place] [address] METME Unavailable [address] + [place] [address] LENCHO, LES Unavailable [address] + [place] [address] LENCHO, MEREDATH Unavailable [address] + [place] [address] METME Unavailable [address] + [place] [address] LENCHO, LES Unavailable [address] + [place] [address] LENCHO, MEREDATH Unavailable [address] + [place] [address] METME Unavailable [address] + [place] [address] LENCHO, LES Unavailable [address] + [place] [address] LENCHO, MEREDATH Unavailable [address] + [place] [address] METME Unavailable [address] + [place] [address] LENCHO, LES Unavailable [address] + [place] [address] LENCHO, MEREDATH Unavailable [address] + [place] [address] METME Unavailable [address] + [place] [address] LENCHO, LES Unavailable [address] + [place] [address] LENCHO, MEREDATH Unavailable [address] + [place] [address] METME Unavailable [address] + [place] [address] LENCHO, LES Unavailable [address] + [place] [address] LENCHO, MEREDATH Unavailable [address] + [place] [address] METME Unavailable [address] + [place] [address] LENCHO, LES Unavailable [address] + [place] [address] LENCHO, MEREDATH Unavailable [address] + [place] [address] METME Unavailable [address] + [place] [address] LENCHO, LES Unavailable [address] + [place] [address] LENCHO, MEREDATH Unavailable [address] + [place] [address] METME Unavailable [address] + [place] [address] LENCHO, LES Unavailable [address] + [place] [address] LENCHO, MEREDATH Unavailable [address] + [place] [address] METME Unavailable [address] + [place] [address] LENCHO, LES Unavailable [address] + [place] [address] LENCHO, MEREDATH Unavailable [address] + [place] [address] METME Unavailable [address] + [place] [address] LENCHO, LES Unavailable [address] + [place] [address] LENCHO, MEREDATH Unavailable [address] + [place] [address] METME Unavailable [address] + [place] [address] LENCHO, LES Unavailable [address] + [place] [address] LENCHO MEREDATH Unavailable [address] + [place] [address] METME Unavailable [address] + [place] [address] LENCHO, LES Unavailable [address] + [place] [address] LENCHO MEREDATH Unavailable [address] + [place] [address] METME Unavailable [address] + [place] [address] Care Team Providers Name Role Phone Tony Collins Attending Unavailable Talampas, Araseli Referring Unavailable Wayt, Tony Attending Unavailable Wayt, Tony Referring Unavailable Talampas, Araseli Primary Care Unavailable IzaiahtTony Attending Unavailable Talampas, Araseli Referring Unavailable WaytTony Attending Unavailable Wayt, Tony Referring Unavailable Talampas, Araseli Primary Care Unavailable Talampas, Araseli Primary Care Unavailable Celestino Berrios Attending Unavailable Talampas, Araseli Primary Care Unavailable Zac Wheat Attending Unavailable Older, Hailey STITCHDOWNS TOE FORMER Attending Unavailable Older, Hailey STITCHDOWNS TOE FORMER Referring Unavailable Talampas, Araseli Primary Care Unavailable Talampas, Araseli Primary Care Unavailable David Henry Attending Unavailable José Miguel Adhikari Attending Unavailable Talampas, Araseli Referring Unavailable WylesJosé Miguel Attending Unavailable Talampas, Araseli Referring Unavailable José Miguel Adhikari Attending Unavailable EdlesJosé Miguel Referring Unavailable Talampas, Araseli Primary Care Unavailable Maude Morrison Attending Unavailable AGA Arguello Referring Unavailable Tony Collins Attending Unavailable Talampas, Araseli Referring Unavailable Karina, Tony Attending Unavailable Tony Collins Referring Unavailable Talampas, Araseli Primary Care Unavailable SOLANGE BUENO Attending Unavailable SOLANGE BUENO Attending Unavailable TALAMPAS, ARASELI D Referring Unavailable SOLANGE BUENO Attending Unavailable TALAMPAS, ARASELI D Referring Unavailable OLDER, HAILEY (STITCHDOWNS TOE FORMER) Attending Unavailable OLDER, HAILEY (STITCHDOWNS TOE FORMER) Referring Unavailable OLDER, HAILEY (STITCHDOWNS TOE FORMER) Attending Unavailable OLDER, HAILEY (STITCHDOWNS TOE FORMER) Referring Unavailable OLDER, HAILEY (STITCHDOWNS TOE FORMER) Referring Unavailable OLDER, HAILEY (STITCHDOWNS TOE FORMER) Referring Unavailable BUENO, SOLANGE ARIANNE Attending Unavailable TALAMPAS, ARASELI D Referring Unavailable BUENO, SOLANGE ARIANNE Referring Unavailable BUENO, SOLANGE ARIANNE Referring Unavailable BUENO, SOLANGE ARIANNE Attending Unavailable BUENO, SOLANGE ARIANNE Referring Unavailable OLDER, HAILEY (STITCHDOWNS TOE FORMER) Attending Unavailable OLDER, HAILEY (STITCHDOWNS TOE FORMER) Attending Unavailable EUSEBIA, SIENA (PT) Attending Unavailable OLDER, HAILEY (STITCHDOWNS TOE FORMER) Referring Unavailable EUSEBIA, SIENA (PT) Attending Unavailable OLDER, HALIEY (STITCHDOWNS TOE FORMER) Referring Unavailable OLDER, HAILEY (STITCHDOWNS TOE FORMER) Attending Unavailable TALAMPAS, ARASELI D Referring Unavailable HYLTONFLOR (STITCHDOWNS TOE FORMER) Attending Unavailable OLDER, HAILEY (STITCHDOWNS TOE FORMER) Attending Unavailable OLDER, HAILEY (STITCHDOWNS TOE FORMER) Attending Unavailable PROBLEMS PROBLEMS DATE TYPE CONDITION / CODE ATTENDING STATUS SOURCE 11/08/2018 Unknown S52.502A - Tony Collins Active [place] Unspecified fracture Community of the lower end of Hospital left radius, initial Repository encounter for closed fracture / S52.502A(ICD-10) 11/08/2018 Unknown S52.552D - Other Tony Collisn Active [place] extraarticular Community fracture of lower Hospital end of left radius, Repository subsequent encounter for closed fracture with routine healing / S52.552D(ICD-10) 10/27/2018 Unknown S52.552A - Tony Freeman Active [place] extraarticular Community fracture of lower Hospital end of left radius, Repository initial encounter for closed fracture / S52.552A(ICD-10) 10/29/2018 Unknown S52.502D - Prince, Active [place] Unspecified fracture [place] Community of the lower end of Hospital left radius, Repository subsequent encounter for closed fracture with routine healing / S52.502D(ICD-10) 10/29/2018 Unknown S46.912D - Strain of Prince, Active [place] unspecified muscle, [place] Community fascia and tendon at Hospital shoulder and upper Repository arm level, left arm, subsequent encounter / S46.912D(ICD-10) 10/29/2018 Unknown S66.912D - Strain of Prince, Active [place] unspecified muscle, [place] Community fascia and tendon at Hospital wrist and hand Repository level, left hand, subsequent encounter / S66.912D(ICD-10) 10/29/2018 Unknown M25.522 - Pain in José Miguel Adhikari Active [place] left elbow / Community M25.522(ICD-10) Hospital Repository 10/29/2018 Unknown M25.532 - Pain in José Miguel Adhikari Active [place] left wrist / Community M25.532(ICD-10) Hospital Repository 10/29/2018 Unknown M79.642 - Pain in José Miguel Adhikari Active [place] left hand / Community M79.642(ICD-10) Hospital Repository 10/29/2018 Unknown S46.912A - Strain of José Miguel Adhikari Active [place] unspecified muscle, Community fascia and tendon at Hospital shoulder and upper Repository arm level, left arm, initial encounter / S46.912A(ICD-10) 10/29/2018 Unknown S66.912A - Strain of José Miguel Adhikari Active [place] unspecified muscle, Community fascia and tendon at Hospital wrist and hand Repository level, left hand, initial encounter / S66.912A(ICD-10) 07/19/2018 Active Generalized NA Active [place] abdominal pain / Clinic Main R10.84(ICD-10) [place] Repository 07/06/2018 Active Upper abdominal NA Active [place] pain, unspecified / Clinic Main R10.10(ICD-10) [place] Repository 07/02/2018 Active Unspecified NA Active [place] abdominal pain / Clinic Main R10.9(ICD-10) [place] Repository 07/02/2018 Active Nausea / NA Active [place] R11.0(ICD-10) Clinic Main [place] Repository 07/02/2018 Active Diarrhea, NA Active [place] unspecified / Clinic Main R19.7(ICD-10) [place] Repository PROCEDURES PROCEDURES No Procedure Records FoundRESULTS RESULTS PROGRESS Observed: 12/03/2018 Status: COMPLETED Source: [facility] 3:48 PM [facility] REPOSITORY HNO ID: [id number] Author: Hailey (Bundle Helper) Older Service: (none) Author Type: Nurse Practitioner Type: Progress Notes Filed: 12/03/2018 4:02 PM Note Text: CC Patient presents with: Headache HPI Andrae Musa is a 33 year old year old female who presents with complaint of headache(s) for a week. Intensity: 7/10 on 0-10 scale, Location: occipital, Frequency: daily, Character: throbbing/pounding and aching, Duration:constant Was taking Propranolol for headache prophylaxis, weaned off about one month ago due to resolution of headaches with PT. No headaches until now. No new or worsening headache symptoms. Was seen in UC for this a few days ago. Attributed to recent URI, advised to take Benadryl for the nausea but this has not been helping. Triggers: The patient is not aware of any specific triggers. Recent history of head injury or trauma, migraines, significant caffeine intake or excessive alcohol intake: No Associated symptoms: nausea, vomiting and photophobia. Denies: numbness, weakness, slurred speech, visual changes, dizziness, clumsiness and difficulty with gait. Treatments: resting in quiet dark room and cool compresses with no relief. REVIEW OF SYSTEMS See HPI PAST MEDICAL [...] Zoloft [Sertraline Hcl] MEDICATIONS Norethindrone-Eth Estradiol (NECON 1/35, 28,) 1-35 mg-mcg [...] 2-3 times a month PHYSICAL EXAM BP 122/80 Pulse 93 Temp 37.4 ?C (99.4 ?F) (Tympanic) Resp 14 Wt 119.3 kg (263 lb) SpO2 98% BMI 40.80 kg/m? General Appearance: appears uncomfortable, in no acute distress, alert Pysch: mood and affect broad and appropriate Eyes: PERRLA, EOM's intact, conjunctiva pink and moist, no icterus, sclera white, non-injected Lungs: lungs clear to auscultation. No wheezing, rhonchi, rales Heart: RRR without murmur, gallop, or rubs. No ectopy Neurological: Negative findings: speech normal, mental status intact, cranial nerves 2-12 intact ASSESSMENT/PLAN: 1. Chronic tension-type headache, not intractable - ICD9: 339.12, ICD10: G44.229 Return of headaches since stopping propanolol. Typical headache symptoms. No alarm symptoms or exam findings. - Resume PROPRANOLOL XL 80 MG CAPSULE,EXTENDED RELEASE 24 HR. Advised to continue with this indefinitely since it worked well last time and had no side effects - Antivert for nausea (allergy to Phenergan and Zofran) - Follow-up with PCP in one month as scheduled or sooner as needed Prescription instructions reviewed with patient as applicable. Potential red flag symptoms discussed with the patient. Reviewed appropriate action plan to take if red flag symptoms occur. Patient agreeable to treatment plan. Hailey Ordaz APRN.[place] RODRIGUEZ Observed: 12/03/2018 Status: COMPLETED Source: [facility] 3:40 PM [facility] REPOSITORY Office Visit (INTMWS) ANDRAE MUSA ([id number]) 1985 F Date Time Provider Department 12/03/18 3:40 PM OLDERHAILEY ([place]) [facility] During your visit today, we recorded the following information about you: Temperature Pulse Respiration Blood pressure 99.4 degrees 93/minute 14/minute 122/80 Weight 119.3 kg Hailey Older, CHIPPER MACHINE OPERATORGavinoSTITCHDOWNS TOE FORMER 12/03/2018 4:02 PM Signed CC Patient presents with: Headache HPI Andrae Musa is a 33 year old year old female who presents with complaint of headache(s) for a week. Intensity: 7/10 on 0-10 scale, Location: occipital, Frequency: daily, Character: throbbing/pounding and aching, Duration:constant Was taking Propranolol for headache prophylaxis, weaned off about one month ago due to resolution of headaches with PT. No headaches until now. No new or worsening headache symptoms. Was seen in UC for this a few days ago. Attributed to recent URI, advised to take Benadryl for the nausea but this has not been helping. Triggers: The patient is not aware of any specific triggers. Recent history of head injury or trauma, migraines, significant caffeine intake or excessive alcohol intake: No Associated symptoms: nausea, vomiting and photophobia. Denies: numbness, weakness, slurred speech, visual changes, dizziness, clumsiness and difficulty with gait. Treatments: resting in quiet dark room and cool compresses with no relief. REVIEW OF SYSTEMS See HPI PAST MEDICAL [...] 2-3 times a month PHYSICAL EXAM BP 122/80 Pulse 93 Temp 37.4 ?C (99.4 ?F) (Tympanic) Resp 14 Wt 119.3 kg (263 lb) SpO2 98% BMI 40.80 kg/m? General Appearance: appears uncomfortable, in no acute distress, alert Pysch: mood and affect broad and appropriate Eyes: PERRLA, EOM's intact, conjunctiva pink and moist, no icterus, sclera white, non-injected Lungs: lungs clear to auscultation. No wheezing, rhonchi, rales Heart: RRR without murmur, gallop, or rubs. No ectopy Neurological: Negative findings: speech normal, mental status intact, cranial nerves 2-12 intact ASSESSMENT/PLAN: 1. Chronic tension-type headache, not intractable - ICD9: 339.12, ICD10: G44.229 Return of headaches since stopping propanolol. Typical headache symptoms. No alarm symptoms or exam findings. - Resume PROPRANOLOL XL 80 MG CAPSULE,EXTENDED RELEASE 24 HR. Advised to continue with this indefinitely since it worked well last time and had no side effects - Antivert for nausea (allergy to Phenergan and Zofran) - Follow-up with PCP in one month as scheduled or sooner as needed Prescription instructions reviewed with patient as applicable. Potential red flag symptoms discussed with the patient. Reviewed appropriate action plan to take if red flag symptoms occur. Patient agreeable to treatment plan. SUSIE Castro APRN.CNP 12/03/2018 3:54 PM Signed Go to ER or call 911 for acutely worsening or new symptoms with headaches Allergies As of Date: 12/03/2018 Noted Allergy Reaction PHENERGAN (PROMETHAZINE) 07/07/2012 12 - Shortness of Breath Comments: Dizziness and lightheadness ZOFRAN (ONDANSETRON HCL (PF)) 07/22/2018 14 - Other: See Comments Comments: shaking ZOLOFT (SERTRALINE HCL) 06/18/2017 14 - Other: See Comments Comments: ESPANA's and dizziness Date Reviewed: 12/03/2018 Reviewed by: Tamera Quijano Ma - Fully Assessed Reason for Visit: Headache [52] Primary Visit Diagnosis:Chronic tension-type headache, not intractable [G44.229] Order(s):Propranolol HCl (INDERAL XL) 80 mg 24 hr capsuleTake 1 capsule by mouth daily at bedtime.Disp: 30 capsuleRfl: 5 meclizine (ANTIVERT) 12.5 mg tabTake 1 tablet by mouth every 6 hours as needed (nausea).Disp: 12 tabletRfl: 0 Prescriptions as of 12/03/2018 Sig: NORETHINDRONE-ETHINYL ESTRADI* Take 1 tablet by mouth once d* MUPIROCIN 2 % TOPICAL OINTMENT Apply 1 application to affect* MELOXICAM 15 MG TABLET Take 1 tablet [...] CAPSULE,* Take 1 capsule by mouth daily* MECLIZINE 12.5 MG TABLET Take 1 tablet by mouth every * Problem List As Of Date 12/03/2018 Noted Resolved IRRITABLE COLON [K58.9] Depressive disorder [...] INVALID FOR* Other instructions from your clinician: Go to ER or call 911 for acutely worsening or new symptoms with headaches Prescriptions ordered this encounter Disp Refills Start End PROPRANOLOL XL 80 MG CAPSULE,EXTENDE* 30 c* 5 12/03/2018 Route: ORAL Sig: Take 1 capsule by mouth daily at bedtime. MECLIZINE 12.5 MG TABLET 12 t* 0 12/03/2018 Route: ORAL Sig: Take 1 tablet by mouth every 6 hours as needed (nausea). Medications Discontinued During This Encounter Propranolol HCl (INDERAL XL) 80 mg 2* 30 c* 1 08/06/2018 12/03/2018 Route: ORAL Sig: Take 1 capsule by mouth daily at bedtime. Disc: Reason for discontinue is not on file. Letter Text Department of Internal Medicine [address] [id number] 12/03/2018 Andrae Musa [facility]# [id number] [address] [id number] TO WHOM IT MAY CONCERN: This is to certify that Ms. Andrae Musa was seen today in the office for illness and was unable to work 12/03/2018. Sincerely yours, Hailey Ordaz APRN.STITCHDOWNS TOE FORMER Encounter Status:Closed by HAILEY ORDAZ [place] on 12/03/18 PROGRESS Observed: 12/01/2018 Status: COMPLETED Source: [facility] 6:13 PM [facility] REPOSITORY HNO ID: [id number] Author: Stephanie Rizo) [place] Service: (none) Author Type: Nurse Practitioner Type: Progress Notes Filed: 12/01/2018 6:21 PM Note Text: Subjective HPI 1 week ago had head congestion which resolved. Awoke yesterday with headache. Took tylenol with minimal relief. Has been nauseated and vomiting with headache. Headache is typical for her. Review of Systems Constitutional: Negative. HENT: Positive for congestion. Respiratory: Negative. Gastrointestinal: Positive for nausea. Negative for vomiting. Genitourinary: Negative. Musculoskeletal: Negative. Neurological: Positive for dizziness and headaches. Negative for speech change, focal weakness, seizures and loss of consciousness. All other systems reviewed and are negative. Objective Physical Exam Constitutional: She is oriented to person, place, and time and well-developed, well-nourished, and in no distress. Eyes: Pupils are equal, round, and reactive to light. EOM are normal. Cardiovascular: Normal rate, regular rhythm and normal heart sounds. Pulmonary/Chest: Effort normal and breath sounds normal. Musculoskeletal: Normal range of motion. Neurological: She is alert and oriented to person, place, and time. Gait normal. GCS score is 15. Skin: Skin is warm and dry. Psychiatric: Mood, memory, affect and judgment normal. Nursing note and vitals reviewed. BP 132/78 Pulse 101 Temp 36.8 ?C (98.2 ?F) (Tympanic) Resp 18 Wt 119.7 kg (263 lb 12.8 oz) SpO2 98% BMI 40.92 kg/m? .Patient presents with: nausea, ESPANA and vomiting: x 2 days PAST MEDICAL HISTORY Diagnosis Date - Abdominal [...] Yes Comment: usually 2-3 times a month ASSESSMENT/PLAN: 1. Headache, unspecified headache type - ICD9: 784.0, ICD10: R51 Pt notes that headache is typical for her. Instructed to use benadryl in addition to her normal meds for headache relief. Pt requesting a Work note. Stephanie Akins APRN.STITCHDOWNS TOE FORMER Prescription instructions reviewed with patient as applicable. Patient advised if symptoms do not improve or if symptoms worsen sooner, to contact the office for further evaluation by either myself or their primary care physician. Potential red flag symptoms discussed with the patient. Reviewed appropriate action plan to take if red flag symptoms occur. Patient agreeable to treatment plan. Stephanie Akins APRN.CNP CNOV Observed: 12/01/2018 Status: COMPLETED Source: [facility] 6:00 PM [facility] REPOSITORY Office Visit (WSTR) LENCHOANDRAE Yamilet ([id number]) 1985 F Date Time Provider Department 12/01/18 6:00 PM STEPHANIE AKINS ([place]) [facility] During your visit today, we recorded the following information about you: Temperature Pulse Respiration Blood pressure 98.2 degrees 101/minute 18/minute 132/78 Weight 119.7 kg Stephanie Akins APRN.CNP 12/01/2018 6:21 PM Signed Subjective HPI 1 week ago had head congestion which resolved. Awoke yesterday with headache. Took tylenol with minimal relief. Has been nauseated and vomiting with headache. Headache is typical for her. Review of Systems Constitutional: Negative. HENT: Positive for congestion. Respiratory: Negative. Gastrointestinal: Positive for nausea. Negative for vomiting. Genitourinary: Negative. Musculoskeletal: Negative. Neurological: Positive for dizziness and headaches. Negative for speech change, focal weakness, seizures and loss of consciousness. All other systems reviewed and are negative. Objective Physical Exam Constitutional: She is oriented to person, place, and time and well-developed, well-nourished, and in no distress. Eyes: Pupils are equal, round, and reactive to light. EOM are normal. Cardiovascular: Normal rate, regular rhythm and normal heart sounds. Pulmonary/Chest: Effort normal and breath sounds normal. Musculoskeletal: Normal range of motion. Neurological: She is alert and oriented to person, place, and time. Gait normal. GCS score is 15. Skin: Skin is warm and dry. Psychiatric: Mood, memory, affect and judgment normal. Nursing note and vitals reviewed. BP 132/78 Pulse 101 Temp 36.8 ?C (98.2 ?F) (Tympanic) Resp 18 Wt 119.7 kg (263 lb 12.8 oz) SpO2 98% BMI 40.92 kg/m? .Patient presents with: nausea, ESPANA and vomiting: x 2 days PAST MEDICAL HISTORY Diagnosis Date - Abdominal [...] Yes Comment: usually 2-3 times a month ASSESSMENT/PLAN: 1. Headache, unspecified headache type - ICD9: 784.0, ICD10: R51 Pt notes that headache is typical for her. Instructed to use benadryl in addition to her normal meds for headache relief. Pt requesting a Work note. Stephanie Akins APRN.CNP Prescription instructions reviewed with patient as applicable. Patient advised if symptoms do not improve or if symptoms worsen sooner, to contact the office for further evaluation by either myself or their primary care physician. Potential red flag symptoms discussed with the patient. Reviewed appropriate action plan to take if red flag symptoms occur. Patient agreeable to treatment plan. SUSIE Trejo APRN.CNP 12/01/2018 6:19 PM Signed I recommend that you take 25-50 mg of Benadryl every 6-8 hours as needed along with your Motrin or Tylenol as needed for headache pain. HEADACHE GENERAL INFORMATION: Almost everyone has a headache occasionally. Most headaches are caused by tension, eye strain, or emotional upset. Headaches can also occur with many medical illnesses. They may be a side effect of some medications. A headache that occurs without other symptoms and only lasts a few hours probably isn't a cause for concern. INSTRUCTIONS: 1. You may use urct-dxi-txfovyu pain medication such as acetaminophen, ibuprofen, or aspirin unless your doctor recommends otherwise. 2. Try some of the following measures to relieve your headache: Stretch and massage the muscles in your shoulders, neck, jaw, and scalp. Take a hot bath. Rest in a quiet, darkened room. Place a warm or cold wet cloth (whichever feels better to you) over the aching area. 3. Don't skip meals or delay meals for very long. Drink plenty of fluids. 4. Avoid alcoholic beverages and cigarette smoking. These often make a headache worse. 5. Get plenty of rest. A good night's sleep often is the best way to relieve a headache. CONTACT YOUR DOCTOR IF: 1. Your headache gets worse or lasts longer than 24 hours. 2. You develop a temperature over 100.5 F (38 C) 3. You need to take medicine to relieve headache pain more than 3 times a week. RETURN TO THE ED IF: 1. Your headache is different from any headache you ever had before, or is the worst headache of your life. 2. You feel confused or drowsy. 3. Your neck feels stiff. 4. You have a temperature of 102 F (39 C) or higher. 5. You have eye problems such as sensitivity to light or blurred or double vision. 6. You start to vomit. 7. You have difficulty walking, talking, or moving your arms or legs. Referring Provider: SELF [200] Allergies As of Date: 12/01/2018 Noted Allergy Reaction PHENERGAN (PROMETHAZINE) 07/07/2012 12 - Shortness of Breath Comments: Dizziness and lightheadness ZOFRAN (ONDANSETRON HCL (PF)) 07/22/2018 14 - Other: See Comments Comments: shaking ZOLOFT (SERTRALINE HCL) 06/18/2017 14 - Other: See Comments Comments: ESPANA's and dizziness Date Reviewed: 12/01/2018 Reviewed by: Miriam Anderson LPN - Fully Assessed Reason for Visit: nausea, ESPANA and vomiting [Other] Cmt: x 2 days Primary Visit Diagnosis:Headache, unspecified headache type [R51] Prescriptions as of 12/01/2018 Sig: NORETHINDRONE-ETHINYL ESTRADI* Take 1 tablet by [...] as neede* Problem List As Of Date 12/01/2018 Noted Resolved IRRITABLE COLON [K58.9] Depressive disorder [...] INVALID FOR* Other instructions from your clinician: I recommend that you take 25-50 mg of Benadryl every 6- 8 hours as needed along with your Motrin or Tylenol as needed for headache pain. HEADACHE GENERAL INFORMATION: Almost everyone has a headache occasionally. Most headaches are caused by tension, eye strain, or emotional upset. Headaches can also occur with many medical illnesses. They may be a side effect of some medications. A headache that occurs without other symptoms and only lasts a few hours probably isn't a cause for concern. INSTRUCTIONS: 1. You may use dtsb-isk-qbkevva pain medication such as acetaminophen, ibuprofen, or aspirin unless your doctor recommends otherwise. 2. Try some of the following measures to relieve your headache: Stretch and massage the muscles in your shoulders, neck, jaw, and scalp. Take a hot bath. Rest in a quiet, darkened room. Place a warm or cold wet cloth (whichever feels better to you) over the aching area. 3. Don't skip meals or delay meals for very long. Drink plenty of fluids. 4. Avoid alcoholic beverages and cigarette smoking. These often make a headache worse. 5. Get plenty of rest. A good night's sleep often is the best way to relieve a headache. CONTACT YOUR DOCTOR IF: 1. Your headache gets worse or lasts longer than 24 hours. 2. You develop a temperature over 100.5 F (38 C) 3. You need to take medicine to relieve headache pain more than 3 times a week. RETURN TO THE ED IF: 1. Your headache is different from any headache you ever had before, or is the worst headache of your life. 2. You feel confused or drowsy. 3. Your neck feels stiff. 4. You have a temperature of 102 F (39 C) or higher. 5. You have eye problems such as sensitivity to light or blurred or double vision. 6. You start to vomit. 7. You have difficulty walking, talking, or moving your arms or legs. Letter Text [place] [facility] Stephanie Akins CNP [address], [place] [address] 12/01/2018 TO WHOM IT MAY CONCERN: This is to confirm that Andrae Musa had an appointment and was seen at the [facility] in the Department of Urgent Care by Stephanie Akins CNP on 12/01/2018 and may return to work on 12/02/2018. Sincerely yours, Stephanie Akins CNP Encounter Status:Closed by STEPHANIE AKINS CNP on 12/01/18 ORTHOPEDIC VISIT Observed: 11/19/2018 Status: F Source: [place] REPORT 3:47 PM [facility] REPOSITORY [facility] Orthopaedics AND Sports Medicine [address] [place] [address] OFFICE VISIT Date of Service: 11/19/18 MR#: [id number] Acct: [id number] Name: ANDRAE MUSA Rep #: [id number] : 1985 Provider: PERFECTO Collins Age/Sex: 33/F Location: [facility] Status: Signed Intake Intake Visit Reasons: 4 WEEK F/U LT RADIUS FX Allergies ondansetron [From Zofran] Allergy (Verified 11/08/18 [...] every day smoker alcohol intake: never HPI 4 WEEK F/U LT RADIUS FX: Details: ANDRAE MUSA is a 33 year old F here today for follow- up of left wrist fracture. Patient states that she has not had any pains underneath the cast. She has been able to move her fingers freely without any problem. She has no numbness or tingling in the hands. Cast is intact without any evident breakdown. There are no other skin changes. Ortho Exam Right Wrist/Hand Skin/Wound: No Ecchymosis, No Swelling Left Wrist/Hand Skin/Wound: No Ecchymosis, No Swelling Left Wrist: No ROM-Extension 0-60, No ROM-Flexion 0-80, No ROM-Pronation 0-80, No ROM-Supination 0-90 or No TTP Fracture site Sensation: Radial: I, Ulnar: I, Median: I WRIST: At this time patient has no abnormalities noted of the wrist. She has some sloughing/scaling of the skin At the same time there is no evident abrasion or skin breakdown. At this time she has decreased range of motion of the wrist due to prolonged immobilization in the cast. She does have some discomfort with attempted active range of motion of the wrist. She does not have any real tenderness at the fracture site but states it kind of feels achy all over likely from being in the cast. Assessment AND Plan Problems 1. Closed traumatic nondisplaced fracture of distal end of left radius with routine healing, subsequent encounter S52.502D Plan Obtained Xrays of patient's left wrist. Personally reviewed Xrays. There is very good healing of the distal radius fracture. Is no dislocation, or lucency noted. See chart for further details. At this time patient shows radiographic healing of a distal radius fracture as well as clinical healing. She does have stiffness due to immobilization in a cast and I would like to put her in for some occupational therapy through [employer]. to make sure that she regains strength and stamina. At this time she is to wear the cockup wrist splint that was given to her previously over the next 1-2 weeks while she is able to remove this at night to work on range of motion and strength. These are things that she should be doing and occupational therapy at the same time will take time for approval And thus want her to start range of motion exercises. Patient can notify with any concerns or complaints in the meantime including increasing swelling, increased pain or other symptoms. I recheck her for 6 weeks to make sure she has full range of motion normal strength back at that time. This note was generated with Nanosolaration software. It may contain incorrect words, spelling, and punctuation that were not noted in checking the note before signing. Plan Detail Follow Up 6 Weeks Coding Level of Care Code Off vis,est,level 2 Diagnoses Closed traumatic nondisplaced fracture of distal end of left radius with routine healing, subsequent encounter S52.502D Encounter type: subsequent encounter Fracture healing: with routine healing 11/19/18 1547 <Electronically signed by Tony GROVE> Date Tony GROVE Cosigner Signature: Date (if applicable) CC: WRIST MIN 3 VIEWS Observed: 11/19/2018 Status: F Source: [place] 2:51 PM [facility] REPOSITORY [facility] Imaging Services [address] [place] [address] Wrist min 3 Views MR#: [id number] Acct: [id number] Name: ANDRAE MUSA Rep #: [id number] : 1985 F 33 From: Emmanuel Sequeira MD PCP: Araseli Badillo MD Status: REG CLI Study: Wrist min 3 Views Date of Exam: 11/19/18 Exam# [id number] Ordering Dr: Tony Collins STUDY: X-RAY - LEFT WRIST REASON FOR EXAM: Female, 33 years old. Removal of cast for distal radial fracture TECHNIQUE: 3 view(s) of the wrist were obtained. COMPARISON: Multiple prior comparison studies most recently from 11/08/2018 FINDINGS: The previously identified distal radial fracture is nearly inconspicuous. Transverse sclerosis is in region of previously identified fracture No significant displacement. Normal radiocarpal articulation. Normal distal radioulnar articulation. Normal carpal bones. Normal carpal articulations. Normal carpometacarpal articulation of the thumb. Normal second through fifth carpometacarpal articulations. Normal visualized metacarpal bones. The soft tissue structures are unremarkable. RAD/Wrist min 3 Views IMPRESSION: Near complete healing of distal radial fracture. Stable alignment. Electronically Signed: Emmanuel Sequeira MD at 18:54 EST , Service support , CC: PERFECTO Collins; Araseli Badillo MD Shellfish Shucker: Signed ORTHOPEDIC VISIT Observed: 11/09/2018 Status: F Source: [place] REPORT 4:23 PM [facility] REPOSITORY [facility] Orthopaedics AND Sports Medicine [address] [place] [address] [address] [place] [address] OFFICE VISIT Date of Service: 11/08/18 MR#: [id number] Acct: [id number] Name: ANDRAE MUSA Rep #: [id number] : 1985 Provider: PERFECTO Collins Age/Sex: 33/F Location: [facility] Status: Signed with Addenda ADDENDUM by PERFECTO Collins on 11/09/18 at 1623 Addendum entered and electronically signed by PERFECTO Romo 11/09/18 16:23: Assessment AND Plan Problems 1. Other closed extra-articular fracture of distal end of left radius with routine healing, subsequent encounter S52.024M 2. Other fractures of lower end of left radius, initial encounter for closed fracture S52.785U Plan - PERFECTO Romo Obtained Xrays of [...] the meantime. This note was generated with Nanosolaration software. It may contain incorrect words, spelling, [...] Days #30 cap 10/06/18 [History Confirmed 10/06/18] [facility] Medical History Back pain (Acute) Diarrhea (Acute) [...] left radius with routine healing, subsequent encounter S52.603L Plan Obtained Xrays of patient's left wrist. [...] the meantime. This note was generated with Dragon dictation software. It may contain incorrect words, [...] 3 VIEWS Observed: 11/08/2018 Status: F Source: [place] 2:32 PM [facility] REPOSITORY [facility] Imaging Services [address] [place] [address] Wrist min 3 Views MR#: [id number] Acct: [id number] Name: ANDRAE MUSA Rep #: [id number] : 1985 F 33 From: Kush Shah MD PCP: Araseli Badillo MD Status: REG CLI Study: Wrist min 3 Views Date of Exam: 11/08/18 Exam# [id number] Ordering Dr: Tony Collins STUDY: X-RAY - [...] , CC: PERFECTO Collins; Araseli Badillo MD Shellfish Shucker: Signed ORTHOPEDIC VISIT Observed: 10/26/2018 Status: F Source: [place] REPORT 8:03 AM [facility] REPOSITORY [facility] Orthopaedics AND Sports Medicine [address] [place] [address] [address] [place] [address] OFFICE VISIT Date of Service: 10/19/18 MR#: [id number] Acct: [id number] Name: ANDRAE MUSA Rep #: [id number] : 1985 Provider: PERFECTO Collins Age/Sex: 33/F Location: [facility] Status: Signed Intake Vital Signs10/19/18 Body Mass [...] distal end of left radius, initial encounter S52.331Y Plan Obtained Xrays of patient's left wrist. [...] CC: PROGRESS Observed: 10/21/2018 Status: COMPLETED Source: PERU 2:47 PM [facility] REPOSITORY O ID: [id number] Author: Hailey ([place]) Older Service: (none) Author [...] APRN.CNP CNOV Observed: 10/21/2018 Status: COMPLETED Source: PERU 2:40 PM [facility] REPOSITORY Office Visit (INTMWS) ANDRAE MUSA ([id number]) 1985 F Date Time Provider Department 10/21/18 2:40 PM HAILEY ORDAZ) INTMWS During your visit today, we recorded [...] BRSH SPEC 08/01/15 Colonoscopy - EGD W/O [facility] SPECIMEN W/BX 08/11/11 patchy duodenitis - EGD W/O [facility] SPECIMEN W/BX 07/14/12 gastritis and esophagitis - LAPAROSCOPIC CHOLEYCYSTECTOMY 06/08/2018 Cholecystectomy, lap ALLERGIES Phenergan [Promethazine]; Zofran [Ondansetron Hcl (Pf)]; Zoloft [Sertraline Hcl] MEDICATIONS Norethindrone-Eth Estradiol (NECON 1, 28,) 1-35 mg-mcg per tablet Take 1 [...] Date Reviewed: 10/21/2018 Reviewed by: Gale Magallon Complaint Manager - Fully Assessed Primary Visit Diagnosis:Viral gastroenteritis [...] Letter Text Department of Internal Medicine [address] [address] 10/21/2018 Andrae Musa [facility]# [id number] [address] [address] TO WHOM IT MAY CONCERN: This is to certify that Ms. Andrae Musa has been under my care for illness and was unable to work 10/21/18 Sincerely yours, Hailey Ordaz APRN.[place] Encounter Status:Closed by HAILEY ORDAZ CNP on 10/21/18 GROUP A STREP BY Collected: 10/20/2018 Status: F Source: PERU PCR 9:00 PM [facility] REPOSITORY TYPE CODE TESTS RESULT OUT OF REFERENCE UNITS RANGE LAB GASSRC Throat Swab GAS Specimen Source LAB PCRGAS Negative for Group A Strep Group A PCR Streptococcus by PCR. Result Comment: This test was developed and its performance characteristics determined by [facility]'s [facility] Pathology and Laboratory Medicine [place] ([facility]). It has not been cleared or approved by the FDA. -[facility] is regulated under CLIA as qualified to perform high-complexity testing. This test is used for clinical purposes. It should not be regarded as inv estigational or for research. Performed By: #### GASPCR #### [facility] [address] [place], [place] [address] PROGRESS Observed: 10/20/2018 Status: COMPLETED Source: [place] 8:20 PM [facility] REPOSITORY HNO ID: [id number] Author: Fred Galo (Matty Bauer Service: (none) [...] Zoloft [Sertraline Hcl] MEDICATIONS Norethindrone-Eth Estradiol (NECON 1/35, 28,) 1-35 mg-mcg [...] Patient agreeable to treatment plan. Fred Bauer APRN.STITCHDOWNS TOE FORMER CNOV Observed: 10/20/2018 Status: COMPLETED Source: PERU 8:00 PM [facility] REPOSITORY Office Visit (UCWSTR) ANDRAE MUSA ([id number]) 1985 F Date Time Provider Department 10/20/18 8:00 PM FRED BAUER (STATISTICS TEACHER) WSTR During your visit today, we recorded [...] mouth and then touches another person directly (ixwu-il-ijoz contact) or indirectly (kpbs-ty-sezdyf, such as doorknob, telephone, toys). It is [...] every four months on our web site ([email or web address]). Information below was obtained from Up to [...] unspecified type [R19.7] Order(s):RAPID STREP TEST B/O [8504179] Order #: [id number] GROUP A STREPTOCOCCUS BY PCR [SQGASPCR] Order #: [id number] Prescriptions as of 10/20/2018 Sig: NORETHINDRONE-ETHINYL ESTRADI* [...] mouth and then touches another person directly (wpfq-gw-wibm contact) or indirectly (sipp-jn-mscdix, such as doorknob, telephone, toys). It is [...] every four months on our web site ([email or web address]/patients). Information below was obtained from Up to date Last literature review version 19.2: March 2011 This topic last updated: July 10, 2010 Disposition: Return if symptoms worsen or fail to improve. Follow-up and Disposition History Recorded Letter Text Fred Bauer APRN.STITCHDOWNS TOE FORMER Urgent Care [address] [facility] [place] [address] Dept: [phone] 10/20/2018 Andrae Musa [address] [facility] [address] To Whom it May Concern: This is to certify that Andrae Musa was seen at our office for medical care. Andrae may return to work on 10/21/2018. If you have any questions please feel free to call. Sincerely: Fred Bauer APRN.[facility] Encounter Status:Closed by FRED BAUER on 10/20/18 WRIST MIN 3 VIEWS Observed: 10/19/2018 Status: F Source: [place] 3:01 PM [facility] REPOSITORY [facility] Imaging Services [address] [place] [address] Wrist min 3 Views MR#: [id number] Acct: [id number] Name: ANDRAE MUSA Rep #: [id number] : 1985 F 33 From: Morena Guo MD PCP: Araseli Badillo MD Status: REG CLI Study: Wrist min 3 Views Date of Exam: 10/19/18 Exam# [id number] Ordering Dr: Tony Collins STUDY: X-RAY - [...] , CC: PERFECTO Collins; Araseli Badillo MD Shellfish Shucker: Signed URGENT CARE VISIT Observed: 10/13/2018 Status: F Source: [place] REPORT 3:28 PM [facility] REPOSITORY [facility] [address] [place] [address] OFFICE VISIT Date of Service: 10/13/18 MR#: [id number] Acct: [id number] Name: ANDRAE MUSA Rep #: [id number] : 1985 Provider: PERFECTO Morrison Age/Sex: 33/F [...] in stool, Black,tarry stools, nausea/dyspepsia or vomiting Musc Musculoskeletal: Positive for joint pain (left wrist); [...] rhythm Heart Sounds: S1 normal, S2 normal [facility] Musculoskeletal: Yes joint tenderness (left wrist/radius Wrist [...] Status: F Source: [place] REPORT 2:22 PM [facility] REPOSITORY [facility] [address] [place] [address] [address] [id number] OFFICE VISIT Date of Service: 10/06/18 MR#: [id number] Acct: [id number] Name: CHARLEY MUSACale Woodard Rep #: [id number] : 1985 Provider: José Miguel GROVE Age/Sex: [...] the above. This note was generated with CellScope dictation software. It may contain incorrect words, [...] José Miguel GROVE> Date José Miguel GROVE [facility] Signature: Date (if applicable) CC: WRIST MIN 3 VIEWS Observed: 10/06/2018 Status: F Source: [place] 12:53 PM [facility] REPOSITORY [facility] Imaging Services [address] [place] [address] Wrist min 3 Views MR#: [id number] Acct: [id number] Name: ANDRAE MUSA Rep #: [id number] : 1985 F 33 From: Rogerio Babb MD PCP: Araseli Badillo MD Status: REG CLI Study: Wrist min 3 Views Date of Exam: 10/06/18 Exam# [id number] Ordering Dr: José Miguel Adhikari STUDY: X-RAY [...] Rogerio Babb MD at 13:18 EST Tel [phone], Service support , CC: Araseli Badillo MD; José Miguel GROVE Shellfish Shucker: Signed HAND MIN 3 VIEWS Observed: 10/06/2018 Status: F Source: [place] 12:53 PM [facility] REPOSITORY [facility] Imaging [place] [address] Hand Min 3 Views MR#: [id number] Acct: [id number] Name: ANDRAE MUSA Rep #: [id number] : 1985 F 33 From: Rogerio Babb MD PCP: Araseli Badillo MD Status: REG CLI Study: Hand Min 3 Views Date of Exam: 10/06/18 Exam# [id number] Ordering Dr: José Miguel Adhikari STUDY: X-RAY [...] Rogerio Babb MD at 13:19 EST Tel [phone], Service support , CC: Araseli Badillo MD; José Miguel GROVE Shellfish Shucker: Signed ELBOW 2 VIEWS Observed: 10/06/2018 Status: F Source: [place] 12:53 PM [facility] REPOSITORY [facility] Imaging Services [address] [place] [address] Elbow 2 Views MR#: [id number] Acct: [id number] Name: ANDRAE MUSA Rep #: [id number] : 1985 F 33 From: Rogerio Babb MD PCP: Araseli Badillo MD Status: REG CLI Study: Elbow 2 Views Date of Exam: 10/06/18 Exam# [id number] Ordering Dr: José Miguel Adhikari STUDY: X-RAY [...] Rogerio Babb MD at 13:20 EST Tel [phone], Service support , CC: Araseli Badillo MD; José Miguel GROVE Shellfish Shucker: Signed PROGRESS Observed: 10/01/2018 Status: COMPLETED Source: PERU 3:06 PM [facility] REPOSITORY HNO ID: [id number] Author: Nuha Nuñez Ma Service: (none) Author Type: (none) Type: Progress Notes Filed: 10/01/2018 4:46 PM Note Text: patient declined dental sales representative Nuha Nuñez Ma PROGRESS Observed: 10/01/2018 Status: COMPLETED Source: [place]U 3:02 PM [facility] REPOSITORY HNO ID: [id number] Author: Flor Hylton Service: (none) Author Type: Nurse Practitioner Type: Progress Notes Filed: 10/01/2018 4:46 PM Note Text: Andrae Musa is a 33 year old who presents for her annual gynecologic exam without complaints. Planning vacation to [place]. Went to [facility] last summer. Menses: cycles every 28-30 days and 3-4 days of very light flow. Sometimes skips a month. Spots if misses pill. 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 Contraception: [...] external genitalia normal, normal Bartholin's glands, urethra, Turkey's glands, no vulvar lesions, no cervical lesions, [...] or sooner as needed Flor Hylton APRN.[place] CNOV Observed: 10/01/2018 Status: COMPLETED Source: PERU 2:45 PM [facility] REPOSITORY Office Visit (WOOB) ANDRAE MUSA ([id number]) 1985 F Date Time Provider Department 10/01/18 2:45 PM FLOR HYLTON (STITCHDOWNS TOE FORMER) WOOB During your visit today, we recorded the following information about you: Blood pressure Weight Height Last Period 126/82 124.1 kg 1.71 m 09/05/18 Flor Hylton APRN.[place] 10/01/2018 4:46 PM Signed Andrae Musa is a 33 year old who presents for her annual gynecologic exam without complaints. Planning vacation to [place]. Went to [facility] last summer. Menses: cycles every 28-30 days and 3-4 days of very light flow. Sometimes skips a month. Spots if misses pill. 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 Contraception: [...] external genitalia normal, normal Bartholin's glands, urethra, Turkey's glands, no vulvar lesions, no cervical lesions, [...] Ma 10/01/2018 4:46 PM Signed patient declined dental sales representative Nuha Hylton APRN.[place] 10/01/2018 3:32 PM Addendum [...] glands, joint and muscle pain, weakness and Guillain-Mesa syndrome. Gardasil Gardasil is a vaccine to [...] glands, joint and muscle pain, weakness and Guillain-Mesa syndrome. Referring Provider: SELF [200] Allergies As of Date: 10/01/2018 Noted Allergy Reaction PHENERGAN (PROMETHAZINE) 07/07/2012 12 - Shortness of Breath Comments: Dizziness and lightheadness ZOFRAN (ONDANSETRON HCL (PF)) 07/22/2018 14 - Other: See Comments Comments: shaking ZOLOFT (SERTRALINE HCL) 06/18/2017 14 - Other: See Comments Comments: ESPANA's and dizziness Date Reviewed: 10/01/2018 Reviewed by: Flor Hylton - Fully Assessed Reason for Visit: Gardasil Injection [1654] Primary Visit Diagnosis:Encounter for gynecological examination (general) (routine) without abnormal findings [Z01.419] Other Visit Diagnoses:Surveillance for control, oral contraceptives [Z30.41] Need for prophylactic vaccination/inoculation against viral disease [Z23] Folliculitis [L73.9] Order(s):Norethindrone-Eth Estradiol (NECON /35, 28,) 1-35 mg-mcg per tabletTake 1 tablet by mouth once daily.Disp: 3 PackageRfl: 3 THER/PROPH/DIAG INJ, SC/IM [39557ELB] Order #: [id number] HUMAN PAPILLOMAVIRUS 9-VALENT HPV IM [[id number]] Order #: [id number] HUMAN PAPILLOMAVIRUS 9-VALENT HPV IM [[id number]] Order #: [id number] FUTURE HUMAN PAPILLOMAVIRUS 9-VALENT HPV IM [[id number]] Order #: [id number] FUTURE mupirocin (BACTROBAN) 2 % ointmentApply 1 [...] glands, joint and muscle pain, weakness and Guillain-Mesa syndrome. Gardasil Gardasil is a vaccine to [...] glands, joint and muscle pain, weakness and Guillain-Mesa syndrome. Prescriptions ordered this encounter Disp Refills [...] 10/01/18 PROGRESS Observed: 09/24/2018 Status: COMPLETED Source: PERU 3:08 PM [facility] REPOSITORY HNO ID: [id number] Author: Hailey ([place]) Older Service: (none) Author [...] treatment options and medications. 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 Referring Provider: ARASELI BADILLO [[id number]] Allergies As of Date: 09/24/2018 Noted Allergy [...] 09/24/18 PROGRESS Observed: 09/15/2018 Status: COMPLETED Source: PERU 4:11 PM [facility] REPOSITORY HNO ID: [id number] Author: Mingo Zelaya Service: (none) Author Type: [...] MD CNOV Observed: 09/15/2018 Status: COMPLETED Source: PERU 4:00 PM [facility] REPOSITORY Office Visit (WSTR) ANDRAE MUSA ([id number]) 1985 F Date Time Provider Department 09/15/18 4:00 PM MINGO ZELAYA During your visit today, we recorded the [...] by mouth once daily. Norethindrone-Eth Estradiol (NECON 1, 28,) 1-35 mg-mcg per tablet Take 1 [...] Diagnosis:Neck pain [M54.2] Order(s):RAPID STREP TEST B/O [[id number]] Order #: [id number] Prescriptions as of 09/15/2018 Sig: PROPRANOLOL XL [...] 09/15/18 PROGRESS Observed: 09/06/2018 Status: COMPLETED Source: PERU 6:27 PM [facility] [place] REPOSITORY HNO ID: [id number] Author: Siena (Pt) Eusebia Service: (none) Author [...] OBJECTIVE MEASURES WITH LEVEL OF FUNCTION: Low back facer to palpation btw T11-L4 TREATMENT: Therapeutic Exercise: [...] with verbal, visual and tactile cuing. Billing: [facility]: Therapeutic Exercise (20374): 1:1 time: 45 minutes (3 units: 38-52 mins) Total time: 45 minutes Siena Laws PT CNTHERAPY Observed: 09/06/2018 Status: COMPLETED Source: PERU 5:45 PM [facility] REPOSITORY OT/PT/Speech Visit (PTWS) ANDRAE MUSA ([id number]) 1985 F IPA Date Time Provider Department 09/06/18 5:45 PM SIENA LAWSPT) ANA Date Time Provider Department Center 09/06/2018 5:45 PM [id number], DIANA (PT)[facility] Reason for Visit: Physical Therapy [503] [...] Date Reviewed: 08/06/2018 Reviewed by: Gale Campuzano Complaint Manager - Fully Assessed Prescriptions as of 09/06/2018 [...] as neede* Progress Notes: Siena Laws PT 09/06/2018 6:48 PM Signed Episode Visit Count: [...] OBJECTIVE MEASURES WITH LEVEL OF FUNCTION: Low back facer to palpation btw T11-L4 TREATMENT: Therapeutic Exercise: [...] with verbal, visual and tactile cuing. Billing: [facility]: Therapeutic Exercise (99890): 1:1 time: 45 minutes (3 units: 38-52 mins) Total time: 45 minutes Siena Laws PT Annotated image of C22 PT LUMBAR STAB #2 last updated by Siena Laws on 09/06/2018 6:03 PM PROGRESS Observed: 08/23/2018 Status: COMPLETED Source: PERU 4:15 PM [facility] REPOSITORY HNO ID: [id number] Author: Siena (Pt) Eusebia Service: (none) Author [...] of Care: created on 08/23/18 through 10/22/18 [place] in home exercise program. Perform bending forwards [...] her sx she feels. 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 End of work day [...] tactile cuing. Patient education as noted. Billing: [facility]: Evaluation - Low Complexity (55343) Therapeutic Exercise (47527): 1:1 time: 23 minutes (2 units: 23-37 mins) Total time: 41 minutes Siena Laws PT CNTHERAPY Observed: 08/23/2018 Status: COMPLETED Source: PERU 3:30 PM [facility] REPOSITORY OT/PT/Speech Visit (PTWS) ANDRAE MUSA ([id number]) 1985 F Date Time Provider Department 08/23/18 3:30 PM SIENA LAWS (PT) PTWS Date Time Provider Department Center 08/23/2018 3:30 PM [id number], DIANA (PT)PTWS [facility] LASHAE Reason for Visit: PT Eval [747] [...] Date Reviewed: 08/06/2018 Reviewed by: Gale Campuzano Complaint Manager - Fully Assessed Prescriptions as of 08/23/2018 Sig: PROPRANOLOL XL 80 MG CAPSULE,* Take 1 capsule by mouth daily* MELOXICAM 15 MG TABLET Take 1 tablet by mouth once d* DICYCLOMINE 10 MG CAPSULE Take 1 capsule by mouth befor* ESCITALOPRAM 10 MG TABLET Take 10 mg by mouth once gaduencio* NORETHINDRONE-ETHINYL ESTRADI* Take 1 tablet by mouth [...] of Care: created on 08/23/18 through 10/22/18 [place] in home exercise program. Perform bending forwards [...] in back of head. 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 Patient was put on meloxicam has helped a bit with back pain. Propranolol is helping her sx she feels. 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 End of work day [...] tactile cuing. Patient education as noted. Billing: [facility]: Evaluation - Low Complexity (04617) Therapeutic Exercise (29799): 1:1 time: 23 minutes (2 units: 23-37 mins) Total time: 41 minutes Siena Laws PT PROGRESS Observed: 08/06/2018 Status: COMPLETED Source: PERU 10:54 AM [facility] [place] REPOSITORY HNO ID: [id number] Author: Hailey ([place]) Older Service: (none) Author [...] APRN.[place] ARANAOV Observed: 08/06/2018 Status: COMPLETED Source: PERU 10:40 AM [facility] REPOSITORY Office Visit (INTMWS) ANDRAE MUSA ([id number]) 1985 F Date Time Provider Department 08/06/18 10:40 AM OLDER, HAILEY ([place]) INTMWS During your visit today, we recorded the following information about you: Temperature Pulse Respiration Blood pressure 98.1 degrees 78/minute 16/minute 130/81 Weight 123.8 kg Hailey OrdazJANINHOWARD 08/06/2018 12:02 PM Signed CC: Patient presents [...] BRSH SPEC 08/01/15 Colonoscopy - EGD W/O [facility] SPECIMEN W/BX 08/11/11 patchy duodenitis - EGD W/O BRS SPECIMEN W/BX 07/14/12 gastritis and esophagitis - [...] Date Reviewed: 08/06/2018 Reviewed by: Gale Campuzano Complaint Manager - Fully Assessed Reason for Visit: Established Patient [175] Cmt: headache follow up Primary Visit Diagnosis:Chronic tension-type headache, not intractable [G44.229] Other Visit Diagnosis:Lumbar back pain [M54.5] Order(s):Propranolol HCl (INDERAL XL) 80 mg 24 hr capsuleTake 1 capsule by mouth daily at bedtime.Disp: 30 capsuleRfl: 1 CONSULT TO PHYSICAL THERAPY [90] Order #: [id number]: 1 Prescriptions as of 08/06/2018 Sig: MELOXICAM [...] Letter Text Department of Internal Medicine [address] [address] Andrae Musa [address] [address] August 06, 2018 TO WHOM IT MAY CONCERN: This is to certify that Andrae Musa has been under the care of Hailey Ordaz APRN.CNP and was unable to work from 07/30/18 through 08/08/18. Andrae may return to work on 08/09/18 with no restrictions Sincerely yours, Hailey Ordaz APRN.CNP Encounter Status:Closed by HAILEY ORDAZ CNP on 08/06/18 PROGRESS Observed: 07/23/2018 Status: COMPLETED Source: PERU 11:55 AM [facility] REPOSITORY O ID: [id number] Author: Hailey Ordaz Service: (none) Author Type: [...] APRN.[place] CNOV Observed: 07/23/2018 Status: COMPLETED Source: PERU 9:40 AM [facility] REPOSITORY Office Visit (INTMWS) ANDRAE MUSA ([id number]) 1985 F Date Time Provider Department 07/23/18 [...] Colonoscopy - EGD W/O [facility] SPECIMEN W/BX 9/19/11 patchy duodenitis - EGD W/O [facility] SPECIMEN W/BX 07/14/12 gastritis and esophagitis - [...] Patient agreeable to treatment plan. Hailey Ordaz APRN.STITCHDOWNS TOE FORMER Referring Provider: SELF [200] Allergies As of Date: 07/23/2018 Noted Allergy Reaction PHENERGAN (PROMETHAZINE) 07/07/2012 12 - Shortness of Breath Comments: Dizziness and lightheadness ZOFRAN (ONDANSETRON HCL (PF)) 07/22/2018 14 - Other: See Comments Comments: shaking ZOLOFT (SERTRALINE HCL) 06/18/2017 14 - Other: See Comments Comments: ESPANA's and dizziness Date Reviewed: 07/23/2018 Reviewed by: Gale Campuzano Complaint Manager - Fully Assessed Primary Visit Diagnosis:Lumbar spine [...] Letter Text Department of Internal Medicine [address] [address] 07/23/2018 Andrae Woodard Lencho [facility]# [id number] [address] [address] TO WHOM IT MAY CONCERN: This is to certify that . Andrae Musa was seen today in the office Sincerely yours, Hailey Ordaz APRN.CNP Encounter Status:Closed by HAILEY ORDAZ CNP on 07/23/18 PROGRESS Observed: 07/22/2018 Status: COMPLETED Source: PERU 8:36 PM [facility] RE[facility]ITORY HNO ID: [id number] Author: Solange Bueno Service: (none) Author Type: [...] primary physician for medical care. CNOV Observed: 07/22/2018 Status: COMPLETED Source: PERU 1:00 PM [facility] REPOSITORY Office Visit (GENSWS) ANDRAE MUSA ([id number]) 1985 F Date Time Provider Department 07/22/18 [...] for medical care. Referring Provider: SOLANGE BUENO [[id number]] Allergies As of Date: 07/22/2018 Noted Allergy [...] 07/24/18 PROGRESS Observed: 07/19/2018 Status: COMPLETED Source: PERU 2:56 PM [facility] [place] REPOSITORY HNO ID: [id number] Author: Vane [address] Service: (none) Author [...] Ref Range Status 07/02/2018 Test sent to [facility]. 0.58 - 0.96 mg/dL Final Comment: Account Credited 06/28/2015 1.02 0.70 - 1.40 mg/dL Final eGFR-All Other Races Date Value Ref Range Status 07/02/2018 Test sent to [facility]. . Final Comment: Account Credited eGFR- Date Value Ref Range Status 07/02/2018 Test sent to [facility]. Final Comment: Account Credited P.O.C.T. RESULTS: [...] CT; Exam(s) Completed: Abdomen/Pelvis SIGNED BY: Vane Torres [address] July 19, 2018 2:[address] ABD/PEL W IVCON Observed: 07/19/2018 Status: F Source: PERU 2:45 PM [facility] REPOSITORY * * *Final Report* * * DATE OF EXAM: Jul 19 2018 2:45PM [facility] 0530 - CT ABD/PEL W IVCON [...] adnexal cyst. Nonspecific prominence of the endometrium. Shellfish Shucker: PSCB Transcribe Date/Time: Jul 20 2018 8:01A Dictated by : KISHOR REBOLLEDO MD This examination was interpreted and the report reviewed and electronically signed by: KISHOR REBOLLEDO MD on Jul 20 2018 8:05AM EST [id number] [facility] Observed: 07/13/2018 Status: COMPLETED Source: PERU 12:00 AM [facility] REPOSITORY Telephone (INTMWS) ANDRAE MUSA ([id number]) 1985 F Date Time Provider Department 07/13/18 HAILEY ORDAZ) INTWS During your visit today, we recorded the [...] in Hailey Ordaz CNP nurse pod to fruit or nut picker on second floor. Gale Ward LPN 07/13/2018 4:21 PM Signed original to pt for fruit or nut picker and copy to medical records for [...] 07/13/18 PROGRESS Observed: 07/12/2018 Status: COMPLETED Source: PERU 8:21 AM [facility] [place] REPOSITORY O ID: [id number] Author: Solange Bueno Service: (none) Author Type: [...] might be intestinal flu. She presented to [facility] ED with complaint of severe headache on June 30. No complaint of abdominal pain mentioned at that time. On July 07, she had US of abdomen for above complaints - and it was negative. She presented to [facility] ED on for uncontrollable twitching and continued [...] Laterality Date - COLONOSCOP W/ OR W/O [facility] SPEC 08/01/15 Colonoscopy - EGD W/O [facility] SPECIMEN W/BX 08/11/11 patchy duodenitis - EGD W/O [facility] SPECIMEN W/BX 07/14/12 gastritis and esophagitis - [...] children: 0 Occupational History Occupation Employer Comment city [employer] * Social History Main Topics Smoking [...] MD CNOV Observed: 07/12/2018 Status: COMPLETED Source: PERU 8:00 AM [facility] REPOSITORY Office Visit (GENSWS) ANDRAE MUSA ([id number]) 1985 F Date Time Provider Department 07/12/18 8:00 AM SOLANGE BUENO During your visit today, we recorded the following information about you: Charles Fairchild LPN 07/12/2018 8:04 AM Signed REVIEW OF SYSTEMS: [...] might be intestinal flu. She presented to [facility] ED with complaint of severe headache on June 30. No complaint of abdominal pain mentioned at that time. On July 07, she had US of abdomen for above complaints - and it was negative. 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 Solange uBeno MD Referring Provider: ARASELI BADILLO [[id number]] Allergies As of Date: 07/12/2018 Noted Allergy [...] Visit Diagnosis:Nausea [R11.0] Order(s):CT ABD/PEL W IVCON [0309244] Order #: [id number] FUTURE iv contrast (will be provided with [...] EMERGENCY DEPARTMENT Observed: 07/10/2018 Status: F Source: [place] SUMMARY 4:52 PM [facility] REPOSITORY [facility] Medical Records Department [address] [place] [address] Emergency Department Summary 07/10/18 1544 MR#: [id number] Acct: [id number] Name: ANDRAE MUSA Rep #: [id number] : 1985 32 From: David Henry MD [...] Conversion reaction This note was generated with [employer] dictation software. It may contain incorrect words, [...] your Primary Care Provider. Call [facility] ([phone]) or report to the closest Emergency Room. Call 911 if necessary. 07/10/18 1652 <Electronically signed by David Henry MD> Date David Henry MD Cosigner Signature (If Indicated): Date CC: [facility]; Araseli Badillo MD CBC W/DIFF, AUTOMATED Collected: 07/10/2018 Status: F Source: [place] 3:53 PM [facility] REPOSITORY TYPE CODE TESTS RESULT OUT OF [...] Lymph 2.94 Performed By: #### L100.0100 #### [facility] [address] [facility]. [place], [place], [id number] BASIC METABOLIC Collected: 07/10/2018 Status: F Source: [place] PROFILE (BMP) 3:53 PM [facility] REPOSITORY TYPE CODE TESTS RESULT OUT OF [...] GAP 7 Performed By: #### L500.2500 #### [facility] [address] [facility] [place], [address] BRAIN/HEAD WITHOUT Observed: 07/10/2018 Status: F Source: [place] CONTRAST 3:39 PM [facility] REPOSITORY [facility] Imaging Services [address] [place] [address] Brain/Head without Contrast MR#: [id number] Acct: [id number] Name: ANDRAE MUSA Rep #: [id number] : 1985 F 32 From: Amy Lutz MD PCP: Araseli Badillo MD Status: REG ER Study: Brain/Head without Contrast Date of Exam: 07/10/18 Exam# [id number] Ordering Dr: David Henry MD STUDY: CT [...] Tel , Service support , CC: Araseli Badlilo MD; David Henry MD Shellfish Shucker: Signed US ABDOMEN COMPLETE Observed: 07/07/2018 Status: F Source: PERU 9:21 AM [facility] REPOSITORY * * *Final Report* * [...] by overlying bowel gas and body habitus. Shellfish Shucker: PSCB Transcribe Date/Time: Jul 07 2018 9:44A Dictated by : NENA MENDEZ MD This examination was interpreted and the report reviewed and electronically signed by: NENA MENDEZ MD on Jul 07 2018 9:52AM EST [id number] PROGRESS Observed: 07/07/2018 Status: COMPLETED Source: PERU 9:08 AM [facility] REPOSITORY HNO ID: [id number] Author: Lurdes Red Service: (none) Author Type: Family Living Educator Type: Progress Notes Filed: 07/07/2018 9:09 AM [...] DIFFICILE PCR Collected: 07/06/2018 Status: F Source: PERU 12:40 PM [facility] REPOSITORY TYPE CODE TESTS RESULT OUT OF REFERENCE UNITS RANGE LAB CDFRES C difficile PCR Specimen rejected. Formed stool received, only non-formed stool is acceptable for C. difficile toxin assay. Result Comment: Account Credited ENTERIC BACT PNL PCR Collected: 07/06/2018 Status: F Source: PERU 12:40 PM [facility] REPOSITORY TYPE CODE TESTS RESULT OUT OF REFERENCE UNITS RANGE LAB PCRSHG Shigella/EIEC Not Detected DNA LAB PCRCMP Campy jejun/coli DNA Not Detected LAB PCRSTX Shiga toxin gene(s) Not Detected LAB PCRSAL Salmonella spp. Not Detected DNA Performed By: #### STLPCR #### [facility] [address] [id number] LIPASE Collected: 07/06/2018 Status: F Source: PERU 8:30 AM [facility] REPOSITORY TYPE CODE TESTS RESULT OUT OF REFERENCE UNITS RANGE LAB LIPA 16-61 U/L Lipase 38 Performed By: #### LIPA, HPYLRI #### [id number] [id number] HELICO PYLORI AB Collected: 07/06/2018 Status: F Source: PERU 8:30 AM [facility] REPOSITORY TYPE CODE TESTS RESULT OUT [...] interchangeably. Performed By: #### LIPA, HPYLRI #### [address] [address] PROGRESS Observed: 07/06/2018 Status: COMPLETED Source: PERU 7:47 AM [facility] REPOSITORY HNO ID: [id number] Author: Hailey (Bundle Helper) Older Service: (none) Author Type: Nurse Practitioner [...] BLD - H PYLORI IGG AB - [place] low residue diet - Follow-up pending results [...] APRN.CNP CNOV Observed: 07/06/2018 Status: COMPLETED Source: PERU 7:40 AM [facility] REPOSITORY Office Visit (INTMWS) ANDRAE MUSA ([id number]) 1985 F Date Time Provider Department 07/06/18 [...] by mouth once daily. Norethindrone-Eth Estradiol (NECON 1, 28,) 1-35 mg-mcg per tablet Take 1 [...] BLD - H PYLORI IGG AB - [place] low residue diet - Follow-up pending results [...] occur. Patient agreeable to treatment plan. Hailey Ordaz, CHIPPER MACHINE OPERATOR.STITCHDOWNS TOE FORMER Referring Provider: SELF [200] Allergies As of Date: 07/06/2018 Noted Allergy Reaction PHENERGAN (PROMETHAZINE) 07/07/2012 12 - Shortness of Breath Comments: Dizziness and lightheadness ZOLOFT (SERTRALINE HCL) 06/18/2017 14 - Other: See Comments Comments: ESPANA's and dizziness Date Reviewed: 07/06/2018 Reviewed by: Gale Campuzano Complaint Manager - Fully Assessed Reason for Visit: headaches worsening [Other] Abdominal Pain [1] Cmt: nausea-has been using anti-nausea medication with some relief Dizziness [36] Primary Visit Diagnosis:Pain of upper abdomen [R10.10] Other Visit Diagnoses:Diarrhea, unspecified type [R19.7] Nausea [R11.0] Worsening headaches [R51] Order(s):US ABDOMEN COMPLETE [[id number]] Order #: [id number] FUTURE ENTERIC BACTERIAL PANEL BY PCR [SQSTLPCR] Order #: [id number] FUTURE C. DIFFICILE PCR [SQCDPCR] Order #: [id number] LIPASE BLD [SQLIPA] Order #: [id number] FUTURE H PYLORI IGG AB [SQHPYLRI] Order #: [id number] FUTURE Prescriptions as of 07/06/2018 Sig: DICYCLOMINE [...] INVALID FOR* Encounter Status:Closed by HAILEY ORDAZ STITCHDOWNS TOE FORMER on 07/06/18 COMP METABOLIC PANEL Collected: 07/02/2018 Status: F Source: PERU 8:18 AM [facility] REPOSITORY TYPE CODE TESTS RESULT OUT OF REFERENCE UNITS RANGE LAB TP 6.3-8.0 g/dL Test sent to [facility]. Result Comment: Account Credited LAB ALB 3.9-4.9 g/dL Test Albumin sent to [facility]. Result Comment: Account Credited LAB CA 8.5-10.2 mg/dL Test Calcium, Total sent to [facility]. Result Comment: Account Credited LAB TBIL 0.2-1.3 mg/dL Bilirubin, Test Total sent to [facility]. Result Comment: Account Credited LAB ALKP 32-117 U/L Alkaline Test Phosphatase sent to [facility]. Result Comment: Account Credited LAB AST 13-35 U/L Test sent AST to [facility]. Result Comment: Account Credited LAB GLU 74-99 mg/dL Test sent Glucose to [facility]. Result Comment: Account Credited LAB BUN 7-21 mg/dL Test sent BUN to [facility]. Result Comment: Account Credited LAB CRET 0.58-0.96 mg/dL Creatinine Test sent to [facility]. Result Comment: Account Credited LAB NA 136-144 mmol/L Test Sodium sent to [facility]. Result Comment: Account Credited LAB K 3.7-5.1 mmol/L Test Potassium sent to [facility]. Result Comment: Account Credited LAB CL 97-105 mmol/L Test Chloride sent to [facility]. Result Comment: Account Credited LAB CO2 22-30 mmol/L Test sent CO2 to [facility]. Result Comment: Account Credited LAB AGAP 9-18 mmol/L Test sent Anion Gap to [facility]. Result Comment: Account Credited LAB ALT 7-38 U/L Test sent to ALT [facility]. Result Comment: Account Credited LAB GFRAA eGFR- Amer. Test sent to [facility]. Result Comment: Account Credited LAB GFRNAA . eGFR-All Test sent Other Races to [facility]. Result Comment: Account Credited LAB GFRPED eGFR-Ped. Test sent Factor to [facility]. Result Comment: Account Credited CBC AND DIFFERENTIAL Collected: 07/02/2018 Status: F Source: PERU 8:18 AM [facility] REPOSITORY TYPE CODE TESTS RESULT OUT OF REFERENCE UNITS RANGE LAB WBC 3.70-11.00 k/uL Test WBC sent to [facility]. Result Comment: Account Credited LAB RBC 3.90-5.20 m/uL Test sent RBC to [facility]. Result Comment: Account Credited LAB HGB 11.5-15.5 g/dL Hemoglobin Test sent to [facility]. Result Comment: Account Credited LAB HCT 36.0-46.0 % Hematocrit Test sent to [facility]. Result Comment: Account Credited LAB MCV 80.0-100.0 fL Test sent MCV to [facility]. Result Comment: Account Credited LAB MCH 26.0-34.0 pG Test sent MCH to [facility]. Result Comment: Account Credited LAB MCHC 30.5-36.0 g/dL Test MCHC sent to [facility]. Result Comment: Account Credited LAB RDWCV 11.5-15.0 % Test RDW-CV sent to [facility]. Result Comment: Account Credited LAB PLTCT 150-400 k/uL Test Platelet Count sent to [facility]. Result Comment: Account Credited LAB MPV 9.0-12.7 fL Test sent MPV to [facility]. Result Comment: Account Credited LAB EMILY Recheck Test sent to [facility]. Result Comment: Account Credited LAB REVW Test sent to Review [facility]. Result Comment: Account Credited LAB CBCCOM Comment Test sent to [facility]. Result Comment: Account Credited CBC W/DIFF, AUTOMATED Collected: 07/02/2018 Status: F Source: [place] 8:09 AM [facility] REPOSITORY TYPE CODE TESTS RESULT OUT OF [...] Lymph 4.73 Performed By: #### L100.0100 #### [facility] [address] [place], [place], [id number] COMPREHENSIVE METABOLIC Collected: 07/02/2018 Status: F Source: [place]E MYERS 8:09 AM [facility] REPOSITORY TYPE CODE TESTS RESULT OUT OF [...] GAP 7 Performed By: #### L500.4050 #### [facility] [address] [facility]. [place], [place], [address] PROGRESS Observed: 07/02/2018 Status: COMPLETED Source: PERU 7:58 AM [facility] REPOSITORY HNO ID: [id number] Author: Hailey ([place]) Older Service: (none) Author Type: Nurse Practitioner Type: Progress Notes Filed: 07/02/2018 8:15 AM Note Text: CC: Patient presents with: [facility] ER Follow up: Ongoing stomach pain, nausea, [...] BRSH SPEC 08/01/15 Colonoscopy - EGD W/O [facility] SPECIMEN W/BX 08/11/11 patchy duodenitis - EGD W/O [facility] SPECIMEN W/BX 07/14/12 gastritis and esophagitis - [...] of CBC with Diff and CMP - [place] low residue diet - Follow up pending [...] treatment plan. Hailey Ordaz APRN.[place] CNOV Observed: 07/02/2018 Status: COMPLETED Source: PERU 7:40 AM [facility] REPOSITORY Office Visit (INTMWS) ANDRAE MUSA ([id number]) 1985 F Date Time Provider Department 07/02/18 7:40 AM HAILEY ORDAZ ([place]) INTMWS During your visit today, we recorded the following information about you: Temperature Pulse Respiration Blood pressure 97.6 degrees 82/minute 16/minute 150/90 Weight 119.3 kg Hailey Older, CHIPPER MACHINE OPERATOR.[place] 07/02/2018 8:15 AM Signed CC: Patient presents with: [facility] ER Follow up: Ongoing stomach pain, nausea, [...] of CBC with Diff and CMP - [place] low residue diet - Follow up pending [...] occur. Patient agreeable to treatment plan. Hailey Ordaz, CHIPPER MACHINE OPERATOR.STITCHDOWNS TOE FORMER Referring Provider: SELF [200] Allergies As of Date: 07/02/2018 Noted Allergy Reaction PHENERGAN (PROMETHAZINE) 07/07/2012 12 - Shortness of Breath Comments: Dizziness and lightheadness ZOLOFT (SERTRALINE HCL) 06/18/2017 14 - Other: See Comments Comments: ESPANA's and dizziness Date Reviewed: 07/02/2018 Reviewed by: Gale Campuzano Complaint Manager - Fully Assessed Reason for Visit: [facility] ER Follow up [Other] Cmt: Ongoing stomach [...] 0 CBC + DIFF [SQCBCDIF] Order #: [id number] FUTURE COMP METABOLIC PANEL [SQCMP] Order #: [id number] FUTURE Prescriptions as of 07/02/2018 Sig: ESCITALOPRAM [...] Letter Text Department of Internal Medicine [address] [address] Andrae M Lencho [address] [phone] July 02, 2018 TO WHOM IT MAY CONCERN: This is to certify that Andrae Musa was seen by me today for illness. Andrae may return to work on 07/05/18 with no restrictions Sincerely yours, Hailey Ordaz APRN.CNP Encounter Status:Closed by HAILEY ORDAZ CNP on 07/02/18 EMERGENCY DEPARTMENT Observed: 07/01/2018 Status: F Source: [place] SUMMARY 9:38 AM [facility] REPOSITORY [facility] Medical Records Department [address] [place] [address] Emergency Department Summary 06/30/18 1545 MR#: [id number] Acct: [id number] Name: CHARLEY MUSAN Yamilet Rep #: [id number] : 1985 32 From: Zac Wheat MD [...] Acute cephalgia This note was generated with CellScope dictation software. It may contain incorrect words, [...] problems, contact your Primary Care Provider. Call [facility] ([phone]) or report to the closest Emergency Room. Call 911 if necessary. 07/01/18 0938 <Electronically signed by Zac Wheat MD> Date Zac Wheat MD Cosigner Signature (If Indicated): Date CC: Araseli Badillo MD DISCHARGE INSTRUCTION Observed: 07/01/2018 Status: F Source: [place] 9:38 AM [facility] REPOSITORY [facility] Medical Records Department [address] [place] [address] Discharge Instruction 06/30/18 1551 MR#: [id number] Acct: [id number] Name: ANDRAE MUSA Rep #: [id number] : 1985 32 From: Zac Wheat MD [...] your Primary Care Provider. Call [facility] ([phone]) or report to the closest Emergency Room. Call 911 if necessary. 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 The patient indicates understanding of these issues and agrees with the plan. Reviewed red flags and when to seek care sooner. Ed Liao PA-C 06/30/2018 CNOV Observed: 06/30/2018 Status: COMPLETED Source: PERU 12:45 PM [facility] REPOSITORY Office Visit (WSTR) ANDRAE MUSA ([id number]) 1985 F Date Time Provider Department 06/30/18 12:45 PM ED LIAO) [facility] During your visit today, we recorded the [...] by mouth once daily. 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 The patient indicates understanding of these issues [...] Text Ed Liao PA-C Urgent Care [address] [facility] [address] Dept: [phone] 06/30/2018 Andrae Musa [address] [address] To Whom it May Concern: This is to certify that Andrae Musa was seen at our office for medical care. If you have any questions please feel free to call. Sincerely: Ed Liao PA-C Encounter Status:Closed by ED LIAO PA-C on 06/30/18 PROGRESS Observed: 06/24/2018 Status: COMPLETED Source: PERU 8:52 PM [facility] REPOSITORY HNO ID: [id number] Author: Solange Bueno Service: (none) Author Type: Physician Type: Progress Notes Filed: 06/26/2018 4:12 PM Note Text: Andrae is s/p laparoscopic cholecystectomy done on 7/17/18. She is tolerated a regular diet and [...] care. CNOV Observed: 06/23/2018 Status: COMPLETED Source: PERU 2:20 PM [facility] REPOSITORY Office Visit (GENSWS) ANDRAE MUSA ([id number]) 1985 F Date Time Provider Department 06/23/18 [...] for medical care. Referring Provider: ARASELI BADILLO [[id number]] Allergies As of Date: 06/23/2018 Noted Allergy [...] FOR* Letter Text General Surgery [address] [place] [id number] 06/23/2018 RE: Andrae M Lencho TO WHOM IT MAY CONCERN: This is to certify that Andrae Musa has been under my care for surgery. The patient may return to work on June 24, 2018. Please do not hesitate to contact me with any questions or concerns that may arise. Sincerely yours, Solange Bueno MD Encounter Status:Closed by MD SOLANGE BUENO on 06/26/18 PROGRESS Observed: 06/16/2018 Status: COMPLETED Source: PERU 8:32 PM [facility] [place] REPOSITORY HNO ID: [id number] Author: Solange Bueno Service: (none) Author Type: [...] care. CNOV Observed: 06/16/2018 Status: COMPLETED Source: PERU 1:00 PM [facility] REPOSITORY Office Visit (GENSWS) ANDRAE MUSA ([id number]) 1985 F Date Time Provider Department 06/16/18 [...] for medical care. Referring Provider: ARASELI BADILLO [[id number]] Allergies As of Date: 06/16/2018 Noted Allergy [...] 1 HOUR Observed: 06/08/2018 Status: F Source: [facility] 11:00 AM [facility] REPOSITORY Performed at [facility] APPROVED BY: Alban Shepard MD IMPRESSION: 21 seconds of fluoroscopy time was utilized for this exam. NURSING PROG Observed: 06/08/2018 Status: COMPLETED Source: PERU 10:51 AM [facility] REPOSITORY HNO ID: [id number] Author: Lola ShahRn) PEDRITO Babcock Service: General [...] NURSING PROG Observed: 06/08/2018 Status: COMPLETED Source: PERU 10:13 AM [facility] REPOSITORY HNO ID: [id number] Author: Tammie ShahRn) PEDRITO Whtit Service: Nursing Author Type: Registered Nurse Type: Nursing Progress Note Filed: 06/08/2018 10:14 AM Note Text: Post op in pacu, some abd pain, medicated, friend here, po liq taking, crackers, ice bag on abd, 4 drsgs dry. Will assist up tp BR. ANES POST Observed: 06/08/2018 Status: COMPLETED Source: PERU 9:57 AM [facility] REPOSITORY HNO ID: [id number] Author: Tammie Mosquera Service: (none) Author Type: [...] OP NOT Observed: 06/08/2018 Status: COMPLETED Source: PERU 9:30 AM [facility] REPOSITORY HNO ID: [id number] Author: Solange Bueno Service: (none) Author Type: Physician Type: Brief Op Note Filed: 06/08/2018 9:38 AM Note Text: BRIEF OPERATIVE NOTE SURGERY DATE: 06/08/2018 Incision/Procedure Start Time: 8:28 Incision Close/Procedure End Time: 9:37 Surgeon(s)/Proceduralist(s) and Skill Training Program Coordinator(s): Myles, dietitian assistant Laurita Avila PA-C Procedures: Laparoscopic cholecystectomy with cholangiograms Anesthesia: General Findings: normal IOC, cholelithiasis - no obstruction/no cholecystitis Estimated Blood Loss: < 5 ml mls Specimens: gallbladder and contents Complications: None Preop Diagnosis: cholelithiasis Postop Diagnosis: same SIGNATURE: Solange Bueno MD PATIENT NAME: Andrae Musa DATE: June 08, 2018 TIME: 9:30 AM PAGER/CONTACT #: ANES PREOP Observed: 06/08/2018 Status: COMPLETED Source: PERU 7:48 AM [facility] REPOSITORY O ID: [id number] Author: Tammie Mosquera Service: (none) Author Type: [...] BRSH SPEC 08/01/15 Colonoscopy - EGD W/O BRS SPECIMEN W/BX 08/11/11 patchy duodenitis - EGD W/O BRS SPECIMEN W/BX 07/14/12 gastritis and esophagitis FAMILY [...] OPERATIVE NO Observed: 06/08/2018 Status: COMPLETED Source: PERU 12:00 AM [facility] REPOSITORY [facility] ID: [id number] Author: Solange Bueno Service: (none) Author Type: Physician Type: Operative Report Filed: 06/09/2018 9:34 AM Note Text: [facility] - Operative Report SURGEON: Solange Bueno MD PATIENT NAME: ANDRAE MUSA CSN: [id number] DATE OF SURGERY: 06/08/2018 DATE OF : 1985 SEX/AGE: F/32 PATIENT TYPE: A [place] C[facility]: [facility] LOCATION: [facility] DATE OF SURGERY: 06/08/2018 SURGEON: Solange Bueno MD LOCATION: [facility]. PREOPERATIVE DIAGNOSIS: Cholelithiasis. POSTOPERATIVE DIAGNOSIS: Cholelithiasis without obstruction or cholecystitis. ANESTHESIA: general endotracheal. SPECIMEN: Gallbladder and contents. TUYERE FITTER: Laurita Avila. She is a physician podiatry assistant assisting me as there is no [...] released. The periumbilical fascia was approximated with cihvey-mc-kqlyc 0 Vicryl suture. Skin incisions were all closed 4 Monocryl in a subdermal fashion. Benzoin, Steri-Strips used to reinforce skin closure. Proper sterile dressings were applied. The patient tolerated procedure well, was brought to recovery room in stable condition. ESTIMATED BLOOD LOSS: Less than 10 mL. COMPLICATIONS: None. DRAINS: None. Solange Bueno MD LW:modl /[id number] SURGICAL TISSUE EXAM Observed: 06/08/2018 Status: F Source: [facility] 12:00 AM HEALTH SYSTEM REPOSITORY Test performed at [place] [address] NAME: ANDRAE MUSA REQUESTING: SOLANGE BEUNO MD FINAL DIAGNOSIS: GALLBLADDER (LAPAROSCOPIC CHOLECYSTECTOMY) - [...] Aspects of the surrounding serosa appear edematous. Drum Tester sections are submitted in one cassette. BMP:aniya BARTLETT M.D. 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 Requested patient call to verify massage. NURSING PROG Observed: 06/03/2018 Status: COMPLETED Source: PERU 3:31 PM [facility] REPOSITORY HNO ID: [id number] Author: Lola ShahRn) Sadiq RN Service: General Surgery Author Type: Registered Nurse Type: Nursing Progress Note Filed: 06/03/2018 3:33 PM Note Text: Pre-op instructions given. Patient states understanding.Educated on the importance of deep breathing after surgery. Instructed on how to do this and encouraged to begin today. Educated on the risks of smoking. 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 She agrees to surgery at [facility]. 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 She agrees to surgery at [facility]. I have answered all questions to [...] More... Visit Notes: >> Flor Batista RN [facility] May 27, 2018 3:55 PM Status: Signed [...] 05/29/18 HOSP Observed: 05/27/2018 Status: COMPLETED Source: PERU 12:00 AM [facility] [place] REPOSITORY Patient:Andrae Musa MRN: <[id number]> Height:5' 8(1.727 m) Weight:265 lb (120.203 kg) Outpatient Medications as of 06/08/18: escitalopram oxalate (LEXAPRO) 10 mg tablet Norethindrone-Eth Estradiol (NECON 1/35, 28,) 1-35 mg-mcg per tablet ibuprofen (MOTRIN) 200 [...] for the following basenames: K,HCT Progress Notes ([facility] WSTR): Carroll De Souza 05/27/2018 4:00 PM Signed 06-08-2018 Lap Nilam De Souza Progress Notes ([facility] WSTR): Solange Bueno MD 05/29/2018 7:44 [...] children: 0 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 She agrees to surgery at [facility]. I have answered all questions to [...] EMERGENCY DEPARTMENT Observed: 05/24/2018 Status: F Source: [place] SUMMARY 6:59 AM [facility] Medical Records Department [address] [place] [address] Emergency Department Summary 05/24/18 0630 MR#: [id number] Acct: [id number] Name: CHARLEY MUSACale Woodard Rep #: [id number] : 1985 32 From: Celestino Berrios MD [...] of gallstones This note was generated with CellScope dictation software. It may contain incorrect words, [...] problems, contact your Primary Care Provider. Call [facility] ([phone]) or report to the closest Emergency Room. Call 911 if necessary. 05/24/18 0659 <Electronically signed by Celestino Berrios MD> Date Celestino Berrios MD Cosigner Signature (If Indicated): Date CC: Araseli Badillo MD DISCHARGE INSTRUCTION Observed: 05/24/2018 Status: F Source: [place] 6:59 AM [facility] REPOSITORY [facility] Medical Records Department [address] [place] [address] Discharge Instruction 05/24/1840 MR#: [id number] Acct: [id number] Name: ANDRAE MUSA Rep #: [id number] : 1985 32 From: Celestino Berrios MD [...] your Primary Care Provider. Call [facility] ([phone]) or report to the closest Emergency Room. Call 911 if necessary. 05/24/18 0659 <Electronically signed by Celestino Berrios MD> Date Celestino Berrios MD Cosigner Signature (If Indicated): Date CC: Araseli Badillo MD CBC W/DIFF, AUTOMATED Collected: 05/24/2018 Status: F Source: [place] 5:45 AM [facility] REPOSITORY TYPE CODE TESTS RESULT OUT OF [...] Lymph 4.92 Performed By: #### L100.0100 #### [facility] [address] [place], [address] BASIC METABOLIC Collected: 05/24/2018 Status: F Source: [place] PROFILE ([facility]) 5:45 AM [facility] REPOSITORY TYPE CODE TESTS RESULT OUT OF [...] Performed By: #### L500.2500, L500.3400, L501.2450 #### [facility] [address] [facility] [place], [place], [address] LIVER PROFILE Collected: 05/24/2018 Status: F Source: [place] 5:45 AM [facility] REPOSITORY TYPE CODE TESTS RESULT OUT OF [...] Performed By: #### L500.2500, L500.3400, L501.2450 #### [facility] [address] [place], [address] LIPASE Collected: 05/24/2018 Status: F Source: [place] 5:45 AM [facility] REPOSITORY TYPE CODE TESTS RESULT OUT OF RANGE REFERENCE UNITS LAB L501.2450 73-393 U/L Normal LIPASE 145 Performed By: #### L500.2500, L500.3400, L501.2450 #### [facility] [address] [place], [address] ALLERGIES ALLERGIES DATE TYPE / CODE NAME / CODE REACTION SEVERITY SOURCE 11/08/2018 Drug promethazine Shortness of Unknown [place] Allergy/416 HCl/[id number](RXN breath Community 347864([facility] ED CT) Repository 11/08/2018 Drug sertraline/[id number] Other Unknown [place] Allergy/416 615(RXNORM) [facility] 822284([facility] ED CT) Repository 11/08/2018 Drug ondansetron/P54604 Unknown Unknown [place] Allergy/416 4807(RXNORM) [facility] 551861([facility] ED CT) Repository 07/22/2018 DRUG/893595 ONDANSETRON HCL OTHER: SEE C [facility] 003(SNOMED (PF) [facility] CT) Repository 06/18/2017 DRUG SERTRALINE HCL OTHER: SEE C [address] 106399(SNOM Repository ED CT) 07/07/2012 DRUG PROMETHAZINE SHORTNESS OF [address] 868826(SNOM Repository ED CT) ENCOUNTERS ENCOUNTERS ADMIT/DISCHARGE ACCOUNT ADMITTING ENCOUNTER LOCATION SOURCE NUMBER CLASS 12/03/2018/12/06/19 [id number] Ambulatory [address] Main [place] Repository 12/01/2018/12/02/19 [id number] Ambulatory [address] Repository 11/19/2018 [id number] Ambulatory [facility] ing:HPRAD Repository 11/19/2018/11/19/20 [id number] Ambulatory BMSBuilding:B [place] [address].[facility] Repository 11/08/2018 [id number] Ambulatory [facility] ing:HPRAD Repository 11/08/2018/11/08/20 [id number] Ambulatory BMSBuilding:B [place] 18 [place].[facility] Repository 10/21/2018/10/22/20 [id number] Ambulatory [address] Repository 10/20/2018/10/21/20 [id number] Ambulatory [address] Repository 10/19/2018 [id number] Ambulatory [facility] Hospital ing:HPRAD Repository 10/19/2018/10/19/20 [id number] Ambulatory BMSBuilding:B [place] 18 [address].[facility] Repository 10/13/2018/10/13/20 [id number] Ambulatory BMSBuilding:B [place] 18 MS.NOW [facility] Hospital Repository 10/06/2018 [id number] Ambulatory [facility] Hospital ing:MTRAD Repository 10/06/2018/10/06/20 [id number] Ambulatory BMSBuilding:B [place] 18 MS.NOW [facility] Hospital Repository 10/06/2018/10/06/20 [id number] Ambulatory BMSBuilding:B [place] 18 MS.[facility] Hospital Repository 10/01/2018/10/04/20 [id number] Ambulatory [address] Repository 09/24/2018/09/27/20 [id number] Ambulatory [address] Repository 09/15/2018/09/16/20 [id number] Ambulatory [address] Repository 09/06/2018/09/07/20 [id number] Ambulatory [address] Repository 08/23/2018/08/23/20 [id number] Ambulatory [address] Repository 08/06/2018/08/09/20 [id number] Ambulatory [address] Repository 07/23/2018/07/27/20 [id number] Ambulatory [address] Repository 07/22/2018/07/27/20 [id number] Ambulatory [address] Repository 07/19/2018/07/21/20 [id number] Ambulatory [address] Repository 07/19/2018/07/19/20 [id number] Ambulatory [address] Repository 07/12/2018/07/14/20 [id number] Ambulatory [address] Main [place] Repository 07/10/2018/07/10/20 [id number] Emergency [place] ing:ED Repository 07/07/2018/07/07/20 [id number] Ambulatory [address] Repository 07/06/2018/07/06/20 [id number] Ambulatory [address] Repository 07/06/2018/07/06/20 [id number] Ambulatory [address] Repository 07/06/2018/07/07/20 [id number] Ambulatory [address] Repository 07/02/2018 [id number] [facility] ing:[facility] Repository 07/02/2018/07/02/20 [id number] Ambulatory [address] Repository 07/02/2018/07/05/20 [id number] Ambulatory [address] Repository 06/30/2018/06/30/20 [id number] Emergency [place] ing:ED Repository 06/30/2018/07/01/20 [id number] Ambulatory [address] Repository 06/23/2018/06/23/20 [id number] Ambulatory [address] Repository 06/16/2018/06/18/20 [id number] Ambulatory [address] Repository 05/27/2018/05/31/20 [id number] Ambulatory [address] Repository 05/24/2018/05/24/20 [id number] Emergency [place] ing:ED Repository PAYERS PAYERS ENCOUNTER GUARANTOR PAYER SUBSCRIBER SOURCE 11/19/2018 ANDRAE [place] Primary ANDRAE Bhardwaj [id number] E Insurance:[facility] KENNEDYDOB: [facility] [place] [address]Utqllb [id number] [address]Xbg: Number: Repository [id number] (HP) Date:4953-96-10ZC [facility] [address]QS[place]QGP, [place] [address]UA: 11/19/2018 Secondary NOT GIVENUNK [place] Insurance:SELF PAY [facility] Number: Effective Repository Date:2018-11-19 11/19/2018 ANDRAE Woodard Primary ANDRAE [id number] Insurance:[facility] KENNEDYDOB: [facility] [address]Nzuifk [id number] Santa Fe Medical [facility] [address]Sro: Number: Repository [id number] (HP) Date:2782-48-85[address]ZNWRX[address], [place] [address]HN: 11/19/2018 Secondary NOT GIVENUNK [place] Insurance:SELF PAY [facility] Number: Effective Repository Date:2018-11-19 11/08/2018 ANDRAE Woodard Primary ANDRAE [id number] Insurance:OB KENNEDYDOB: [facility] [id number] [place] [address]Bfx: Number: Repository [id number] (HP) Date:1025-70-91[address]NJHLTPHR, [place] [address]WA: 11/08/2018 Secondary NOT GIVENUNK [place] Insurance:SELF PAY [facility] Number: Effective Repository Date:2018-11-08 11/08/2018 ANDRAE Woodard Primary ANDRAE [id number] Insurance:UNITED [facility] KENNEDYB: [facility] [id number] [id number] [place] [address]Pzk: Number: Repository [id number] (HP) Date:7318-92-11OG [address]UOHXGCG, [place] [address]UG: 11/08/2018 Secondary NOT GIVENUNK [place] Insurance:SELF PAY [facility] Number: Effective Repository Date:2018-10-19 10/19/2018 ANDRAE Wood[place] Primary ANDRAE [id number] Insurance:[facility] KENNEDYB: [facility] [id number] [id number] [place] [address]Rcb: Number: Repository [id number] (HP) Date:8971-05-66YQ [address]NDBKZSN, [place] [address]RM: 10/19/2018 Secondary NOT GIVENUNK [place] Insurance:SELF PAY [facility] Number: Effective Repository Date:2018-10-19 10/19/2018 ANDRAE [place] Primary ANDRAE [id number] Insurance:[facility] KENNEDYDOB: [facility] [address]Eoatik [id number] [place] [address]Wfl: Number: Repository [id number] (HP) Date:2353-40-26[address]QMTTHQU, [place] [address]RH: 10/19/2018 Secondary NOT GIVENUNK [place] Insurance:SELF PAY [facility] Number: Effective Repository Date:2018-10-12 10/13/2018 ANDRAE Woodard Primary ANDRAE [id number] [facility]: [facility] [id number] [id number] [place] [address]Xpt: Number: Repository [id number] (HP) Date:9178-80-55WX [address]XQGGPRN, [place] [address]PH: 10/13/2018 Secondary NOT GIVENUNK [place] Insurance:SELF PAY [facility] Number: Effective Repository Date:2018-10-13 10/06/2018 ANDRAE Woodard Primary ANDRAE [id number] Insurance:[facility]: [facility] [id number] [id number] [place] [address]Pgg: Number: Repository [id number] (HP) Date:9483-21-07[address]WGHWYUH, [place] [address]TM: 10/06/2018 Secondary NOT GIVENUNK [place] Insurance:SELF PAY [facility] Number: Effective Repository Date:2018-10-06 10/06/2018 ANDRAE Woodard Primary ANDRAE [id number] Insurance:UNITED TH KENNEDYDOB: [facility] [id number] [id number] Hospital [place] [address]Hjw: Number: Repository [id number] (HP) Date:4714-42-76[address]XJPPDAG, [place] [address]KY: 10/06/2018 Secondary NOT GIVENUNK [place] Insurance:SELF PAY [facility] Number: Effective Repository Date:2018-10-06 10/06/2018 ANDRAE Woodard Primary NOT GIVENUNK [place] [id number] Insurance:SELF PAY [facility] [place] [address]Rhq: Number: Effective Repository Date:2018-10-06 (HP) 07/10/2018 ANDRAE Woodard Primary ANDRAE [id number] Insurance:[facility] HEALTHB: [facility] [id number] [id number] [place] [address]Pyg: Number: Repository [id number] (HP) Date:5283-86-78[address]CGZQBZG, [place] [address]JY: 07/10/2018 Secondary NOT GIVENUNK [place] Insurance:SELF PAY [facility] Number: Effective Repository Date:2018-07-10 07/02/2018 ANDRAE Woodard Primary ANDRAE [id number] Insurance:[facility]ALTH[facility]: [facility] [id number] [id number] Hospital [place] [address]Zrg: Number: Repository [id number] (HP) Date:1042-43-64GR [address]VHFCEBG, [place] [address]MU: 07/02/2018 Secondary NOT GIVENUNK [place] Insurance:SELF PAY [facility] Number: Effective Repository Date:2018-07-02 06/30/2018 ANDRAE Woodard Primary ANDRAE [id number] Insurance:[facility] ARNOLB: [facility] [id number] [id number] [facility] [address]Mxz: Number: Repository [id number] (HP) Date:3541-01-47IM [facility] [address]44[address]APFVNGQ, [place] [address]XJ: 06/30/2018 Secondary NOT GIVENUNK [place] Insurance:SELF PAY [facility] Number: Effective Repository Date:2018-06-30 05/24/2018 ANDRAE Woodard Primary ANDRAE [id number] Insurance:[facility] LENCHOB: [facility] [id number] [id number] Santa Fe Medical Center [address]Sud: Number: Repository [id number] (HP) Date:0631-73-43ZR [facility] [address]576[address]PYZNSLU, [place] [address]IV: 05/24/2018 Secondary NOT GIVENUNK [place] Insurance:SELF PAY [facility] Number: Effective Repository Date:2018-05-24
== END ==
PROVIDERS: Family Provider Internal Medicine; PCP Internal Medicine; Referring Provider Physician Assistant; Visit Provider Physician Assistant
DX: S52.502A Unspecified fracture of the lower end of left radius, initial encounter for closed fracture (principal)
CPT/HCPCS: 73110

== ENCOUNTER → 2018-11-19 14:39 | Outpatient (CLI) | payer OTHER, SELFPAY ==
[2018-11-08 14:47] VITALS: BMI 41.8
--- NOTE | 2018-11-19 14:51 | RAD_ITS ---
STUDY: X-RAY - LEFT WRIST REASON FOR EXAM: Female, 33 years old. Removal of cast for distal radial fracture TECHNIQUE: 3 view(s) of the wrist were obtained. COMPARISON: Multiple prior comparison studies most recently from 11/08/2018 FINDINGS: The previously identified distal radial fracture is nearly inconspicuous. Transverse sclerosis is in region of previously identified fracture No significant displacement. Normal radiocarpal articulation. Normal distal radioulnar articulation. Normal carpal bones. Normal carpal articulations. Normal carpometacarpal articulation of the thumb. Normal second through fifth carpometacarpal articulations. Normal visualized metacarpal bones. The soft tissue structures are unremarkable. RAD/Wrist min 3 Views IMPRESSION: Near complete healing of distal radial fracture. Stable alignment. Electronically Signed: Emmanuel Sequeira MD at 18:54 EST , Service support ,
== END ==
PROVIDERS: Family Provider Internal Medicine; PCP Internal Medicine; Referring Provider Physician Assistant; Visit Provider Physician Assistant
DX: S52.502A Unspecified fracture of the lower end of left radius, initial encounter for closed fracture (principal)
CPT/HCPCS: 73110

== ENCOUNTER 2020-11-17 19:03 | Emergency (ER) | payer MEDICAID, SELFPAY ==
[2018-11-08 14:47] VITALS: BMI 41.8
[2020-11-17 19:03] VITALS: BP 190/95; PULSE 84; RESP 16; TEMP 36.3; O2SAT 100; BMI 45.6
--- NOTE | 2020-11-17 19:28 | ED.DCSUM_ITS ---
- ER Visit Summary Date of Service: 11/17/20 Chief Complaint: Dental pain History of Present Illness: The patient is a 35 F who presents with dental pain that has been getting worse over the past 3 days. Patient states it is gradually gotten worse. Patient states it has been constant. Patient describes the pain as stabbing. Patient states the pain is over the left upper molars. Patient states nothing makes it worse. Patient states ice packs seem to help. Patient also admits to hot and cold sensitivity. Patient denies any fevers or chills. Patient denies any facial or jaw swelling. Physical Examination: Vital signs are stable. Patient is afebrile. Patient is in no acute distress. There is a large dental carry noted over the left upper first molar. There is some mild gingival edema around this tooth. There is no discharge or drainage. There is no fluctuance or evidence of any abscess. Oropharynx is clear. Airway is patent. Neck is supple. Trachea is midline. There is no JVD or lymphadenopathy. There is no sublingual edema or evidence of Lucas's angina. Radial nerves II through XII are intact. There are no focal motor or sensory deficits. Emergency Department Course and Treatment: Patient was given a dose of Pen-Vee K here. Patient was given a prescription for Pen-Vee K. Patient was instructed to follow-up with her dentist. Patient was instructed to take Tylenol or ibuprofen as needed for pain. Patient understood and was agreeable with the plan. All questions were answered. Disposition: Discharge home Impression: Infected dental caries This note was generated with [employer] dictation software. It may contain incorrect words, spelling, and punctuation that were not noted in review of the chart prior to signing ED Disposition - Plan for ED Patient: Disposition: Home or Assisted Living Diagnosis: Infected dental caries Instructions: ED Dental Cavity Prescriptions: Penicillin V Potassium 500 mg PO 4X/DAY #40 tab Prescription Printed Referrals: Jackelyn Coffman MD [Primary Care Provider] - 5-7 Days Dentist,Your [STAFF PHYSICIAN] - 3-5 Days
[2020-11-17] MEDS: Penicillin Vk 250 MG Tablet 500 MG PO (19:47)
== END 2020-11-17 19:48 | disposition home or self-care (01) ==
PROVIDERS: Emergency Provider Emergency Medicine; PCP Internal Medicine
DX: K02.9 Dental caries, unspecified (principal); K04.7 Periapical abscess without sinus
CPT/HCPCS: 99283